=== PATIENT | female | born 1940 | race Two or more races ===

== ENCOUNTER 2020-02-24 13:23 | Inpatient (IN) | payer MEDICARE, SELFPAY ==
[2020-02-24 13:41] VITALS: BP 148/68; BP 149/58; PULSE 96; PULSE 98; RESP 24; TEMP 37.2; O2SAT 87; O2SAT 91; BMI 20.7
--- NOTE | 2020-02-24 13:41 | ECG_ITS ---
Test Reason : DYSPNEA Blood Pressure : / mmHG Vent. Rate : 093 BPM Atrial Rate : 093 BPM P-R Int : 124 ms QRS Dur : 082 ms QT Int : 346 ms P-R-T Axes : 036 017 045 degrees QTc Int : 430 ms Normal sinus rhythm Normal ECG No previous ECGs available Referred By: Stephenie Amato Electronically Signed By:Keaton Senior
--- NOTE | 2020-02-24 13:43 | ED_ITS ---
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 The patient tells me that her is currently COVID positive and admitted at [facility]. Yesterday she started to have malaise, fevers, chills. Today 1 episode of vomiting and 1 episode of diarrhea. Today also has shortness of breath and cough. Shortness of breath on exertion. She has no chest pain, leg swelling or pain. Blood sugars today running high. Per patient they are always elevated MD elicited complaint: shortness of breath and cough Onset (ago): day(s) Timing: intermittent Severity: mild Exacerbating factors: exertion, movement and coughing Relieving factors: oxygen and rest Associated symptoms: cough and nausea/vomiting Treatment prior to arrival: oxygen Related Data Allergies Allergy/AdvReac Type Severity Reaction Status Date / Time No Known Allergies Allergy Verified 02/24/20 13:41 [No Known Allergies*] Review of Systems Review of Systems: Yes all other systems are reviewed and are negative Constitutional: Constitutional: Reports no additional constitutional complaints, Denies body ache(s), Denies chills, Denies fever(s), Denies heada octavio(s), Reports malaise and Denies weakness Eyes: Eyes: Reports no additional eye complaints and Denies change in vision ENT: Reports system reviewed and no additional complaints, except as docume nted, Denies dizziness, Denies headache(s), Denies nasal congestion, Denies nasal discharge and Denies neck pain Cardiovascular: Cardiovascular: Reports no additional cardiovascular complaints, Denies chest pain, Denies leg edema and Reports dyspnea Respiratory: Respiratory: Reports no additional respiratory complaints, Reports cough and Reports dyspnea Gastrointestinal: Gastrointestinal: Reports no additional gastrointestinal complaints, Denies abdominal pain, Reports diarrhea, Reports nausea and Reports vomiting Genitourinary: Genitourinary: Reports no additional female genitourinary complaints and Denies urinary incontinence Musculoskeletal: Musculoskeletal: Reports no additional musculoskeletal complaints, Denies back pain, Denies arthralgias, Denies joint swelling, Denies neck pain, Denies numbness and Denies tingling Integumentary/Breasts: Skin/Breast: Reports system reviewed and no additional complaints, except as docu and Denies rash Neurologic: Reports system reviewed and no additional complaints, except as documented, Denies Abnormal speech present, Denies dizziness, Denies headache(s), Denies numbness, Denies tingling and Denies weakness PMFSH Past Medical History Attestation statement: The following information was validated with the patient. Source: old records reviewed and nursing notes reviewed Medical History (Updated 02/24/20 @ 16:36 by Stephenie Amato NP) Diabetes mellitus High cholesterol Hypertension Social History Social History Alcohol intake: never Smoking Status: Never smoker Use of substances other than those prescribed or required for medical reasons: No Advance Directives: No Advance Directives Information Provided: No Physical Exam Vital Signs: Vital Signs: Last Vital Signs Temp 99.5 F 02/24/20 15:57 Pulse 93 02/24/20 15:57 Resp 18 02/24/20 15:57 BP 142/66 H 02/24/20 15:57 Pulse Ox 97 02/24/20 15:57 Body Mass Index 20.7 Const: General: cooperative, healthy appearing, comfortable and no acute distress Orientation/consciousness: patient oriented x3 Limitations: no limitations HENMT: Head: Yes normal to inspection Ears: hearing grossly normal bilaterally General nose exam: Normal external nose present Face and sinus: Yes normal facial exam Mouth: Normal oral and palatal mucosa present Throat: Yes posterior oropharynx normal Eyes: General: appearance normal, both eyes and all related structures Pupils: Equal, round and reactive pupils present Neck: Neck: Yes normal visual inspection Chest: Chest palpation & inspection: normal inspection of the chest Resp: Other: Initial breath sounds. Mild tachypnea noted with speaking. Cardio: Rate: regular rate Rhythm: regular rhythm Peripheral pulses: Peripheral pulses 2+ throughout GI: Inspection: Yes normal to inspection Palpation (GI): Soft to palpation and nontender Auscultation: normal bowel sounds Back/Spine/Pelvis: Thoracic/Lumbar Spine: thoracic and lumbar spine normal to inspection Skin: General skin exam: no rashes or lesions noted Neuro: General: patient oriented x3, no focal motor deficits and normal sensation to monofilament Cranial nerves: Yes Equal, round and reactive pupils present Cognition (Neuro): normal cognition Speech: No Abnormal speech present Gait exam (Neuro): Normal gait present Motor exam (neuro): 5/5 motor strength present throughout Extrem: General: Yes normal to inspection, Yes no pedal edema and Yes no calf tenderness Course Course Course Narrative: 79-year-old female here with nausea vomiting, diarrhea, tactile temps, body aches, chills, shortness of breath, cough times 48 hours. Has been is COVID positive and currently admitted to this hospital. On arrival the patient has some mild tachypnea with respiratory rate 24 26 and is hypoxic 87% on room air. Will need labs including blood cultures and lactic acid, chest x-ray, EKG, COVID test. Will need admission 1430-CXR concerning for pneumonitis, At this time infection is suspected, antibiotics ordered. 1700-labs are pending. Sign out to [facility] pending labs and admission. MDM - SOB/Dyspnea Medical Records Attestation: I reviewed the patient's medical records. Lab Data Attestation: I reviewed the patient's lab results. Result diagrams: 02/24/20 14:06 02/24/20 16:30 Labs: Lab Results 02/24/20 02/24/20 02/24/20 Range/Units 13:58 14:06 14:06 WBC 11.1 H (4.8-10.8) X10*3/uL RBC 4.01 L (4.20-5.50) X10*6/uL Hgb 11.2 L (12.0-16.0) g/dl Hct 34.0 L (37-47) % MCV 84.8 (80-98) fL MCH 27.9 (27.0-33.0) pg MCHC 32.9 (31.0-35.0) g/dl RDW 12.3 (11.0-16.0) % Plt Count 368 (160-400) X10*3/uL MPV 10.0 (9.4-12.3) fL Immature Gran % (Auto) 0.5 H (0.0-0.4) % Neut % (Auto) 82.0 H (45-73) % Lymph % (Auto) 9.9 L (20-40) % [place] % (Auto) 7.1 (2-11) % Eos % (Auto) 0.1 (0-4) % Baso % (Auto) 0.4 (0-2) % Lymph # (Auto) 1.1 L (1.2-4.9) X10*3/uL [place] # (Auto) 0.8 (0.1-1.2) X10*3/uL Eos # (Auto) 0.0 (0.0-0.4) X10*3/uL Baso # (Auto) 0.0 (0.0-0.2) X10*3/uL Abs Immat Gran (auto) 0.06 H (0.00-0.03) X10*3/uL Absolute Neuts (auto) 9.1 H (2.0-8.3) X10*3/uL Absolute Nucleated RBC 0.000 (0.0-0.012) X10*3/uL Nucleated RBC % (auto) 0.0 (0.0-0.2) /100WBC PT 14.7 H (10.8-13.0) SEC INR 1.2 H (0.9-1.1) Sodium Potassium Chloride Carbon Dioxide Anion Gap BUN Creatinine Estim Creat Clear Calc Estimated GFR Random Glucose Lactic Acid (0.5-2.0) mmol/L Calcium Magnesium Ferritin Total Bilirubin Direct Bilirubin AST ALT Alkaline Phosphatase Lactate Dehydrogenase Troponin I High Sens (<3.5-17.0) ng/L C-Reactive Protein B-Natriuretic Peptide (<100) pg/mL Total Protein Albumin Procalcitonin COVID-19 ([facility]) Positive A (Negative) COVID-19 Clin Com See Note 02/24/20 02/24/20 02/24/20 Range/Units 14:06 14:06 14:06 WBC (4.8-10.8) X10*3/uL RBC (4.20-5.50) X10*6/uL Hgb (12.0-16.0) g/dl Hct (37-47) % MCV (80-98) fL MCH (27.0-33.0) pg MCHC (31.0-35.0) g/dl RDW (11.0-16.0) % Plt Count (160-400) X10*3/uL MPV (9.4-12.3) fL Immature Gran % (Auto) (0.0-0.4) % Neut % (Auto) (45-73) % Lymph % (Auto) (20-40) % [place] % (Auto) (2-11) % Eos % (Auto) (0-4) % Baso % (Auto) (0-2) % Lymph # (Auto) (1.2-4.9) X10*3/uL [place] # (Auto) (0.1-1.2) X10*3/uL Eos # (Auto) (0.0-0.4) X10*3/uL Baso # (Auto) (0.0-0.2) X10*3/uL Abs Immat Gran (auto) (0.00-0.03) X10*3/uL Absolute Neuts (auto) (2.0-8.3) X10*3/uL Absolute Nucleated RBC (0.0-0.012) X10*3/uL Nucleated RBC % (auto) (0.0-0.2) /100WBC PT (10.8-13.0) SEC INR (0.9-1.1) Sodium Cancelled Potassium Cancelled Chloride Cancelled Carbon Dioxide Cancelled Anion Gap Cancelled BUN Cancelled Creatinine Cancelled Estim Creat Clear Calc Cancelled Estimated GFR Cancelled Random Glucose Cancelled Lactic Acid 1.6 (0.5-2.0) mmol/L Calcium Cancelled Magnesium Cancelled Ferritin Cancelled Total Bilirubin Cancelled Direct Bilirubin Cancelled AST Cancelled ALT Cancelled Alkaline Phosphatase Cancelled Lactate Dehydrogenase Cancelled Troponin I High Sens 9.6 (<3.5-17.0) ng/L C-Reactive Protein Cancelled B-Natriuretic Peptide 49 (<100) pg/mL Total Protein Cancelled Albumin Cancelled Procalcitonin COVID-19 ([facility]) (Negative) COVID-19 Clin Com 02/24/20 02/24/20 Range/Units 14:06 16:30 WBC (4.8-10.8) X10*3/uL RBC (4.20-5.50) X10*6/uL Hgb (12.0-16.0) g/dl Hct (37-47) % MCV (80-98) fL MCH (27.0-33.0) pg MCHC (31.0-35.0) g/dl RDW (11.0-16.0) % Plt Count (160-400) X10*3/uL MPV (9.4-12.3) fL Immature Gran % (Auto) (0.0-0.4) % Neut % (Auto) (45-73) % Lymph % (Auto) (20-40) % [place] % (Auto) (2-11) % Eos % (Auto) (0-4) % Baso % (Auto) (0-2) % Lymph # (Auto) (1.2-4.9) X10*3/uL [place] # (Auto) (0.1-1.2) X10*3/uL Eos # (Auto) (0.0-0.4) X10*3/uL Baso # (Auto) (0.0-0.2) X10*3/uL Abs Immat Gran (auto) (0.00-0.03) X10*3/uL Absolute Neuts (auto) (2.0-8.3) X10*3/uL Absolute Nucleated RBC (0.0-0.012) X10*3/uL Nucleated RBC % (auto) (0.0-0.2) /100WBC PT (10.8-13.0) SEC INR (0.9-1.1) Sodium Potassium Chloride Carbon Dioxide Anion Gap BUN Creatinine Estim Creat Clear Calc Estimated GFR Random Glucose Lactic Acid (0.5-2.0) mmol/L Calcium Magnesium Ferritin Cancelled Total Bilirubin Direct Bilirubin AST ALT Alkaline Phosphatase Lactate Dehydrogenase Troponin I High Sens (<3.5-17.0) ng/L C-Reactive Protein B-Natriuretic Peptide (<100) pg/mL Total Protein Albumin Procalcitonin Cancelled COVID-19 ([facility]) (Negative) COVID-19 Clin Com Imaging Data Chest x-ray: Attestation: I personally reviewed and interpreted this imaging study as follows: Radiologist's impression: EXAMINATION: XR CHEST CLINICAL INFORMATION: SOB. COMPARISON: Chest 10/03/2018 TECHNIQUE: Frontal view of the chest was obtained. FINDINGS: The lungs are well-expanded with increased interstitial markings both lungs without consolidation or pleural effusion. The heart size and pulmonary vascularity is normal. There is moderate spondylosis dorsal spine. No lytic process. XR/XR chest 1V IMPRESSION: Bilateral increase interstitial markings suggestive of interstitial pneumonitis. No consolidation seen. ECG Data Attestation: I personally reviewed and interpreted this ECG as follows: ECG interpretation date: 02/24/20 ECG interpretation time: 15:37 Interpretation: Normal sinus rhythm, normal WI, normal QRS, normal QT Discharge Plan Discharge Clinical Impression: COVID-19, Hypoxia Pneumonia Qualifiers: Pneumonia type: due to unspecified organism Laterality: bilateral Patient Disposition: Admitted As Inpatient
[2020-02-24 14:07] VITALS: BP 147/66; PULSE 96; RESP 28; O2SAT 97
[2020-02-24 14:20] LABS: Basophils Percent Auto 0.4 % (0-2); Eosinophils Percent Auto 0.1 % (0-4); Hemoglobin 11.2 g/dl (12.0-16.0); Imm Gran Abs Auto 0.06 X10*3/uL (0.00-0.03); Imm Gran Pct Auto 0.5 % (0.0-0.4); Lymphocytes Absolute Auto 1.1 X10*3/uL (1.2-4.9); Lymphocytes Percent Auto 9.9 % (20-40); MANUAL DIFF FLAG NO; Mean Corpuscular HGB Conc 32.9 g/dl (31.0-35.0); Mean Corpuscular Hemoglobin 27.9 pg (27.0-33.0); Mean Corpuscular Volume 84.8 fL (80-98); Monocytes Absolute Auto 0.8 X10*3/uL (0.1-1.2); Monocytes Percent Auto 7.1 % (2-11); Neutrophils Absolute Auto 9.1 X10*3/uL (2.0-8.3); Platelet Count 368 X10*3/uL (160-400); Red Blood Count 4.01 X10*6/uL (4.20-5.50); Red Cell Distribution Width 12.3 % (11.0-16.0); White Blood Count 11.1 X10*3/uL (4.8-10.8)
[2020-02-24 14:28] LABS: INTERNATIONAL NORM RATIO 1.2 (0.9-1.1); Prothrombin Time 14.7 SEC (10.8-13.0)
[2020-02-24 14:46] LABS: Lactic Acid 1.6 mmol/L (0.5-2.0)
[2020-02-24 14:55] LABS: B Type Natriuretic Peptide 49 pg/mL (<100); Troponin-I High Sensitivity 9.6 ng/L (<3.5-17.0)
[2020-02-24 15:57] VITALS: BP 142/66; PULSE 93; RESP 18; TEMP 37.5; O2SAT 97
[2020-02-24] MEDS: dexAMETHasone sod phosphate 4 MG/ML VIAL 6 MG IVPUSH (16:00)
[2020-02-24] MEDS: cefTRIAXone sodium 1 GM in 0.9 % Sodium Chloride 50 ML IV (16:00)
[2020-02-24 16:10] LABS: COVID-19 Test Positive (Negative)
[2020-02-24] MEDS: Azithromycin 500 MG in 0.9 % Sodium Chloride 250 ML 125 MG IV (16:42)
[2020-02-24 17:07] LABS: Alanine Aminotransferase 37 U/L (0-31); Albumin Level 3.5 g/dL (3.5-5.0); Alkaline Phosphatase 177 U/L (39-117); Anion Gap 15 (12-20); Aspartate Amino Transferase 46 U/L (5-31); Bilirubin Direct 0.4 mg/dL (0.0-0.5); Bilirubin Total 0.5 mg/dL (0.0-1.0); Blood Urea Nitrogen 22 mg/dL (9-16); Calcium 8.7 mg/dL (8.4-10.2); Carbon Dioxide 30 mmol/L (22-29); Chloride 92 mmol/L (96-108); Creatinine Clr Calc Pharmacy 33.7; Estimated Glomerular Filt Rate 42; Glucose Random 315 mg/dL (60-115); Lactate Dehydrogenase 259 U/L (122-220); Potassium 4.4 mmol/l (3.3-5.1); Sodium 133 mmol/L (135-145); Total Protein 7.4 g/dL (6.5-8.0)
[2020-02-24 17:12] VITALS: BP 131/61; PULSE 88; RESP 28; TEMP 37.2; O2SAT 92
[2020-02-24 17:23] LABS: Procalcitonin 0.43 ng/mL
[2020-02-24 17:24] LABS: D Dimer 688 NG/ML
[2020-02-24 17:25] LABS: Ferritin 380 ng/mL (10-250)
--- NOTE | 2020-02-24 18:57 | CT_ITS ---
EXAMINATION: CT ANGIOGRAM OF THE CHEST WITH AND WITHOUT CONTRAST (CT PULMONARY ANGIOGRAM FOR PE) CLINICAL INFORMATION: Reason for Exam covid+, hypoxia, PE? COMPARISON: Chest x-ray 02/24/2020 TECHNIQUE: Prior to contrast administration, noncontrast localization images were obtained. Subsequently, multidetector volumetric imaging was performed from the thoracic inlet to below the diaphragms following the administration of 80 mL Omnipaque 350 intravenous contrast. No contrast reaction reported Sagittal, coronal, and MIP oblique sagittal reformatted images were obtained on the CT workstation, uploaded to PACS, and reviewed. This CT examination was performed using dose optimization techniques as appropriate, variously including the following: *Automated exposure control *Adjustment of mA and/or kV according to patient size (this includes techniques or standardized protocols for targeted exams where dose is matched to indication/reason for exam; i.e. extremities or head) *Use of iterative reconstruction technique Total exam dose-length product 203 mGy-cm FINDINGS: QUALITY OF STUDY/CONTRAST BOLUS: Satisfactory. PULMONARY ARTERIES: No central or segmental pulmonary emboli. THORACIC AORTA: No aneurysm or dissection. LUNG: Extensive multifocal areas of nodular consolidation and groundglass opacity with interlobular septal thickening are seen within the lungs bilaterally, greatest posteriorly and in the lower lobes, consistent with multifocal infection. PLEURA: No pleural effusion or pneumothorax. MEDIASTINUM: There is a borderline enlarged right hilar lymph node. Prominent subcarinal lymph node. Normal heart size. No pericardial effusion. No evidence of septal bowing or right heart strain. CHEST WALL/AXILLA: No axillary or internal mammary lymphadenopathy. OSSEOUS STRUCTURES: No acute or suspicious osseous abnormality. UPPER ABDOMEN: There is slight reflux of contrast into the inferior vena cava but not into the hepatic veins. Status post cholecystectomy. No adrenal mass. CT/CT angio chest PE protocol IMPRESSION: No pulmonary embolus seen. There is slight reflux of contrast into the inferior vena cava which may reflect elevated right heart pressures. Extensive multifocal areas of nodular consolidation and groundglass opacity with interlobular septal thickening are seen within the lungs bilaterally, greatest posteriorly and in the lower lobes, consistent with multifocal infection. The appearance is consistent with COVID pneumonitis. VTE: negative
[2020-02-24] MEDS: iohexoL 350 MG/ML 100 ML INFUS..BTL 65 ML IV (20:27)
[2020-02-24 21:13] VITALS: BP 120/60; PULSE 79; RESP 15; TEMP 36.6; O2SAT 96
--- NOTE | 2020-02-24 21:13 | PC.NURSE ---
unlabored at rest. nsr on monitor. awaiting admission. states she hasn't taken any meds in 2 days d/t illness.
--- NOTE | 2020-02-24 21:35 | P.HPHOSP_ITS ---
History of Present Illness Date of Service: 02/24/20 Chief Complaint: SOB, weakness This is a 79-year-old female with past medical history of diabetes, hypertension, hyperlipidemia who presents to the hospital with complaints of 2 days of shortness of breath, cough, fatigue, low appetite. Patient reports that she has had very low oral intake for the past 3 days. Her is currently in the hospital with COVID-19 pneumonia. Patient reports nausea, low-grade fever, chills, started having diarrhea about a day ago. On arrival to the ED patient was found to be 86% on room air. She is currently on 2 L of oxygen satting 96%. On arrival were significant for temperature of 98.9?, pulse rate of 98, respira tory rate of 24, blood pressure 149/58, satting 86% on room air Labs are significant for WBC count 11.1, hemoglobin of 11.2, hematocrit 34, PT of 14.7, INR of 1.2, sodium of 135, BUN of 22, creatinine of 1.25, AST of 46, ALT of 37, alk-phos of 177, LDH of 259, CRP of 36, COVID-[address] angio gram negative for PE, with extensive multifocal areas of nodular consolidation and ground-glass opacity with interlobular septal thickening consistent with COVID-19 pneumonitis Past medical history: Diabetes, hypertension, hyperlipidemia Past surgical history: Cholecystectomy Family history: Significant for cancer, asthma Social history: Comes from home, lives with her and son, denies tobacco alcohol or illicit drugs Review of Systems Review of Systems: Yes all other systems are reviewed and are negative Constitutional: Constitutional: Denies headache(s) and Denies weakness ENT: Denies dizziness and Denies headache(s) Musculoskeletal: Musculoskeletal: Denies numbness and Denies tingling Neurologic: Reports system reviewed and no additional complaints, except as documented, Denies Abnormal speech present, Denies dizziness, Denies headache(s), Denies numbness, Denies tingling and Denies weakness [facility] Medical History Diabetes mellitus High cholesterol Hypertension Social History Alcohol intake: never Smoking Status: Never smoker Use of substances other than those prescribed or required for medical reasons: No Advance Directives: No Advance Directives Information Provided: No Meds Allergies Allergy/AdvReac Type Severity Reaction Status Date / Time No Known Allergies Allergy Verified 02/24/20 13:41 [No Known Allergies*] Home Medications Medication Instructions Recorded Confirmed Type amlodipine 1 tab PO DAILY 02/24/20 02/24/20 History aspirin 1 tab PO DAILY 02/24/20 02/24/20 History atorvastatin 1 tab PO DAILY 02/24/20 02/24/20 History hydrochlorothiazide 1 tab PO DAILY 02/24/20 02/24/20 History irbesartan 1 tab PO DAILY 02/24/20 02/24/20 History metformin 1 tab PO BID 02/24/20 02/24/20 History Physical Exam Vital Signs and Narrative: Vital Signs: Last Vital Signs Temp 97.8 F 02/24/20 21:13 Pulse 79 02/24/20 21:13 Resp 15 02/24/20 21:13 BP 120/60 02/24/20 21:13 Pulse Ox 96 02/24/20 21:13 Body Mass Index 20.7 Const: General: cooperative, no acute distress, awake, ill appearing and tired appearing Orientation/consciousness: patient oriented x3 Eyes: General: appearance normal, both eyes and all related structures Resp: Effort & Inspection: able to speak in complete sentences Cardio: Rate: regular rate Rhythm: regular rhythm GI: Palpation (GI): Soft to palpation Auscultation: normal bowel sounds Skin: General skin exam: no rashes or lesions noted Neuro: General: patient oriented x3 Cognition (Neuro): normal cognition Speech: No Abnormal speech present Extrem: General: Yes normal to inspection and Yes no pedal edema Results Labs CBC and Chem 7: 02/24/20 14:06 02/24/20 16:30 Labs: Laboratory Results - last 24 hr 02/24/20 02/24/20 02/24/20 13:58 14:06 14:06 MCV 84.8 MCH 27.9 MCHC 32.9 RDW 12.3 Plt Count 368 MPV 10.0 Immature Gran % (Auto) 0.5 H Neut % (Auto) 82.0 H Lymph % (Auto) 9.9 L [place] % (Auto) 7.1 Eos % (Auto) 0.1 Baso % (Auto) 0.4 Lymph # (Auto) 1.1 L [place] # (Auto) 0.8 Eos # (Auto) 0.0 Baso # (Auto) 0.0 Abs Immat Gran (auto) 0.06 H Absolute Neuts (auto) 9.1 H Absolute Nucleated RBC 0.000 Nucleated RBC % (auto) 0.0 PT 14.7 H INR 1.2 H D-Dimer 688 Anion Gap Estim Creat Clear Calc Estimated GFR Random Glucose Lactic Acid Calcium Magnesium Ferritin Total Bilirubin Direct Bilirubin AST ALT Alkaline Phosphatase Lactate Dehydrogenase Troponin I High Sens C-Reactive Protein B-Natriuretic Peptide Total Protein Albumin Procalcitonin COVID-19 ([facility]) Positive A COVID-19 Clin Com See Note 02/24/20 02/24/20 02/24/20 14:06 14:06 14:06 MCV MCH MCHC RDW Plt Count MPV Immature Gran % (Auto) Neut % (Auto) Lymph % (Auto) [place] % (Auto) Eos % (Auto) Baso % (Auto) Lymph # (Auto) [place] # (Auto) Eos # (Auto) Baso # (Auto) Abs Immat Gran (auto) Absolute Neuts (auto) Absolute Nucleated RBC Nucleated RBC % (auto) PT INR D-Dimer Anion Gap Cancelled Estim Creat Clear Calc Cancelled Estimated GFR Cancelled Random Glucose Cancelled Lactic Acid 1.6 Calcium Cancelled Magnesium Cancelled Ferritin Cancelled Total Bilirubin Cancelled Direct Bilirubin Cancelled AST Cancelled ALT Cancelled Alkaline Phosphatase Cancelled Lactate Dehydrogenase Cancelled Troponin I High Sens 9.6 C-Reactive Protein Cancelled B-Natriuretic Peptide 49 Total Protein Cancelled Albumin Cancelled Procalcitonin COVID-19 ([facility]) COVID-Backyard 02/24/20 02/24/20 02/24/20 14:06 16:30 16:30 MCV MCH MCHC RDW Plt Count MPV Immature Gran % (Auto) Neut % (Auto) Lymph % (Auto) [place] % (Auto) Eos % (Auto) Baso % (Auto) Lymph # (Auto) [place] # (Auto) Eos # (Auto) Baso # (Auto) Abs Immat Gran (auto) Absolute Neuts (auto) Absolute Nucleated RBC Nucleated RBC % (auto) PT INR D-Dimer Anion Gap 15 Estim Creat Clear Calc 33.7 Estimated GFR 42 Random Glucose 315 H Lactic Acid Calcium 8.7 Magnesium Ferritin 380 H Cancelled Total Bilirubin 0.5 Direct Bilirubin 0.4 AST 46 H ALT 37 H Alkaline Phosphatase 177 H Lactate Dehydrogenase 259 H Troponin I High Sens C-Reactive Protein 36.80 H B-Natriuretic Peptide Total Protein 7.4 Albumin 3.5 Procalcitonin Cancelled COVID-19 ([facility]) COVID-19 Clin Com 02/24/20 16:30 MCV MCH MCHC RDW Plt Count MPV Immature Gran % (Auto) Neut % (Auto) Lymph % (Auto) [place] % (Auto) Eos % (Auto) Baso % (Auto) Lymph # (Auto) [place] # (Auto) Eos # (Auto) Baso # (Auto) Abs Immat Gran (auto) Absolute Neuts (auto) Absolute Nucleated RBC Nucleated RBC % (auto) PT INR D-Dimer Anion Gap Estim Creat Clear Calc Estimated GFR Random Glucose Lactic Acid Calcium Magnesium Ferritin Total Bilirubin Direct Bilirubin AST ALT Alkaline Phosphatase Lactate Dehydrogenase Troponin I High Sens C-Reactive Protein B-Natriuretic Peptide Total Protein Albumin Procalcitonin 0.43 COVID-19 ([facility]) COVID-19 Clin Com Imaging Radiologist's Impressions: Impressions Chest X-Ray 02/24/20 13:41 IMPRESSION: Bilateral increase interstitial markings suggestive of interstitial pneumonitis. No consolidation seen. Chest CTA 02/24/20 18:57 IMPRESSION: No pulmonary embolus seen. There is slight reflux of contrast into the inferior vena cava which may reflect elevated right heart pressures. Extensive multifocal areas of nodular consolidation and groundglass opacity with interlobular septal thickening are seen within the lungs bilaterally, greatest posteriorly and in the lower lobes, consistent with multifocal infection. The appearance is consistent with COVID pneumonitis. VTE: negative Assessment and Plan (1) Pneumonia due to COVID-19 virus: Status: Acute (2) Acute respiratory failure with hypoxia: Status: Acute (3) Transaminitis: Status: Acute 79-year-old female presents to the hospital with complaints of fatigue as well as shortness of breath found to have COVID-19 pneumonia. # acute hypoxic respiratory failure - secondary to COVID-19 pneumonia versus PE unlikely versus bacterial pneumonia - afebrile, has leukocytosis, CT imaging negative for PE but positive for multifocal pneumonia suggestive of COVID-19, COVID-19 PCR positive - hypoxic in the mid 80s on arrival Plan: - will start her on Decadron 6 mg daily - oxygen supplement as required - monitor respiratory status - follow cultures, Legionella and strep antigens # COVID-19 pneumonia - CT angiogram suggestive of multifocal infiltrates suggestive of COVID-19 Plan: - Decadron daily - oxygen as required - will monitor respiratory status # transaminitis - most likely secondary to COVID-19 - follow LFTs # diabetes - low-dose sliding scale insulin - diabetic diet # hypertension - continue amlodipine DVT prophylaxis: Lovenox
[2020-02-24] MEDS: 0.9 % Sodium Chloride Flush 3 ML SYRINGE IVFLUSH (23:23)
[2020-02-24] MEDS: Enoxaparin Sodium 40 MG/0.4 ML SYRINGE SUBCUT (23:23)
[2020-02-24 23:32] VITALS: BP 106/58; PULSE 74; RESP 22; O2SAT 98
[2020-02-25 03:50] VITALS: BP 117/54; PULSE 90; RESP 16; O2SAT 94
[2020-02-25 05:19] LABS: Basophils Percent Auto 0.2 % (0-2); Hematocrit 36.5 % (37-47); Hemoglobin 11.6 g/dl (12.0-16.0); Imm Gran Abs Auto 0.07 X10*3/uL (0.00-0.03); Imm Gran Pct Auto 0.9 % (0.0-0.4); Lymphocytes Absolute Auto 0.7 X10*3/uL (1.2-4.9); Lymphocytes Percent Auto 8.6 % (20-40); MANUAL DIFF FLAG SCAN; Mean Corpuscular HGB Conc 31.8 g/dl (31.0-35.0); Mean Corpuscular Hemoglobin 27.5 pg (27.0-33.0); Mean Corpuscular Volume 86.5 fL (80-98); Mean Platelet Volume 9.2 fL (9.4-12.3); Monocytes Absolute Auto 0.2 X10*3/uL (0.1-1.2); Monocytes Percent Auto 1.9 % (2-11); Neutrophils Absolute Auto 7.1 X10*3/uL (2.0-8.3); Neutrophils Percent Auto 88.4 % (45-73); Platelet Count 408 X10*3/uL (160-400); Red Blood Count 4.22 X10*6/uL (4.20-5.50); Red Cell Distribution Width 12.3 % (11.0-16.0); SCAN SMEAR FLAG 1; White Blood Count 8.1 X10*3/uL (4.8-10.8)
[2020-02-25 05:26] LABS: SLIDE REVIEW VERIFIED
[2020-02-25 05:47] LABS: Anion Gap 25 (12-20); Blood Urea Nitrogen 35 mg/dL (9-16); Calcium 8.7 mg/dL (8.4-10.2); Carbon Dioxide 20 mmol/L (22-29); Chloride 94 mmol/L (96-108); Creatinine Clr Calc Pharmacy 29.4; Estimated Glomerular Filt Rate 36; Glucose Random 440 mg/dL (60-115); Potassium 4.8 mmol/l (3.3-5.1); Sodium 134 mmol/L (135-145)
[2020-02-25] MEDS: Insulin Lispro 100 UNIT/ML 3 ML VIAL SUBCUT ×6 (06:00→22:03)
[2020-02-25] MEDS: Insulin Lispro 100 UNIT/ML 3 ML VIAL 10 UNIT SUBCUT ×3 (06:16→17:34)
[2020-02-25 09:19] LABS: Glucose, Whole Blood 325 mg/dL (60-115)
[2020-02-25] MEDS: 0.9 % Sodium Chloride Flush 3 ML SYRINGE IVFLUSH ×2 (09:48→17:34)
[2020-02-25] MEDS: dexAMETHasone sod phosphate 4 MG/ML VIAL 6 MG IVPUSH (09:48)
--- NOTE | 2020-02-25 10:22 | PC.NURSE ---
seen by hospitalist this morning, waiting on bed assignment pt amb oob to [facility] with no assist, sats have been 92% or greater on 3 l fio2
--- NOTE | 2020-02-25 11:10 | P.PNIM_ITS ---
Subjective Subjective Date of Service: 02/25/20 Interval History: improved Cardiovascular Cardiovascular: Reports no additional cardiovascular complaints Gastrointestinal Gastrointestinal: Reports no additional gastrointestinal complaints Physical Exam Vital Signs: Vital Signs: Last Vital Signs Temp 97.8 F 02/24/20 21:13 Pulse 90 02/25/20 03:50 Resp 16 02/25/20 03:50 BP 117/54 L 02/25/20 03:50 Pulse Ox 94 02/25/20 03:50 Body Mass Index 20.7 General: AO X 3, no acute distress Resp: CTA bilateral CVS: S1,S2,RRR GI: soft, non tender, non distended Neuro: motor grossly intact Psych: appropriate affect Objective Data Current Medications Generic Name Dose Route Start Last Admin Trade Name Freq PRN Reason Stop Dose Admin Acetaminophen 650 mg 02/24/20 22:33 Acetaminophen 325 Mg Tablet PO Q6H PRN Pain, Mild (Pain Scale 1-3) Dexamethasone Sodium Phosphate 6 mg 02/25/20 09:00 02/25/20 09:48 Dexamethasone Sod Phosphate 4 Mg/Ml Vial IVPUSH 6 mg DAILY [facility] Administration Docusate Sodium 100 mg 02/24/20 22:33 Docusate Sodium 100 Mg Capsule PO DAILY PRN Constipation Enoxaparin Sodium 40 mg 02/24/20 22:33 02/24/20 23:23 Enoxaparin Sodium 40 Mg/0.4 Ml Syringe SUBCUT 40 mg Q24H [facility] Administration Insulin Glargine 20 unit 02/25/20 11:10 Insulin Glargine,Hum.Rec.Anlog 100 Unit/Ml 10 Ml Vial SUBCUT DAILY [facility] Insulin Human Lispro 0 unit 02/25/20 07:30 02/25/20 06:00 Insulin Lispro 100 Unit/Ml 3 Ml Vial SUBCUT 10 unit QIDACHS [facility] Administration Protocol Ondansetron HCl 4 mg 02/24/20 22:33 Ondansetron Hcl 4 Mg/2 Ml Vial IVPUSH Q8H PRN Nausea and Vomiting Sodium Chloride 3 ml 02/25/20 00:00 02/25/20 09:48 0.9 % Sodium Chloride Flush 3 Ml Syringe IVFLUSH 3 ml QSHIFT [facility] Administration Labs CBC & Chem 7: 02/25/20 05:14 02/25/20 05:14 Microbiology Microbiology Results: Microbiology 02/24/20 16:30 Blood - Venous Blood Culture - Preliminary Assessment and Plan (1) Pneumonia due to COVID-19 virus: Status: Acute (2) Acute respiratory failure with hypoxia: Status: Acute (3) Transaminitis: Status: Acute Assessment and Plan: 79-year-old female presented to the hospital with complaints of fatigue as well as shortness of breath found to have COVID-19 pneumonia. acute hypoxic respiratory failure Due to cover pneumonia Continue Decadron day 2 Wean O2 as tolerated Diabetes with hyperglycemia Add long-acting insulin Continue sliding scale Hypertension Amlodipine
[2020-02-25 12:00] VITALS: BP 134/58; RESP 84; TEMP 36.8; O2SAT 98
[2020-02-25 12:11] LABS: Glucose, Whole Blood 427 mg/dL (60-115)
[2020-02-25] MEDS: Insulin Glargine,Hum.rec.anlog 100 UNIT/ML 10 ML VIAL 20 UNIT SUBCUT (14:30)
[2020-02-25 17:09] VITALS: BP 103/45; PULSE 95; RESP 16; O2SAT 96
[2020-02-25 17:24] LABS: Glucose, Whole Blood 551 mg/dL (60-115)
--- NOTE | 2020-02-25 17:39 | PC.NURSE ---
Pt's blood sugar elevated beyond 400 ac for lunch and dinner. Dr De La Torre notified, and orders provided. See MAR.
--- NOTE | 2020-02-25 19:54 | PC.NURSE ---
plan to begin on insulin drip after reassessment at 2020
[2020-02-25 20:11] LABS: Anion Gap 24 (12-20); Blood Urea Nitrogen 63 mg/dL (9-16); Calcium 9.4 mg/dL (8.4-10.2); Carbon Dioxide 25 mmol/L (22-29); Chloride 90 mmol/L (96-108); Creatinine Clr Calc Pharmacy 18.9; Estimated Glomerular Filt Rate 21; Glucose Random 499 mg/dL (60-115); Potassium 4.8 mmol/l (3.3-5.1); Sodium 134 mmol/L (135-145)
--- NOTE | 2020-02-25 20:34 | PC.NURSE ---
awaiting pediatric radiologist to begin insulin drip and place 2nd line.
--- NOTE | 2020-02-25 21:02 | PC.NURSE ---
BGL 368. hospitalist aware. plan at this time is to give 20 units insulin then recheck q hr for further needs. hold insulin drip at thsi time.
--- NOTE | 2020-02-25 21:57 | PC.NURSE ---
bgl 293- per hospitalist plan at this time. is to do q 2hr bgl checks and keep same scale.
[2020-02-25 22:00] VITALS: BP 122/54; PULSE 100; RESP 18
[2020-02-25] MEDS: Enoxaparin Sodium 40 MG/0.4 ML SYRINGE SUBCUT (22:04)
--- NOTE | 2020-02-25 22:52 | PC.NURSE ---
bgl 178. hold insulin dose per hospitalist.
--- NOTE | 2020-02-25 23:41 | PC.NURSE ---
Per hospitalist, patient to be switched to QIDAC for insulin mangment.
[2020-02-26] MEDS: 0.9 % Sodium Chloride Flush 3 ML SYRINGE IVFLUSH ×3 (00:36→17:55)
[2020-02-26 00:46] LABS: Glucose, Whole Blood 542 mg/dL (60-115)
[2020-02-26 00:47] LABS: Glucose, Whole Blood 293 mg/dL (60-115)
[2020-02-26 00:47] LABS: Glucose, Whole Blood 386 mg/dL (60-115)
[2020-02-26 00:47] LABS: Glucose, Whole Blood 178 mg/dL (60-115)
[2020-02-26 00:47] LABS: Glucose, Whole Blood 479 mg/dL (60-115)
[2020-02-26 06:00] VITALS: BP 133/63; PULSE 74; RESP 18
[2020-02-26 06:27] LABS: Basophils Percent Auto 0.2 % (0-2); Hematocrit 35.4 % (37-47); Hemoglobin 11.8 g/dl (12.0-16.0); Imm Gran Abs Auto 0.25 X10*3/uL (0.00-0.03); Lymphocytes Absolute Auto 1.2 X10*3/uL (1.2-4.9); Lymphocytes Percent Auto 4.8 % (20-40); MANUAL DIFF FLAG SCAN; Mean Corpuscular HGB Conc 33.3 g/dl (31.0-35.0); Mean Corpuscular Hemoglobin 27.9 pg (27.0-33.0); Mean Corpuscular Volume 83.7 fL (80-98); Mean Platelet Volume 9.4 fL (9.4-12.3); Monocytes Absolute Auto 1.2 X10*3/uL (0.1-1.2); Neutrophils Absolute Auto 22.1 X10*3/uL (2.0-8.3); Platelet Count 550 X10*3/uL (160-400); Red Blood Count 4.23 X10*6/uL (4.20-5.50); Red Cell Distribution Width 12.2 % (11.0-16.0); SCAN SMEAR FLAG 1; White Blood Count 24.8 X10*3/uL (4.8-10.8)
[2020-02-26 07:36] LABS: Anion Gap 21 (12-20); Blood Urea Nitrogen 73 mg/dL (9-16); Calcium 9.8 mg/dL (8.4-10.2); Carbon Dioxide 26 mmol/L (22-29); Chloride 93 mmol/L (96-108); Estimated Glomerular Filt Rate 27; Glucose Fasting 163 mg/dL (60-99); Potassium 5.1 mmol/l (3.3-5.1); Sodium 135 mmol/L (135-145)
[2020-02-26 07:57] VITALS: BP 125/81; PULSE 88; RESP 12; O2SAT 96
[2020-02-26 08:35] LABS: Glucose, Whole Blood 303 mg/dL (60-115)
[2020-02-26 09:12] LABS: SLIDE REVIEW VERIFIED
[2020-02-26] MEDS: Insulin Lispro 100 UNIT/ML 3 ML VIAL SUBCUT ×4 (09:17→22:12)
[2020-02-26] MEDS: Insulin Glargine,Hum.rec.anlog 100 UNIT/ML 10 ML VIAL 20 UNIT SUBCUT (09:19)
[2020-02-26] MEDS: dexAMETHasone sod phosphate 4 MG/ML VIAL 6 MG IVPUSH (09:19)
--- NOTE | 2020-02-26 09:22 | PC.NURSE ---
sr on monitor, poc 302, nad
[2020-02-26 12:58] LABS: Glucose, Whole Blood 302 mg/dL (60-115)
[2020-02-26 15:44] LABS: Glucose, Whole Blood 400 mg/dL (60-115)
[2020-02-26 16:07] VITALS: BP 147/74; PULSE 95; RESP 16; TEMP 36.6; O2SAT 97
--- NOTE | 2020-02-26 16:13 | P.PNIM_ITS ---
Subjective Subjective Date of Service: 02/26/20 Interval History: the patient was seen and evaluated this morning Laying in bed, feels comfortable, in mild respiratory distress Denies any fever, chills or shortness of breath No reported other overnight events. Systemic review: No fever, chills with generalized weakness No chest pain, palpitation Reported shortness of breath and coughing No abdominal pain, nausea or vomiting No urinary symptoms No any rash or wounds Physical Exam Vital Signs: Vital Signs: Last Vital Signs Temp 98.2 F 02/25/20 12:00 Pulse 88 02/26/20 07:57 Resp 12 02/26/20 07:57 BP 125/81 02/26/20 07:57 Pulse Ox 96 02/26/20 07:57 Body Mass Index 20.7 Constitutional : Alert, in mild specially distress Neck : Normal inspection, Supple Cardiovascular : RRR, S1 S2, no lower extremity edema Respiratory : Decreased bilateral air entry, basal fine crackles, wheezes or rhonchi Gastrointestinal: soft, lax, Normal bowel sounds, Non tender Skin : Warm/Dry, No rash Neurological : Alert & oriented x3, No focal deficit Objective Data Current Medications Generic Name Dose Route Start Last Admin Trade Name Freq PRN Reason Stop Dose Admin Acetaminophen 650 mg 02/24/20 22:33 Acetaminophen 325 Mg Tablet PO Q6H PRN Pain, Mild (Pain Scale 1-3) Amlodipine Besylate 10 mg 02/26/20 16:12 Amlodipine Besylate 10 Mg Tablet PO DAILY [facility] Protocol Aspirin 81 mg 02/26/20 16:12 Aspirin Enteric Coated 81 Mg Tablet.Dr PO DAILY [facility] Atorvastatin Calcium 20 mg 02/26/20 16:12 Atorvastatin Calcium 20 Mg Tablet PO DAILY [facility] Dexamethasone Sodium Phosphate 6 mg 02/25/20 09:00 02/26/20 09:19 Dexamethasone Sod Phosphate 4 Mg/Ml Vial IVPUSH 6 mg DAILY [facility] Administration Docusate Sodium 100 mg 02/24/20 22:33 Docusate Sodium 100 Mg Capsule PO DAILY PRN Constipation Enoxaparin Sodium 40 mg 02/24/20 22:33 02/25/20 22:04 Enoxaparin Sodium 40 Mg/0.4 Ml Syringe SUBCUT 40 mg Q24H [facility] Administration Hydrochlorothiazide 25 mg 02/26/20 16:12 Hydrochlorothiazide 25 Mg Tablet PO DAILY [facility] Protocol Lactated Ringer's 1,000 mls @ 80 mls/hr 02/26/20 16:12 Lr IVCONT .[id number] [facility] Insulin Glargine 24 unit 02/27/20 09:00 Insulin Glargine,Hum.Rec.Anlog 100 Unit/Ml 10 Ml Vial SUBCUT DAILY [facility] Insulin Human Lispro 0 unit 02/26/20 07:30 02/26/20 09:17 Insulin Lispro 100 Unit/Ml 3 Ml Vial SUBCUT 10 unit QIDACHS [facility] Administration Protocol Insulin Human Lispro 5 unit 02/26/20 16:11 Insulin Lispro 100 Unit/Ml 3 Ml Vial SUBCUT 02/26/20 16:12 ONCE ONE Non-Formulary Medication 1 tab 02/26/20 16:12 Irbesartan PO DAILY [facility] Ondansetron HCl 4 mg 02/24/20 22:33 Ondansetron Hcl 4 Mg/2 Ml Vial IVPUSH Q8H PRN Nausea and Vomiting Sodium Chloride 3 ml 02/25/20 00:00 02/26/20 09:20 0.9 % Sodium Chloride Flush 3 Ml Syringe IVFLUSH 3 ml QSHIFT [facility] Administration Labs CBC & Chem 7: 02/26/20 06:11 02/26/20 06:11 Microbiology Microbiology Results: Microbiology 02/24/20 16:30 Blood - Venous Blood Culture - Preliminary No growth after 24 hours. 02/24/20 14:06 Blood - Venous Blood Culture - Preliminary No growth after 24 hours. Assessment and Plan (1) Pneumonia due to COVID-19 virus: Status: Acute (2) Acute respiratory failure with hypoxia: Status: Acute (3) Transaminitis: Status: Acute Assessment and Plan: 79-year-old female presented to the hospital with complaints of fatigue as well as shortness of breath found to have COVID-19 pneumonia. acute hypoxic respiratory failure Due to cover pneumonia Continue Decadron day 3 Wean O2 as tolerated Acute kidney injury BUN increasing maybe secondary to steroid usage as well Creatinine improving slowly continue to monitor Avoid nephrotoxic medications valsartan and thiazide Diabetes with hyperglycemia Increase Lantus to 24 units a day, consider cutting down the blood sugar improves Continue sliding scale Hypertension Amlodipine DVT PPX Dexamethasone
[2020-02-26 18:25] VITALS: BP 142/73; PULSE 94
[2020-02-26] MEDS: amLODIPine Besylate 10 MG TABLET PO (18:25)
[2020-02-26] MEDS: Aspirin Enteric Coated 81 MG TABLET.DR PO (18:27)
[2020-02-26] MEDS: hydroCHLOROthiazide 25 MG TABLET PO (18:28)
[2020-02-26] MEDS: Lactated Ringers 1,000 ML 80 ML IVCONT (18:28)
[2020-02-26] MEDS: Atorvastatin Calcium 20 MG TABLET PO (18:28)
[2020-02-26 19:25] LABS: Glucose, Whole Blood 433 mg/dL (60-115)
[2020-02-26 20:00] VITALS: BP 147/75; PULSE 89; RESP 25; TEMP 35.8; O2SAT 96
[2020-02-26 21:02] LABS: Glucose, Whole Blood 368 mg/dL (60-115)
[2020-02-26] MEDS: Enoxaparin Sodium 40 MG/0.4 ML SYRINGE SUBCUT (22:11)
[2020-02-26 22:17] LABS: Glucose, Whole Blood 280 mg/dL (60-115)
[2020-02-27] VITALS (10 sets, daily range): BP systolic 104–155; BP diastolic 52–74; PULSE 65–98; RESP 16–23; TEMP 36–37.2; O2SAT 91–97
[2020-02-27] MEDS: 0.9 % Sodium Chloride Flush 3 ML SYRINGE IVFLUSH ×3 (00:47→20:52)
[2020-02-27] MEDS: Lactated Ringers 1,000 ML 80 ML IVCONT (05:00)
[2020-02-27 07:33] LABS: Alanine Aminotransferase 34 U/L (0-31); Albumin Level 2.9 g/dL (3.5-5.0); Alkaline Phosphatase 160 U/L (39-117); Aspartate Amino Transferase 44 U/L (5-31); Bilirubin Direct < 0.2 mg/dL (0.0-0.5); Bilirubin Total 0.2 mg/dL (0.0-1.0); Total Protein 6.9 g/dL (6.5-8.0)
[2020-02-27 07:33] LABS: Glucose, Whole Blood 136 mg/dL (60-115)
[2020-02-27] MEDS: Insulin Glargine,Hum.rec.anlog 100 UNIT/ML 10 ML VIAL 24 UNIT SUBCUT (07:56)
[2020-02-27] MEDS: dexAMETHasone sod phosphate 4 MG/ML VIAL 6 MG IVPUSH (07:57)
[2020-02-27] MEDS: Atorvastatin Calcium 20 MG TABLET PO (08:02)
[2020-02-27] MEDS: Aspirin Enteric Coated 81 MG TABLET.DR PO (08:02)
[2020-02-27] MEDS: amLODIPine Besylate 10 MG TABLET PO (08:03)
[2020-02-27] MEDS: hydroCHLOROthiazide 25 MG TABLET PO (08:03)
[2020-02-27] MEDS: Valsartan 160 MG TABLET PO (08:04)
[2020-02-27 08:46] LABS: Hemoglobin 11.9 g/dl (12.0-16.0); Mean Corpuscular HGB Conc 33.1 g/dl (31.0-35.0); Mean Corpuscular Hemoglobin 27.5 pg (27.0-33.0); Mean Corpuscular Volume 83.3 fL (80-98); Mean Platelet Volume 8.9 fL (9.4-12.3); Platelet Count 593 X10*3/uL (160-400); Red Blood Count 4.32 X10*6/uL (4.20-5.50); Red Cell Distribution Width 12.6 % (11.0-16.0); White Blood Count 17.7 X10*3/uL (4.8-10.8)
[2020-02-27 09:14] LABS: Blood Urea Nitrogen 70 mg/dL (9-16); Calcium 10.1 mg/dL (8.4-10.2); Creatinine Clr Calc Pharmacy 27.5; Estimated Glomerular Filt Rate 33; Glucose Random 164 mg/dL (60-115)
[2020-02-27 09:29] LABS: Anion Gap 18 (12-20); Carbon Dioxide 30 mmol/L (22-29); Chloride 96 mmol/L (96-108); Sodium 138 mmol/L (135-145)
--- NOTE | 2020-02-27 09:43 | MHC.CM.PN ---
pt lives c her and son in their home. pt reports being independent in her care. at this time she reports her is also hospitalizied c covid 19. pt son will be able to help her should she have any needs. this will include a ride home at dc. pt denies the need for vna at this time. dc plan is to return home c her son s any svcs. cm to cont. to follow.
[2020-02-27] MEDS: Insulin Lispro 100 UNIT/ML 3 ML VIAL SUBCUT ×3 (11:27→21:41)
[2020-02-27] MEDS: Sodium Polystyrene Sulfon/Sorb 15 GM/60 ML ORAL.SUSP 30 GM PO (11:27)
[2020-02-27 11:39] LABS: Glucose, Whole Blood 386 mg/dL (60-115)
[2020-02-27 11:39] LABS: Glucose, Whole Blood 393 mg/dL (60-115)
--- NOTE | 2020-02-27 13:02 | P.PNIM_ITS ---
Subjective Subjective Date of Service: 02/27/20 Interval History: the patient was seen and evaluated this morning Laying in bed, feels comfortable, in mild respiratory distress Denies any fever, chills or shortness of breath No reported other overnight events. Systemic review: No fever, chills with generalized weakness No chest pain, palpitation Reported shortness of breath and coughing No abdominal pain, nausea or vomiting No urinary symptoms No any rash or wounds Physical Exam Vital Signs: Vital Signs: Last Vital Signs Temp 97.3 F 02/27/20 12:00 Pulse 94 02/27/20 12:00 Resp 19 02/27/20 12:00 BP 128/60 02/27/20 12:00 Pulse Ox 91 L 02/27/20 12:00 Body Mass Index 20.7 Constitutional : Alert, oriented, not in distress Neck : Normal inspection, Supple Cardiovascular : RRR, S1 S2, no lower extremity edema Respiratory : Moving chest wall bilaterally, on nasal cannula, not in respiratory distress Gastrointestinal: soft, lax, Normal bowel sounds, Non tender Skin : Warm/Dry, No rash Neurological : Alert & oriented x3, No focal deficit Objective Data Current Medications Generic Name Dose Route Start Last Admin Trade Name Freq PRN Reason Stop Dose Admin Acetaminophen 650 mg 02/24/20 22:33 Acetaminophen 325 Mg Tablet PO Q6H PRN Pain, Mild (Pain Scale 1-3) Amlodipine Besylate 10 mg 02/26/20 16:12 02/27/20 08:03 Amlodipine Besylate 10 Mg Tablet PO 10 mg DAILY [facility] Administration Protocol Aspirin 81 mg 02/26/20 16:12 02/27/20 08:02 Aspirin Enteric Coated 81 Mg Tablet. PO 81 mg DAILY [facility] Administration Atorvastatin Calcium 20 mg 02/26/20 16:12 02/27/20 08:02 Atorvastatin Calcium 20 Mg Tablet PO 20 mg DAILY [facility] Administration Dexamethasone Sodium Phosphate 6 mg 02/25/20 09:00 02/27/20 07:57 Dexamethasone Sod Phosphate 4 Mg/Ml Vial IVPUSH 6 mg DAILY [facility] Administration Docusate Sodium 100 mg 02/24/20 22:33 Docusate Sodium 100 Mg Capsule PO DAILY PRN Constipation Enoxaparin Sodium 40 mg 02/24/20 22:33 02/26/20 22:11 Enoxaparin Sodium 40 Mg/0.4 Ml Syringe SUBCUT 40 mg Q24H [facility] Administration Hydrochlorothiazide 25 mg 02/26/20 16:12 02/27/20 08:03 Hydrochlorothiazide 25 Mg Tablet PO 25 mg DAILY [facility] Administration Protocol Lactated Ringer's 1,000 mls @ 80 mls/hr 02/26/20 16:12 02/27/20 05:00 Lr IVCONT 80 mls/hr .[id number] [facility] Administration Insulin Glargine 24 unit 02/27/20 09:00 02/27/20 07:56 Insulin Glargine,Hum.Rec.Anlog 100 Unit/Ml 10 Ml Vial SUBCUT 24 unit DAILY [facility] Administration Insulin Human Lispro 0 unit 02/26/20 07:30 02/27/20 11:27 Insulin Lispro 100 Unit/Ml 3 Ml Vial SUBCUT 10 unit QIDACHS [facility] Administration Protocol Ondansetron HCl 4 mg 02/24/20 22:33 Ondansetron Hcl 4 Mg/2 Ml Vial IVPUSH Q8H PRN Nausea and Vomiting Sodium Chloride 3 ml 02/25/20 00:00 02/27/20 08:04 0.9 % Sodium Chloride Flush 3 Ml Syringe IVFLUSH 3 ml QSHIFT [facility] Administration Valsartan 160 mg 02/26/20 16:15 02/27/20 08:04 Valsartan 160 Mg Tablet PO 160 mg DAILY [facility] Administration Labs CBC & Chem 7: 02/27/20 08:34 02/27/20 08:34 Microbiology Microbiology Results: Microbiology 02/24/20 16:30 Blood - Venous Blood Culture - Preliminary No growth after 48 hours. 02/24/20 14:06 Blood - Venous Blood Culture - Preliminary No growth after 48 hours. Assessment and Plan (1) Pneumonia due to COVID-19 virus: Status: Acute (2) Acute respiratory failure with hypoxia: Status: Acute (3) Transaminitis: Status: Acute Assessment and Plan: 79-year-old female presented to the hospital with complaints of fatigue as well as shortness of breath found to have COVID-19 pneumonia. acute hypoxic respiratory failure Due to cover pneumonia Continue Decadron day 4 Wean O2 as tolerated Acute kidney injury BUN increasing maybe secondary to steroid usage as well Creatinine improving to 1.5 today continue to monitor Avoid nephrotoxic medications valsartan and thiazide Hyperkalemia Potassium of 6 Likely secondary to [place] I To give Kayexalate and repeat BMP Diabetes with hyperglycemia Increase Lantus to 24 units a day, consider cutting down the blood sugar improves Continue sliding scale Hypertension Amlodipine DVT PPX Dexamethasone
[2020-02-27 15:01] LABS: Potassium 4.9 mmol/l (3.3-5.1)
[2020-02-27 16:35] LABS: Glucose, Whole Blood 382 mg/dL (60-115)
[2020-02-27] MEDS: 0.9 % Sodium Chloride 1,000 ML 75 ML IVCONT (17:31)
[2020-02-27] MEDS: Enoxaparin Sodium 40 MG/0.4 ML SYRINGE SUBCUT (20:51)
[2020-02-27 21:04] LABS: Glucose, Whole Blood 308 mg/dL (60-115)
[2020-02-28 04:00] VITALS: BP 144/67; PULSE 77; RESP 20; TEMP 36.4; O2SAT 95
[2020-02-28] MEDS: 0.9 % Sodium Chloride 1,000 ML 75 ML IVCONT ×2 (05:39→19:17)
[2020-02-28 07:40] LABS: Glucose, Whole Blood 103 mg/dL (60-115)
[2020-02-28 07:53] VITALS: PULSE 68; RESP 16; TEMP 36.4; O2SAT 100
[2020-02-28] MEDS: Insulin Glargine,Hum.rec.anlog 100 UNIT/ML 10 ML VIAL 24 UNIT SUBCUT (08:58)
[2020-02-28] MEDS: dexAMETHasone sod phosphate 4 MG/ML VIAL 6 MG IVPUSH (08:58)
[2020-02-28] MEDS: Aspirin Enteric Coated 81 MG TABLET.DR PO (08:59)
[2020-02-28] MEDS: 0.9 % Sodium Chloride Flush 3 ML SYRINGE IVFLUSH ×2 (08:59→17:35)
[2020-02-28] MEDS: amLODIPine Besylate 10 MG TABLET PO (08:59)
[2020-02-28] MEDS: Atorvastatin Calcium 20 MG TABLET PO (08:59)
[2020-02-28 11:21] LABS: Glucose, Whole Blood 226 mg/dL (60-115)
[2020-02-28 11:31] VITALS: BP 122/55; PULSE 83; RESP 18; TEMP 36.1; O2SAT 92
--- NOTE | 2020-02-28 12:10 | P.PNIM_ITS ---
Subjective Subjective Date of Service: 02/28/20 Interval History: the patient was seen and evaluated this morning Laying in bed, feels comfortable, in mild respiratory distress No reported fever, chills or shortness of breath No reported other overnight events. Systemic review: No fever, chills with generalized weakness No chest pain, palpitation Reported shortness of breath and coughing No abdominal pain, nausea or vomiting No urinary symptoms No any rash or wounds Physical Exam Vital Signs: Vital Signs: Last Vital Signs Temp 96.9 F 02/28/20 11:31 Pulse 83 02/28/20 11:31 Resp 18 02/28/20 11:31 BP 122/55 L 02/28/20 11:31 Pulse Ox 92 02/28/20 11:31 Body Mass Index 20.7 Constitutional : Alert, oriented, not in distress Neck : Normal inspection, Supple Cardiovascular : RRR, S1 S2, no lower extremity edema Respiratory : Moving chest wall bilaterally, on nasal cannula, not in respiratory distress Gastrointestinal: soft, lax, Normal bowel sounds, Non tender Skin : Warm/Dry, No rash Neurological : Alert & oriented x3, No focal deficit Objective Data Current Medications Generic Name Dose Route Start Last Admin Trade Name Freq PRN Reason Stop Dose Admin Acetaminophen 650 mg 02/24/20 22:33 Acetaminophen 325 Mg Tablet PO Q6H PRN Pain, Mild (Pain Scale 1-3) Amlodipine Besylate 10 mg 02/26/20 16:12 02/28/20 08:59 Amlodipine Besylate 10 Mg Tablet PO 10 mg DAILY [facility] Administration Protocol Aspirin 81 mg 02/26/20 16:12 02/28/20 08:59 Aspirin Enteric Coated 81 Mg Tablet. PO 81 mg DAILY [facility] Administration Atorvastatin Calcium 20 mg 02/26/20 16:12 02/28/20 08:59 Atorvastatin Calcium 20 Mg Tablet PO 20 mg DAILY [facility] Administration Dexamethasone Sodium Phosphate 6 mg 02/25/20 09:00 02/28/20 08:58 Dexamethasone Sod Phosphate 4 Mg/Ml Vial IVPUSH 6 mg DAILY [facility] Administration Docusate Sodium 100 mg 02/24/20 22:33 Docusate Sodium 100 Mg Capsule PO DAILY PRN Constipation Enoxaparin Sodium 40 mg 02/24/20 22:33 02/27/20 20:51 Enoxaparin Sodium 40 Mg/0.4 Ml Syringe SUBCUT 40 mg Q24H [facility] Administration Hydrochlorothiazide 25 mg 02/26/20 16:12 02/27/20 08:03 Hydrochlorothiazide 25 Mg Tablet PO 25 mg DAILY [facility] Administration Protocol Sodium Chloride 1,000 mls @ 75 mls/hr 02/27/20 17:15 02/28/20 05:39 Ns IVCONT 75 mls/hr .[id number] [facility] Administration Insulin Glargine 24 unit 02/27/20 09:00 02/28/20 08:58 Insulin Glargine,Hum.Rec.Anlog 100 Unit/Ml 10 Ml Vial SUBCUT 24 unit DAILY [facility] Administration Insulin Human Lispro 0 unit 02/26/20 07:30 02/28/20 08:59 Insulin Lispro 100 Unit/Ml 3 Ml Vial SUBCUT Not Given QIDACHS [facility] Protocol Ondansetron HCl 4 mg 02/24/20 22:33 Ondansetron Hcl 4 Mg/2 Ml Vial IVPUSH Q8H PRN Nausea and Vomiting Sodium Chloride 3 ml 02/25/20 00:00 02/28/20 08:59 0.9 % Sodium Chloride Flush 3 Ml Syringe IVFLUSH 3 ml QSHIFT [facility] Administration Labs CBC & Chem 7: 02/27/20 08:34 02/27/20 14:19 Microbiology Microbiology Results: Microbiology 02/24/20 16:30 Blood - Venous Blood Culture - Preliminary No growth after 48 hours. 02/24/20 14:06 Blood - Venous Blood Culture - Preliminary No growth after 48 hours. Assessment and Plan (1) Pneumonia due to COVID-19 virus: Status: Acute (2) Acute respiratory failure with hypoxia: Status: Acute (3) Transaminitis: Status: Acute Assessment and Plan: 79-year-old female presented to the hospital with complaints of fatigue as well as shortness of breath found to have COVID-19 pneumonia. acute hypoxic respiratory failure Due to cover pneumonia Continue Decadron day 5 Wean O2 as tolerated Acute kidney injury BUN increasing maybe secondary to steroid usage as well Creatinine improving to 1.5 continue to monitor Avoid nephrotoxic medications valsartan and thiazide Hyperkalemia Potassium of 4.9 Likely secondary to [place] I To give Kayexalate and repeat BMP Diabetes with hyperglycemia Better controlled today Increase Lantus to 24 units a day, consider cutting down when the blood sugar improves Continue sliding scale Hypertension Amlodipine DVT PPX Lovenox
[2020-02-28] MEDS: Insulin Lispro 100 UNIT/ML 3 ML VIAL SUBCUT ×4 (13:23→21:02)
[2020-02-28 15:13] VITALS: BP 106/50; PULSE 77; RESP 18; TEMP 36.6; O2SAT 94
[2020-02-28 16:21] LABS: Glucose, Whole Blood 223 mg/dL (60-115)
[2020-02-28 19:18] VITALS: BP 112/48; PULSE 78; RESP 21; TEMP 36.6; O2SAT 96
[2020-02-28 20:14] LABS: Glucose, Whole Blood 390 mg/dL (60-115)
[2020-02-28] MEDS: Enoxaparin Sodium 40 MG/0.4 ML SYRINGE SUBCUT (21:41)
[2020-02-28 23:12] VITALS: BP 114/58; PULSE 73; RESP 17; TEMP 36.6; O2SAT 96
[2020-02-29] VITALS (7 sets, daily range): BP systolic 113–132; BP diastolic 43–68; PULSE 72–88; RESP 14–20; TEMP 36.2–36.7; O2SAT 93–98
[2020-02-29] MEDS: 0.9 % Sodium Chloride Flush 3 ML SYRINGE IVFLUSH (00:02)
[2020-02-29 07:15] LABS: Hematocrit 34.7 % (37-47); Hemoglobin 11.3 g/dl (12.0-16.0); Mean Corpuscular HGB Conc 32.6 g/dl (31.0-35.0); Mean Corpuscular Hemoglobin 27.8 pg (27.0-33.0); Mean Corpuscular Volume 85.5 fL (80-98); Mean Platelet Volume 8.9 fL (9.4-12.3); Platelet Count 540 X10*3/uL (160-400); Red Blood Count 4.06 X10*6/uL (4.20-5.50); Red Cell Distribution Width 12.6 % (11.0-16.0); White Blood Count 13.6 X10*3/uL (4.8-10.8)
[2020-02-29 07:29] LABS: Glucose, Whole Blood 71 mg/dL (60-115)
[2020-02-29 07:56] LABS: Anion Gap 12 (12-20); Blood Urea Nitrogen 53 mg/dL (9-16); Carbon Dioxide 31 mmol/L (22-29); Chloride 104 mmol/L (96-108); Creatinine Clr Calc Pharmacy 39.3; Estimated Glomerular Filt Rate 50; Glucose Random 69 mg/dL (60-115); Potassium 3.8 mmol/l (3.3-5.1); Sodium 143 mmol/L (135-145)
[2020-02-29 08:02] LABS: Calcium 8.5 mg/dL (8.4-10.2)
[2020-02-29] MEDS: Atorvastatin Calcium 20 MG TABLET PO (09:00)
[2020-02-29] MEDS: Aspirin Enteric Coated 81 MG TABLET.DR PO (09:00)
[2020-02-29] MEDS: amLODIPine Besylate 10 MG TABLET PO (09:00)
[2020-02-29 10:43] LABS: Glucose, Whole Blood 229 mg/dL (60-115)
[2020-02-29] MEDS: dexAMETHasone sod phosphate 4 MG/ML VIAL 6 MG IVPUSH (10:46)
[2020-02-29] MEDS: Insulin Glargine,Hum.rec.anlog 100 UNIT/ML 10 ML VIAL 24 UNIT SUBCUT (10:47)
[2020-02-29] MEDS: 0.9 % Sodium Chloride 1,000 ML 75 ML IVCONT (10:47)
--- NOTE | 2020-02-29 12:42 | MHC.CM.PN ---
Pt remains in the [facility] unit with COVID: Improving: goals of continued care are to wean off of O2 prior to d/c to home. Pt is now at 3 liters. D/C plan remains for pt to return to home - services are not anticipated but can be added if MD feels pt requires skilled home care
[2020-02-29] MEDS: Insulin Lispro 100 UNIT/ML 3 ML VIAL SUBCUT ×3 (13:13→20:32)
--- NOTE | 2020-02-29 14:39 | P.PNIM_ITS ---
Subjective Subjective Date of Service: 02/29/20 Interval History: the patient was seen and evaluated this morning Laying in bed, feels comfortable, in mild respiratory distress No reported fever, chills or shortness of breath No reported other overnight events. Systemic review: No fever, chills with generalized weakness No chest pain, palpitation Reported shortness of breath and coughing No abdominal pain, nausea or vomiting No urinary symptoms No any rash or wounds Physical Exam Vital Signs: Vital Signs: Last Vital Signs Temp 97.7 F 02/29/20 11:43 Pulse 80 02/29/20 11:43 Resp 14 02/29/20 11:43 BP 129/61 02/29/20 11:43 Pulse Ox 97 02/29/20 11:43 Body Mass Index 20.7 Constitutional : Alert, oriented, not in distress Neck : Normal inspection, Supple Cardiovascular : RRR, S1 S2, no lower extremity edema Respiratory : Chest wall moved bilaterally, not in respiratory distress Gastrointestinal: soft, lax, Normal bowel sounds, Non tender Skin : Warm/Dry, No rash Neurological : Alert & oriented x3, No focal deficit Objective Data Current Medications Generic Name Dose Route Start Last Admin Trade Name Freq PRN Reason Stop Dose Admin Acetaminophen 650 mg 02/24/20 22:33 Acetaminophen 325 Mg Tablet PO Q6H PRN Pain, Mild (Pain Scale 1-3) Amlodipine Besylate 10 mg 02/26/20 16:12 02/29/20 09:00 Amlodipine Besylate 10 Mg Tablet PO 10 mg DAILY [facility] Administration Protocol Aspirin 81 mg 02/26/20 16:12 02/29/20 09:00 Aspirin Enteric Coated 81 Mg Tablet.Dr PO 81 mg DAILY [facility] Administration Atorvastatin Calcium 20 mg 02/26/20 16:12 02/29/20 09:00 Atorvastatin Calcium 20 Mg Tablet PO 20 mg DAILY [facility] Administration Dexamethasone Sodium Phosphate 6 mg 02/25/20 09:00 02/29/20 10:46 Dexamethasone Sod Phosphate 4 Mg/Ml Vial IVPUSH 6 mg DAILY [facility] Administration Docusate Sodium 100 mg 02/24/20 22:33 Docusate Sodium 100 Mg Capsule PO DAILY PRN Constipation Enoxaparin Sodium 40 mg 02/24/20 22:33 02/28/20 21:41 Enoxaparin Sodium 40 Mg/0.4 Ml Syringe SUBCUT 40 mg Q24H [facility] Administration Hydrochlorothiazide 25 mg 02/26/20 16:12 02/27/20 08:03 Hydrochlorothiazide 25 Mg Tablet PO 25 mg DAILY [facility] Administration Protocol Sodium Chloride 1,000 mls @ 75 mls/hr 02/27/20 17:15 02/29/20 10:47 Ns IVCONT 75 mls/hr .[id number] [facility] Administration Insulin Glargine 24 unit 02/27/20 09:00 02/29/20 10:47 Insulin Glargine,Hum.Rec.Anlog 100 Unit/Ml 10 Ml Vial SUBCUT 24 unit DAILY [facility] Administration Insulin Human Lispro 0 unit 02/26/20 07:30 02/29/20 13:13 Insulin Lispro 100 Unit/Ml 3 Ml Vial SUBCUT 6 unit QIDACHS [facility] Administration Protocol Ondansetron HCl 4 mg 02/24/20 22:33 Ondansetron Hcl 4 Mg/2 Ml Vial IVPUSH Q8H PRN Nausea and Vomiting Sodium Chloride 3 ml 02/25/20 00:00 02/29/20 07:25 0.9 % Sodium Chloride Flush 3 Ml Syringe IVFLUSH Not Given QSHIFT [facility] Labs CBC & Chem 7: 02/29/20 06:43 02/29/20 06:43 Microbiology Microbiology Results: Microbiology 02/24/20 16:30 Blood - Venous Blood Culture - Preliminary No growth after 48 hours. 02/24/20 14:06 Blood - Venous Blood Culture - Preliminary No growth after 48 hours. Assessment and Plan (1) Pneumonia due to COVID-19 virus: Status: Acute (2) Acute respiratory failure with hypoxia: Status: Acute (3) Transaminitis: Status: Acute Assessment and Plan: 79-year-old female presented to the hospital with complaints of fatigue as well as shortness of breath found to have COVID-19 pneumonia. acute hypoxic respiratory failure Due to covid 19 pneumonia Continue Decadron day 6 Wean O2 as tolerated Acute kidney injury BUN improved Creatinine improving to 1.07 continue to monitor Avoid nephrotoxic medications valsartan and thiazide Hyperkalemia Potassium of 4.9 Likely secondary to [place] I To give Kayexalate and repeat BMP Diabetes with hyperglycemia Better controlled today Lantus to 24 units a day, consider cutting down when the blood sugar improves Continue sliding scale Hypertension Amlodipine DVT PPX Lovenox
[2020-02-29 16:45] LABS: Glucose, Whole Blood 380 mg/dL (60-115)
[2020-02-29 20:22] LABS: Glucose, Whole Blood 399 mg/dL (60-115)
[2020-02-29] MEDS: Enoxaparin Sodium 40 MG/0.4 ML SYRINGE SUBCUT (20:31)
[2020-03-01] VITALS (8 sets, daily range): BP systolic 127–147; BP diastolic 49–79; PULSE 77–85; RESP 12–21; TEMP 36.3–37.1; O2SAT 92–99
[2020-03-01] MEDS: 0.9 % Sodium Chloride Flush 3 ML SYRINGE IVFLUSH ×4 (00:01→20:23)
[2020-03-01 07:42] LABS: Glucose, Whole Blood 100 mg/dL (60-115)
[2020-03-01] MEDS: Atorvastatin Calcium 20 MG TABLET PO (08:38)
[2020-03-01] MEDS: dexAMETHasone sod phosphate 4 MG/ML VIAL 6 MG IVPUSH (08:38)
[2020-03-01] MEDS: Aspirin Enteric Coated 81 MG TABLET.DR PO (08:38)
[2020-03-01] MEDS: amLODIPine Besylate 10 MG TABLET PO (08:38)
[2020-03-01] MEDS: Insulin Glargine,Hum.rec.anlog 100 UNIT/ML 10 ML VIAL 25 UNIT SUBCUT (08:38)
[2020-03-01] MEDS: ALPRAZolam 0.25 MG TABLET 0.125 MG PO (10:39)
[2020-03-01 11:48] LABS: Glucose, Whole Blood 259 mg/dL (60-115)
[2020-03-01] MEDS: Insulin Lispro 100 UNIT/ML 3 ML VIAL SUBCUT ×3 (12:04→20:22)
--- NOTE | 2020-03-01 12:16 | P.PNIM_ITS ---
Subjective Subjective Date of Service: 03/01/20 Interval History: The patient was seen and evaluated this morning Laying in bed, feels comfortable, not in distress No reported fever, chills or shortness of breath No reported other overnight events. Systemic review: No fever, chills with generalized weakness No chest pain, palpitation Improved shortness of breath and coughing No abdominal pain, nausea or vomiting No urinary symptoms No any rash or wounds Physical Exam Vital Signs: Vital Signs: Last Vital Signs Temp 97.7 F 03/01/20 11:49 Pulse 85 03/01/20 11:49 Resp 16 03/01/20 11:49 BP 132/49 L 03/01/20 11:49 Pulse Ox 92 03/01/20 11:49 Body Mass Index 20.7 Constitutional : Alert, oriented, not in distress Neck : Normal inspection, Supple Cardiovascular : RRR, S1 S2, no lower extremity edema Respiratory : Chest wall movement bilaterally, not in respiratory distress Gastrointestinal: soft, lax, Normal bowel sounds, Non tender Skin : Warm/Dry, No rash Neurological : Alert & oriented x3, No focal deficit Objective Data Current Medications Generic Name Dose Route Start Last Admin Trade Name Freq PRN Reason Stop Dose Admin Acetaminophen 650 mg 02/24/20 22:33 Acetaminophen 325 Mg Tablet PO Q6H PRN Pain, Mild (Pain Scale 1-3) Amlodipine Besylate 10 mg 02/26/20 16:12 03/01/20 08:38 Amlodipine Besylate 10 Mg Tablet PO 10 mg DAILY EMELINA Administration Protocol Aspirin 81 mg 02/26/20 16:12 03/01/20 08:38 Aspirin Enteric Coated 81 Mg Tablet.Dr PO 81 mg DAILY EMELINA Administration Atorvastatin Calcium 20 mg 02/26/20 16:12 03/01/20 08:38 Atorvastatin Calcium 20 Mg Tablet PO 20 mg DAILY EMELINA Administration Dexamethasone Sodium Phosphate 6 mg 02/25/20 09:00 03/01/20 08:38 Dexamethasone Sod Phosphate 4 Mg/Ml Vial IVPUSH 6 mg DAILY EMELINA Administration Docusate Sodium 100 mg 02/24/20 22:33 Docusate Sodium 100 Mg Capsule PO DAILY PRN Constipation Enoxaparin Sodium 40 mg 02/24/20 22:33 02/29/20 20:31 Enoxaparin Sodium 40 Mg/0.4 Ml Syringe SUBCUT 40 mg Q24H EMELINA Administration Hydrochlorothiazide 25 mg 02/26/20 16:12 02/27/20 08:03 Hydrochlorothiazide 25 Mg Tablet PO 25 mg DAILY [facility] Administration Protocol Insulin Glargine 25 unit 03/01/20 09:00 03/01/20 08:38 Insulin Glargine,Hum.Rec.Anlog 100 Unit/Ml 10 Ml Vial SUBCUT 25 unit DAILY EMELINA Administration Insulin Human Lispro 0 unit 02/26/20 07:30 03/01/20 12:04 Insulin Lispro 100 Unit/Ml 3 Ml Vial SUBCUT 4 unit QIDACHS [facility] Administration Protocol Ondansetron HCl 4 mg 02/24/20 22:33 Ondansetron Hcl 4 Mg/2 Ml Vial IVPUSH Q8H PRN Nausea and Vomiting Sodium Chloride 3 ml 02/25/20 00:00 03/01/20 08:39 0.9 % Sodium Chloride Flush 3 Ml Syringe IVFLUSH 3 ml QSHIFT [facility] Administration Labs CBC & Chem 7: 02/29/20 06:43 02/29/20 06:43 Microbiology Microbiology Results: Microbiology 02/24/20 16:30 Blood - Venous Blood Culture - Final No growth after 5 days. 02/24/20 14:06 Blood - Venous Blood Culture - Final No growth after 5 days. Assessment and Plan (1) Pneumonia due to COVID-19 virus: Status: Acute (2) Acute respiratory failure with hypoxia: Status: Acute (3) Transaminitis: Status: Acute Assessment and Plan: 79-year-old female presented to the hospital with complaints of fatigue as well as shortness of breath found to have COVID-19 pneumonia. acute hypoxic respiratory failure Due to covid 19 pneumonia Continue Decadron day 7 Wean O2 as tolerated Plan to discharge home to finish Decadron orally hopefully tomorrow Acute kidney injury BUN improved Creatinine improving to 1.07 continue to monitor Avoid nephrotoxic medications valsartan and thiazide Hyperkalemia Resolved Potassium of 3.8 Likely secondary to [place] I Diabetes with hyperglycemia Better controlled today Lantus to 24 units a day, consider cutting down when the blood sugar improves Continue sliding scale Hypertension Amlodipine DVT PPX Lovenox
[2020-03-01 16:14] LABS: Glucose, Whole Blood 329 mg/dL (60-115)
[2020-03-01 20:12] LABS: Glucose, Whole Blood 391 mg/dL (60-115)
[2020-03-01] MEDS: Enoxaparin Sodium 40 MG/0.4 ML SYRINGE SUBCUT (20:22)
[2020-03-02] VITALS (7 sets, daily range): BP systolic 119–136; BP diastolic 56–67; PULSE 70–84; RESP 14–18; TEMP 36.2–36.9; O2SAT 93–98
[2020-03-02 06:38] LABS: Strep Pneumo Ag urine Not Detected (Not Detected)
[2020-03-02 07:35] LABS: Anion Gap 9 (12-20); Blood Urea Nitrogen 34 mg/dL (9-16); Calcium 8.5 mg/dL (8.4-10.2); Carbon Dioxide 34 mmol/L (22-29); Chloride 103 mmol/L (96-108); Creatinine Clr Calc Pharmacy 48.9; Estimated Glomerular Filt Rate > 60; Glucose Random 84 mg/dL (60-115); Sodium 142 mmol/L (135-145)
[2020-03-02] MEDS: 0.9 % Sodium Chloride Flush 3 ML SYRINGE IVFLUSH ×3 (07:44→19:36)
[2020-03-02 08:45] LABS: Glucose, Whole Blood 63 mg/dL (60-115)
[2020-03-02] MEDS: amLODIPine Besylate 10 MG TABLET PO (09:50)
[2020-03-02] MEDS: Atorvastatin Calcium 20 MG TABLET PO (09:50)
[2020-03-02] MEDS: dexAMETHasone sod phosphate 4 MG/ML VIAL 6 MG IVPUSH (10:55)
[2020-03-02 11:18] LABS: Legionella Ag Urine Not Detected (Not Detected)
[2020-03-02 11:27] LABS: Glucose, Whole Blood 246 mg/dL (60-115)
[2020-03-02] MEDS: Insulin Glargine,Hum.rec.anlog 100 UNIT/ML 10 ML VIAL 30 UNIT SUBCUT (11:27)
[2020-03-02] MEDS: Insulin Lispro 100 UNIT/ML 3 ML VIAL SUBCUT ×3 (11:27→19:33)
--- NOTE | 2020-03-02 11:46 | PC.NURSE ---
pt has crackles in bilateral lung bases, left worse than right. Access Coordinator to bedside for incentive spirometer teaching. Initially pt had difficulty with return demonstration, after several episodes of reinforcement pt using device as directed. She states it makes her feel better. Will continue to monitor progress with device
--- NOTE | 2020-03-02 13:56 | P.PNIM_ITS ---
Subjective Subjective Date of Service: 03/02/20 Interval History: The patient was seen and evaluated this morning Laying in bed, feels comfortable, not in distress No reported fever, chills or shortness of breath No reported other overnight events. Systemic review: No fever, chills with generalized weakness No chest pain, palpitation Improved shortness of breath and coughing No abdominal pain, nausea or vomiting No urinary symptoms No any rash or wounds Physical Exam Vital Signs: Vital Signs: Last Vital Signs Temp 97.9 F 03/02/20 11:59 Pulse 76 03/02/20 11:59 Resp 18 03/02/20 08:00 BP 132/65 03/02/20 11:59 Pulse Ox 97 03/02/20 11:59 Body Mass Index 20.7 Constitutional : Alert, oriented, not in distress Neck : Normal inspection, Supple Cardiovascular : RRR, S1 S2, no lower extremity edema Respiratory : Chest wall moving bilaterally, not in distress, the new Gastrointestinal: soft, lax, Normal bowel sounds, Non tender Skin : Warm/Dry, No rash Neurological : Alert & oriented x3, No focal deficit Objective Data Current Medications Generic Name Dose Route Start Last Admin Trade Name Freq PRN Reason Stop Dose Admin Acetaminophen 650 mg 02/24/20 22:33 Acetaminophen 325 Mg Tablet PO Q6H PRN Pain, Mild (Pain Scale 1-3) Amlodipine Besylate 10 mg 02/26/20 16:12 03/02/20 09:50 Amlodipine Besylate 10 Mg Tablet PO 10 mg DAILY EMELINA Administration Protocol Aspirin 81 mg 02/26/20 16:12 03/02/20 09:50 Aspirin Enteric Coated 81 Mg Tablet.Dr PO Not Given DAILY EMELINA Atorvastatin Calcium 20 mg 02/26/20 16:12 03/02/20 09:50 Atorvastatin Calcium 20 Mg Tablet PO 20 mg DAILY EMELINA Administration Dexamethasone Sodium Phosphate 6 mg 02/25/20 09:00 03/02/20 10:55 Dexamethasone Sod Phosphate 4 Mg/Ml Vial IVPUSH 6 mg DAILY EMELINA Administration Docusate Sodium 100 mg 02/24/20 22:33 Docusate Sodium 100 Mg Capsule PO DAILY PRN Constipation Enoxaparin Sodium 40 mg 02/24/20 22:33 03/01/20 20:22 Enoxaparin Sodium 40 Mg/0.4 Ml Syringe SUBCUT 40 mg Q24H EMELINA Administration Hydrochlorothiazide 25 mg 02/26/20 16:12 02/27/20 08:03 Hydrochlorothiazide 25 Mg Tablet PO 25 mg DAILY [facility] Administration Protocol Insulin Glargine 30 unit 03/02/20 09:00 03/02/20 11:27 Insulin Glargine,Hum.Rec.Anlog 100 Unit/Ml 10 Ml Vial SUBCUT 30 unit DAILY EMELINA Administration Insulin Human Lispro 0 unit 02/26/20 07:30 03/02/20 11:27 Insulin Lispro 100 Unit/Ml 3 Ml Vial SUBCUT 4 unit QIDACHS [facility] Administration Protocol Ondansetron HCl 4 mg 02/24/20 22:33 Ondansetron Hcl 4 Mg/2 Ml Vial IVPUSH Q8H PRN Nausea and Vomiting Sodium Chloride 3 ml 02/25/20 00:00 03/02/20 07:44 0.9 % Sodium Chloride Flush 3 Ml Syringe IVFLUSH 3 ml QSHIFT [facility] Administration Labs CBC & Chem 7: 02/29/20 06:43 03/02/20 06:44 Microbiology Microbiology Results: Microbiology 02/24/20 16:30 Blood - Venous Blood Culture - Final No growth after 5 days. 02/24/20 14:06 Blood - Venous Blood Culture - Final No growth after 5 days. Assessment and Plan (1) Pneumonia due to COVID-19 virus: Status: Acute (2) Acute respiratory failure with hypoxia: Status: Acute (3) Transaminitis: Status: Acute Assessment and Plan: 79-year-old female presented to the hospital with complaints of fatigue as well as shortness of breath found to have COVID-19 pneumonia. acute hypoxic respiratory failure Due to covid 19 pneumonia Continue Decadron day 8 Wean O2 as tolerated Plan to discharge home to finish Decadron orally hopefully tomorrow Acute kidney injury BUN improved Creatinine improving to 1.07 continue to monitor Avoid nephrotoxic medications valsartan and thiazide Hyperkalemia Resolved Potassium of 3.8 Likely secondary to [place] I Diabetes with hyperglycemia Better controlled today Lantus increased by overnight physicians to 30 units units a day, consider cutting down when the blood sugar improves Continue sliding scale Hypertension Amlodipine DVT PPX Lovenox
[2020-03-02 15:54] LABS: Glucose, Whole Blood 310 mg/dL (60-115)
[2020-03-02 19:33] LABS: Glucose, Whole Blood 368 mg/dL (60-115)
[2020-03-02] MEDS: Enoxaparin Sodium 40 MG/0.4 ML SYRINGE SUBCUT (19:33)
[2020-03-03] VITALS (8 sets, daily range): BP systolic 111–129; BP diastolic 57–68; PULSE 72–107; RESP 17–24; TEMP 36–36.8; O2SAT 87–98
[2020-03-03 06:43] LABS: Mean Corpuscular HGB Conc 32.4 g/dl (31.0-35.0); Mean Corpuscular Hemoglobin 27.4 pg (27.0-33.0); Mean Corpuscular Volume 84.8 fL (80-98); Platelet Count 509 X10*3/uL (160-400); Red Blood Count 4.01 X10*6/uL (4.20-5.50); Red Cell Distribution Width 12.6 % (11.0-16.0); White Blood Count 11.8 X10*3/uL (4.8-10.8)
[2020-03-03 07:26] LABS: Anion Gap 9 (12-20); Blood Urea Nitrogen 32 mg/dL (9-16); Calcium 8.6 mg/dL (8.4-10.2); Carbon Dioxide 32 mmol/L (22-29); Chloride 103 mmol/L (96-108); Creatinine Clr Calc Pharmacy 51.3; Estimated Glomerular Filt Rate > 60; Glucose Random 90 mg/dL (60-115); Potassium 4.4 mmol/l (3.3-5.1); Sodium 140 mmol/L (135-145)
[2020-03-03 07:38] LABS: Glucose, Whole Blood 79 mg/dL (60-115)
[2020-03-03] MEDS: 0.9 % Sodium Chloride Flush 3 ML SYRINGE IVFLUSH ×3 (08:36→20:09)
[2020-03-03] MEDS: amLODIPine Besylate 10 MG TABLET PO (08:36)
[2020-03-03] MEDS: Atorvastatin Calcium 20 MG TABLET PO (08:36)
[2020-03-03] MEDS: Aspirin Enteric Coated 81 MG TABLET.DR PO (08:36)
[2020-03-03] MEDS: Insulin Glargine,Hum.rec.anlog 100 UNIT/ML 10 ML VIAL 30 UNIT SUBCUT (08:37)
[2020-03-03] MEDS: dexAMETHasone sod phosphate 4 MG/ML VIAL 6 MG IVPUSH (08:37)
--- NOTE | 2020-03-03 08:40 | MHC.CM.PN ---
at this time dc plans are the same, for patient to return home no svcs. cm to cont. to follow.
--- NOTE | 2020-03-03 09:48 | PC.NURSE ---
Patient with oxygen stats of 86-87% on room air and placed on 1L nasal cannula. Patient resting at 93% on 1L nasal cannula. Dr. Claudio at bedside and aware. 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 No further concerns at this time.
--- NOTE | 2020-03-03 10:58 | HO.PM.IMPN ---
Subjective Subjective Date of Service: 03/03/20 Interval History: The patient was seen and evaluated this morning Laying in bed, feels comfortable, not in distress Desaturated to mid 80s on room her urge this morning, back on 2 L of oxygen No reported fever, chills or shortness of breath No reported other overnight events. Systemic review: No fever, chills with generalized weakness No chest pain, palpitation Improved shortness of breath and coughing No abdominal pain, nausea or vomiting No urinary symptoms No any rash or wounds Physical Exam Vital Signs: Vital Signs: Last Vital Signs Temp 97.4 F 03/03/20 07:45 Pulse 78 03/03/20 08:36 Resp 18 03/03/20 07:45 BP 127/58 L 03/03/20 08:36 Pulse Ox 93 03/03/20 08:36 Body Mass Index 20.7 Constitutional : Alert, oriented, not in distress Neck : Normal inspection, Supple Cardiovascular : RRR, S1 S2, no lower extremity edema Respiratory : Chest wall moving bilaterally, not in distress, on 2 L of oxygen Gastrointestinal: soft, lax, Normal bowel sounds, Non tender Skin : Warm/Dry, No rash Neurological : Alert & oriented x3, No focal deficit Objective Data Current Medications Generic Name Dose Route Start Last Admin Trade Name Freq PRN Reason Stop Dose Admin Acetaminophen 650 mg 02/24/20 22:33 Acetaminophen 325 Mg Tablet PO Q6H PRN Pain, Mild (Pain Scale 1-3) Amlodipine Besylate 10 mg 02/26/20 16:12 03/03/20 08:36 Amlodipine Besylate 10 Mg Tablet PO 10 mg DAILY EMELINA Administration Protocol Aspirin 81 mg 02/26/20 16:12 03/03/20 08:36 Aspirin Enteric Coated 81 Mg Tablet. PO 81 mg DAILY EMELINA Administration Atorvastatin Calcium 20 mg 02/26/20 16:12 03/03/20 08:36 Atorvastatin Calcium 20 Mg Tablet PO 20 mg DAILY EMELINA Administration Dexamethasone Sodium Phosphate 6 mg 02/25/20 09:00 03/03/20 08:37 Dexamethasone Sod Phosphate 4 Mg/Ml Vial IVPUSH 6 mg DAILY EMELINA Administration Docusate Sodium 100 mg 02/24/20 22:33 Docusate Sodium 100 Mg Capsule PO DAILY PRN Constipation Enoxaparin Sodium 40 mg 02/24/20 22:33 03/02/20 19:33 Enoxaparin Sodium 40 Mg/0.4 Ml Syringe SUBCUT 40 mg Q24H EMELINA Administration Hydrochlorothiazide 25 mg 02/26/20 16:12 02/27/20 08:03 Hydrochlorothiazide 25 Mg Tablet PO 25 mg DAILY [facility] Administration Protocol Insulin Glargine 30 unit 03/02/20 09:00 03/03/20 08:37 Insulin Glargine,Hum.Rec.Anlog 100 Unit/Ml 10 Ml Vial SUBCUT 30 unit DAILY EMELINA Administration Insulin Human Lispro 0 unit 02/26/20 07:30 03/03/20 07:45 Insulin Lispro 100 Unit/Ml 3 Ml Vial SUBCUT Not Given QIDACHS [facility] Protocol Ondansetron HCl 4 mg 02/24/20 22:33 Ondansetron Hcl 4 Mg/2 Ml Vial IVPUSH Q8H PRN Nausea and Vomiting Sodium Chloride 3 ml 02/25/20 00:00 03/03/20 08:36 0.9 % Sodium Chloride Flush 3 Ml Syringe IVFLUSH 3 ml QSHIFT [facility] Administration Labs CBC & Chem 7: 03/03/20 06:29 03/03/20 06:29 Microbiology Microbiology Results: Microbiology 02/24/20 16:30 Blood - Venous Blood Culture - Final No growth after 5 days. 02/24/20 14:06 Blood - Venous Blood Culture - Final No growth after 5 days. Assessment and Plan (1) Pneumonia due to COVID-19 virus: Status: Acute (2) Acute respiratory failure with hypoxia: Status: Acute (3) Transaminitis: Status: Acute Assessment and Plan: 79-year-old female presented to the hospital with complaints of fatigue as well as shortness of breath found to have COVID-19 pneumonia. acute hypoxic respiratory failure Due to covid 19 pneumonia On 2 L of oxygen today Continue Decadron day 9 Wean O2 as tolerated Plan to discharge home to finish Decadron orally hopefully tomorrow Acute kidney injury BUN improved Creatinine improving to 1.07 continue to monitor Wrist start valsartan and thiazide Hyperkalemia Resolved Potassium of 3.8 Likely secondary to [place] I Diabetes with hyperglycemia Better controlled today Lantus increased by overnight physicians to 30 units units a day, consider cutting down when the blood sugar improves Continue sliding scale Hypertension Amlodipine DVT PPX Lovenox
[2020-03-03 11:24] LABS: Glucose, Whole Blood 227 mg/dL (60-115)
[2020-03-03] MEDS: Insulin Lispro 100 UNIT/ML 3 ML VIAL SUBCUT ×2 (11:44→16:33)
--- NOTE | 2020-03-03 13:39 | PM.DS ---
DS: Providers Provider Date of Service: 03/03/20 Date of admission: 02/24/20 21:08 Primary care physician: Anastacio Burks MD DS: Diagnosis Discharge Diagnosis (1) Pneumonia due to COVID-19 virus: Status: Acute (2) Acute respiratory failure with hypoxia: Status: Acute (3) Transaminitis: Status: Acute (4) CRISTI (acute kidney injury): Status: Acute DS: Medications Discharge Medications Home Medications: Home Medications Medication Instructions Recorded Confirmed amlodipine 1 tab PO DAILY 02/24/20 02/24/20 aspirin 1 tab PO DAILY 02/24/20 02/24/20 atorvastatin 1 tab PO DAILY 02/24/20 02/24/20 hydrochlorothiazide 1 tab PO DAILY 02/24/20 02/24/20 irbesartan 1 tab PO DAILY 02/24/20 02/24/20 metformin 1 tab PO BID 02/24/20 02/24/20 DS: Summary Hospital Course Hospital Course: Admission note HPI This is a 79-year-old female with past medical history of diabetes, hypertension, hyperlipidemia who presents to the hospital with complaints of 2 days of shortness of breath, cough, fatigue, low appetite. Patient reports that she has had very low oral intake for the past 3 days. Her is currently in the hospital with COVID-19 pneumonia. Patient reports nausea, low-grade fever, chills, started having diarrhea about a day ago. On arrival to the ED patient was found to be 86% on room air. She is currently on 2 L of oxygen satting 96%. On arrival were significant for temperature of 98.9?, pulse rate of 98, respiratory rate of 24, blood pressure 149/58, satting 86% on room air Labs are significant for WBC count 11.1, hemoglobin of 11.2, hematocrit 34, PT of 14.7, INR of 1.2, sodium of 135, BUN of 22, creatinine of 1.25, AST of 46, ALT of 37, alk-phos of 177, LDH of 259, CRP of 36, COVID-[address] angiogram negative for PE, with extensive multifocal areas of nodular consolidation and ground-glass opacity with interlobular septal thickening consistent with COVID-19 pneumonitis Hospital course The patient was admitted to the hospital for treatment of acute hypoxic respiratory failure with oxygen saturation of 86% on room air secondary to COVID-19 infection. The patient was also noted to have acute kidney injury with creatinine of 2.2 from baseline of 0.8 and mild transaminitis. The patient was treated with oxygen supplement, IV steroids and was not a candidate for remdesivir given her Cristi I. She mainly required oxygen supplement by nasal cannula requiring non-rebreather for 1 day before weaning her down. She still requiring 2 L of oxygen and her sats dropped to 80s on room air. Plan to discharge to DCU today until she is ready to go back home. Time Spent with Patient Time attestation: Total time spent providing and/or coordinating discharge services: Discharge coordination time: Greater than 30 minutes Physical Exam Vital Signs: Vital Signs: Last Vital Signs Temp 97.4 F 03/03/20 07:45 Pulse 78 03/03/20 08:36 Resp 18 03/03/20 07:45 BP 127/58 L 03/03/20 08:36 Pulse Ox 93 03/03/20 08:36 Body Mass Index 20.7 Constitutional : Alert, oriented, not in distress Neck : Normal inspection, Supple Cardiovascular : RRR, S1 S2, no lower extremity edema Respiratory : Good bilateral air entry, no crackles, wheezes or rhonchi Gastrointestinal: soft, lax, Normal bowel sounds, Non tender Skin : Warm/Dry, No rash Neurological : Alert & oriented x3, No focal deficit DS: Data Data Completed and Pending Labs on day of discharge: Laboratory Tests 02/24/20 02/24/20 02/24/20 13:56 13:58 14:06 WBC 11.1 H RBC 4.01 L Hgb 11.2 L Hct 34.0 L MCV 84.8 MCH 27.9 MCHC 32.9 RDW 12.3 Plt Count 368 MPV 10.0 Immature Gran % (Auto) 0.5 H Neut % (Auto) 82.0 H Lymph % (Auto) 9.9 L [place] % (Auto) 7.1 Eos % (Auto) 0.1 Baso % (Auto) 0.4 Lymph # (Auto) 1.1 L [place] # (Auto) 0.8 Eos # (Auto) 0.0 Baso # (Auto) 0.0 Abs Immat Gran (auto) 0.06 H Absolute Neuts (auto) 9.1 H Absolute Nucleated RBC 0.000 Nucleated RBC % (auto) 0.0 Smear Tech's Comments PT INR D-Dimer Sodium Potassium Chloride Carbon Dioxide Anion Gap BUN Creatinine Estim Creat Clear Calc Estimated GFR POC Glucose 303 H Random Glucose Fasting Glucose Lactic Acid Calcium Magnesium Ferritin Total Bilirubin Direct Bilirubin AST ALT Alkaline Phosphatase Lactate Dehydrogenase Troponin I High Sens C-Reactive Protein B-Natriuretic Peptide Total Protein Albumin Procalcitonin COVID-19 ([facility]) Positive A COVID-19 Clin Com See Note Ur L.pneumophila Ag Ur Strep pneumoniae Ag 02/24/20 02/24/20 02/24/20 14:06 14:06 14:06 WBC RBC Hgb Hct MCV MCH MCHC RDW Plt Count MPV Immature Gran % (Auto) Neut % (Auto) Lymph % (Auto) [place] % (Auto) Eos % (Auto) Baso % (Auto) Lymph # (Auto) [place] # (Auto) Eos # (Auto) Baso # (Auto) Abs Immat Gran (auto) Absolute Neuts (auto) Absolute Nucleated RBC Nucleated RBC % (auto) Smear Tech's Comments PT 14.7 H INR 1.2 H D-Dimer 688 Sodium Cancelled Potassium Cancelled Chloride Cancelled Carbon Dioxide Cancelled Anion Gap Cancelled BUN Cancelled Creatinine Cancelled Estim Creat Clear Calc Cancelled Estimated GFR Cancelled POC Glucose Random Glucose Cancelled Fasting Glucose Lactic Acid 1.6 Calcium Cancelled Magnesium Cancelled Ferritin Cancelled Total Bilirubin Cancelled Direct Bilirubin Cancelled AST Cancelled ALT Cancelled Alkaline Phosphatase Cancelled Lactate Dehydrogenase Cancelled Troponin I High Sens C-Reactive Protein Cancelled B-Natriuretic Peptide Total Protein Cancelled Albumin Cancelled Procalcitonin COVID-19 ([facility]) COVID-19 Clin Com Ur L.pneumophila Ag Ur Strep pneumoniae Ag 02/24/20 02/24/20 02/24/20 14:06 14:06 16:30 WBC RBC Hgb Hct MCV MCH MCHC RDW Plt Count MPV Immature Gran % (Auto) Neut % (Auto) Lymph % (Auto) [place] % (Auto) Eos % (Auto) Baso % (Auto) Lymph # (Auto) [place] # (Auto) Eos # (Auto) Baso # (Auto) Abs Immat Gran (auto) Absolute Neuts (auto) Absolute Nucleated RBC Nucleated RBC % (auto) Smear Tech's Comments PT INR D-Dimer Sodium 133 L Potassium 4.4 Chloride 92 L Carbon Dioxide 30 H Anion Gap 15 BUN 22 H Creatinine 1.25 Estim Creat Clear Calc 33.7 Estimated GFR 42 POC Glucose Random Glucose 315 H Fasting Glucose Lactic Acid Calcium 8.7 Magnesium Ferritin 380 H Total Bilirubin 0.5 Direct Bilirubin 0.4 AST 46 H ALT 37 H Alkaline Phosphatase 177 H Lactate Dehydrogenase 259 H Troponin I High Sens 9.6 C-Reactive Protein 36.80 H B-Natriuretic Peptide 49 Total Protein 7.4 Albumin 3.5 Procalcitonin Cancelled COVID-19 ([facility]) COVID-19 Clin Com Ur L.pneumophila Ag Ur Strep pneumoniae Ag 02/24/20 02/24/20 02/25/20 16:30 16:30 05:14 WBC 8.1 RBC 4.22 Hgb 11.6 L Hct 36.5 L MCV 86.5 MCH 27.5 MCHC 31.8 RDW 12.3 Plt Count 408 H MPV 9.2 L Immature Gran % (Auto) 0.9 H Neut % (Auto) 88.4 H Lymph % (Auto) 8.6 L [place] % (Auto) 1.9 L Eos % (Auto) 0.0 Baso % (Auto) 0.2 Lymph # (Auto) 0.7 L [place] # (Auto) 0.2 Eos # (Auto) 0.0 Baso # (Auto) 0.0 Abs Immat Gran (auto) 0.07 H Absolute Neuts (auto) 7.1 Absolute Nucleated RBC 0.000 Nucleated RBC % (auto) 0.0 Smear Tech's Comments VERIFIED PT INR D-Dimer Sodium Potassium Chloride Carbon Dioxide Anion Gap BUN Creatinine Estim Creat Clear Calc Estimated GFR POC Glucose Random Glucose Fasting Glucose Lactic Acid Calcium Magnesium Ferritin Cancelled Total Bilirubin Direct Bilirubin AST ALT Alkaline Phosphatase Lactate Dehydrogenase Troponin I High Sens C-Reactive Protein B-Natriuretic Peptide Total Protein Albumin Procalcitonin 0.43 COVID-19 ([facility]) COVID-19 Clin Com Ur L.pneumophila Ag Ur Strep pneumoniae Ag 02/25/20 02/25/20 02/25/20 05:14 09:11 12:05 WBC RBC Hgb Hct MCV MCH MCHC RDW Plt Count MPV Immature Gran % (Auto) Neut % (Auto) Lymph % (Auto) [place] % (Auto) Eos % (Auto) Baso % (Auto) Lymph # (Auto) [place] # (Auto) Eos # (Auto) Baso # (Auto) Abs Immat Gran (auto) Absolute Neuts (auto) Absolute Nucleated RBC Nucleated RBC % (auto) Smear Tech's Comments PT INR D-Dimer Sodium 134 L Potassium 4.8 Chloride 94 L Carbon Dioxide 20 L Anion Gap 25 H BUN 35 H D Creatinine 1.43 H Estim Creat Clear Calc 29.4 Estimated GFR 36 POC Glucose 325 H 427 H* Random Glucose 440 H* Fasting Glucose Lactic Acid Calcium 8.7 Magnesium Ferritin Total Bilirubin Direct Bilirubin AST ALT Alkaline Phosphatase Lactate Dehydrogenase Troponin I High Sens C-Reactive Protein B-Natriuretic Peptide Total Protein Albumin Procalcitonin COVID-19 ([facility]) COVID-19 Clin Com Ur L.pneumophila Ag Ur Strep pneumoniae Ag 02/25/20 02/25/20 02/25/20 17:13 18:41 19:23 WBC RBC Hgb Hct MCV MCH MCHC RDW Plt Count MPV Immature Gran % (Auto) Neut % (Auto) Lymph % (Auto) [place] % (Auto) Eos % (Auto) Baso % (Auto) Lymph # (Auto) [place] # (Auto) Eos # (Auto) Baso # (Auto) Abs Immat Gran (auto) Absolute Neuts (auto) Absolute Nucleated RBC Nucleated RBC % (auto) Smear Tech's Comments PT INR D-Dimer Sodium Potassium Chloride Carbon Dioxide Anion Gap BUN Creatinine Estim Creat Clear Calc Estimated GFR POC Glucose 551 H* 542 H* 479 H* Random Glucose Fasting Glucose Lactic Acid Calcium Magnesium Ferritin Total Bilirubin Direct Bilirubin AST ALT Alkaline Phosphatase Lactate Dehydrogenase Troponin I High Sens C-Reactive Protein B-Natriuretic Peptide Total Protein Albumin Procalcitonin COVID-19 ([facility]) COVID-19 Clin Com Ur L.pneumophila Ag Ur Strep pneumoniae Ag 02/25/20 02/25/20 02/25/20 19:30 20:48 21:55 WBC RBC Hgb Hct MCV MCH MCHC RDW Plt Count MPV Immature Gran % (Auto) Neut % (Auto) Lymph % (Auto) [place] % (Auto) Eos % (Auto) Baso % (Auto) Lymph # (Auto) [place] # (Auto) Eos # (Auto) Baso # (Auto) Abs Immat Gran (auto) Absolute Neuts (auto) Absolute Nucleated RBC Nucleated RBC % (auto) Smear Tech's Comments PT INR D-Dimer Sodium 134 L Potassium 4.8 Chloride 90 L Carbon Dioxide 25 Anion Gap 24 H BUN 63 H D Creatinine 2.23 H Estim Creat Clear Calc 18.9 Estimated GFR 21 POC Glucose 386 H* 293 H Random Glucose 499 H* Fasting Glucose Lactic Acid Calcium 9.4 D Magnesium Ferritin Total Bilirubin Direct Bilirubin AST ALT Alkaline Phosphatase Lactate Dehydrogenase Troponin I High Sens C-Reactive Protein B-Natriuretic Peptide Total Protein Albumin Procalcitonin COVID-19 ([facility]) COVID-19 Clin Com Ur L.pneumophila Ag Ur Strep pneumoniae Ag 02/25/20 02/26/20 02/26/20 22:50 06:11 06:11 WBC 24.8 H RBC 4.23 Hgb 11.8 L Hct 35.4 L MCV 83.7 MCH 27.9 MCHC 33.3 RDW 12.2 Plt Count 550 H D MPV 9.4 Immature Gran % (Auto) 1.0 H Neut % (Auto) 89.0 H Lymph % (Auto) 4.8 L [place] % (Auto) 5.0 Eos % (Auto) 0.0 Baso % (Auto) 0.2 Lymph # (Auto) 1.2 [place] # (Auto) 1.2 Eos # (Auto) 0.0 Baso # (Auto) 0.0 Abs Immat Gran (auto) 0.25 H Absolute Neuts (auto) 22.1 H Absolute Nucleated RBC 0.000 Nucleated RBC % (auto) 0.0 Smear Tech's Comments VERIFIED PT INR D-Dimer Sodium 135 Potassium 5.1 Chloride 93 L Carbon Dioxide 26 Anion Gap 21 H BUN 73 H Creatinine 1.83 H Estim Creat Clear Calc 23.0 Estimated GFR 27 POC Glucose 178 H Random Glucose Fasting Glucose 163 H Lactic Acid Calcium 9.8 Magnesium Ferritin Total Bilirubin Direct Bilirubin AST ALT Alkaline Phosphatase Lactate Dehydrogenase Troponin I High Sens C-Reactive Protein B-Natriuretic Peptide Total Protein Albumin Procalcitonin COVID-19 ([facility]) COVID-19 Clin Com Ur L.pneumophila Ag Ur Strep pneumoniae Ag 02/26/20 02/26/20 02/26/20 09:01 15:33 17:42 WBC RBC Hgb Hct MCV MCH MCHC RDW Plt Count MPV Immature Gran % (Auto) Neut % (Auto) Lymph % (Auto) [place] % (Auto) Eos % (Auto) Baso % (Auto) Lymph # (Auto) [place] # (Auto) Eos # (Auto) Baso # (Auto) Abs Immat Gran (auto) Absolute Neuts (auto) Absolute Nucleated RBC Nucleated RBC % (auto) Smear Tech's Comments PT INR D-Dimer Sodium Potassium Chloride Carbon Dioxide Anion Gap BUN Creatinine Estim Creat Clear Calc Estimated GFR POC Glucose 302 H 400 H* 433 H* Random Glucose Fasting Glucose Lactic Acid Calcium Magnesium Ferritin Total Bilirubin Direct Bilirubin AST ALT Alkaline Phosphatase Lactate Dehydrogenase Troponin I High Sens C-Reactive Protein B-Natriuretic Peptide Total Protein Albumin Procalcitonin COVID-19 ([facility]) COVID-19 Clin Com Ur L.pneumophila Ag Ur Strep pneumoniae Ag 02/26/20 02/26/20 02/27/20 20:32 22:01 06:18 WBC RBC Hgb Hct MCV MCH MCHC RDW Plt Count MPV Immature Gran % (Auto) Neut % (Auto) Lymph % (Auto) [place] % (Auto) Eos % (Auto) Baso % (Auto) Lymph # (Auto) [place] # (Auto) Eos # (Auto) Baso # (Auto) Abs Immat Gran (auto) Absolute Neuts (auto) Absolute Nucleated RBC Nucleated RBC % (auto) Smear Tech's Comments PT INR D-Dimer Sodium Potassium Chloride Carbon Dioxide Anion Gap BUN Creatinine Estim Creat Clear Calc Estimated GFR POC Glucose 368 H* 280 H Random Glucose Fasting Glucose Lactic Acid Calcium Magnesium Ferritin Total Bilirubin 0.2 Direct Bilirubin < 0.2 AST 44 H ALT 34 H Alkaline Phosphatase 160 H Lactate Dehydrogenase Troponin I High Sens C-Reactive Protein B-Natriuretic Peptide Total Protein 6.9 Albumin 2.9 L Procalcitonin COVID-19 ([facility]) COVID-19 Clin Com Ur L.pneumophila Ag Ur Strep pneumoniae Ag 02/27/20 02/27/20 02/27/20 07:18 08:34 08:34 WBC 17.7 H RBC 4.32 Hgb 11.9 L Hct 36.0 L MCV 83.3 MCH 27.5 MCHC 33.1 RDW 12.6 Plt Count 593 H MPV 8.9 L Immature Gran % (Auto) Neut % (Auto) Lymph % (Auto) [place] % (Auto) Eos % (Auto) Baso % (Auto) Lymph # (Auto) [place] # (Auto) Eos # (Auto) Baso # (Auto) Abs Immat Gran (auto) Absolute Neuts (auto) Absolute Nucleated RBC 0.000 Nucleated RBC % (auto) 0.0 Smear Tech's Comments PT INR D-Dimer Sodium 138 Potassium 6.0 H* Chloride 96 Carbon Dioxide 30 H Anion Gap 18 BUN 70 H Creatinine 1.53 H Estim Creat Clear Calc 27.5 Estimated GFR 33 POC Glucose 136 H Random Glucose 164 H D Fasting Glucose Lactic Acid Calcium 10.1 Magnesium Ferritin Total Bilirubin Direct Bilirubin AST ALT Alkaline Phosphatase Lactate Dehydrogenase Troponin I High Sens C-Reactive Protein B-Natriuretic Peptide Total Protein Albumin Procalcitonin COVID-19 ([facility]) COVID-19 Clin Com Ur L.pneumophila Ag Ur Strep pneumoniae Ag 02/27/20 02/27/20 02/27/20 11:13 11:17 14:19 WBC RBC Hgb Hct MCV MCH MCHC RDW Plt Count MPV Immature Gran % (Auto) Neut % (Auto) Lymph % (Auto) [place] % (Auto) Eos % (Auto) Baso % (Auto) Lymph # (Auto) [place] # (Auto) Eos # (Auto) Baso # (Auto) Abs Immat Gran (auto) Absolute Neuts (auto) Absolute Nucleated RBC Nucleated RBC % (auto) Smear Tech's Comments PT INR D-Dimer Sodium Potassium 4.9 Chloride Carbon Dioxide Anion Gap BUN Creatinine Estim Creat Clear Calc Estimated GFR POC Glucose 393 H* 386 H* Random Glucose Fasting Glucose Lactic Acid Calcium Magnesium Ferritin Total Bilirubin Direct Bilirubin AST ALT Alkaline Phosphatase Lactate Dehydrogenase Troponin I High Sens C-Reactive Protein B-Natriuretic Peptide Total Protein Albumin Procalcitonin COVID-19 ([facility]) COVID-19 Clin Com Ur L.pneumophila Ag Ur Strep pneumoniae Ag 02/27/20 02/27/20 02/28/20 16:31 21:01 07:22 WBC RBC Hgb Hct MCV MCH MCHC RDW Plt Count MPV Immature Gran % (Auto) Neut % (Auto) Lymph % (Auto) [place] % (Auto) Eos % (Auto) Baso % (Auto) Lymph # (Auto) [place] # (Auto) Eos # (Auto) Baso # (Auto) Abs Immat Gran (auto) Absolute Neuts (auto) Absolute Nucleated RBC Nucleated RBC % (auto) Smear Tech's Comments PT INR D-Dimer Sodium Potassium Chloride Carbon Dioxide Anion Gap BUN Creatinine Estim Creat Clear Calc Estimated GFR POC Glucose 382 H* 308 H 103 Random Glucose Fasting Glucose Lactic Acid Calcium Magnesium Ferritin Total Bilirubin Direct Bilirubin AST ALT Alkaline Phosphatase Lactate Dehydrogenase Troponin I High Sens C-Reactive Protein B-Natriuretic Peptide Total Protein Albumin Procalcitonin COVID-19 ([facility]) COVID-19 Clin Com Ur L.pneumophila Ag Ur Strep pneumoniae Ag 02/28/20 02/28/20 02/28/20 11:15 16:17 17:51 WBC RBC Hgb Hct MCV MCH MCHC RDW Plt Count MPV Immature Gran % (Auto) Neut % (Auto) Lymph % (Auto) [place] % (Auto) Eos % (Auto) Baso % (Auto) Lymph # (Auto) [place] # (Auto) Eos # (Auto) Baso # (Auto) Abs Immat Gran (auto) Absolute Neuts (auto) Absolute Nucleated RBC Nucleated RBC % (auto) Smear Tech's Comments PT INR D-Dimer Sodium Potassium Chloride Carbon Dioxide Anion Gap BUN Creatinine Estim Creat Clear Calc Estimated GFR POC Glucose 226 H 223 H Random Glucose Fasting Glucose Lactic Acid Calcium Magnesium Ferritin Total Bilirubin Direct Bilirubin AST ALT Alkaline Phosphatase Lactate Dehydrogenase Troponin I High Sens C-Reactive Protein B-Natriuretic Peptide Total Protein Albumin Procalcitonin COVID-19 ([facility]) COVID-19 Clin Com Ur L.pneumophila Ag Not Detected Ur Strep pneumoniae Ag Not Detected 02/28/20 02/29/20 02/29/20 20:10 06:43 06:43 WBC 13.6 H RBC 4.06 L Hgb 11.3 L Hct 34.7 L MCV 85.5 MCH 27.8 MCHC 32.6 RDW 12.6 Plt Count 540 H MPV 8.9 L Immature Gran % (Auto) Neut % (Auto) Lymph % (Auto) [place] % (Auto) Eos % (Auto) Baso % (Auto) Lymph # (Auto) [place] # (Auto) Eos # (Auto) Baso # (Auto) Abs Immat Gran (auto) Absolute Neuts (auto) Absolute Nucleated RBC 0.000 Nucleated RBC % (auto) 0.0 Smear Tech's Comments PT INR D-Dimer Sodium 143 Potassium 3.8 D Chloride 104 Carbon Dioxide 31 H Anion Gap 12 BUN 53 H Creatinine 1.07 Estim Creat Clear Calc 39.3 Estimated GFR 50 POC Glucose 390 H* Random Glucose 69 D Fasting Glucose Lactic Acid Calcium 8.5 D Magnesium Ferritin Total Bilirubin Direct Bilirubin AST ALT Alkaline Phosphatase Lactate Dehydrogenase Troponin I High Sens C-Reactive Protein B-Natriuretic Peptide Total Protein Albumin Procalcitonin COVID-19 ([facility]) COVID-19 Clin Com Ur L.pneumophila Ag Ur Strep pneumoniae Ag 02/29/20 02/29/20 02/29/20 07:15 10:40 16:39 WBC RBC Hgb Hct MCV MCH MCHC RDW Plt Count MPV Immature Gran % (Auto) Neut % (Auto) Lymph % (Auto) [place] % (Auto) Eos % (Auto) Baso % (Auto) Lymph # (Auto) [place] # (Auto) Eos # (Auto) Baso # (Auto) Abs Immat Gran (auto) Absolute Neuts (auto) Absolute Nucleated RBC Nucleated RBC % (auto) Smear Tech's Comments PT INR D-Dimer Sodium Potassium Chloride Carbon Dioxide Anion Gap BUN Creatinine Estim Creat Clear Calc Estimated GFR POC Glucose 71 229 H 380 H* Random Glucose Fasting Glucose Lactic Acid Calcium Magnesium Ferritin Total Bilirubin Direct Bilirubin AST ALT Alkaline Phosphatase Lactate Dehydrogenase Troponin I High Sens C-Reactive Protein B-Natriuretic Peptide Total Protein Albumin Procalcitonin COVID-19 ([facility]) COVID-19 Clin Com Ur L.pneumophila Ag Ur Strep pneumoniae Ag 02/29/20 03/01/20 03/01/20 20:10 07:37 11:42 WBC RBC Hgb Hct MCV MCH MCHC RDW Plt Count MPV Immature Gran % (Auto) Neut % (Auto) Lymph % (Auto) [place] % (Auto) Eos % (Auto) Baso % (Auto) Lymph # (Auto) [place] # (Auto) Eos # (Auto) Baso # (Auto) Abs Immat Gran (auto) Absolute Neuts (auto) Absolute Nucleated RBC Nucleated RBC % (auto) Smear Tech's Comments PT INR D-Dimer Sodium Potassium Chloride Carbon Dioxide Anion Gap BUN Creatinine Estim Creat Clear Calc Estimated GFR POC Glucose 399 H* 100 259 H Random Glucose Fasting Glucose Lactic Acid Calcium Magnesium Ferritin Total Bilirubin Direct Bilirubin AST ALT Alkaline Phosphatase Lactate Dehydrogenase Troponin I High Sens C-Reactive Protein B-Natriuretic Peptide Total Protein Albumin Procalcitonin COVID-19 ([facility]) COVID-19 Clin Com Ur L.pneumophila Ag Ur Strep pneumoniae Ag 03/01/20 03/01/20 03/02/20 16:03 19:47 06:44 WBC RBC Hgb Hct MCV MCH MCHC RDW Plt Count MPV Immature Gran % (Auto) Neut % (Auto) Lymph % (Auto) [place] % (Auto) Eos % (Auto) Baso % (Auto) Lymph # (Auto) [place] # (Auto) Eos # (Auto) Baso # (Auto) Abs Immat Gran (auto) Absolute Neuts (auto) Absolute Nucleated RBC Nucleated RBC % (auto) Smear Tech's Comments PT INR D-Dimer Sodium 142 Potassium 4.0 Chloride 103 Carbon Dioxide 34 H Anion Gap 9 L BUN 34 H Creatinine 0.86 Estim Creat Clear Calc 48.9 Estimated GFR > 60 POC Glucose 329 H 391 H* Random Glucose 84 Fasting Glucose Lactic Acid Calcium 8.5 Magnesium Ferritin Total Bilirubin Direct Bilirubin AST ALT Alkaline Phosphatase Lactate Dehydrogenase Troponin I High Sens C-Reactive Protein B-Natriuretic Peptide Total Protein Albumin Procalcitonin COVID-19 ([facility]) COVID-19 Clin Com Ur L.pneumophila Ag Ur Strep pneumoniae Ag 03/02/20 03/02/20 03/02/20 08:13 11:21 15:18 WBC RBC Hgb Hct MCV MCH MCHC RDW Plt Count MPV Immature Gran % (Auto) Neut % (Auto) Lymph % (Auto) [place] % (Auto) Eos % (Auto) Baso % (Auto) Lymph # (Auto) [place] # (Auto) Eos # (Auto) Baso # (Auto) Abs Immat Gran (auto) Absolute Neuts (auto) Absolute Nucleated RBC Nucleated RBC % (auto) Smear Tech's Comments PT INR D-Dimer Sodium Potassium Chloride Carbon Dioxide Anion Gap BUN Creatinine Estim Creat Clear Calc Estimated GFR POC Glucose 63 246 H 310 H Random Glucose Fasting Glucose Lactic Acid Calcium Magnesium Ferritin Total Bilirubin Direct Bilirubin AST ALT Alkaline Phosphatase Lactate Dehydrogenase Troponin I High Sens C-Reactive Protein B-Natriuretic Peptide Total Protein Albumin Procalcitonin COVID-19 ([facility]) COVID-19 Clin Com Ur L.pneumophila Ag Ur Strep pneumoniae Ag 03/02/20 03/03/20 03/03/20 19:11 06:29 06:29 WBC 11.8 H RBC 4.01 L Hgb 11.0 L Hct 34.0 L MCV 84.8 MCH 27.4 MCHC 32.4 RDW 12.6 Plt Count 509 H MPV 9.0 L Immature Gran % (Auto) Neut % (Auto) Lymph % (Auto) [place] % (Auto) Eos % (Auto) Baso % (Auto) Lymph # (Auto) [place] # (Auto) Eos # (Auto) Baso # (Auto) Abs Immat Gran (auto) Absolute Neuts (auto) Absolute Nucleated RBC 0.000 Nucleated RBC % (auto) 0.0 Smear Tech's Comments PT INR D-Dimer Sodium 140 Potassium 4.4 Chloride 103 Carbon Dioxide 32 H Anion Gap 9 L BUN 32 H Creatinine 0.82 Estim Creat Clear Calc 51.3 Estimated GFR > 60 POC Glucose 368 H* Random Glucose 90 Fasting Glucose Lactic Acid Calcium 8.6 Magnesium Ferritin Total Bilirubin Direct Bilirubin AST ALT Alkaline Phosphatase Lactate Dehydrogenase Troponin I High Sens C-Reactive Protein B-Natriuretic Peptide Total Protein Albumin Procalcitonin COVID-19 ([facility]) COVID-19 Clin Com Ur L.pneumophila Ag Ur Strep pneumoniae Ag 03/03/20 03/03/20 07:23 11:20 WBC RBC Hgb Hct MCV MCH MCHC RDW Plt Count MPV Immature Gran % (Auto) Neut % (Auto) Lymph % (Auto) [place] % (Auto) Eos % (Auto) Baso % (Auto) Lymph # (Auto) [place] # (Auto) Eos # (Auto) Baso # (Auto) Abs Immat Gran (auto) Absolute Neuts (auto) Absolute Nucleated RBC Nucleated RBC % (auto) Smear Tech's Comments PT INR D-Dimer Sodium Potassium Chloride Carbon Dioxide Anion Gap BUN Creatinine Estim Creat Clear Calc Estimated GFR POC Glucose 79 227 H Random Glucose Fasting Glucose Lactic Acid Calcium Magnesium Ferritin Total Bilirubin Direct Bilirubin AST ALT Alkaline Phosphatase Lactate Dehydrogenase Troponin I High Sens C-Reactive Protein B-Natriuretic Peptide Total Protein Albumin Procalcitonin COVID-19 ([facility]) COVID-19 Clin Com Ur L.pneumophila Ag Ur Strep pneumoniae Ag Discharge Plan Discharge Patient Disposition: Xfer [facility] Hospital Referrals: Name,MD Anastacio [Primary Care Provider] - Discharge Medications: Continued metformin 500 mg tablet 1 tab PO BID RF: 0 atorvastatin 20 mg tablet 1 tab PO DAILY RF: 0 aspirin 81 mg tablet,delayed release (DR/EC) 1 tab PO DAILY RF: 0 amlodipine 10 mg tablet 1 tab PO DAILY RF: 0 hydrochlorothiazide 25 mg tablet 1 tab PO DAILY RF: 0 irbesartan 300 mg tablet 1 tab PO DAILY RF: 0 Discharge Orders: Discharge Order (Routine); Ordered 03/03/20 Ordered By: Bravo Claudio Diet: advance to usual diet Activity on Discharge: As tolerated Visit Report Forms: Patient Portal Discharge page Care Plan Goals: REad below Health Concerns: Read below Plan of Treatment: You were admitted to the hospital for treatment of COVID-19 infection. You were treated with steroids, oxygen with good response over the course of hospital stay. Your oxygen requirement remains at 2 L at this point was planned to discharge you to DC you to continue her your treatment and tele can go back home
[2020-03-03 15:34] LABS: Glucose, Whole Blood 390 mg/dL (60-115)
--- NOTE | 2020-03-03 17:06 | PC.NURSE ---
Patient to be transferred to [facility]. This RN went over discharge paperwork with spanish interpreter/translator and patient states, If I am going to be transferred to another hospital then I am going home . Nursing Popcorn Vendor Nir and Dr. Claudio made aware. Patient to remain at [facility] and will continue to educate with incentive spirometry. No further concerns at this time.
[2020-03-03 19:40] LABS: Glucose, Whole Blood 461 mg/dL (60-115)
[2020-03-03] MEDS: Insulin Lispro 100 UNIT/ML 3 ML VIAL 12 UNIT SUBCUT (20:06)
[2020-03-03] MEDS: Enoxaparin Sodium 40 MG/0.4 ML SYRINGE SUBCUT (20:07)
[2020-03-04] VITALS (9 sets, daily range): BP systolic 111–143; BP diastolic 51–70; PULSE 69–90; RESP 15–20; TEMP 36.2–36.8; O2SAT 87–99
[2020-03-04 08:25] LABS: Glucose, Whole Blood 100 mg/dL (60-115)
--- NOTE | 2020-03-04 10:20 | MHC.CM.PN ---
Pt may require home O2 - eval is scheduled for today. MD will arrange O2 with respiratory if required. Referral made to [facility] per pt/family request should pt require home O2. Pt will need BLS transportation if she needs home O2.
--- NOTE | 2020-03-04 10:42 | MHC.CM.PN ---
Addendum entered by Irene Batista 03/04/20 11:58: Due to the holiday, [facility] auth and PCP verification could not be obtained by [facility]. Updated MD who will plan for a d/c on 03/05 when services can be safely and appropriately arranged. Call placed to Bradford update him on change of plans: he will text his mother to prepare her for a d/c on 03/05. Original Note: Per discussion with MD at rounds today: pt will need home O2 - respiratory to arrange - referral to [facility] for skilled RN needs: call placed to [facility] to obtain auth for home services - d/t holiday, a message was left indicating the urgent need for home [facility] services. Call placed to son Bradford with whom pt resides, updated him on the d/c plan including the need for BLS transport d/t O2 monitoring. Updated IMM Will await home O2 set up and confirmation of [facility] services. Will arrange BLS transport when pt is medically ready for d/c
[2020-03-04] MEDS: amLODIPine Besylate 10 MG TABLET PO (11:07)
[2020-03-04] MEDS: Aspirin Enteric Coated 81 MG TABLET.DR PO (11:07)
[2020-03-04] MEDS: Atorvastatin Calcium 20 MG TABLET PO (11:07)
[2020-03-04] MEDS: Insulin Glargine,Hum.rec.anlog 100 UNIT/ML 10 ML VIAL 30 UNIT SUBCUT (11:07)
[2020-03-04] MEDS: 0.9 % Sodium Chloride Flush 3 ML SYRINGE IVFLUSH ×3 (11:08→20:50)
[2020-03-04] MEDS: dexAMETHasone sod phosphate 4 MG/ML VIAL 6 MG IVPUSH (11:08)
--- NOTE | 2020-03-04 11:58 | P.PNIM_ITS ---
Subjective Subjective Date of Service: 03/04/20 Interval History: The patient was seen and evaluated this morning Laying in bed, feels comfortable, not in distress Desaturated to high 80s on room air this morning, back on 2 L of oxygen No reported fever, chills or shortness of breath No reported other overnight events. Systemic review: No fever, chills with generalized weakness No chest pain, palpitation Improved shortness of breath and coughing No abdominal pain, nausea or vomiting No urinary symptoms No any rash or wounds Physical Exam Vital Signs: Vital Signs: Last Vital Signs Temp 98.0 F 03/04/20 11:49 Pulse 76 03/04/20 11:49 Resp 18 03/04/20 11:49 BP 138/60 03/04/20 11:49 Pulse Ox 97 03/04/20 11:49 Body Mass Index 20.7 Const: Other: Constitutional : Alert, oriented, not in distress Neck : Normal inspection, Supple Cardiovascular : RRR, S1 S2, no lower extremity edema Respiratory : Chest wall moving bilaterally, not in distress, on 2 L of oxygen Gastrointestinal: soft, lax, Normal bowel sounds, Non tender Skin : Warm/Dry, No rash Neurological : Alert & oriented x3, No focal deficit Objective Data Current Medications Generic Name Dose Route Start Last Admin Trade Name Freq PRN Reason Stop Dose Admin Acetaminophen 650 mg 02/24/20 22:33 Acetaminophen 325 Mg Tablet PO Q6H PRN Pain, Mild (Pain Scale 1-3) Amlodipine Besylate 10 mg 02/26/20 16:12 03/04/20 11:07 Amlodipine Besylate 10 Mg Tablet PO 10 mg DAILY EMELINA Administration Protocol Aspirin 81 mg 02/26/20 16:12 03/04/20 11:07 Aspirin Enteric Coated 81 Mg Tablet. PO 81 mg DAILY EMELINA Administration Atorvastatin Calcium 20 mg 02/26/20 16:12 03/04/20 11:07 Atorvastatin Calcium 20 Mg Tablet PO 20 mg DAILY EMELINA Administration Dexamethasone Sodium Phosphate 6 mg 02/25/20 09:00 03/04/20 11:08 Dexamethasone Sod Phosphate 4 Mg/Ml Vial IVPUSH 6 mg DAILY EMELINA Administration Docusate Sodium 100 mg 02/24/20 22:33 Docusate Sodium 100 Mg Capsule PO DAILY PRN Constipation Enoxaparin Sodium 40 mg 02/24/20 22:33 03/03/20 20:07 Enoxaparin Sodium 40 Mg/0.4 Ml Syringe SUBCUT 40 mg Q24H EMELINA Administration Hydrochlorothiazide 25 mg 02/26/20 16:12 02/27/20 08:03 Hydrochlorothiazide 25 Mg Tablet PO 25 mg DAILY EMELINA Administration Protocol Insulin Glargine 30 unit 03/02/20 09:00 03/04/20 11:07 Insulin Glargine,Hum.Rec.Anlog 100 Unit/Ml 10 Ml Vial SUBCUT 30 unit DAILY EMELINA Administration Insulin Human Lispro 0 unit 02/26/20 07:30 03/04/20 08:41 Insulin Lispro 100 Unit/Ml 3 Ml Vial SUBCUT Not Given QIDACHS [facility] Protocol Ondansetron HCl 4 mg 02/24/20 22:33 Ondansetron Hcl 4 Mg/2 Ml Vial IVPUSH Q8H PRN Nausea and Vomiting Sodium Chloride 3 ml 02/25/20 00:00 03/04/20 11:08 0.9 % Sodium Chloride Flush 3 Ml Syringe IVFLUSH 3 ml QSHIFT [facility] Administration Labs CBC & Chem 7: 03/03/20 06:29 03/03/20 06:29 Microbiology Microbiology Results: Microbiology 02/24/20 16:30 Blood - Venous Blood Culture - Final No growth after 5 days. 02/24/20 14:06 Blood - Venous Blood Culture - Final No growth after 5 days. Assessment and Plan (1) Pneumonia due to COVID-19 virus: Status: Acute (2) Acute respiratory failure with hypoxia: Status: Acute (3) Transaminitis: Status: Acute (4) [place] (acute kidney injury): Status: Acute Assessment and Plan: 79-year-old female presented to the hospital with complaints of fatigue as well as shortness of breath found to have COVID-19 pneumonia. acute hypoxic respiratory failure Due to covid 19 pneumonia On 2 L of oxygen today Continue Decadron day 10 Wean O2 as tolerated Plan to discharge home to finish Decadron orally hopefully tomorrow Acute kidney injury BUN improved Creatinine improving to 1.07 continue to monitor Wrist start valsartan and thiazide Hyperkalemia Resolved Potassium of 3.8 Likely secondary to [place] I Diabetes with hyperglycemia Better controlled today Decrease Lantus from 30 to 15 as Dexamethasone treatment finished (not on Lantus at home) Continue sliding scale Hypertension Amlodipine DVT PPX Lovenox
[2020-03-04 12:07] LABS: Glucose, Whole Blood 212 mg/dL (60-115)
[2020-03-04] MEDS: Insulin Lispro 100 UNIT/ML 3 ML VIAL SUBCUT ×3 (13:25→20:46)
[2020-03-04 16:44] LABS: Glucose, Whole Blood 307 mg/dL (60-115)
[2020-03-04 20:22] LABS: Glucose, Whole Blood 329 mg/dL (60-115)
[2020-03-04] MEDS: Enoxaparin Sodium 40 MG/0.4 ML SYRINGE SUBCUT (20:48)
[2020-03-05] VITALS (7 sets, daily range): BP systolic 121–142; BP diastolic 54–69; PULSE 68–96; RESP 15–21; TEMP 36.1–36.5; O2SAT 89–97
[2020-03-05 07:34] LABS: Glucose, Whole Blood 129 mg/dL (60-115)
[2020-03-05] MEDS: amLODIPine Besylate 10 MG TABLET PO (08:10)
[2020-03-05] MEDS: Insulin Glargine,Hum.rec.anlog 100 UNIT/ML 10 ML VIAL 15 UNIT SUBCUT (08:11)
[2020-03-05] MEDS: Atorvastatin Calcium 20 MG TABLET PO (08:12)
[2020-03-05] MEDS: Aspirin Enteric Coated 81 MG TABLET.DR PO (08:12)
[2020-03-05] MEDS: 0.9 % Sodium Chloride Flush 3 ML SYRINGE IVFLUSH (08:13)
[2020-03-05 11:15] LABS: Glucose, Whole Blood 336 mg/dL (60-115)
--- NOTE | 2020-03-05 11:45 | PM.DS ---
DS: Providers Provider Date of Service: 03/05/20 Date of admission: 02/24/20 21:08 Primary care physician: Anastacio Burks MD DS: Diagnosis Discharge Diagnosis (1) Pneumonia due to COVID-19 virus: Status: Acute (2) Acute respiratory failure with hypoxia: Status: Acute (3) Transaminitis: Status: Acute (4) CRISTI (acute kidney injury): Status: Acute DS: Medications Discharge Medications Home Medications: Home Medications Medication Instructions Recorded Confirmed amlodipine 1 tab PO DAILY 02/24/20 02/24/20 aspirin 1 tab PO DAILY 02/24/20 02/24/20 atorvastatin 1 tab PO DAILY 02/24/20 02/24/20 hydrochlorothiazide 1 tab PO DAILY 02/24/20 02/24/20 irbesartan 1 tab PO DAILY 02/24/20 02/24/20 metformin 1 tab PO BID 02/24/20 02/24/20 DS: Summary Hospital Course Hospital Course: Admission note HPI This is a 79-year-old female with past medical history of diabetes, hypertension, hyperlipidemia who presents to the hospital with complaints of 2 days of shortness of breath, cough, fatigue, low appetite. Patient reports that she has had very low oral intake for the past 3 days. Her is currently in the hospital with COVID-19 pneumonia. Patient reports nausea, low-grade fever, chills, started having diarrhea about a day ago. On arrival to the ED patient was found to be 86% on room air. She is currently on 2 L of oxygen satting 96%. On arrival were significant for temperature of 98.9?, pulse rate of 98, respiratory rate of 24, blood pressure 149/58, satting 86% on room air Labs are significant for WBC count 11.1, hemoglobin of 11.2, hematocrit 34, PT of 14.7, INR of 1.2, sodium of 135, BUN of 22, creatinine of 1.25, AST of 46, ALT of 37, alk-phos of 177, LDH of 259, CRP of 36, COVID-[address] angiogram negative for PE, with extensive multifocal areas of nodular consolidation and ground-glass opacity with interlobular septal thickening consistent with COVID-19 pneumonitis Hospital course The patient was admitted to the hospital for treatment of acute hypoxic respiratory failure with oxygen saturation of 86% on room air secondary to COVID-19 infection. The patient was also noted to have acute kidney injury with creatinine of 2.2 from baseline of 0.8 and mild transaminitis. The patient was treated with oxygen supplement, IV steroids and was not a candidate for remdesivir given her Cristi I. She mainly required oxygen supplement by nasal cannula requiring non-rebreather for 1 day before weaning her down. She still requiring 1 L of oxygen due to drop in sats in mid 80s Patient is being discharged home with VNA services and 1 L of oxygen to be used with and without activity. Time Spent with Patient Time attestation: Total time spent providing and/or coordinating discharge services: Discharge coordination time: Greater than 30 minutes Physical Exam Vital Signs: Vital Signs: Last Vital Signs Temp 97.7 F 03/05/20 11:06 Pulse 77 03/05/20 11:06 Resp 18 03/05/20 11:06 BP 121/54 L 03/05/20 11:06 Pulse Ox 97 03/05/20 11:06 Body Mass Index 20.7 Constitutional : Alert, oriented, not in distress Neck : Normal inspection, Supple Cardiovascular : RRR, S1 S2, Respiratory : Clear to auscultation, no respiratory distress Gastrointestinal: soft, Normal bowel sounds, Non tender Skin : Warm/Dry, No rash Extremities no edema Neurological : Alert & oriented x3, No focal deficit DS: Data Data Completed and Pending Labs on day of discharge: Laboratory Tests 02/24/20 02/24/20 02/24/20 13:56 13:58 14:06 WBC 11.1 H RBC 4.01 L Hgb 11.2 L Hct 34.0 L MCV 84.8 MCH 27.9 MCHC 32.9 RDW 12.3 Plt Count 368 MPV 10.0 Immature Gran % (Auto) 0.5 H Neut % (Auto) 82.0 H Lymph % (Auto) 9.9 L [place] % (Auto) 7.1 Eos % (Auto) 0.1 Baso % (Auto) 0.4 Lymph # (Auto) 1.1 L [place] # (Auto) 0.8 Eos # (Auto) 0.0 Baso # (Auto) 0.0 Abs Immat Gran (auto) 0.06 H Absolute Neuts (auto) 9.1 H Absolute Nucleated RBC 0.000 Nucleated RBC % (auto) 0.0 Smear Tech's Comments PT INR D-Dimer Sodium Potassium Chloride Carbon Dioxide Anion Gap BUN Creatinine Estim Creat Clear Calc Estimated GFR POC Glucose 303 H Random Glucose Fasting Glucose Lactic Acid Calcium Magnesium Ferritin Total Bilirubin Direct Bilirubin AST ALT Alkaline Phosphatase Lactate Dehydrogenase Troponin I High Sens C-Reactive Protein B-Natriuretic Peptide Total Protein Albumin Procalcitonin COVID-19 ([facility]) Positive A COVID-19 Clin Com See Note Ur L.pneumophila Ag Ur Strep pneumoniae Ag 02/24/20 02/24/20 02/24/20 14:06 14:06 14:06 WBC RBC Hgb Hct MCV MCH MCHC RDW Plt Count MPV Immature Gran % (Auto) Neut % (Auto) Lymph % (Auto) [place] % (Auto) Eos % (Auto) Baso % (Auto) Lymph # (Auto) [place] # (Auto) Eos # (Auto) Baso # (Auto) Abs Immat Gran (auto) Absolute Neuts (auto) Absolute Nucleated RBC Nucleated RBC % (auto) Smear Tech's Comments PT 14.7 H INR 1.2 H D-Dimer 688 Sodium Cancelled Potassium Cancelled Chloride Cancelled Carbon Dioxide Cancelled Anion Gap Cancelled BUN Cancelled Creatinine Cancelled Estim Creat Clear Calc Cancelled Estimated GFR Cancelled POC Glucose Random Glucose Cancelled Fasting Glucose Lactic Acid 1.6 Calcium Cancelled Magnesium Cancelled Ferritin Cancelled Total Bilirubin Cancelled Direct Bilirubin Cancelled AST Cancelled ALT Cancelled Alkaline Phosphatase Cancelled Lactate Dehydrogenase Cancelled Troponin I High Sens C-Reactive Protein Cancelled B-Natriuretic Peptide Total Protein Cancelled Albumin Cancelled Procalcitonin COVID-19 ([facility]) COVID-19 Clin Com Ur L.pneumophila Ag Ur Strep pneumoniae Ag 02/24/20 02/24/20 02/24/20 14:06 14:06 16:30 WBC RBC Hgb Hct MCV MCH MCHC RDW Plt Count MPV Immature Gran % (Auto) Neut % (Auto) Lymph % (Auto) [place] % (Auto) Eos % (Auto) Baso % (Auto) Lymph # (Auto) [place] # (Auto) Eos # (Auto) Baso # (Auto) Abs Immat Gran (auto) Absolute Neuts (auto) Absolute Nucleated RBC Nucleated RBC % (auto) Smear Tech's Comments PT INR D-Dimer Sodium 133 L Potassium 4.4 Chloride 92 L Carbon Dioxide 30 H Anion Gap 15 BUN 22 H Creatinine 1.25 Estim Creat Clear Calc 33.7 Estimated GFR 42 POC Glucose Random Glucose 315 H Fasting Glucose Lactic Acid Calcium 8.7 Magnesium Ferritin 380 H Total Bilirubin 0.5 Direct Bilirubin 0.4 AST 46 H ALT 37 H Alkaline Phosphatase 177 H Lactate Dehydrogenase 259 H Troponin I High Sens 9.6 C-Reactive Protein 36.80 H B-Natriuretic Peptide 49 Total Protein 7.4 Albumin 3.5 Procalcitonin Cancelled COVID-19 ([facility]) COVID-19 Clin Com Ur L.pneumophila Ag Ur Strep pneumoniae Ag 02/24/20 02/24/20 02/25/20 16:30 16:30 05:14 WBC 8.1 RBC 4.22 Hgb 11.6 L Hct 36.5 L MCV 86.5 MCH 27.5 MCHC 31.8 RDW 12.3 Plt Count 408 H MPV 9.2 L Immature Gran % (Auto) 0.9 H Neut % (Auto) 88.4 H Lymph % (Auto) 8.6 L [place] % (Auto) 1.9 L Eos % (Auto) 0.0 Baso % (Auto) 0.2 Lymph # (Auto) 0.7 L [place] # (Auto) 0.2 Eos # (Auto) 0.0 Baso # (Auto) 0.0 Abs Immat Gran (auto) 0.07 H Absolute Neuts (auto) 7.1 Absolute Nucleated RBC 0.000 Nucleated RBC % (auto) 0.0 Smear Tech's Comments VERIFIED PT INR D-Dimer Sodium Potassium Chloride Carbon Dioxide Anion Gap BUN Creatinine Estim Creat Clear Calc Estimated GFR POC Glucose Random Glucose Fasting Glucose Lactic Acid Calcium Magnesium Ferritin Cancelled Total Bilirubin Direct Bilirubin AST ALT Alkaline Phosphatase Lactate Dehydrogenase Troponin I High Sens C-Reactive Protein B-Natriuretic Peptide Total Protein Albumin Procalcitonin 0.43 COVID-19 ([facility]) COVID-19 Clin Com Ur L.pneumophila Ag Ur Strep pneumoniae Ag 02/25/20 02/25/20 02/25/20 05:14 09:11 12:05 WBC RBC Hgb Hct MCV MCH MCHC RDW Plt Count MPV Immature Gran % (Auto) Neut % (Auto) Lymph % (Auto) [place] % (Auto) Eos % (Auto) Baso % (Auto) Lymph # (Auto) [place] # (Auto) Eos # (Auto) Baso # (Auto) Abs Immat Gran (auto) Absolute Neuts (auto) Absolute Nucleated RBC Nucleated RBC % (auto) Smear Tech's Comments PT INR D-Dimer Sodium 134 L Potassium 4.8 Chloride 94 L Carbon Dioxide 20 L Anion Gap 25 H BUN 35 H D Creatinine 1.43 H Estim Creat Clear Calc 29.4 Estimated GFR 36 POC Glucose 325 H 427 H* Random Glucose 440 H* Fasting Glucose Lactic Acid Calcium 8.7 Magnesium Ferritin Total Bilirubin Direct Bilirubin AST ALT Alkaline Phosphatase Lactate Dehydrogenase Troponin I High Sens C-Reactive Protein B-Natriuretic Peptide Total Protein Albumin Procalcitonin COVID-19 ([facility]) COVID-19 Clin Com Ur L.pneumophila Ag Ur Strep pneumoniae Ag 02/25/20 02/25/20 02/25/20 17:13 18:41 19:23 WBC RBC Hgb Hct MCV MCH MCHC RDW Plt Count MPV Immature Gran % (Auto) Neut % (Auto) Lymph % (Auto) [place] % (Auto) Eos % (Auto) Baso % (Auto) Lymph # (Auto) [place] # (Auto) Eos # (Auto) Baso # (Auto) Abs Immat Gran (auto) Absolute Neuts (auto) Absolute Nucleated RBC Nucleated RBC % (auto) Smear Tech's Comments PT INR D-Dimer Sodium Potassium Chloride Carbon Dioxide Anion Gap BUN Creatinine Estim Creat Clear Calc Estimated GFR POC Glucose 551 H* 542 H* 479 H* Random Glucose Fasting Glucose Lactic Acid Calcium Magnesium Ferritin Total Bilirubin Direct Bilirubin AST ALT Alkaline Phosphatase Lactate Dehydrogenase Troponin I High Sens C-Reactive Protein B-Natriuretic Peptide Total Protein Albumin Procalcitonin COVID-19 ([facility]) COVID-19 Clin Com Ur L.pneumophila Ag Ur Strep pneumoniae Ag 02/25/20 02/25/20 02/25/20 19:30 20:48 21:55 WBC RBC Hgb Hct MCV MCH MCHC RDW Plt Count MPV Immature Gran % (Auto) Neut % (Auto) Lymph % (Auto) [place] % (Auto) Eos % (Auto) Baso % (Auto) Lymph # (Auto) [place] # (Auto) Eos # (Auto) Baso # (Auto) Abs Immat Gran (auto) Absolute Neuts (auto) Absolute Nucleated RBC Nucleated RBC % (auto) Smear Tech's Comments PT INR D-Dimer Sodium 134 L Potassium 4.8 Chloride 90 L Carbon Dioxide 25 Anion Gap 24 H BUN 63 H D Creatinine 2.23 H Estim Creat Clear Calc 18.9 Estimated GFR 21 POC Glucose 386 H* 293 H Random Glucose 499 H* Fasting Glucose Lactic Acid Calcium 9.4 D Magnesium Ferritin Total Bilirubin Direct Bilirubin AST ALT Alkaline Phosphatase Lactate Dehydrogenase Troponin I High Sens C-Reactive Protein B-Natriuretic Peptide Total Protein Albumin Procalcitonin COVID-19 ([facility]) COVID-19 Clin Com Ur L.pneumophila Ag Ur Strep pneumoniae Ag 02/25/20 02/26/20 02/26/20 22:50 06:11 06:11 WBC 24.8 H RBC 4.23 Hgb 11.8 L Hct 35.4 L MCV 83.7 MCH 27.9 MCHC 33.3 RDW 12.2 Plt Count 550 H D MPV 9.4 Immature Gran % (Auto) 1.0 H Neut % (Auto) 89.0 H Lymph % (Auto) 4.8 L [place] % (Auto) 5.0 Eos % (Auto) 0.0 Baso % (Auto) 0.2 Lymph # (Auto) 1.2 [place] # (Auto) 1.2 Eos # (Auto) 0.0 Baso # (Auto) 0.0 Abs Immat Gran (auto) 0.25 H Absolute Neuts (auto) 22.1 H Absolute Nucleated RBC 0.000 Nucleated RBC % (auto) 0.0 Smear Tech's Comments VERIFIED PT INR D-Dimer Sodium 135 Potassium 5.1 Chloride 93 L Carbon Dioxide 26 Anion Gap 21 H BUN 73 H Creatinine 1.83 H Estim Creat Clear Calc 23.0 Estimated GFR 27 POC Glucose 178 H Random Glucose Fasting Glucose 163 H Lactic Acid Calcium 9.8 Magnesium Ferritin Total Bilirubin Direct Bilirubin AST ALT Alkaline Phosphatase Lactate Dehydrogenase Troponin I High Sens C-Reactive Protein B-Natriuretic Peptide Total Protein Albumin Procalcitonin COVID-19 ([facility]) COVID-19 Clin Com Ur L.pneumophila Ag Ur Strep pneumoniae Ag 02/26/20 02/26/20 02/26/20 09:01 15:33 17:42 WBC RBC Hgb Hct MCV MCH MCHC RDW Plt Count MPV Immature Gran % (Auto) Neut % (Auto) Lymph % (Auto) [place] % (Auto) Eos % (Auto) Baso % (Auto) Lymph # (Auto) [place] # (Auto) Eos # (Auto) Baso # (Auto) Abs Immat Gran (auto) Absolute Neuts (auto) Absolute Nucleated RBC Nucleated RBC % (auto) Smear Tech's Comments PT INR D-Dimer Sodium Potassium Chloride Carbon Dioxide Anion Gap BUN Creatinine Estim Creat Clear Calc Estimated GFR POC Glucose 302 H 400 H* 433 H* Random Glucose Fasting Glucose Lactic Acid Calcium Magnesium Ferritin Total Bilirubin Direct Bilirubin AST ALT Alkaline Phosphatase Lactate Dehydrogenase Troponin I High Sens C-Reactive Protein B-Natriuretic Peptide Total Protein Albumin Procalcitonin COVID-19 ([facility]) COVID-19 Clin Com Ur L.pneumophila Ag Ur Strep pneumoniae Ag 02/26/20 02/26/20 02/27/20 20:32 22:01 06:18 WBC RBC Hgb Hct MCV MCH MCHC RDW Plt Count MPV Immature Gran % (Auto) Neut % (Auto) Lymph % (Auto) [place] % (Auto) Eos % (Auto) Baso % (Auto) Lymph # (Auto) [place] # (Auto) Eos # (Auto) Baso # (Auto) Abs Immat Gran (auto) Absolute Neuts (auto) Absolute Nucleated RBC Nucleated RBC % (auto) Smear Tech's Comments PT INR D-Dimer Sodium Potassium Chloride Carbon Dioxide Anion Gap BUN Creatinine Estim Creat Clear Calc Estimated GFR POC Glucose 368 H* 280 H Random Glucose Fasting Glucose Lactic Acid Calcium Magnesium Ferritin Total Bilirubin 0.2 Direct Bilirubin < 0.2 AST 44 H ALT 34 H Alkaline Phosphatase 160 H Lactate Dehydrogenase Troponin I High Sens C-Reactive Protein B-Natriuretic Peptide Total Protein 6.9 Albumin 2.9 L Procalcitonin COVID-19 ([facility]) COVID-19 Clin Com Ur L.pneumophila Ag Ur Strep pneumoniae Ag 02/27/20 02/27/20 02/27/20 07:18 08:34 08:34 WBC 17.7 H RBC 4.32 Hgb 11.9 L Hct 36.0 L MCV 83.3 MCH 27.5 MCHC 33.1 RDW 12.6 Plt Count 593 H MPV 8.9 L Immature Gran % (Auto) Neut % (Auto) Lymph % (Auto) [place] % (Auto) Eos % (Auto) Baso % (Auto) Lymph # (Auto) [place] # (Auto) Eos # (Auto) Baso # (Auto) Abs Immat Gran (auto) Absolute Neuts (auto) Absolute Nucleated RBC 0.000 Nucleated RBC % (auto) 0.0 Smear Tech's Comments PT INR D-Dimer Sodium 138 Potassium 6.0 H* Chloride 96 Carbon Dioxide 30 H Anion Gap 18 BUN 70 H Creatinine 1.53 H Estim Creat Clear Calc 27.5 Estimated GFR 33 POC Glucose 136 H Random Glucose 164 H D Fasting Glucose Lactic Acid Calcium 10.1 Magnesium Ferritin Total Bilirubin Direct Bilirubin AST ALT Alkaline Phosphatase Lactate Dehydrogenase Troponin I High Sens C-Reactive Protein B-Natriuretic Peptide Total Protein Albumin Procalcitonin COVID-19 ([facility]) COVID-19 Clin Com Ur L.pneumophila Ag Ur Strep pneumoniae Ag 02/27/20 02/27/20 02/27/20 11:13 11:17 14:19 WBC RBC Hgb Hct MCV MCH MCHC RDW Plt Count MPV Immature Gran % (Auto) Neut % (Auto) Lymph % (Auto) [place] % (Auto) Eos % (Auto) Baso % (Auto) Lymph # (Auto) [place] # (Auto) Eos # (Auto) Baso # (Auto) Abs Immat Gran (auto) Absolute Neuts (auto) Absolute Nucleated RBC Nucleated RBC % (auto) Smear Tech's Comments PT INR D-Dimer Sodium Potassium 4.9 Chloride Carbon Dioxide Anion Gap BUN Creatinine Estim Creat Clear Calc Estimated GFR POC Glucose 393 H* 386 H* Random Glucose Fasting Glucose Lactic Acid Calcium Magnesium Ferritin Total Bilirubin Direct Bilirubin AST ALT Alkaline Phosphatase Lactate Dehydrogenase Troponin I High Sens C-Reactive Protein B-Natriuretic Peptide Total Protein Albumin Procalcitonin COVID-19 ([facility]) COVID-19 Clin Com Ur L.pneumophila Ag Ur Strep pneumoniae Ag 02/27/20 02/27/20 02/28/20 16:31 21:01 07:22 WBC RBC Hgb Hct MCV MCH MCHC RDW Plt Count MPV Immature Gran % (Auto) Neut % (Auto) Lymph % (Auto) [place] % (Auto) Eos % (Auto) Baso % (Auto) Lymph # (Auto) [place] # (Auto) Eos # (Auto) Baso # (Auto) Abs Immat Gran (auto) Absolute Neuts (auto) Absolute Nucleated RBC Nucleated RBC % (auto) Smear Tech's Comments PT INR D-Dimer Sodium Potassium Chloride Carbon Dioxide Anion Gap BUN Creatinine Estim Creat Clear Calc Estimated GFR POC Glucose 382 H* 308 H 103 Random Glucose Fasting Glucose Lactic Acid Calcium Magnesium Ferritin Total Bilirubin Direct Bilirubin AST ALT Alkaline Phosphatase Lactate Dehydrogenase Troponin I High Sens C-Reactive Protein B-Natriuretic Peptide Total Protein Albumin Procalcitonin COVID-19 ([facility]) COVID-19 Clin Com Ur L.pneumophila Ag Ur Strep pneumoniae Ag 02/28/20 02/28/20 02/28/20 11:15 16:17 17:51 WBC RBC Hgb Hct MCV MCH MCHC RDW Plt Count MPV Immature Gran % (Auto) Neut % (Auto) Lymph % (Auto) [place] % (Auto) Eos % (Auto) Baso % (Auto) Lymph # (Auto) [place] # (Auto) Eos # (Auto) Baso # (Auto) Abs Immat Gran (auto) Absolute Neuts (auto) Absolute Nucleated RBC Nucleated RBC % (auto) Smear Tech's Comments PT INR D-Dimer Sodium Potassium Chloride Carbon Dioxide Anion Gap BUN Creatinine Estim Creat Clear Calc Estimated GFR POC Glucose 226 H 223 H Random Glucose Fasting Glucose Lactic Acid Calcium Magnesium Ferritin Total Bilirubin Direct Bilirubin AST ALT Alkaline Phosphatase Lactate Dehydrogenase Troponin I High Sens C-Reactive Protein B-Natriuretic Peptide Total Protein Albumin Procalcitonin COVID-19 ([facility]) COVID-19 Clin Com Ur L.pneumophila Ag Not Detected Ur Strep pneumoniae Ag Not Detected 02/28/20 02/29/20 02/29/20 20:10 06:43 06:43 WBC 13.6 H RBC 4.06 L Hgb 11.3 L Hct 34.7 L MCV 85.5 MCH 27.8 MCHC 32.6 RDW 12.6 Plt Count 540 H MPV 8.9 L Immature Gran % (Auto) Neut % (Auto) Lymph % (Auto) [place] % (Auto) Eos % (Auto) Baso % (Auto) Lymph # (Auto) [place] # (Auto) Eos # (Auto) Baso # (Auto) Abs Immat Gran (auto) Absolute Neuts (auto) Absolute Nucleated RBC 0.000 Nucleated RBC % (auto) 0.0 Smear Tech's Comments PT INR D-Dimer Sodium 143 Potassium 3.8 D Chloride 104 Carbon Dioxide 31 H Anion Gap 12 BUN 53 H Creatinine 1.07 Estim Creat Clear Calc 39.3 Estimated GFR 50 POC Glucose 390 H* Random Glucose 69 D Fasting Glucose Lactic Acid Calcium 8.5 D Magnesium Ferritin Total Bilirubin Direct Bilirubin AST ALT Alkaline Phosphatase Lactate Dehydrogenase Troponin I High Sens C-Reactive Protein B-Natriuretic Peptide Total Protein Albumin Procalcitonin COVID-19 ([facility]) COVID-19 Clin Com Ur L.pneumophila Ag Ur Strep pneumoniae Ag 01/02/29/20 02/29/20 07:15 10:40 16:39 WBC RBC Hgb Hct MCV MCH MCHC RDW Plt Count MPV Immature Gran % (Auto) Neut % (Auto) Lymph % (Auto) [place] % (Auto) Eos % (Auto) Baso % (Auto) Lymph # (Auto) [place] # (Auto) Eos # (Auto) Baso # (Auto) Abs Immat Gran (auto) Absolute Neuts (auto) Absolute Nucleated RBC Nucleated RBC % (auto) Smear Tech's Comments PT INR D-Dimer Sodium Potassium Chloride Carbon Dioxide Anion Gap BUN Creatinine Estim Creat Clear Calc Estimated GFR POC Glucose 71 229 H 380 H* Random Glucose Fasting Glucose Lactic Acid Calcium Magnesium Ferritin Total Bilirubin Direct Bilirubin AST ALT Alkaline Phosphatase Lactate Dehydrogenase Troponin I High Sens C-Reactive Protein B-Natriuretic Peptide Total Protein Albumin Procalcitonin COVID-19 ([facility]) COVID-19 Clin Com Ur L.pneumophila Ag Ur Strep pneumoniae Ag 02/29/20 03/01/20 03/01/20 20:10 07:37 11:42 WBC RBC Hgb Hct MCV MCH MCHC RDW Plt Count MPV Immature Gran % (Auto) Neut % (Auto) Lymph % (Auto) [place] % (Auto) Eos % (Auto) Baso % (Auto) Lymph # (Auto) [place] # (Auto) Eos # (Auto) Baso # (Auto) Abs Immat Gran (auto) Absolute Neuts (auto) Absolute Nucleated RBC Nucleated RBC % (auto) Smear Tech's Comments PT INR D-Dimer Sodium Potassium Chloride Carbon Dioxide Anion Gap BUN Creatinine Estim Creat Clear Calc Estimated GFR POC Glucose 399 H* 100 259 H Random Glucose Fasting Glucose Lactic Acid Calcium Magnesium Ferritin Total Bilirubin Direct Bilirubin AST ALT Alkaline Phosphatase Lactate Dehydrogenase Troponin I High Sens C-Reactive Protein B-Natriuretic Peptide Total Protein Albumin Procalcitonin COVID-19 ([facility]) COVID-19 Clin Com Ur L.pneumophila Ag Ur Strep pneumoniae Ag 03/01/20 03/01/20 03/02/20 16:03 19:47 06:44 WBC RBC Hgb Hct MCV MCH MCHC RDW Plt Count MPV Immature Gran % (Auto) Neut % (Auto) Lymph % (Auto) [place] % (Auto) Eos % (Auto) Baso % (Auto) Lymph # (Auto) [place] # (Auto) Eos # (Auto) Baso # (Auto) Abs Immat Gran (auto) Absolute Neuts (auto) Absolute Nucleated RBC Nucleated RBC % (auto) Smear Tech's Comments PT INR D-Dimer Sodium 142 Potassium 4.0 Chloride 103 Carbon Dioxide 34 H Anion Gap 9 L BUN 34 H Creatinine 0.86 Estim Creat Clear Calc 48.9 Estimated GFR > 60 POC Glucose 329 H 391 H* Random Glucose 84 Fasting Glucose Lactic Acid Calcium 8.5 Magnesium Ferritin Total Bilirubin Direct Bilirubin AST ALT Alkaline Phosphatase Lactate Dehydrogenase Troponin I High Sens C-Reactive Protein B-Natriuretic Peptide Total Protein Albumin Procalcitonin COVID-19 ([facility]) COVID-19 Clin Com Ur L.pneumophila Ag Ur Strep pneumoniae Ag 03/02/20 03/02/20 03/02/20 08:13 11:21 15:18 WBC RBC Hgb Hct MCV MCH MCHC RDW Plt Count MPV Immature Gran % (Auto) Neut % (Auto) Lymph % (Auto) [place] % (Auto) Eos % (Auto) Baso % (Auto) Lymph # (Auto) [place] # (Auto) Eos # (Auto) Baso # (Auto) Abs Immat Gran (auto) Absolute Neuts (auto) Absolute Nucleated RBC Nucleated RBC % (auto) Smear Tech's Comments PT INR D-Dimer Sodium Potassium Chloride Carbon Dioxide Anion Gap BUN Creatinine Estim Creat Clear Calc Estimated GFR POC Glucose 63 246 H 310 H Random Glucose Fasting Glucose Lactic Acid Calcium Magnesium Ferritin Total Bilirubin Direct Bilirubin AST ALT Alkaline Phosphatase Lactate Dehydrogenase Troponin I High Sens C-Reactive Protein B-Natriuretic Peptide Total Protein Albumin Procalcitonin COVID-19 ([facility]) COVID-19 Clin Com Ur L.pneumophila Ag Ur Strep pneumoniae Ag 03/02/20 03/03/20 03/03/20 19:11 06:29 06:29 WBC 11.8 H RBC 4.01 L Hgb 11.0 L Hct 34.0 L MCV 84.8 MCH 27.4 MCHC 32.4 RDW 12.6 Plt Count 509 H MPV 9.0 L Immature Gran % (Auto) Neut % (Auto) Lymph % (Auto) [place] % (Auto) Eos % (Auto) Baso % (Auto) Lymph # (Auto) [place] # (Auto) Eos # (Auto) Baso # (Auto) Abs Immat Gran (auto) Absolute Neuts (auto) Absolute Nucleated RBC 0.000 Nucleated RBC % (auto) 0.0 Smear Tech's Comments PT INR D-Dimer Sodium 140 Potassium 4.4 Chloride 103 Carbon Dioxide 32 H Anion Gap 9 L BUN 32 H Creatinine 0.82 Estim Creat Clear Calc 51.3 Estimated GFR > 60 POC Glucose 368 H* Random Glucose 90 Fasting Glucose Lactic Acid Calcium 8.6 Magnesium Ferritin Total Bilirubin Direct Bilirubin AST ALT Alkaline Phosphatase Lactate Dehydrogenase Troponin I High Sens C-Reactive Protein B-Natriuretic Peptide Total Protein Albumin Procalcitonin COVID-19 ([facility]) COVID-19 Clin Com Ur L.pneumophila Ag Ur Strep pneumoniae Ag 03/03/20 03/03/20 03/03/20 07:23 11:20 15:10 WBC RBC Hgb Hct MCV MCH MCHC RDW Plt Count MPV Immature Gran % (Auto) Neut % (Auto) Lymph % (Auto) [place] % (Auto) Eos % (Auto) Baso % (Auto) Lymph # (Auto) [place] # (Auto) Eos # (Auto) Baso # (Auto) Abs Immat Gran (auto) Absolute Neuts (auto) Absolute Nucleated RBC Nucleated RBC % (auto) Smear Tech's Comments PT INR D-Dimer Sodium Potassium Chloride Carbon Dioxide Anion Gap BUN Creatinine Estim Creat Clear Calc Estimated GFR POC Glucose 79 227 H 390 H* Random Glucose Fasting Glucose Lactic Acid Calcium Magnesium Ferritin Total Bilirubin Direct Bilirubin AST ALT Alkaline Phosphatase Lactate Dehydrogenase Troponin I High Sens C-Reactive Protein B-Natriuretic Peptide Total Protein Albumin Procalcitonin COVID-19 ([facility]) COVID-19 Clin Com Ur L.pneumophila Ag Ur Strep pneumoniae Ag 03/03/20 03/04/20 03/04/20 19:23 08:18 11:48 WBC RBC Hgb Hct MCV MCH MCHC RDW Plt Count MPV Immature Gran % (Auto) Neut % (Auto) Lymph % (Auto) [place] % (Auto) Eos % (Auto) Baso % (Auto) Lymph # (Auto) [place] # (Auto) Eos # (Auto) Baso # (Auto) Abs Immat Gran (auto) Absolute Neuts (auto) Absolute Nucleated RBC Nucleated RBC % (auto) Smear Tech's Comments PT INR D-Dimer Sodium Potassium Chloride Carbon Dioxide Anion Gap BUN Creatinine Estim Creat Clear Calc Estimated GFR POC Glucose 461 H* 100 212 H Random Glucose Fasting Glucose Lactic Acid Calcium Magnesium Ferritin Total Bilirubin Direct Bilirubin AST ALT Alkaline Phosphatase Lactate Dehydrogenase Troponin I High Sens C-Reactive Protein B-Natriuretic Peptide Total Protein Albumin Procalcitonin COVID-19 ([facility]) COVID-19 Clin Com Ur L.pneumophila Ag Ur Strep pneumoniae Ag 03/04/20 03/04/20 03/05/20 16:38 20:19 07:30 WBC RBC Hgb Hct MCV MCH MCHC RDW Plt Count MPV Immature Gran % (Auto) Neut % (Auto) Lymph % (Auto) [place] % (Auto) Eos % (Auto) Baso % (Auto) Lymph # (Auto) [place] # (Auto) Eos # (Auto) Baso # (Auto) Abs Immat Gran (auto) Absolute Neuts (auto) Absolute Nucleated RBC Nucleated RBC % (auto) Smear Tech's Comments PT INR D-Dimer Sodium Potassium Chloride Carbon Dioxide Anion Gap BUN Creatinine Estim Creat Clear Calc Estimated GFR POC Glucose 307 H 329 H 129 H Random Glucose Fasting Glucose Lactic Acid Calcium Magnesium Ferritin Total Bilirubin Direct Bilirubin AST ALT Alkaline Phosphatase Lactate Dehydrogenase Troponin I High Sens C-Reactive Protein B-Natriuretic Peptide Total Protein Albumin Procalcitonin COVID-19 ([facility]) COVID-19 Clin Com Ur L.pneumophila Ag Ur Strep pneumoniae Ag 03/05/20 11:05 WBC RBC Hgb Hct MCV MCH MCHC RDW Plt Count MPV Immature Gran % (Auto) Neut % (Auto) Lymph % (Auto) [place] % (Auto) Eos % (Auto) Baso % (Auto) Lymph # (Auto) [place] # (Auto) Eos # (Auto) Baso # (Auto) Abs Immat Gran (auto) Absolute Neuts (auto) Absolute Nucleated RBC Nucleated RBC % (auto) Smear Tech's Comments PT INR D-Dimer Sodium Potassium Chloride Carbon Dioxide Anion Gap BUN Creatinine Estim Creat Clear Calc Estimated GFR POC Glucose 336 H Random Glucose Fasting Glucose Lactic Acid Calcium Magnesium Ferritin Total Bilirubin Direct Bilirubin AST ALT Alkaline Phosphatase Lactate Dehydrogenase Troponin I High Sens C-Reactive Protein B-Natriuretic Peptide Total Protein Albumin Procalcitonin COVID-19 ([facility]) COVID-19 Clin Com Ur L.pneumophila Ag Ur Strep pneumoniae Ag Discharge Plan Discharge Patient Disposition: Xfer Acute Care Hospital Referrals: Name,MD Anastacio [Primary Care Provider] - Discharge Medications: Continued metformin 500 mg tablet 1 tab PO BID RF: 0 atorvastatin 20 mg tablet 1 tab PO DAILY RF: 0 aspirin 81 mg tablet,delayed release (DR/EC) 1 tab PO DAILY RF: 0 amlodipine 10 mg tablet 1 tab PO DAILY RF: 0 hydrochlorothiazide 25 mg tablet 1 tab PO DAILY RF: 0 irbesartan 300 mg tablet 1 tab PO DAILY RF: 0 Discharge Orders: Discharge Order (Routine); Ordered 03/03/20 Ordered By: Bravo Claudio Diet: advance to usual diet Activity on Discharge: As tolerated Visit Report Forms: Patient Portal Discharge page Care Plan Goals: REad below Health Concerns: Read below Plan of Treatment: You were admitted to the hospital for treatment of COVID-19 infection. You were treated with steroids, oxygen with good response over the course of hospital stay. Your oxygen requirement remains at 2 L at this point was planned to discharge you to DC you to continue her your treatment and tele can go back home
--- NOTE | 2020-03-05 11:50 | W.MHC.F2F ---
Service Date Service Date: 03/05/20 Encounter Date of encounter: 03/05/20 Reasons for Services Reason for residential: CV/CP assess and/or care Homebound: Leaving the home is medically contraindicated at this time without the asist of a device and/or another person due th the listed conditions above and below. Reason homebound: shortness of breath with minimal effort and weakness related to hospital stay Homebound supporting statement: Patient being discharged on home oxygen due to shortness of breath and hypoxia with activity Certification: Based on the above findings, I certify that this patient is confined to the home and needs intermittent residential care, physical therapy and/or speech therapy, or continues to need occupational therapy. The patient is under my care, and I have initiated the establishment of the plan of care. The patient will be followed by a physician who will periodically review the plan of care.
[2020-03-05] MEDS: Insulin Lispro 100 UNIT/ML 3 ML VIAL SUBCUT (12:00)
--- NOTE | 2020-03-05 12:21 | MHC.CM.PN ---
Addendum entered by Irene Batista 03/05/20 12:39: Received callback from Bradford - he is aware of pt's d/c plan: is waiting for pt's return today at 2:30 and [employer] concentrator delivery. Bradford understands he will receive a call from [facility] tomorrow for start of RN visits. Original Note: [facility]. Verbal auth for [facility] given by Pratibha at [facility] - O2 home services confirmed with Jv from respiratory: pt will d/c with a portable tank and [facility] will deliver an O2 concentrator to pt's address. [facility] to start services on 03/06. Pt will transport to home via [facility] - attempted to contact pt's son/CORRECTION OFFICER Bradford: No answer and no ability to leave a message. Will attempt another call Updated RN, pt and MD on d/c plan
== END 2020-03-05 15:39 | disposition short-term general hospital (02) | DRG 177 ==
LOC: HO.ED 16:36 → HO.EDOVER 02-26 19:33 → HO.ISO 02-26 19:33
PROVIDERS: Internal Medicine; Nurse Practitioner Family; Student in an Organized Health Care Education/Training Program; Admitting Provider Internal Medicine; Emergency Provider Internal Medicine; PCP Internal Medicine Geriatric Medicine; Visit Provider Hospitalist
DX: U07.1 COVID-19 (principal); J12.82 Pneumonia due to coronavirus disease 2019; J96.01 Acute respiratory failure with hypoxia; I10 Essential (primary) hypertension; E87.5 Hyperkalemia; E11.65 Type 2 diabetes mellitus with hyperglycemia; R74.01 Elevation of levels of liver transaminase levels; Z79.82 Long term (current) use of aspirin; Z79.84 Long term (current) use of oral hypoglycemic drugs; Z79.899 Other long term (current) drug therapy
CPT/HCPCS: 36415; 71045; 71275; 80048; 80076; 82728; 82947; 83605; 83615; 83880; 84132; 84145; 84484; 85025; 85027; 85379; 85610; 86140; 87040; 87449; 87635; 87899; 93005; 99285; J0456; J0696; J1100; J1650; Q9967

== ENCOUNTER 2020-04-22 07:26 | Outpatient (REF) | payer MEDICARE, SELFPAY ==
--- NOTE | ~2020-04-22 | XR_ITS ---
EXAMINATION: XR SHOULDER, RIGHT CLINICAL INFORMATION: Pain in the right shoulder COMPARISON: None TECHNIQUE: Four views of the right shoulder. FINDINGS: No fracture or dislocation. The glenohumeral joint is well aligned. The joint space is maintained. Mild hypertrophic degenerative changes of the acromioclavicular joint. Small calcifications are seen in the soft tissues adjacent to the humeral greater tuberosity. The visualized ribs are intact. The visualized lungs are clear. XR/XR shoulder RT min 2V IMPRESSION: Mild degenerative changes of the acromioclavicular joint. There may be mild calcific tendinosis of the rotator cuff.
== END 2020-04-22 07:27 | disposition home or self-care (01) ==
LOC: HO.XRAY 07:26
PROVIDERS: PCP Internal Medicine Geriatric Medicine; Visit Provider Internal Medicine Geriatric Medicine
DX: M25.511 Pain in right shoulder (principal)
CPT/HCPCS: 73030

== ENCOUNTER 2020-04-23 08:39 | Outpatient (REF) | payer MEDICARE, SELFPAY ==
--- NOTE | ~2020-04-23 | MM_ITS ---
EXAMINATION: MM SCREENING DIGITAL BREAST TOMOSYNTHESIS, BILATERAL CLINICAL INFORMATION: Screening. Asymptomatic. The lifetime risk of breast cancer based on the Tyrer-Cuzick Model is 3.8%. COMPARISON: Mammography: February 16, 2019 and studies dating back to January 03, 2018 TECHNIQUE: Digital breast tomosynthesis is performed in both the craniocaudal and mediolateral oblique views along with computer-aided detection (CAD). Synthesized 2D images are generated from the tomosynthesis. FINDINGS: There are scattered areas of fibroglandular density (ACR BI-RADS breast composition Category b). There are no significant masses, abnormal calcifications, or other abnormalities. MM/MM tomosynthesis screening BI IMPRESSION: There are no significant changes from prior study. ASSESSMENT: BI-RADS 1: Negative RECOMMENDATION: Routine annual mammography screening. This patient's information was entered into a reminder system with a target due date for their next mammogram.
== END 2020-04-23 08:40 | disposition home or self-care (01) ==
LOC: HO.MAMMO 08:39
PROVIDERS: Absent Provider Registered Nurse Community Health; Visit Provider Internal Medicine Geriatric Medicine
DX: Z12.31 Encounter for screening mammogram for malignant neoplasm of breast (principal)
CPT/HCPCS: 77063; 77067

== ENCOUNTER 2021-04-25 08:08 | Outpatient (REF) | payer MEDICARE, SELFPAY ==
--- NOTE | ~2021-04-25 | MM_ITS ---
EXAMINATION: MM SCREENING DIGITAL BREAST TOMOSYNTHESIS, BILATERAL CLINICAL INFORMATION: Screening. Asymptomatic. 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 No atypia or carcinoma). The lifetime risk of breast cancer based on the Tyrer-Cuzick Model is 2%. COMPARISON: Mammography: 04/23/2020, 02/16/2019, 08/11/2018, 01/27/2018, 01/12/2018, 01/03/2018 TECHNIQUE: Digital breast tomosynthesis is performed in both the craniocaudal and mediolateral oblique views along with computer-aided detection (CAD). Synthesized 2D images are generated from the tomosynthesis. FINDINGS: There are scattered areas of fibroglandular density (ACR BI-RADS breast composition Category b). There are no significant masses, abnormal calcifications, or other abnormalities. Parenchymal pattern is similar to prior studies. There is biopsy clip marker posterior 7:00 left breast with some residual stable calcifications. Other ductal secretory and vascular and round calcifications in each breast are again seen. There are no significant changes. MM/MM tomosynthesis screening BI IMPRESSION: No mammographic evidence of malignancy. ASSESSMENT: BI-RADS 2: Benign RECOMMENDATION: Routine annual mammography screening. This patient's information was entered into a reminder system with a target due date for their next mammogram.
== END 2021-04-25 08:09 | disposition home or self-care (01) ==
LOC: HO.MAMMO 08:08
PROVIDERS: Visit Provider Internal Medicine Geriatric Medicine
DX: Z12.31 Encounter for screening mammogram for malignant neoplasm of breast (principal)
CPT/HCPCS: 77063; 77067

== ENCOUNTER 2022-05-01 09:12 | Outpatient (REF) | payer MEDICARE, SELFPAY ==
--- NOTE | ~2022-05-01 | MM_ITS ---
EXAMINATION: MM SCREENING DIGITAL BREAST TOMOSYNTHESIS, BILATERAL CLINICAL INFORMATION: Screening. Asymptomatic. The lifetime risk of breast cancer based on the Tyrer-Cuzick Model is 4%. COMPARISON: Multiple prior exams, most recent 04/25/2021. TECHNIQUE: Digital breast tomosynthesis is performed in both the craniocaudal and mediolateral oblique views along with computer-aided detection (CAD). Synthesized 2D images are generated from the tomosynthesis. FINDINGS: There are scattered areas of fibroglandular density (ACR BI-RADS breast composition Category b). There are no significant masses, abnormal calcifications, or other abnormalities. No architectural abnormality or developing density or significant change from prior studies. Again, there is a biopsy clip marker posterior central medial left breast. There are scattered bilateral vascular and round and ductal secretory calcifications. The axilla and skin contours are unremarkable. MM/MM tomosynthesis screening BI IMPRESSION: No mammographic evidence of malignancy. ASSESSMENT: BI-RADS 2: Benign RECOMMENDATION: Routine annual mammography screening. This patient's information was entered into a reminder system with a target due date for their next mammogram.
== END 2022-05-01 09:13 | disposition home or self-care (01) ==
LOC: HO.MAMMO 09:12
PROVIDERS: Visit Provider Internal Medicine Geriatric Medicine
DX: Z12.31 Encounter for screening mammogram for malignant neoplasm of breast (principal)
CPT/HCPCS: 77063; 77067

== ENCOUNTER 2022-12-02 11:48 | Outpatient (REF) | payer MEDICARE, MEDICAID, SELFPAY ==
--- NOTE | ~2022-12-02 | XR_ITS ---
EXAMINATION: XR CHEST CLINICAL INFORMATION: Stage III kidney disease. Dyspnea on exertion COMPARISON: 02/24/2020 TECHNIQUE: 2 views of the chest were obtained. FINDINGS: Heart and mediastinum within normal limits. Aortic calcifications. Hyperinflated lungs. Likely chronic mild peripheral increased reticular markings. No vascular congestion, consolidations or effusions. Mild degenerative changes. Cholecystectomy clips. XR/XR chest 2V IMPRESSION: No acute cardiopulmonary disease.
== END 2022-12-02 11:49 | disposition home or self-care (01) ==
LOC: HO.HHCX 11:48
PROVIDERS: Visit Provider Internal Medicine Geriatric Medicine
DX: R06.09 Other forms of dyspnea (principal); N18.30 Chronic kidney disease, stage 3 unspecified
CPT/HCPCS: 71046

== ENCOUNTER 2022-12-02 12:01 | Outpatient (REF) | payer MEDICARE, MEDICAID, SELFPAY ==
[2022-12-02 13:37] LABS: MANUAL DIFF FLAG NO
[2022-12-02 13:56] LABS: Basophils Percent Auto 0.4 % (0-2); Eosinophils Absolute Auto 0.1 X10*3/uL (0.0-0.4); Eosinophils Percent Auto 1.2 % (0-4); Hemoglobin 12.5 g/dl (12.0-16.0); Imm Gran Abs Auto 0.05 X10*3/uL (0.00-0.03); Imm Gran Pct Auto 0.5 % (0.0-0.4); Lymphocytes Absolute Auto 2.5 X10*3/uL (1.2-4.9); Lymphocytes Percent Auto 24.9 % (20-40); Mean Corpuscular HGB Conc 32.1 g/dl (31.0-35.0); Mean Corpuscular Hemoglobin 28.5 pg (27.0-33.0); Mean Corpuscular Volume 88.8 fL (80.0-98.0); Mean Platelet Volume 10.4 fL (9.4-12.3); Monocytes Absolute Auto 0.7 X10*3/uL (0.1-1.2); Monocytes Percent Auto 6.5 % (2-11); Neutrophils Absolute Auto 6.7 x10*3/uL (2.0-8.3); Neutrophils Percent Auto 66.5 % (45-73); Platelet Count 288 X10*3/uL (160-400); Red Blood Count 4.39 X10*6/uL (4.20-5.50); Red Cell Distribution Width 13.6 % (11.0-16.0)
[2022-12-02 15:05] LABS: Anion Gap 19 (12-20); Blood Urea Nitrogen 20 mg/dL (9-16); Calcium 11.1 mg/dL (8.4-10.2); Carbon Dioxide 27 mmol/L (22-29); Chloride 99 mmol/L (96-108); Estimated Glomerular Filt Rate 43; Glucose Random 186 mg/dL (60-115); Potassium 4.9 mmol/L (3.3-5.1); Sodium 140 mmol/L (135-145)
== END 2022-12-02 12:02 | disposition home or self-care (01) ==
LOC: HO.HHCL 12:01
PROVIDERS: Visit Provider Internal Medicine Geriatric Medicine
DX: R06.09 Other forms of dyspnea (principal)
CPT/HCPCS: 36415; 80048; 85025

== ENCOUNTER 2023-03-13 07:07 | Outpatient (REF) | payer OTHER, SELFPAY ==
[2023-03-13 10:16] LABS: Parathyroid Hormone Intact 61.3 pg/mL (8.7-77.1)
[2023-03-13 10:28] LABS: Anion Gap 16 (12-20); Blood Urea Nitrogen 19 mg/dL (9-16); Calcium 10.4 mg/dL (8.4-10.2); Carbon Dioxide 25 mmol/L (22-29); Chloride 103 mmol/L (96-108); Estimated Glomerular Filt Rate 59; Glucose Random 88 mg/dL (60-115); Potassium 5.1 mmol/L (3.3-5.1); Sodium 139 mmol/L (135-145)
[2023-03-13 10:45] LABS: Vitamin D 25-OH Total 12.8 ng/mL (>30)
== END 2023-03-13 07:08 | disposition home or self-care (01) ==
LOC: HO.LAB 07:07
PROVIDERS: PCP Internal Medicine Geriatric Medicine; Visit Provider Internal Medicine Geriatric Medicine
DX: I12.9 Hypertensive chronic kidney disease with stage 1 through stage 4 chronic kidney disease, or unspecified chronic kidney disease (principal); E11.22 Type 2 diabetes mellitus with diabetic chronic kidney disease; N18.30 Chronic kidney disease, stage 3 unspecified; E83.52 Hypercalcemia
CPT/HCPCS: 36415; 80048; 82306; 83970; 84100

== ENCOUNTER → 2023-05-12 10:25 | Outpatient (REF) | payer OTHER, SELFPAY ==
--- NOTE | 2023-05-12 10:29 | CA_ITS ---
Transthoracic Echocardiogram Patient (Last, First, Middle): Sadaf Downing, Gender: Female Date of : 1940 Age: 82 Procedure Date: 05/12/2023 Procedure Type: Transthoracic Echocardiogram Location: OP Height: 134.62 cm Weight: 54.43 kg BSA: 1.37 m2 Heart Rate: 80 bpm BP: 136 / 64 mmHg Hamper Maker Machine: EDIE Referring MD: Anastacio Burks MD Supervisor Shuttle Preparation: Roland Keita MD Symptoms: SMITH HEART MURMUR R06.09 R01.1 Study Quality: Technically Difficult/narrow ribs ECG Rhythm: Sinus Conclusions: - 1. Hyperdynamic LV ejection fraction of greater than 70% with mild LVH with impaired relaxation filling pattern with increased gradient across the LVOT suggestive of mild obstructive physiology without dynamic component 2. Calcified aortic and mitral valve changes with mild mitral stenosis 3. Upper limits of normal RV systolic pressure 4. No gross pericardial effusion Findings Left Ventricle Normal left ventricular cavity size. There is mildly increased left ventricular wall thickness. The left ventricular systolic function is hyperdynamic. The visually estimated ejection fraction is >70%. Spectral Doppler is indicative of an impaired relaxation filling pattern. Mildly increased gradient across the LVOT suggestive of mild obstructive physiology without any clear dynamic component Right Ventricle Normal right ventricular cavity size and systolic function. Atria The left atrium is likely dilated. Interatrial shunt cannot be excluded. The right atrium is normal in size. Aortic Valve There is mild calcification of the aortic valve. There is no aortic valve stenosis. There is no aortic valve regurgitation. Mitral Valve There is moderate anterior and posterior mitral leaflet thickening. There is moderate mitral annular calcification. There is no mitral valve regurgitation. There is mild mitral valve stenosis. Pulmonic Valve The pulmonic valve was not well visualized. Tricuspid Valve Likely normal tricuspid valve structure and function. There is mild tricuspid valve regurgitation. The right ventricular systolic pressure is normal. Normal right atrial pressure. Great Vessels The pulmonary artery was not well visualized. There is no dilatation of the ascending aorta measuring 3.20 cm. Venous The inferior vena cava is normal in size and collapses greater than 50% with inspiration. Pericardium/Pleural There is no evidence of pericardial effusion. Measurements 2D Linear Measurements IVSd: 1.29 0.6-0.9/0.6-1.0 cm LVIDd: 2.35 3.9-5.3/4.2-5.9 cm LVIDd Index: 1.72 2.4-3.2/2.2-3.1 cm/m2 LVIDs: 1.55 2.0-3.6 cm LVPWd: 1.21 0.7-1.1 cm LA Diam: 3.20 2.7-3.8/3.0-4.0 cm LAIDs Index: 2.34 1.5-2.3 cm/m2 LV Mass: 105.15 67-162/88-224 g LV Mass Index: 76.75 43-95/49-115 g/m2 LVOT Diam: 1.90 3.0+(-)1.3 cm 2D Systolic Function EF 4C: 73.60 >55% EF 2C: 63.70 >55% EF BiP: 71.20 >55% Mitral Valve MV VTI: 0.43 MV Pk Thuan: 1.83 MV Mn Thuan: 1.14 MV Pk Grad: 13.00 MV Mn Grad: 6.00 MV Pk E: 1.21 MV PK A: 1.79 MV Decel Time: 345.00 E/A: 0.70 E'Lateral: 5.11 E'Medial: 4.79 E/E' Med: 25.30 E/E' Lat: 23.70 PHT: 101.00 MVA PHT: 2.18 MVA Continuity: 1.93 Decel Pepin: 3.51 Aortic Valve AoV Pk Thuan: 1.49 AoV Pk Grad: 9.00 ETHAN: 2.69 LVOT LVOT Pk Thuan: 1.37 LVOT Mn Thuan: 0.95 LVOT VTI: 0.29 LVOT Pk Grad: 8.00 LVOT Mn Grad: 4.00 LVOT Diam: 1.90 LVOT Area: 2.84 Diastolic Function MV Pk E: 1.21 MV Pk A: 1.79 E/A: 0.70 E'Medial: 4.79 E/E' Med: 25.30 E' Laterial: 5.11 E/E' Lat: 23.70 Right Ventricle TAPSE (mm): 18.40 TVS' Thuan: 15.40 Tricuspid Valve TR Pk Thuan: 2.85 TR Pk Grad: 32.00 RA Press: 3.00 RVSP: 35.00 Great Vessels Aorta Sinus of Valsalva: 2.70 2.0-3.5 cm Ao Asc: 3.20 2.1-3.4 cm Pulmonary Valve PV Pk Thuan: 0.94 Peak PV Grad: 4.00 Updated in Other Vendor System with Status of Final Roland Keita MD electronically signed on 05/12/2023 2:44:51 PM with status of Final
== END ==
LOC: HO.CARD 10:25
PROVIDERS: PCP Internal Medicine Geriatric Medicine; Visit Provider Internal Medicine Geriatric Medicine
DX: R01.1 Cardiac murmur, unspecified (principal); R06.09 Other forms of dyspnea
CPT/HCPCS: 93306

== ENCOUNTER → 2023-05-12 10:29 | Outpatient (BNV) | payer OTHER, SELFPAY | PROVIDERS: PCP Internal Medicine Geriatric Medicine; Visit Provider Internal Medicine Cardiovascular Disease | DX: I34.2 Nonrheumatic mitral (valve) stenosis (principal); I34.81 Nonrheumatic mitral (valve) annulus calcification; I35.8 Other nonrheumatic aortic valve disorders | CPT/HCPCS: 93306 ==

== ENCOUNTER 2023-05-15 09:52 | Outpatient (REF) | payer OTHER, SELFPAY ==
--- NOTE | ~2023-05-15 | MM_ITS ---
EXAMINATION: MM SCREENING DIGITAL BREAST TOMOSYNTHESIS, BILATERAL CLINICAL INFORMATION: Screening. Asymptomatic. COMPARISON: Mammography: This study is compared with prior exams dating back to 2019. TECHNIQUE: Digital breast tomosynthesis is performed in both the craniocaudal and mediolateral oblique views along with computer-aided detection (CAD). Synthesized 2D images are generated from the tomosynthesis. FINDINGS: There are scattered areas of fibroglandular density (ACR BI-RADS breast composition Category b). There are no significant masses, abnormal calcifications, or other abnormalities. There are bilateral, benign, unchanged calcifications in each breast. There is a tissue marker present in the left breast from prior benign percutaneous biopsy. MM/MM tomosynthesis screening BI IMPRESSION: No mammographic evidence of malignancy. ASSESSMENT: BI-RADS BI-RADS 2 - Benign Findings RECOMMENDATION: Routine annual mammography screening. 1 year F/U This examination should not preclude the clinical evaluation of a suspicious palpable abnormality. This patient's information was entered into a reminder system with a target due date for their next mammogram.
== END 2023-05-15 09:53 | disposition home or self-care (01) ==
LOC: HO.MAMMO 09:52
PROVIDERS: PCP Internal Medicine Geriatric Medicine; Visit Provider Internal Medicine Geriatric Medicine
DX: Z12.31 Encounter for screening mammogram for malignant neoplasm of breast (principal)
CPT/HCPCS: 77063; 77067

== ENCOUNTER → 2023-05-15 10:45 | Outpatient (BNV) | payer OTHER, SELFPAY | PROVIDERS: PCP Internal Medicine Geriatric Medicine; Visit Provider Radiology Diagnostic Radiology | DX: Z12.31 Encounter for screening mammogram for malignant neoplasm of breast (principal) | CPT/HCPCS: 77063; 77067 ==

== ENCOUNTER 2023-06-03 09:32 | Outpatient (REF) | payer OTHER, SELFPAY ==
--- NOTE | ~2023-06-03 | MM_ITS ---
EXAMINATION: BONE DENSITOMETRY CLINICAL INDICATION: Postmenopausal state. Encounter for screening for osteoporosis. COMPARISON: This is the patient's baseline examination. TECHNIQUE: Using a [employer] DXA System (software version: 13.1) manufactured by [employer], dual-energy x-ray absorptiometry was performed of the lumbar spine and left hip. The images are of good technical quality. Summary results are attached. FINDINGS: AP SPINE L1-L4: BMD 1.067 g/cm2, Z-score 1.4, T-score -0.9, normal. LEFT FEMUR, NECK: BMD 0.719 g/cm2, Z-score 0.2, T-score -2.3, osteopenia. LEFT FEMUR, TOTAL: BMD 0.720 g/cm2, Z-score 0.1, T-score -2.3, osteopenia. IDENTIFIED RISK FACTORS: Secondary osteoporosis (early menopause). HISTORY OF FRACTURE: None listed. MEDICATIONS: Calcium supplement and/or multivitamin. Vitamin D. MM/XR DEXA axial skeleton IMPRESSION: 1. DIAGNOSIS: Osteopenia based on the lowest T-score value of -2.3 in the femoral neck and total femur applying World Health Organization criteria. 2. 10-YEAR FRACTURE RISK PREDICTION, FRAX: Major osteoporotic fracture (clinical spine, forearm, hip or shoulder) 8.9%. Hip fracture 3.1%. 3. Treatment Recommendations: NOF guidelines recommend consideration for treatment in postmenopausal women and men age 50 and older presenting with the following: -A hip or vertebral (clinical or morphometric) fracture. -T-score less than or equal to -2.5 at the femoral neck or spine after appropriate evaluation to exclude secondary causes. -Low bone mass at the hip or spine and a 10-year fracture probability by FRAX of greater than or equal to 3% for hip fracture or greater than or equal to 20% for major osteoporotic fracture based on the [place] adapted WHO algorithm. 4. Other Recommendations: All treatment decisions require clinical judgment and consideration of individual patient factors, including patient preferences, comorbidities, previous drug use, risk factors not captured in the FRAX model (e.g. frailty, falls, vitamin D deficiency, increased bone turnover, interval significant decline in bone density) and possible under or overestimation of fracture risk by FRAX. Additional medical evaluation for secondary cause of low bone mineral density may be appropriate. FUTURE SCAN RECOMMENDATION: People with diagnosed cases of osteoporosis or at high risk for fracture should have regular bone mineral density tests. For patients eligible for Medicare, routine testing is allowed once every 2 years. The testing frequency can be increased to one year for patients who have rapidly progressing disease, those who are receiving or discontinuing medical therapy to restore bone mass, or have additional risk factors.
== END 2023-06-03 09:33 | disposition home or self-care (01) ==
LOC: HO.MAMMO 09:32
PROVIDERS: Visit Provider Internal Medicine Geriatric Medicine
DX: Z13.820 Encounter for screening for osteoporosis (principal); Z78.0 Asymptomatic menopausal state
CPT/HCPCS: 77080

== ENCOUNTER 2023-08-03 08:04 | Outpatient (REF) | payer OTHER, SELFPAY ==
[2023-08-03 12:35] LABS: Alanine Aminotransferase 25 U/L (0-31); Albumin Level 4.2 g/dL (3.5-5.0); Alkaline Phosphatase 74 U/L (39-117); Anion Gap 12 (12-20); Aspartate Amino Transferase 30 U/L (5-31); Bilirubin Total 0.5 mg/dL (0.0-1.0); Blood Urea Nitrogen 28 mg/dL (9-16); Calcium 10.6 mg/dL (8.4-10.2); Carbon Dioxide 25 mmol/L (22-29); Chloride 110 mmol/L (96-108); Estimated Glomerular Filt Rate 50; Glucose Random 126 mg/dL (60-115); Potassium 4.9 mmol/L (3.3-5.1); Sodium 142 mmol/L (135-145)
[2023-08-03 12:39] LABS: Parathyroid Hormone Intact 40.6 pg/mL (8.7-77.1)
[2023-08-03 12:40] LABS: Vitamin D 25-OH Total 22.8 ng/mL (>30)
[2023-08-03 12:47] LABS: Vitamin B12 507 pg/mL (200-900)
== END 2023-08-03 08:05 | disposition home or self-care (01) ==
LOC: HO.HHCL 08:04
PROVIDERS: Visit Provider Internal Medicine Geriatric Medicine
DX: N95.1 Menopausal and female climacteric states (principal); Z13.820 Encounter for screening for osteoporosis; E83.52 Hypercalcemia; E11.8 Type 2 diabetes mellitus with unspecified complications; E11.21 Type 2 diabetes mellitus with diabetic nephropathy
CPT/HCPCS: 36415; 80053; 82306; 82607; 83970

== ENCOUNTER 2024-01-10 12:58 | Emergency (ER) | payer OTHER, SELFPAY ==
--- NOTE | 2024-01-10 | ECG_ITS ---
Test Reason : CHEST PAIN Blood Pressure : / mmHG Vent. Rate : 089 BPM Atrial Rate : 089 BPM P-R Int : 142 ms QRS Dur : 076 ms QT Int : 372 ms P-R-T Axes : 053 027 077 degrees QTc Int : 452 ms Artifact in tracing Normal sinus rhythm Probably normal EKG When compared with ECG of 24-FEB-2020 15:37, No significant change was found Referred By: Linh Jorgensen Electronically Signed By:ERWIN BANGURA
--- NOTE | ~2024-01-10 | XR_ITS ---
EXAMINATION: XR CHEST CLINICAL INFORMATION: chest pain COMPARISON: X-ray 12/03/2022 TECHNIQUE: 2 frontal and lateral views FINDINGS: Cardiac and mediastinal silhouette is within normal limits. Aortic arch calcification. Overlying EKG leads. Lungs are symmetrically expanded. No evidence of focal consolidation or effusion. No pulmonary edema. No pneumothorax is seen. Multilevel degeneration in the thoracic spine. Cholecystectomy clips. XR/XR chest 2V IMPRESSION: No evidence of acute cardiopulmonary process. Electronically signed by: Gaurav Greene MD 01/10/2024 06:23 PM CASSIUS BURNETTE
[2024-01-10 13:10] VITALS: BP 159/66; PULSE 91; RESP 18; TEMP 36.5; O2SAT 100; BMI 18.3
--- NOTE | 2024-01-10 13:10 | ED_ITS ---
HPI - General Adult General Chief complaint: Chest Pain Stated complaint: Chest Pain Time Seen by Provider: 01/10/24 16:02 History of Present Illness ED Provider: Bradley HPI narrative: 83-year-old female with past medical history of diabetes, hypertension, hyperlipidemia presenting for chest discomfort. Patient states that she has been experiencing proximally 2 days of sensation of fatigue in her chest and intermittent chest pain with exertion. She also endorses mild shortness of breath. Patient denies fevers, chills, cough, recent travel, leg swelling, nausea, vomiting, abdominal pain. Patient states that she has not had similar symptoms in the past Related Data Home Medications ?Medication ?Instructions ?Recorded ?Confirmed amlodipine 10 mg tablet 1 tab PO DAILY 02/24/20 02/24/20 aspirin 81 mg tablet,delayed 1 tab PO DAILY 02/24/20 02/24/20 release atorvastatin 20 mg tablet 1 tab PO DAILY 02/24/20 02/24/20 hydrochlorothiazide 25 mg tablet 1 tab PO DAILY 02/24/20 02/24/20 irbesartan 300 mg tablet 1 tab PO DAILY 02/24/20 02/24/20 metformin 500 mg tablet 1 tab PO BID 02/24/20 02/24/20 Allergies Allergy/AdvReac Type Severity Reaction Status Date / Time No Known Allergies Allergy Verified 01/10/24 13:10 [No Known Allergies*] Review of Systems 2 Review of Systems: patient endorses chest discomfort and shortness of breath Yes all other systems are reviewed and are negative [facility] Past Medical History Attestation statement: The following information was validated with the patient. [facility] Narrative: CRISTI Source: old records reviewed Medical History High cholesterol Hypertension Diabetes mellitus Social History Social History Alcohol intake: never Smoked in Last 30 Days: No Use of substances other than those prescribed or required for medical reasons: No Advance Directives: No Advance Directives Information Provided: Yes Do you have a plan to hurt others: No Plan service: No Current occupational status: retired Physical Exam ED Vital Signs: Vital Signs - 24 hr 01/10/24 13:10 01/10/24 14:16 01/10/24 16:04 Temperature 97.7 F 97.9 F 97.7 F Pulse Rate 91 84 84 Respiratory Rate 18 16 16 Blood Pressure 159/66 H 151/75 H 141/66 H Pulse Oximetry 100 100 98 Oxygen Delivery Method Room Air Room Air Room Air 01/10/24 19:08 01/10/24 20:34 01/10/24 20:59 Temperature 97.8 F 98.3 F 98.3 F Pulse Rate 80 78 78 Respiratory Rate 16 146 H 16 Blood Pressure 148/73 H 140/65 H 142/66 H Pulse Oximetry 99 98 98 Oxygen Delivery Method Room Air Room Air Room Air BMI result Body Mass Index 18.3 well-appearing female in no acute distress. Lungs clear to auscultation bilaterally. Normal S1-S2 regular rate rhythm. Diffuse anterior chest wall tenderness to palpation. Abdomen is soft nontender nondistended. Course Course Course Narrative: RME performed by Linh Jorgensen PA-C. Patient is an 83 year old assigned female at presenting to the emergency department with chest pain. Detailed physical exam and review of systems are deferred to the regional maintenance manager. EKG, labs, imaging, and swabs ordered. Patient placed back in the waiting room pending room availability and results. Medications Administered Discontinued Medications Generic Name Dose Route Start Last Admin Trade Name Freq PRN Reason Stop Dose Admin Acetaminophen 975 mg 01/10/24 18:40 01/10/24 18:43 Acetaminophen 325 Mg Tablet PO 01/10/24 18:41 975 mg ONCE ONE Administration Medical Decision Making Medical Decision Making [facility] Narrative: 83-year-old female presenting for chest pain shortness of breath. I am concerned for the following; costochondritis /chest wall pain, viral URI, CHF - lower suspicion for ACS/angina, PE given reassuring physical exam and HPI however I will obtain appropriate labwork - Lab work notable for no white count, stable H&H, electrolytes within normal limits, mild bump in creatinine, negative troponin x3, normal BNP - I reviewed the patient's chest x-ray and do not appreciate large consolidation and the Radiology impression is negative for acute findings - patient's bedside echo is positive for trace pericardial effusion without any evidence of tamponade, good ejection fraction and small IVC with minimal respiratory variation - Tylenol was ordered and on reassessment patient reports improvement in symptoms. Patient was 99% on an ambulatory sat and not endorse any chest pain - I considered admission however at this time I am not concerned for life- threatening cardiopulmonary etiology. I instructed the patient follow up with her PCP and gave her strict return precautions. Lab Data 01/10/24 13:29 01/10/24 13:29 Labs: Lab Results 01/10/24 01/10/24 01/10/24 Range/Units 13: 16:24 18:54 WBC 6.8 (4.8-10.8) X10*3/uL RBC 4.27 (4.20-5.50) X10*6/uL Hgb 12.3 (12.0-16.0) g/dl Hct 38.1 (37.0-47.0) % MCV 89.2 (80.0-98.0) fL MCH 28.8 (27.0-33.0) pg MCHC 32.3 (31.0-35.0) g/dl RDW 13.8 (11.0-16.0) % Plt Count 266 (160-400) X10*3/uL MPV 9.4 (9.4-12.3) fL Immature Gran % (Auto) 0.3 (0.0-0.4) % Neut % (Auto) 56.0 (45-73) % Lymph % (Auto) 36.4 (20-40) % [place] % (Auto) 6.3 (2-11) % Eos % (Auto) 0.6 (0-4) % Baso % (Auto) 0.4 (0-2) % Lymph # (Auto) 2.5 (1.2-4.9) X10*3/uL [place] # (Auto) 0.4 (0.1-1.2) X10*3/uL Eos # (Auto) 0.0 (0.0-0.4) X10*3/uL Baso # (Auto) 0.0 (0.0-0.2) X10*3/uL Abs Immat Gran (auto) 0.02 (0.00-0.03) X10*3/uL Absolute Neuts (auto) 3.8 (2.0-8.3) x10*3/uL Absolute Nucleated RBC 0.000 (0.0-0.012) X10*3/uL Nucleated RBC % (auto) 0.0 (0.0-0.2) /100WBC Sodium 136 (135-145) mmol/L Potassium 4.7 (3.3-5.1) mmol/L Chloride 104 (96-108) mmol/L Carbon Dioxide 22 (22-29) mmol/L Anion Gap 15 (12-20) BUN 33 H (9-16) mg/dL Creatinine 1.23 (0.5-1.4) mg/dL Estim Creat Clear Calc 28.2 Estimated GFR 42 Random Glucose 190 H (60-115) mg/dL Calcium 10.9 H (8.4-10.2) mg/dL Magnesium 1.6 (1.6-2.6) mg/dL Total Bilirubin 0.4 (0.0-1.0) mg/dL AST 29 (5-31) U/L ALT 20 (0-31) U/L Alkaline Phosphatase 83 (39-117) U/L Troponin I High Sens 5.9 7.9 (<3.5-17.0) ng/L B-Natriuretic Peptide 37 (<100) pg/mL Total Protein 8.0 (6.5-8.0) g/dL Albumin 4.3 (3.5-5.0) g/dL Influenza Type A (PCR) NEGATIVE (Negative) Influenza Type B (PCR) NEGATIVE (Negative) RSV RNA Qual (PCR) NEGATIVE (Negative) SARS-CoV-2 RNA (RT-PCR) NEGATIVE (Negative) 01/10/24 Range/Units 19:31 WBC (4.8-10.8) X10*3/uL RBC (4.20-5.50) X10*6/uL Hgb (12.0-16.0) g/dl Hct (37.0-47.0) % MCV (80.0-98.0) fL MCH (27.0-33.0) pg MCHC (31.0-35.0) g/dl RDW (11.0-16.0) % Plt Count (160-400) X10*3/uL MPV (9.4-12.3) fL Immature Gran % (Auto) (0.0-0.4) % Neut % (Auto) (45-73) % Lymph % (Auto) (20-40) % [place] % (Auto) (2-11) % Eos % (Auto) (0-4) % Baso % (Auto) (0-2) % Lymph # (Auto) (1.2-4.9) X10*3/uL [place] # (Auto) (0.1-1.2) X10*3/uL Eos # (Auto) (0.0-0.4) X10*3/uL Baso # (Auto) (0.0-0.2) X10*3/uL Abs Immat Gran (auto) (0.00-0.03) X10*3/uL Absolute Neuts (auto) (2.0-8.3) x10*3/uL Absolute Nucleated RBC (0.0-0.012) X10*3/uL Nucleated RBC % (auto) (0.0-0.2) /100WBC Sodium (135-145) mmol/L Potassium (3.3-5.1) mmol/L Chloride (96-108) mmol/L Carbon Dioxide (22-29) mmol/L Anion Gap (12-20) BUN (9-16) mg/dL Creatinine (0.5-1.4) mg/dL Estim Creat Clear Calc Estimated GFR Random Glucose (60-115) mg/dL Calcium (8.4-10.2) mg/dL Magnesium (1.6-2.6) mg/dL Total Bilirubin (0.0-1.0) mg/dL AST (5-31) U/L ALT (0-31) U/L Alkaline Phosphatase (39-117) U/L Troponin I High Sens 7.6 (<3.5-17.0) ng/L B-Natriuretic Peptide (<100) pg/mL Total Protein (6.5-8.0) g/dL Albumin (3.5-5.0) g/dL Influenza Type A (PCR) (Negative) Influenza Type B (PCR) (Negative) RSV RNA Qual (PCR) (Negative) SARS-CoV-2 RNA (RT-PCR) (Negative) Discharge Plan Discharge Clinical Impression: Chest wall pain, Mild shortness of breath Patient Disposition: Home, Self-Care Additional Instructions: Please followup with your PCP in the next 24-48 hours If you develop any new or worsening symptoms please return to the emergency department Prescriptions: No Action metformin 500 mg tablet 1 tab PO BID atorvastatin 20 mg tablet 1 tab PO DAILY aspirin 81 mg tablet,delayed release (DR/EC) 1 tab PO DAILY amlodipine 10 mg tablet 1 tab PO DAILY hydrochlorothiazide 25 mg tablet 1 tab PO DAILY irbesartan 300 mg tablet 1 tab PO DAILY Interventions: ED Discharge Assessment Last Done: 01/10/24 20:59 Discharge Date/Time: 01/10/24 20:59 Print Language: Japanese
[2024-01-10 13:36] LABS: MANUAL DIFF FLAG NO
[2024-01-10 13:41] LABS: Basophils Percent Auto 0.4 % (0-2); Eosinophils Percent Auto 0.6 % (0-4); Hematocrit 38.1 % (37.0-47.0); Hemoglobin 12.3 g/dl (12.0-16.0); Imm Gran Abs Auto 0.02 X10*3/uL (0.00-0.03); Imm Gran Pct Auto 0.3 % (0.0-0.4); Lymphocytes Absolute Auto 2.5 X10*3/uL (1.2-4.9); Lymphocytes Percent Auto 36.4 % (20-40); Mean Corpuscular HGB Conc 32.3 g/dl (31.0-35.0); Mean Corpuscular Hemoglobin 28.8 pg (27.0-33.0); Mean Corpuscular Volume 89.2 fL (80.0-98.0); Mean Platelet Volume 9.4 fL (9.4-12.3); Monocytes Absolute Auto 0.4 X10*3/uL (0.1-1.2); Monocytes Percent Auto 6.3 % (2-11); Neutrophils Absolute Auto 3.8 x10*3/uL (2.0-8.3); Platelet Count 266 X10*3/uL (160-400); Red Blood Count 4.27 X10*6/uL (4.20-5.50); Red Cell Distribution Width 13.8 % (11.0-16.0); White Blood Count 6.8 X10*3/uL (4.8-10.8)
[2024-01-10 13:56] LABS: Alanine Aminotransferase 20 U/L (0-31); Albumin Level 4.3 g/dL (3.5-5.0); Alkaline Phosphatase 83 U/L (39-117); Anion Gap 15 (12-20); Aspartate Amino Transferase 29 U/L (5-31); Bilirubin Total 0.4 mg/dL (0.0-1.0); Blood Urea Nitrogen 33 mg/dL (9-16); Calcium 10.9 mg/dL (8.4-10.2); Carbon Dioxide 22 mmol/L (22-29); Chloride 104 mmol/L (96-108); Creatinine Clr Calc Pharmacy 28.2; Estimated Glomerular Filt Rate 42; Glucose Random 190 mg/dL (60-115); Magnesium 1.6 mg/dL (1.6-2.6); Potassium 4.7 mmol/L (3.3-5.1); Sodium 136 mmol/L (135-145)
[2024-01-10 14:04] LABS: Troponin-I High Sensitivity 5.9 ng/L (<3.5-17.0)
[2024-01-10 14:16] VITALS: BP 151/75; PULSE 84; RESP 16; TEMP 36.6; O2SAT 100
[2024-01-10 14:20] LABS: Influenza A PCR NEGATIVE (Negative); Influenza B PCR NEGATIVE (Negative); Resp Syncy Virus RNA Qual PCR NEGATIVE (Negative); SARS COV2 PCR INHOUSE NEGATIVE (Negative)
--- NOTE | 2024-01-10 16:03 | ECG_ITS ---
Test Reason : repeat Blood Pressure : / mmHG Vent. Rate : 084 BPM Atrial Rate : 084 BPM P-R Int : 154 ms QRS Dur : 070 ms QT Int : 378 ms P-R-T Axes : 050 019 053 degrees QTc Int : 446 ms Normal sinus rhythm Septal infarct (cited on or before 10-JAN-2024) Abnormal ECG When compared with ECG of 10-JAN-2024 13:37, Questionable change in initial forces of Septal leads Referred By: Be Huerta Electronically Signed By:ERWIN BANGURA
[2024-01-10 16:04] VITALS: BP 141/66; PULSE 84; RESP 16; TEMP 36.5; O2SAT 98
[2024-01-10 17:23] LABS: Troponin-I High Sensitivity 7.9 ng/L (<3.5-17.0)
[2024-01-10] MEDS: Acetaminophen 325 MG TABLET 975 MG PO (18:43)
[2024-01-10 19:08] VITALS: BP 148/73; PULSE 80; RESP 16; TEMP 36.6; O2SAT 99
[2024-01-10 19:17] LABS: B Type Natriuretic Peptide 37 pg/mL (<100)
[2024-01-10 19:55] LABS: Troponin-I High Sensitivity 7.6 ng/L (<3.5-17.0)
[2024-01-10 20:34] VITALS: BP 140/65; PULSE 78; RESP 146; TEMP 36.8; O2SAT 98
[2024-01-10 20:59] VITALS: BP 142/66; PULSE 78; RESP 16; TEMP 36.8; O2SAT 98
== END 2024-01-10 20:59 | disposition home or self-care (01) ==
PROVIDERS: Physician Assistant Medical; Emergency Provider Student in an Organized Health Care Education/Training Program; PCP Internal Medicine Geriatric Medicine
DX: R07.9 Chest pain, unspecified (principal); R06.02 Shortness of breath; I10 Essential (primary) hypertension; E78.5 Hyperlipidemia, unspecified; E11.9 Type 2 diabetes mellitus without complications; R53.83 Other fatigue; Z79.899 Other long term (current) drug therapy; Z03.818 Encounter for observation for suspected exposure to other biological agents ruled out
CPT/HCPCS: 0241U; 36415; 71046; 80053; 83735; 83880; 84484; 85025; 93005; 99283; 99285

== ENCOUNTER → 2024-01-10 13:37 | Outpatient (BNV) | payer OTHER, SELFPAY | PROVIDERS: Emergency Provider Student in an Organized Health Care Education/Training Program; PCP Internal Medicine Geriatric Medicine; Visit Provider Internal Medicine | DX: R94.31 Abnormal electrocardiogram [ECG] [EKG] (principal); R07.9 Chest pain, unspecified | CPT/HCPCS: 93010 ==

== ENCOUNTER 2024-05-20 09:48 | Outpatient (REF) | payer OTHER, SELFPAY ==
--- OUTSIDE RECORDS SUMMARY | 2024-05-20 09:50 | XMS_ITS | Encounter Summary ---
Author Organization [facility], Address [address] [address] Phone Care Team Providers Care Saddle And Side Wire Stitcher Name Role Phone Name, Anastacio DEMPSEY Primary Care Provider [phone] Encounter Details Date Type Department Care Team (Late st Contact Info) Description 02/04/2023 Documentation Only [facility] [address] [place] [address] Name, MD Anastacio [address] [place], [place] [phone] Social History Tobacco Use Types Packs/Day Years Used Date Smoking Tobacco: Never Assessed Comments Unknown Sex and Gender Information Value Date Recorded Sex Assigned at Not on file Legal Sex Female 12:09 PM EST Gender Identity Not on file Sexual Orientation Not on file documented as of this encounter Plan of Treatment Upcoming Encounters Date Type Department Care Team (Late st Contact Info) Description 06/08/2024 11:00 AM EDT Office Visit [facility] [address] [address] Graeme Foote MD [address] [place] [address] [place] [phone] documented as of this encounter Visit Diagnoses Not on filedocumented in this encounter Care Teams Saddle And Side Wire Stitcher Relationship Specialty Start Date End Date Name, MD Anastacio [address] [place], [place] [phone] PCP - General Internal Medicine 02/04/23 documented as of this encounter
--- OUTSIDE RECORDS SUMMARY | 2024-05-20 09:50 | XMS_ITS | Encounter Summary ---
Author Organization [employer] Address [address] [place] [address] Care Team Providers Care Sterilization Specialist Name Role Phone Name, Anastacio DEMPSEY Primary Care Provider [phone] Jolly Mccabe PharmD Unavailable [phone] Reason for Visit * Reason Comments Med Refill Encounter Details Date Type Department Care Team ([facility] st Contact Info) Description 10/01/2023 Refill [facility] [address] [place], [place] [phone] Jolly Mccabe, PharmD [address] [place] [address] Type 2 diabetes mellitus with hyperglycemia, with long-term current use of insulin ([facility]) Social History Tobacco Use Types Packs/Day Years Used Date Smoking Tobacco: Never Smokeless Tobacco: Never Alcohol Use Standard Drinks/Week Comments Never 0 (1 standard drink = 0.6 oz pur e alcohol) Depression Answer Date Recorded Patient Health Questionnaire-9 Score 7 09/01/2023 Patient Health Questionnaire-9 Score 7 09/01/2023 Last PHQ-9: Questionnaire Data Not on file 0 09/01/2023 Housing Stability Answer Date Recorded What is your housing situation today? I have anjelica henao 09/01/[address] you li ve. Do you have problems with any of the following? None of the above 09/01/2023 Food Insecurity Answer Date Recorded Within the past 12 months, y ou worried that your food would run out before you got money to buy more: Never True 09/01/2023 Within the past 12 months,th e food you bought just didn't last and you didn't have enough money to get more: Never True Transportation Answer Date Recorded In the past 12 months, has l ack of transportation kept you from medical appts, meetings, work or from getting things needed for daily living? No 09/01/2023 Utilities Answer Date Recorded In the past 12 months, has t he electric, gas, oil or water company threatened to shut off services in your home? No 09/01/2023 Depression Answer Date Recorded Patient Health Questionnaire-2 Score 2 09/01/2023 Comments Unknown Sex and Gender Information Value Date Recorded Sex Assigned at Female 12/15/2021 10:32 AM EDT Legal Sex Female 10:32 AM EDT Gender Identity Female 12/15/2021 10:32 AM EDT Sexual Orientation Straight 12/15/2021 10 :32 AM EDT documented as of this encounter Plan of Treatment Upcoming Encounters Date Type Department Care Team (Late st Contact Info) Description 05/29/2024 10:30 AM EDT Medication Management [facility] [address] [place] [phone] Jolly Mccabe PharmD [address] [place] [phone] 08/09/2024 10:30 AM EDT Office Visit [facility] [address] [place] [phone] Name, MD Anastacio [address] [place] [phone] documented as of this encounter Goals Goal Patient Goal Type Associated Problems Recent Progress Patient-Stated? Author Hemoglobin A1c < 8 Result Component 9.4( 11:16 AM EST) No Jolly Mccabe PharmD Record your blood sugar as directed Result Component Worsening( 10:01 AM EST) No Jolly Mccabe PharmD Note: Use CGM, ensuring sensor is scanned at least once every 8 hours to capture 24H data. Check BG manually, as directed. documented as of this encounter Visit Diagnoses Diagnosis Type 2 diabetes mellitus with hyperglycemia, with long-term current use of insulin ([facility]) documented in this encounter Additional Health Concerns Assessment Noted Time PHQ-9 Depression Total Score: 7 09/01/19 24 9:20 AM EDT documented as of this encounter Care Teams Sterilization Specialist Relationship Specialty Start Date End Date Name, MD Anastacio [address] [place] [address] PCP - General Family Medicine 12/21/16 Jolly Mccabe, Jacquie [address] [place] [address] Pharmacist Internal Medicine 07/02/22 documented as of this encounter
--- OUTSIDE RECORDS SUMMARY | 2024-05-20 09:50 | XMS_ITS | Encounter Summary ---
Author Organization [employer] [facility] Address [address] [place] [address] Care Team Providers Care Reporting Developer Name Role Phone Name, Anastacio DEMPSEY Primary Care Provider [phone] Jolly Mccabe PharmD Unavailable Encounter Details Date Type Department Care Team (Late st Contact Info) Description 02/26/[address] [facility] [address] [place] [phone] Sujatha Nunez LPN Social History Tobacco Use Types Packs/Day Years [...] Description 05/29/2024 10:30 AM EDT Medication Management [facility] [address] [place] [phone] Jolly Mccabe, PharmD [address] [place] [address] 08/09/2024 10:30 AM EDT Office Visit [facility] [address] [place] [phone] Anastacio Burks MD [address] [place] [phone] documented as of this encounter Visit Diagnoses Not on filedocumented in this encounter Care Teams Reporting Developer Relationship Specialty Start Date End Date Name, MD Anastacio [address] [place] [address] PCP - General Family Medicine 12/21/16 Jolly Mccabe PharmD [address] [place] [address] Pharmacist Internal Medicine 07/02/22 documented as of this encounter
--- OUTSIDE RECORDS SUMMARY | 2024-05-20 09:51 | XMS_ITS | Clinical Summary ---
Author Organization [employer] Address [address] [facility] 7[address] [place] [address] Care Team Providers Care Spinning Operator Name Role Phone Name, Anastacio DEMPSEY Primary Care Provider [phone] Jolly Mccabe PharmD Unavailable [phone] Allergies No known active allergies Medications glucagon (Baqsimi Two Pack) 3 MG/DOSE nasal powderIndication s:Type 2 diabetes mellitus with hyperglycemia, with long-term current use of insulin (CMS/[facility]) Administer 3 mg via one device in one nostril PRN hypoBG with loss of consciousness. If no response after 15 mins an additional dose may be administered via other device in opposite nostril. 1 each 1 023 Active atorvastatin (Lipitor) 20 MG tabletIndication s:Type 2 diabetes mellitus with hyperglycemia, with long-term current use of insulin (CMS/HCC) Take 1 tablet (20 mg) by mouth Once per day. 90 tablet 3 024 Active glucose blood (FreeStyle Precision Bret Test) test strip Use to test blood sugar up to 3 times daily, as directed 100 each 024 Active Jardiance 25 MGIndications:Ty pe 2 diabetes mellitus with unspecified complications (CMS/HCC) TAKE 1 TABLET BY MOUTH EVERY MORNING 30 tablet 5 024 Active Alcohol Swabs (Alcohol Prep) 70 % padsIndications: Type 2 diabetes mellitus with hyperglycemia (CMS/HCC) USE THREE TIMES DAILY DIRECTED 100 each 11 024 Active Cholecalciferol (Vitamin D3) 50 MCG (2000 UT) chewable tablet Chew 1 tablet with breakfast. 024 Active Continuous Glucose Privacy Specialist (FreeStyle Camila 3 Bally) deviceIndication s:Type 2 diabetes mellitus with hyperglycemia, with long-term current use of insulin (CMS/HCC) 1 each 3 times daily. Use daily as directed for CGM 1 each 025 Active Continuous Glucose Sensor (FreeStyle Camila 3 Plus Sensor) miscIndications: Type 2 diabetes mellitus with hyperglycemia, with long-term current use of insulin (CMS/HCC) 1 each Once per day. Apply 1 sensor every 15 days as directed for CGM 2 each 025 Active Lancets (OneTouch Delica Plus [id number]) miscIndications: Type 2 diabetes mellitus with hyperglycemia, with long-term current use of insulin (CMS/HCC) USE TO TEST BLOOD SUGAR UP TO THREE TIMES DAILY 100 each 025 Active Blood Pressure kit Use as directed to check home BP daily. 1 kit 025 Active insulin aspart (NovoLOG FLEXPEN) 100 UNIT/ML penIndications:T ype 2 diabetes mellitus with hyperglycemia, with long-term current use of insulin ([facility]) Inject 10 units subQ once daily with lunch 15 mL 2 025 Active insulin glargine (Lantus SoloStar) 100 UNIT/ML penIndications:T ype 2 diabetes mellitus with hyperglycemia, with long-term current use of insulin ([facility]) Inject 20 units subQ once daily at bedtime. Increase as directed to 26 units daily. 15 mL 2 025 Active aspirin (Aspirin Low Dose) 81 MG EC tabletIndication s:Type 2 diabetes mellitus with hyperglycemia, with long-term current use of insulin ([facility]) Take 1 tablet (81 mg) by mouth in the morning. 90 tablet 3 025 Active metFORMIN (Glucophage) 500 MG tabletIndication s:Type 2 diabetes mellitus with unspecified complications (CMS/HCC) TAKE 1 TABLET BY MOUTH TWICE DAILY IN THE MORNING AND IN THE EVENING WITH FOOD 180 tablet 1 025 Active irbesartan (Avapro) 300 MG tabletIndication s:Type 2 diabetes mellitus with hyperglycemia (CMS/HCC) Take 1 tablet (300 mg) by mouth in the morning. 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 04/16/2023 Vitreomacular traction syndrome, left 11/05/2022 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 11/05/2022 CKD (chronic kidney disease) stage 3, GFR 30-59 ml/min 06/08/2022 History of severe acute resp iratory syndrome coronavirus 2 (SARS-CoV-2) disease 01/08/2021 Pain in joint of right shoulder 04/25/2020 Blind right eye 01/18/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 01/18/2017 Vitamin D deficiency 01/18/2017 Benign essential hypertension 12/18/2016 Hyperglycemia due to type 2 diabetes mellitus Encounters Date Type Department Care Team Description 04/27/2024 Telephone [facility] [address] [place] [address] WorrellTiffanie pan [place] june recalls 04/27/2024 Telephone [facility] [address] [place] [address] NameAnastacio MD Durable Medical Equipment 04/21/2024 Refill [facility] [address] [place], [place] [phone] NameAnastacio MD Hypertension, unspecified type 04/14/2024 Travel 03/31/2024 10:30 AM EST Office Visit [facility] [address] [place], [place] [phone] Ric, Jackelyn, OD 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 (CMS/HCC) (Primary Dx); Vitreomacular adhesion of left eye; 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; Pseudophakia, left eye; Presbyopia 03/31/2024 Travel 03/22/2024 10:45 AM EST Office Visit [facility] [address] [place] [address] Anastacio Burks MD Type 2 diabetes mellitus with hyperglycemia, with long-term current use of insulin ([facility]) (Primary Dx); Excessive body weight loss; Chest pain, unspecified type 03/09/2024 Refill [facility] [address] [place] [address] Jolly Mccabe, PharmD 02/29/2024 Telephone [facility] [address] [place] [address] Anastacio Burks MD Durable Medical Equipment 02/25/2024 Telephone [facility] [address] [place] [address] Tiffanie Worrell [place] DME_ wipes,gloves,underpads pull on 02/24/2024 Telephone [facility] [address] [place] [address] Jolly Mccabe, PharmD Prior Authorization (Camila 3 reader & 3+ sensors) 02/21/2024 Refill [facility] [address] [place], [place] [phone] Anastacio Burks MD Type 2 diabetes mellitus with hyperglycemia ([facility]) from Last 3 Months Immunizations Name Administration Dates Next Due Hep B, adult 01/14/2023,08/13/2022,07/16/2022 Influenza High-dose Quadriva lent Preservative Free 12/02/2022 Influenza, High Dose Seasona l, Preservative Free 12/09/2023,12/14/2018,11/26/2017 Moderna Covid-19 Vaccine 6+ Bivalent 07/16/2022 Pfizer Covid-19 Vaccine 12+ 12/09/2023, Pneumococcal Conjugate PCV 13 01/18/2017 Pneumococcal Conjugate PCV 20 02/24/2024 Pneumococcal Polysaccharide PPSV23 12/14/2018 RSV Bivalent 01/06/2023 TD (adult), 2 Lf tetanus tox oid, preservative free, adsorbed 01/18/2017 Zoster, Recombinant 10/05/2022,07/02/2022 Social History Tobacco Use Types Packs/Day Years Used Date Smoking Tobacco: Never Smokeless Tobacco: Never Tobacco Cessation:Counseling Given: Not Answered Alcohol Use Standard Drinks/Week Comments Never 0 [...] Recorded Patient Health Questionnaire-2 Score 2 09/01/2023 Internet Access Answer Date Recorded Internet Access Q1 No 10/15/2023 Internet Access Q2 I do not want or need it 09/17 Comments Unknown Sex and Gender Information Value Date Recorded Sex Assigned at Female 12/15/2021 10:32 AM EDT Legal Sex Female 10:32 AM EDT Gender Identity Female 12/15/2021 10:32 AM EDT Sexual Orientation Straight 12/15/2021 10 :32 AM EDT Last Filed Vital Signs Vital Sign Reading Time Taken Comments Blood Pressure 122/58 04/14/2024 10:57 AM EST Pulse 85 03/22/2024 10:44 AM EST Temperature 36.6 ??C (97.8 ??F) 03/22/2024 10:[address] Respiratory Rate 20 03/22/2024 10:44 AM EST Oxygen Saturation 99% 03/22/2024 10:44 AM EST Inhaled Oxygen Concentration - - Weight 49.1 kg (108 lb 3.2 oz) 03/22/2024 10:44 AM EST Height 165.1 cm (5' 5 ) 03/22/2024 10:44 AM EST Body Mass Index 18.01 03/22/2024 10:44 AM EST Plan of Treatment Upcoming Encounters Date Type Department Care Team (Late st Contact Info) Description 05/29/2024 10:30 AM EDT Medication Management [facility] [address] [place] [address] Jolly Mccabe, PharmD [address] [place] [address] 08/09/2024 10:30 AM EDT Office Visit [facility] [address] [place] [address] [phone] Name, MD Anastacio [address] [place] [address] [phone] Health Maintenance Due Date Last Done Comments DTaP/Tdap/Td Vaccines (1 - Tdap) 01/19/2017 01/18/2017 Lipid Panel 06/12/2023 06/11/2022, 04/22/2020 Diabetes: Foot Exam 12/03/2023 12/02/2022, 12/02/2022, 12/02/2022, Additional history exists Diabetes: Hemoglobin A1C 05/24/2024 025, 12/09/2023, 10/15/2023, Additional history exists Alcohol/Substance Use Screening 08/31/2024 09/01/2023 Depression Screening 08/31/2024 09/01/2023, 09/01/19 24 SDOH Screening 08/31/2024 09/01/2023 Eye Exam 03/31/2025 03/31/2024, 03/18, 03/31/2024, Additional history exists Tobacco Screening 04/18/2025 04/18/2024 Zoster Vaccines Completed 10/05/2022, 07/02/2022 RSV Patients and Patients Aged 60 years or older Completed 01/06/2023 Hepatitis B Vaccines Completed 01/14/2023, 08/13/2022, 07/16/2022 COVID-19 Vaccine Completed 12/09/2023, , 07/16/2022, Additional history exists Influenza Vaccine Completed 12/09/2023, , 12/14/2018, Additional history exists Pneumococcal Vaccine: 50+ Years Completed 02/24/2024, 12/14/2018, 01/18/2017 HIB Vaccines Aged Out No longer eligi ble based on patient's age to complete this topic HPV Vaccines Aged Out No longer eligi ble based on patient's age to complete this topic Hepatitis A Vaccines Aged Out No long er eligible based on patient's age to complete this topic IPV Vaccines Aged Out No longer eligi ble based on patient's age to complete this topic Meningococcal Vaccine Aged Out No radu anabella eligible based on patient's age to complete this topic RSV under 20 months Aged Out No longe r eligible based on patient's age to complete this topic Rotavirus Vaccines Aged Out No longer eligible based on patient's age to complete this topic Goals Goal Patient Goal Type Associated Problems Recent Progress Patient-Stated? Author Hemoglobin A1c < 8 Result Component 9.4( 11:16 AM EST) No Jolly Mccabe, Jacquie Record your blood sugar as directed Result Component Worsening( 10:01 AM EST) No Jolly Mccabe, Jacquie Note: Use CGM, ensuring sensor is scanned at least once every 8 hours to capture 24H data. Check BG manually, as directed. Procedures Procedure Name Priority Date/Time Associated Diagnosis Comments OCT, RETINA - OS - LEFT EYE Routine 03/31/2024 10:30 AM EST Vitreomacular adhesion of left eye ECG 12-LEAD Routine 03/22/2024 12:34 PM EST Chest pain, unspecified type POCT GLUCOSE Routine 03/22/2024 10:45 AM EST Type 2 diabetes mellitus with hyperglycemia, with long-term current use of insulin ([facility]) POCT GLYCATED HEMOGLOBIN, TOTAL Routine 02/24/2024 11:16 AM EST Type 2 diabetes mellitus with hyperglycemia, with long-term current use of insulin ([facility]) LIPID PANEL, STANDARD Routine 06/11/2022 8:12 AM EDT Type 2 diabetes mellitus with hyperglycemia, with long-term current use of insulin ([facility]) Microalbuminuric diabetic nephropathy ([facility]) On statin therapy from Last 3 Months or Most Recently Relevant to Health Maintenance Results * ECG 12 lead (03/22/2024 12:34 PM EST) Narrative Name, MD Anastacio - 03/22/2024 12:34 PM EST NSR, HR of 81, No ST segment or depression, no significant change from previous EKG done 01/08 at [facility] (? Septal infarct) Her bedside ECHO during the ER visit showed NLVSF ECHO from 05/08 showed EF of 70%, mild LVH, impaired relaxation us Anastacio Burks MD ECG ORDERABLES Final Result * POCT Glucose (03/22/2024 10:45 AM EST) Glucose Blood, POC 191 60 - 200 mg/dL QC Media Lot # [id number] Lot# Expiration Date Blood Capillary blood specimen / Unknown 03/22/2024 10:45 AM EST Result Brett Burks MD POINT OF CARE TEST ENTER/EDIT OR DERABLES Final Result * (ABNORMAL) POCT HGB A1C (02/24/2024 11:16 AM EST) Pathologist [facility] Hemoglobin A1C 9.4(A) 4.0 - 6.0 % QC Media Lot # [id number] Blood 02/24/2024 11:1 6 AM EST Result Brett Burks MD POINT OF CARE TEST ENTER/EDIT OR DERABLES Final Result * Lipid Panel, Standard (06/11/2022 8:12 AM EDT) Cholesterol, Total 117 <200 mg/dL [facility] HDL Cholesterol 73 > OR = 50 mg/dL [facility] Triglycerides 43 <150 mg/dL [facility] LDL Cholesterol 32 mg/dL (calc) [facility] Comment: Reference range: <100 Desirable range <100 mg/dL for primary prevention; ?? <70 mg/dL for patients with CHD or diabetic patients with > or = 2 CHD risk factors. LDL-C is now calculated using the José Miguel calculation, which is a validated novel method providing better accuracy than the Friedewald equation in the estimation of LDL-C. Ghassan SS et al. ROYCE. 2013;310(19): 8443-8995 (http://education.Core Stix/faq/NSX277) Chol/HDLC Ratio 1.6 <5.0 (calc) [facility] Non-HDL Cholesterol 44 <130 mg/dL (calc) [facility] Comment: For patients with diabetes plus 1 major ASCVD risk factor, treating to a non-HDL-C goal of <100 mg/dL (LDL-C of <70 mg/dL) is considered a therapeutic option. Blood Venous blood specimen / Unknown 06/11/2022 8:12 AM EDT 06/11/2022 8:13 AM EDT Narrative [facility] - 06/11/2022 8:31 PM EDT FASTING:YES FASTING: YES us Anastacio Name LAB BLOOD ORDERABLES Final Resul t [facility] [address], [place] [address] [facility] [address] [place] [address] from Last 3 Months or Most Recently Relevant to Health Maintenance Insurance [facility] ST[facility] Care Teams Spinning Operator Relationship Specialty Start Date End Date Name, MD Anastacio [address] [place] [address] PCP - General Family Medicine 12/21/16 Jolly Mccabe PharmD [address] [place] [address] Pharmacist Internal Medicine 07/02/22
--- OUTSIDE RECORDS SUMMARY | 2024-05-20 09:51 | XMS_ITS | Encounter Summary ---
Author Organization [employer] Address [address] [facility] 7t [place] [address] Care Team Providers Care Glue Bone Crusher Name Role Phone Name, Anastacio DEMPSEY Primary Care Provider [phone] Jolly Mccabe PharmD Unavailable [phone] Encounter Details Date Type Department Care Team (Late st Contact Info) Description 03/09/2022 Orders Only [facility] [address] [place] [address] Nerissa Valdes LPN Social History Tobacco Use Types Packs/Day [...] Description 05/29/2024 10:30 AM EDT Medication Management [facility] [address] [place] [phone] Jolly Mccabe, PharmD [address] [place] [address] 08/09/2024 10:30 AM EDT Office Visit [facility] [address] [place] [phone] Name, MD Anastacio [address] [place] [address] documented as of this encounter Visit Diagnoses Not on filedocumented in this encounter Care Teams Glue Bone Crusher Relationship Specialty Start Date End Date Name, MD Anastacio [address] [place] [address] PCP - General Family Medicine 12/21/16 Jolly Mccabe, LucíaD [address] [place] [address] Pharmacist Internal Medicine 07/02/22 documented as of this encounter
--- OUTSIDE RECORDS SUMMARY | 2024-05-20 09:51 | XMS_ITS | Clinical Summary ---
Author Organization [facility], Address [address] [place] [address] [place] [address] Phone Care Team Providers Care Sales Agent Business Services Name Role Phone Name, Anastacio DEMPSEY Primary Care Provider [phone] Allergies No known active allergies Medications metFORMIN (GLUCOPHAGE) 500 MG tablet TAKE 1 TABLET BY MOUTH TWICE DAILY IN THE MORNING AND IN THE EVENING WITH MEALS 3 Active OneTouch Delica Lancets 33G misc USE TO TEST BLOOD SUGAR UP TO THREE TIMES DAILY 3 Active irbesartan (AVAPRO) 300 MG tablet Take 1 tablet by mouth 1 (one) time each day Active insulin glargine (Lantus SoloStar) 100 UNIT/ML injection INJECT 15 UNITS SUBCUTANEOUSLY EVERY DAY 3 Active hydroCHLOROthi azide 25 MG tablet Take 1 tablet by mouth 1 (one) time each day Active Empagliflozin 25 MG tablet Take 25 mg by mouth in the morning. 3 Active cholecalcifero l (VITAMIN D-3 SUPER STRENGTH) 50 MCG (1999 UT) tablet Take 1 tablet by mouth 1 (one) time each day 4 Active atorvastatin (LIPITOR) 20 MG tablet Take 1 tablet by mouth 1 (one) time each day Active aspirin (ST MÓNICA) 81 MG EC tablet Take 1 tablet by mouth 1 (one) time each day Active amLODIPine (NORVASC) 2.5 MG tablet Take 1 tablet by mouth 1 (one) time each day 4 Active Alcohol Swabs (SM Alcohol Prep) 70 % pads USE DIRECTED THREE TIMES DAILY 3 Active Mounjaro 5 MG/0.5ML solution auto-injector Inject 5 mg under the skin 01/09/202 5 Active Active Problems Problem Noted Date Diagnosed Date Stage 3a chronic kidney disease 10/26/2023 Mild nonproliferative retino roshan of left eye due to diabetes mellitus type 2 11/05/2022 Vitreomacular traction syndrome 11/05/2022 History of SARS-CoV-2 01/08/2021 Microalbuminuric diabetic nephropathy 01/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 [address] Graeme Foote MD Stage 3a chronic kidney disease (HCC) (Primary Dx) from Last 3 Months Immunizations Name Administration Dates Next Due Hepatitis B 01/14/2023,08/13/2022,07/16/2022 Influenza Split High Dose Pr eservative Free IM 12/14/2018,11/26/2017 Pneumococcal Conjugate 13-Valent 01/18/2017 Pneumococcal Polysaccharide 12/14/2018 Shingrix 10/05/2022,07/02/2022 Td 01/18/2017 Social History Tobacco Use Types Packs/Day Years Used Date Smoking Tobacco: Unknown Tobacco Cessation:Counseling Given: Not Answered Comments Unknown Sex and Gender Information Value Date Recorded Sex Assigned at Not on file Legal Sex Female 12:09 PM EST Gender Identity Not on file Sexual Orientation Not on file Plan of Treatment Upcoming Encounters Date Type Department Care Team (Late st Contact Info) Description 06/08/2024 11:00 AM EDT Office Visit [facility], [address] [facility] [place] [address] Graeme Foote MD [address] [facility] [place] [phone] Health Maintenance Due Date Last Done Comments Diabetes: Ophthalmology Exam 02/23/2023 Diabetes: Pedal Pulse Checked 02/23/2023 Diabetes: Sensory Foot Exam 02/23/2023 Diabetes: Visual Foot Exam 02/23/2023 Diabetes: Hemoglobin A1C 05/24/2024 025, 12/09/2023, 10/15/2023, Additional history exists Hepatitis B Vaccine Aged Out 01/14/2023, 08/13/2022, 07/16/2022 No longer eligible based on patient's age to complete this topic Influenza Vaccine Completed 12/09/2023, , 11/26/2017 Pneumococcal Vaccine: 65+ Years Completed 02/24/2024, 12/14/2018, 01/18/2017 Insurance [facility] [employer] DUAL SNP ([id number]) [place] [id number] Care Teams Sales Agent Business Services Relationship Specialty Start Date End Date Name, MD Anastacio [address] [place] [address] [phone] PCP - General Internal Medicine 02/04/23
--- OUTSIDE RECORDS SUMMARY | 2024-05-20 09:51 | XMS_ITS | Encounter Summary ---
Author Organization [employer] Address [address] [facility] [address] [place] [address] Care Team Providers Care Drier Operator Head Name Role Phone Name, Anastacio DEMPSEY Primary Care Provider [phone] Jolly Mccabe PharmD Unavailable [phone] Encounter Details Date Type Department Care Team (Late st Contact Info) Description 03/11/2023 Abstract [facility] [address] [place], [place] [phone] Name, MD Anastacio [address] [place] [address] Social History Tobacco Use Types Packs/Day Years Used Date Smoking Tobacco: Never Smokeless Tobacco: Never Alcohol Use Standard Drinks/Week Comments Never 0 (1 standard drink = 0.6 oz pur e alcohol) Depression Answer Date Recorded Patient Health Questionnaire-9 Score 5 06/08/2022 Housing Stability Answer Date Recorded What is your housing situation today? I have anjelicaolivia henao 12/02/[address] you li ve. Do you have problems with any of the following? None of the above 12/02/2022 Food Insecurity Answer Date Recorded Within the past 12 months, y ou worried that your food would run out before you got money to buy more: Never True 12/02/2022 Within the past 12 months,th e food you bought just didn't last and you didn't have enough money to get more: Never True Transportation Answer Date Recorded In the past 12 months, has l ack of transportation kept you from medical appts, meetings, work or from getting things needed for daily living? No 12/02/2022 Utilities Answer Date Recorded In the past 12 months, has t he electric, gas, oil or water [employer] threatened to shut off services in your home? No 12/02/2022 Depression Answer Date Recorded Patient Health Questionnaire-2 Score 2 06/08/2022 Comments Unknown Sex and Gender Information Value [...] Description 05/29/2024 10:30 AM EDT Medication Management [address] [address] Jolly Mccabe PharmD [address] [place] [phone] 08/09/2024 10:30 AM EDT Office Visit [facility] [address] [place] [phone] NameAnastacio MD [address] [place] [phone] documented as of this encounter Goals Goal [...] Diagnoses Not on filedocumented in this encounter Additional Health Concerns Assessment Noted Time PHQ-9 Depression Total Score: 5 06/09/19 23 2:06 PM EDT documented as of this encounter Care Teams Drier Operator Head Relationship Specialty Start Date End Date Anastacio Burks MD [address] [place] [address] [phone] PCP - General Family Medicine 12/21/16 Jolly Mccabe, PharmD [address] [place] [phone] Pharmacist Internal Medicine 07/02/22 documented as of this encounter
--- OUTSIDE RECORDS SUMMARY | 2024-05-20 09:51 | XMS_ITS | Encounter Summary ---
Author Organization [employer] Address [address] [place] [address] Care Team Providers Care Avp Name Role Phone Name, Anastacio DEMPSEY Primary Care Provider [phone] Jolly Mccabe PharmD Unavailable [phone] Reason for Visit * Reason Comments Med Refill Encounter Details Date Type Department Care Team ([facility] st Contact Info) Description 03/26/2023 Refill [facility] [address] [place], [place] [phone] Addie Olguin MD [address] [place] [address] Hypertension, unspecified type Social History Tobacco Use Types Packs/Day Years Used Date Smoking Tobacco: Never Smokeless Tobacco: Never Alcohol Use Standard Drinks/Week Comments Never 0 (1 standard drink = 0.6 oz pur e alcohol) Depression Answer Date Recorded Patient Health Questionnaire-9 Score 5 06/08/2022 Housing Stability Answer Date Recorded What is your housing situation today? I have anjelica henao 12/02/[address] you [...] Description 05/29/2024 10:30 AM EDT Medication Management [facility] [address] [place] [address] Jolly Mccabe PharmD [address] [place] [address] 08/09/2024 10:30 AM EDT Office Visit [facility] [address] [place] [phone] Name, MD Anastacio [address] [place] [address] documented as of this encounter Goals Goal Patient Goal Type Associated Problems Recent Progress Patient-Stated? Author Hemoglobin A1c < 8 Result Component 9.4( 11:16 AM EST) No Jolly Mccabe PharmD Record your blood sugar as directed Result Component Worsening( 10:01 AM EST) No Jolly Mccabe PharmMario Note: Use CGM, ensuring sensor is scanned at least once every 8 hours to capture 24H data. Check BG manually, as directed. documented as of this encounter Visit Diagnoses Diagnosis Hypertension, unspecified type documented in this encounter Additional Health Concerns Assessment Noted Time PHQ-9 Depression Total Score: 5 06/09/19 23 2:06 PM EDT documented as of this encounter Care Teams Avp Relationship Specialty Start Date End Date Name, MD Anastacio [address] [place] [address] PCP - General Family Medicine 12/21/16 Jolly Mccabe, Jacquie [address] [place] [address] Pharmacist Internal Medicine 07/02/22 documented as of this encounter
--- OUTSIDE RECORDS SUMMARY | 2024-05-20 09:51 | XMS_ITS | Data Portability ---
Author Organization [employer] Address [address] [place] [phone] Care Team Providers Care Tool Setter Name Role Phone [facility] Primary Care Provider [facility] Referring Provider Assessment No assessment recorded. Plan of Treatment Reminders Order Date Submit Date Provider Last Modified By Organization Details Last Modified Time Details Appointments None record ed. Lab None record ed. Referral None record ed. Procedures None record ed. Surgeries None record ed. Imaging None record ed. Medication Orders None record ed. Patient TargetsNo targets recorded. Patient InstructionsNo instructions recorded. Reason for Referral None Reported. Medical Equipment None Reported. Medications Name Sig Start Date Stop Date Status Note LastModified by Organization Details LastModified Time metformin 500 mg tablet TAKE 1 TABLET BY MOUTH TWICE DAILY IN THE MORNING AND IN THE EVENING WITH MEALS active Not Available Not Available N ot Available atorvastatin 20 mg tablet TAKE 1 TABLET BY MOUTH EVERY DAY active Not Available Not Available No t Available amlodipine 2.5 mg tablet TAKE 1 TABLET BY MOUTH EVERY DAY active Not Available Not Available No t Available aspirin 81 mg tablet,delay ed release TAKE 1 TABLET BY MOUTH ONCE DAILY active Not Available Not Available No t Available amlodipine 10 mg tablet TAKE 1 TABLET BY MOUTH EVERY DAY active Not Available Not Available No t Available hydrochlorot hiazide 25 mg tablet TAKE 1 TABLET BY MOUTH EVERY DAY active Not Available Not Available No t Available irbesartan 300 mg tablet TAKE 1 TABLET BY MOUTH ONCE DAILY active Not Available Not Available No t Available Alcohol Prep Pads USE DIRECTED THREE TIMES DAILY active Not Available Not Available No t Available BD Ultra-Fine Short Pen Needle 31 gauge x 5/16 USE FOUR TIMES DAILY active Not Available Not Available Not Available Lantus Solostar U-100 Insulin 100 unit/mL (3 mL) subcutaneous pen INJECT 15 UNITS SUBCUTANEOU SLY EVERY DAY active Not Available Not Available No t Available cholecalcife rol (vitamin D3) 50 mcg (2,000 unit) tablet TAKE 1 TABLET BY MOUTH EVERY DAY active Not Available Not Available No t Available Trulicity 3 mg/0.5 mL subcutaneous pen injector INJECT ONE PEN (= 3 MG) SUBCUTANEOU SLY ONCE A WEEK DIRECTED active Not Available Not Available No t Available Vitals Date Recorded Body weight Heart rate Body temperature Oxygen saturation Oxygen saturation in Arterial blood by Pulse oximetry Respiratory rate Body height Systolic blood pressure Diastolic blood pressure Provider Name and Address Organization Details Last Updated DateTime 2 08075.2 08 g 75 /min 98 [degF] 100 % 100 % 18 /min 165.1 cm 154 mm[Hg] 83 mm[Hg] Not Available [facility] - production 2 14:04:10 Social History None recorded. Functional Status None recorded. Mental Status None recorded. Family History Nothing Reported. Medical History No medical history recorded. Gynecological HistoryNo gynecological history recorded. Obstetrics History GPAL:G 0 P 0 0 0 0 Past Encounters Encounter ID Performer Location Encounter Start Date Encounter Closed Date Diagnosis/Indication Diagnosis SNOMED-CT Code Diagnosis ICD10 Code Diagnosis Note [id number] Shae Bhandari MD Main - [facility] [address] [place] [phone] 12/01/2021 14:04:00 12/02/2021 13:13:45 Hyperglycemia 05443846 R73.9 80 year old female with DM and HTN, being evaluated for morning headaches, confusion, general malaise for about the last week. Patient lives with caregivers who assist with her medication s, and she has been compliant with these. Per data gathered by rocket assembly operator, patient feeling well at time of visit with normal vital signs, and CMP notable for hyperglyce reese (glucose of >400), Hemoglobin 10.9, and urinalysis positive for ketones. Patient without polydipsia or polyuria/d ysuria. Mild n/v the last few days, but eating and drinking normally. Review of symptoms otherwise normal. Patient has not been seen by PCP in some time. Clinical picture largely undifferen tiated, but concerning for possible hyperglyce sophia hyperosmol ar state given intermitte nt confusion, +/- occult infectious process. Given patient appears stable during today's visit will recommend increasing lantus from 15 to 20 units nightly until PCP follow up. Malaise and fatigue [phone] R53.81 Health Concerns Section Related Observation LastModified by Organization Detai ls LastModified Time None Recorded Concern Status LastModified by Organization Details LastModified Time None Recorded Advance Directives Directive None Recorded Payers Encounter Date Sequence Insurance Name Policy Number Policy Mcgovern Covered Member ID Mcgovern Member ID Guarantor Name 12/01/2021 1 [facility] - DOS PRIOR TO 2022 - DUAL ELIGIBLE (MEDICARE REPLACEMENT/ADV ANTAGE - HMO) Sadaf Galvan Harpreet [id number] Sadafnicole Finleymaddie Mullins Notes Date Note Type Note Provider Name and Address Organization Details Recorded Time 12/01/2021 text/html HPI: Call returned, spoke with patient son Bradford (HIPPA consent in chart). reports that for the past 1 week patient reporting headache in the morning , confusion and dizziness. Per son not currently having these sx. Per pt FBS this morning was 250mg/dL. BP was normal. Pt has already taken all meds this morning. No urinary sx, odor. Is having Abdominal discomfort. No vomiting or diarrhea. No fever, cough, congestion or other illness sx. Reviewed with son disposition agrees to [facility] referral as unable to come into office for assessment. .................. .................. .................. .................. .................. .................. .................. ............... Fishing Vessel Captain Note: Sent to a call for a pt complaining of headache, confusion, dizziness, and abd pain. SC8 arrives on scene, pt is alert and oriented. Airway is patent. Pt's family/boston cutter states pt has had increasing confusion(describe d as forgetfulness) and elevated BG over the past 2 weeks. Pt complains of headache, dizziness, mild sob, and increased blurry vision x 1wk; nausea/vomiting, and abd pain x 2 days. Pt denies increased thirst, cp, dysuria, increased urination, fever, or loc. Pt has been able to eat and drink normally. 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 Pt takes Trulicity once weekly, Metformin, and Lantus 15u at night. Pt's BG was 400 this morning. Urine sample obtained. Urine dip: (+)ketones, (+)glucose; (sitting) BP:154/83, P:75, RR:18, SpO2:100% RA, T:98.0, B; (standing) BP:145/79, P:81; Lung sounds: clear bilaterally; Abdomen: soft, non-tender, no distention; Skin: pink, warm, dry; [facility] [place] and POC H&H. Blood draw performed. CMP results uploaded to [employer]. Hgb:10.5, Hct: no results; [facility] [place] [place] pt/family to schedule appt with pt's PCP ladarius, and increase Lantus to 20 units daily until pt is evaluated by PCP. Red flags discussed. Pt/family have no further questions. .................. .................. .................. .................. .................. .................. .................. ............... Disposition: Fulfilled Shae Bhandari MD [address] [facility],[address], [place], [address], Handle - [employer] 12/01/2021 14:15:42 OBGyn Episode No OBEpisode recorded.
--- OUTSIDE RECORDS SUMMARY | 2024-05-20 09:51 | XMS_ITS | Encounter Summary ---
Author Organization [employer] Address [address] [facility] [address] [place] [address] Care Team Providers Care Promotion Officer Name Role Phone Name, Anastacio DEMPSEY Primary Care Provider [phone] Jolly Mccabe PharmD Unavailable [phone] Encounter Details Date Type Department Care Team (Late st Contact Info) Description 04/22/2022 Orders Only [facility] [address] [place] [address] Nerissa Valdes LPN Social History Tobacco Use [...] Description 05/29/2024 10:30 AM EDT Medication Management [facility] [address] [place] [phone] Jolly Mccabe, PharmD [address] [place] [address] 08/09/2024 10:30 AM EDT Office Visit [facility] [address] [place] [address] Anastacio Burks MD [address] [place] [address] documented as of this encounter Procedures Procedure Name Priority Date/Time Associated Diagnosis Comments BI MAMMOGRAM SCREENING TOMOSYNTHESIS BILATERAL Routine 05/01/2022 9:35 AM EDT documented in this encounter Results * BI Mammogram Screening Tomosynthesis Bilateral (05/01/2022 9:35 AM EDT) Anatomical Region Laterality Modality Breast Bilateral Mammography 05/01/2022 9:35 AM EDT Narrative 05/04/2022 8:43 AM EDT ? [facility] [place] ? [address] ?[place] [address] ? Mammography Report ? Signed ? Patient: Sadaf Downing ?MR#: [id number] ?? [id number] ? : 1940 ?Acct:[id number] ? Age/Sex: 81 / F ?ADM Date: 05/01/22 ? Loc: HO.MAMMO ? Attending Dr: Anastacio Name MD ? Ordering Physician: Name,Anastacio MD ?Results: 2Benign Fi ?? ndings ? Date of Service: 05/01/22 ?Follow Up: 1 Year From Orig ?? inal Mammogram ? Procedure(s): MM tomosynthesis screening BI ?? Accession Number(s): [id number] ? cc: Name,Anastacio DEMPSEY ? EXAMINATION: ?? MM SCREENING DIGITAL BREAST TOMOSYNTHESIS, BILATERAL ? CLINICAL INFORMATION: ? Screening. Asymptomatic. ? The lifetime risk of breast cancer based on the Tyrer-Cuzick Model is ?? 4%. ? COMPARISON: ?? Multiple prior exams, most recent 04/25/2021. ? TECHNIQUE: ?? Digital breast tomosynthesis is performed in both the craniocaudal and ?? mediolateral oblique views along with computer-aided detection (CAD). ?? Synthesized 2D images are generated from the tomosynthesis. ? FINDINGS: ?? There are scattered areas of fibroglandular density (ACR BI-RADS breast ?? composition Category b). ? There are no significant masses, abnormal calcifications, or other ?? abnormalities. ??No architectural abnormality or developing density or ?? significant change from prior studies. Again, there is a biopsy clip ?? marker posterior central medial left breast. There are scattered ?? bilateral vascular and round and ductal secretory calcifications. The ?? axilla and skin contours are unremarkable. ? MM/MM tomosynthesis screening BI ?? IMPRESSION: ?? No mammographic evidence of malignancy. ? ASSESSMENT: ? BI-RADS 2: Benign ? RECOMMENDATION: ?? Routine annual mammography screening. ? This patient's information was entered into a reminder system with a ?? target due date for their next mammogram. ? Dictated By: ?Danilo Jamison MD ? Signed By: ?<Electronically signed by Danilo Jamison MD in OV> ?05/04/22 0840 ? DD/ 0935 ? TD/TT: ? As400 Administrator: DAVIES ? Procedure Note Luis, Taye - 05/04/2022 [facility] [address] [place] [address] [place] [address] Mammography Report Signed Patient: Sadaf Downing#: [id number] : 1940cct:[id number] Age/Sex: 81 / FADM Date: 05/01/22 Loc: [facility] Attending Dr: Anastacio Burks MD Ordering Physician: Anastacio Burksesults: 2Benign Fi ndings Date of Service: 05/01/22Follow Up: 1 Year From Orig inal Mammogram Procedure(s): MM tomosynthesis screening BI Accession Number(s): [id number] cc: NameAnastacio MD EXAMINATION: MM SCREENING DIGITAL BREAST TOMOSYNTHESIS, BILATERAL CLINICAL INFORMATION: Screening. Asymptomatic. The lifetime risk of breast cancer based on the Tyrer-Cuzick Model is 4%. COMPARISON: Multiple prior exams, most recent 04/25/2021. TECHNIQUE: Digital breast tomosynthesis is performed in both the craniocaudal and mediolateral oblique views along with computer-aided detection (CAD). Synthesized 2D images are generated from the tomosynthesis. FINDINGS: There are scattered areas of fibroglandular density (ACR BI-RADS breast composition Category b). There are no significant masses, abnormal calcifications, or other abnormalities. No architectural abnormality or developing density or significant change from prior studies. Again, there is a biopsy clip marker posterior central medial left breast. There are scattered bilateral vascular and round and ductal secretory calcifications. The axilla and skin contours are unremarkable. MM/MM tomosynthesis screening BI IMPRESSION: No mammographic evidence of malignancy. ASSESSMENT: BI-RADS 2: Benign RECOMMENDATION: Routine annual mammography screening. This patient's information was entered into a reminder system with a target due date for their next mammogram. Dictated By: Danilo Jamison MD Signed By: <Electronically signed by Danilo Jamison MD in OV> 05/04/22 0840 DD/ 0935 TD/TT: As400 Administrator: DAVIES [facility] External Provider IMG BI PROCEDURES Final Result documented in this encounter Visit Diagnoses Not on filedocumented in this encounter Care Teams Promotion Officer Relationship Specialty Start Date End Date Name, MD Anastacio [address] [place] [address] PCP - General Family Medicine 12/21/16 Jolly Mccabe PharmD [address] [place] [address] Pharmacist Internal Medicine 07/02/22 documented as of this encounter
--- OUTSIDE RECORDS SUMMARY | 2024-05-20 09:51 | XMS_ITS | Encounter Summary ---
Author Organization [employer] Address [address] [place] [address] Care Team Providers Care Park Police Name Role Phone Name, Anastacio DEMPSEY Primary Care Provider [phone] Jolly Mccabe PharmD Unavailable [phone] Reason for Visit * Reason Comments Med Refill Encounter Details Date Type Department Care Team ([facility] st Contact Info) Description 09/01/2023 Refill [facility] [address] [place], [place] [phone] Name, MD Anastacio [address] [place] [address] Social History Tobacco Use Types Packs/Day Years [...] Description 05/29/2024 10:30 AM EDT Medication Management [address] [address] Jolly Mccabe PharmD [address] [place] [address] 08/09/2024 10:30 AM EDT Office Visit [address] [address] Name, MD Aanstacio [address] [place] [phone] documented as of this encounter Goals Goal [...] documented as of this encounter Care Teams Park Police Relationship Specialty Start Date End Date NameAnastacio MD [address] [place] [address] PCP - General Family Medicine 12/21/16 Jolly Mccabe PharmD [address] [place] [address] Pharmacist Internal Medicine 07/02/22 documented as of this encounter
== END 2024-05-20 09:49 | disposition home or self-care (01) ==
LOC: HO.MAMMO 09:48
PROVIDERS: PCP Internal Medicine Geriatric Medicine; Visit Provider Internal Medicine Geriatric Medicine
DX: Z12.31 Encounter for screening mammogram for malignant neoplasm of breast (principal)
CPT/HCPCS: 77063; 77067

== ENCOUNTER → 2024-05-20 10:30 | Outpatient (BNV) | payer OTHER, SELFPAY | PROVIDERS: PCP Internal Medicine Geriatric Medicine; Visit Provider Internal Medicine | DX: Z12.31 Encounter for screening mammogram for malignant neoplasm of breast (principal) | CPT/HCPCS: 77063; 77067 ==

== ENCOUNTER 2024-06-07 06:53 | Outpatient (REF) | payer OTHER, SELFPAY ==
[2024-06-07 07:55] LABS: Parathyroid Hormone Intact 73.8 pg/mL (8.7-77.1)
[2024-06-07 07:58] LABS: Alanine Aminotransferase 55 U/L (0-31); Albumin Level 3.9 g/dL (3.5-5.0); Alkaline Phosphatase 216 U/L (39-117); Anion Gap 12 (12-20); Aspartate Amino Transferase 49 U/L (5-31); Bilirubin Total 0.3 mg/dL (0.0-1.0); Blood Urea Nitrogen 37 mg/dL (9-16); Calcium 9.7 mg/dL (8.4-10.2); Carbon Dioxide 28 mmol/L (22-29); Chloride 104 mmol/L (96-108); Cholesterol 149 mg/dL (<200); Estimated Glomerular Filt Rate 47; Glucose Random 107 mg/dL (60-115); HDL Cholesterol 89 mg/dL (>40); LDL Cholesterol Calculated 50 mg/dL (<100); Potassium 4.1 mmol/L (3.3-5.1); Sodium 140 mmol/L (135-145); Triglycerides 54 mg/dL (<150)
[2024-06-07 08:15] LABS: Vitamin D 25-OH Total 38.1 ng/mL (>30)
== END 2024-06-07 06:54 | disposition home or self-care (01) ==
LOC: HO.LAB 06:53
PROVIDERS: PCP Internal Medicine Geriatric Medicine; Visit Provider Internal Medicine Geriatric Medicine
DX: E11.65 Type 2 diabetes mellitus with hyperglycemia (principal); E11.21 Type 2 diabetes mellitus with diabetic nephropathy; I10 Essential (primary) hypertension; E83.52 Hypercalcemia; Z79.4 Long term (current) use of insulin; Z79.899 Other long term (current) drug therapy
CPT/HCPCS: 36415; 80053; 80061; 82306; 83970

== ENCOUNTER 2024-06-09 06:00 | Outpatient (REF) | payer OTHER, SELFPAY ==
[2024-06-09 10:49] LABS: Microalbum/Creatinine Ratio Ur 322.7 ug/mg cr (<30)
--- OUTSIDE RECORDS SUMMARY | 2024-06-10 13:58 | XMS_ITS | Encounter Summary ---
Author Organization [facility], Address [address] [facility] [address] [place] [address] Phone Care Team Providers Care Survey Questionnaire Designer Name Role Phone Name, Anastacio DEMPSEY Primary Care Provider [phone] Encounter Details Date Type Department Care Team (Late st Contact Info) Description 02/04/2023 Documentation Only [facility], [address] [place] [address] Name, MD Anastacio [address] [place] [address] Social History Tobacco Use Types Packs/Day Years Used Date Smoking Tobacco: Never Assessed Comments Unknown Sex and Gender Information Value Date Recorded Sex Assigned at Not on file Legal Sex Female 12:09 PM EST Gender Identity Not on file Sexual Orientation Not on file documented as of this encounter Plan of Treatment Not on file documented as of this encounter Visit Diagnoses Not on filedocumented in this encounter Care Teams Survey Questionnaire Designer Relationship Specialty Start Date End Date Name, MD Anastacio [address] [place], [place] [phone] PCP - General Internal Medicine 02/04/23 documented as of this encounter
--- OUTSIDE RECORDS SUMMARY | 2024-06-10 13:58 | XMS_ITS | Encounter Summary ---
Author Organization [employer] Address [address] [place] [address] Care Team Providers Care Press Smith Helper Name Role Phone Name, Anastacio DEMPSEY Primary Care Provider [phone] Jolly Mccabe PharmD Unavailable [phone] Reason for Visit * Reason Comments Med Refill Encounter Details Date Type Department Care Team ([facility] st Contact Info) Description 10/01/2023 Refill [facility] [address] [place], [place] [phone] Jolly Mccabe, PharmD [address] [place] [address] Type 2 diabetes mellitus with hyperglycemia, with long-term current use of insulin ([facility]) Social History Tobacco Use [...] Care Team (Late st Contact Info) Description 06/15/2024 10:30 AM EDT Medication Management [facility] [address] [place] [address] Jolly Mccabe PharmD [address] [place] [address] 08/09/2024 10:30 AM EDT Office Visit [facility] [address] [place] [address] Name, MD Anastacio [address] [place] [address] documented as of this encounter Goals Goal Patient Goal Type Associated Problems Recent Progress Patient-Stated? Author Hemoglobin A1c < 8 Result Component 10.1(05/30/19 10:54 AM EDT) No Jolly Mccabe PharmD Record your blood sugar as directed Result Component Worsening( 10:01 AM EST) No Jolly Mccabe PharmD Note: Use CGM, ensuring sensor is scanned at least once every 8 hours to capture 24H data. Check BG manually, as directed. documented as of this encounter Visit Diagnoses Diagnosis Type 2 diabetes mellitus with hyperglycemia, with long-term current use of insulin ([facility]) documented in this encounter Additional Health Concerns Assessment Noted Time PHQ-9 Depression Total Score: 7 07/17/20 24 9:20 AM EDT documented as of this encounter Care Teams Press Smith Helper Relationship Specialty Start Date End Date Name, MD Anastacio [address] [place] [address] PCP - General Family Medicine 12/21/16 Jolly Mccabe PharmD [address] [place] [address] Pharmacist Internal Medicine 07/02/22 documented as of this encounter
--- OUTSIDE RECORDS SUMMARY | 2024-06-10 13:59 | XMS_ITS | Encounter Summary ---
Author Organization [employer] Address [address] [place] [address] Care Team Providers Care Onion Topper Name Role Phone Name, Anastacio DEMPSEY Primary Care Provider [phone] Jolly Mccabe PharmD Unavailable [phone] Encounter Details Date Type Department Care Team (Late st Contact Info) Description 06/07/2024 Orders Only [facility] [address] [place], [place] [phone] Name, MD Anastacio [address] [place] [address] Social History Tobacco Use Types Packs/Day Years [...] Description 06/15/2024 10:30 AM EDT Medication Management [facility] [address] [place] [phone] Jolly Mccabe PharmD [address] [place] [phone] 08/09/2024 10:30 AM EDT Office Visit [facility] [address] [place] [phone] Name, MD Anastacio [address] [place] [phone] documented as of this encounter Goals Goal [...] as directed. documented as of this encounter Procedures Procedure Name Priority Date/Time Associated Diagnosis Comments LIPID PANEL, STANDARD Routine 06/07/2024 7:03 AM EDT COMPREHENSIVE METABOLIC PANEL Routine 06/07/2024 7:03 AM EDT CANCELLED CHEMISTRY Routine 06/07/2024 1 2:00 AM EDT documented in this encounter Results * Lipid Panel, Standard (06/07/2024 7:03 AM EDT) Triglycerides 54 <150 mg/dL [facility] Comment:Desirable Triglyceri de: less than 150 mg/dLBorderline High Triglyceride 150-199 mg/dLHigh Triglyceride: 200-499 mg/dLVery High Triglyceride: greater than or equal to 5OO mg/dL Cholesterol 149 <200 mg/dL [facility] Comment:Desirable Cholestero l: less than 200 mg/dLBorderline High Cholesterol: 200-239 mg/dLHigh Cholesterol: greater than 239 mg/dL LDL Cholesterol Calculated 50 <100 mg/dL [facility] Comment:Desirable LDL: less than 100 mg/dLNear Optimal/Above Optimal LDL: 110- 129 mg/dLBorderline High LDL: 130-159 mg/dLHigh LDL: 160-189 mg/dLVery High LDL: greater than or equal to 190 mg/dL HDL Cholesterol 89 >40 mg/dL [facility] Comment:Desirable HDL: great er than 40 mg/dL Note: This HDL assay may give artificially low results in patients with liver disease. 06/07/2024 7:03 AM EDT 06/07/2024 7:03 AM EDT us Anastacio Name MD LAB BLOOD ORDERABLES Final Resul t [facility] [address] [place] [phone] * (ABNORMAL) Comprehensive Metabolic Panel (06/07/2024 7:03 AM EDT) Sodium 140 135 - 145 mmol/L [facility] Potassium 4.1 3.3 - 5.1 mmol/L [facility] Chloride 104 96 - 108 mmol/L [facility] Carbon Dioxide 28 22 - 29 mmol/L [facility] Anion Gap 12 12 - 20 [facility] Urea Nitrogen (BUN) 37(H) 9 - 16 mg/dL [facility] Creatinine, Serum 1.12 0.5 - 1.4 mg/dL [facility] Estimated Glomerular Filt Rate 47 [facility] Comment:Chronic Kidney Disea se: Estimated GFR < 60 mL/min/1.96m6Dhrofb Kidney Disease: Estimated GFR < 15 mL/min/1.73m2 Glucose 107 60 - 115 mg/dL [facility] Calcium 9.7 8.4 - 10.2 mg/dL [facility] Bilirubin, Total 0.3 0.0 - 1.0 mg/dL [facility] Aspartate Amino Transferase 49(H) 5 - 31 U/L [facility] Alanine Aminotransferase 55(H) 0 - 31 U/L [facility] Total Protein 8.0 6.5 - 8.0 g/dL [facility] Albumin Level 3.9 3.5 - 5.0 g/dL [facility] Alkaline Phosphatase 216(H) 39 - 117 U/L [facility] 06/07/2024 7:03 AM EDT 06/07/2024 7:03 AM EDT us Anastacio Burks MD LAB BLOOD ORDERABLES Final Resul t Performing Organization Address [facility] Co de Phone Number [facility] [address] [place] [phone] * Cancelled Chemistry (06/07/2024 12:00 AM EDT) Cancelled Chemistry SEE NOTE [facility] Comment:THE FOLLOWING TESTS WERE CANCELLED: MicroalbuminREASON: No specimen received 06/07/2024 06/07/2024 us Anastacio Burks MD HISTORICAL/NON ORDERABLE LABS Fi nal Result Performing Organization Address [facility] Co de Phone Number [facility] [address] [place] [phone] documented in this encounter Visit Diagnoses Not on filedocumented in this encounter Additional Health Concerns Assessment Noted Time PHQ-9 Depression Total Score: 7 09/01/19 24 9:20 AM EDT documented as of this encounter Care Teams Onion Topper Relationship Specialty Start Date End Date Name, MD Anastacio [address] [place] [phone] PCP - General Family Medicine 12/21/16 Jolly Mccabe PharmD [address] [place] [phone] Pharmacist Internal Medicine 07/02/22 documented as of this encounter
--- OUTSIDE RECORDS SUMMARY | 2024-06-10 13:59 | XMS_ITS | Encounter Summary ---
Author Organization [employer] Address [address] [place] [address] Care Team Providers Care Cover Maker Name Role Phone Name, Anastacio DEMPSEY Primary Care Provider [phone] Jolly Mccabe PharmD Unavailable [phone] Reason for Visit * Reason Comments Med Refill Encounter Details Date Type Department Care Team ([facility] st Contact Info) Description 09/01/2023 Refill [facility] [address] [place], [place] [phone] Name, MD Anastacio [address] [place] [address] Social History Tobacco Use Types Packs/Day Years [...] Description 06/15/2024 10:30 AM EDT Medication Management [address] [phone] Jolly Mccabe PharmD [address] [place] [phone] 08/09/2024 10:30 AM EDT Office Visit [facility] [address] [place] [phone] Name, MD Anastacio [address] [place] [address] [phone] documented as of this encounter Goals Goal [...] documented as of this encounter Care Teams Cover Maker Relationship Specialty Start Date End Date NameAnastacio MD [address] [place], [place] [phone] PCP - General Family Medicine 12/21/16 Jolly Mccabe PharmD [address] [place] [address] Pharmacist Internal Medicine 07/02/22 documented as of this encounter
--- OUTSIDE RECORDS SUMMARY | 2024-06-10 13:59 | XMS_ITS | Encounter Summary ---
Author Organization [employer] Address [address] [place] [address] Care Team Providers Care Assembly Machine Tool Setter Name Role Phone Name, Anastacio DEMPSEY Primary Care Provider [phone] Jolly Mccabe PharmD Unavailable [phone] Reason for Visit * Reason Comments Med Refill Encounter Details Date Type Department Care Team ([facility] st Contact Info) Description 03/26/2023 Refill [facility] [address] [place], [place] [phone] Addie Olguin MD [address] [place] [address] Hypertension, unspecified type Social History Tobacco Use [...] Description 06/15/2024 10:30 AM EDT Medication Management [facility] [address] [place] [phone] Jolly Mccabe PharmD [address] [place] [address] 08/09/2024 10:30 AM EDT Office Visit [facility] [address] [place] [phone] Name, MD Anastacio [address] [place] [address] documented as of this encounter Goals Goal Patient Goal Type Associated Problems Recent Progress Patient-Stated? Author Hemoglobin A1c < 8 Result Component 10.1(05/30/19 25 10:54 AM EDT) No Jolly Mccabe PharmD [...] documented as of this encounter Care Teams Assembly Machine Tool Setter Relationship Specialty Start Date End Date Name, MD Anastacio [address] [place] [phone] PCP - General Family Medicine 12/21/16 Jolly Mccabe, Jacquie [address] [place] [address] [phone] Pharmacist Internal Medicine 07/02/22 documented as of this encounter
--- OUTSIDE RECORDS SUMMARY | 2024-06-10 13:59 | XMS_ITS | Encounter Summary ---
Author Organization [employer] Address [address] [facility] [address] [place] [address] Care Team Providers Care Account Resolution Analyst Name Role Phone Name, Anastacio DEMPSEY Primary Care Provider [phone] Jolly Mccabe PharmD Unavailable [phone] Encounter Details Date Type Department Care Team (Late st Contact Info) Description 03/09/2022 Orders Only [facility] [address] [place] [address] Nerissa Valdes LPN Social History Tobacco Use [...] Description 06/15/2024 10:30 AM EDT Medication Management [facility] [address] [place] [phone] Jolly Mccabe, PharmD [address] [place] [address] 08/09/2024 10:30 AM EDT Office Visit [facility] [address] [place] [phone] Name, MD Anastacio [address] [place] [address] documented as of this encounter Visit Diagnoses Not on filedocumented in this encounter Care Teams Account Resolution Analyst Relationship Specialty Start Date End Date Name, MD Anastacio [address] [place] [address] PCP - General Family Medicine 12/21/16 Jolly Mccabe, LucíaD [address] [place] [address] Pharmacist Internal Medicine 07/02/22 documented as of this encounter
--- OUTSIDE RECORDS SUMMARY | 2024-06-10 13:59 | XMS_ITS | Clinical Summary ---
Author Organization [employer] Address [address] [facility] [address] [place] [address] Care Team Providers Care Welder Metal Fab Name Role Phone Name, Anastacio DEMPSEY Primary Care Provider [phone] Jolly Mccabe PharmD Unavailable [phone] Allergies No known active allergies Medications glucagon (Baqsimi Two Pack) 3 MG/DOSE nasal powderIndications :Type 2 diabetes mellitus with hyperglycemia, with long-term current use of insulin ([facility]) Administer 3 mg via one device in one nostril PRN hypoBG with loss of consciousness. If no response after 15 mins an additional dose may be administered via other device in opposite nostril. 1 each 07/03/19 23 Active atorvastatin (Lipitor) 20 MG tabletIndications :Type 2 diabetes mellitus with hyperglycemia, with long-term current use of insulin (CMS/[facility]) Take 1 tablet (20 mg) by mouth Once per day. 90 tablet 3 07/29/19 24 Active glucose blood (FreeStyle Precision Bret Test) test strip Use to test blood sugar up to 3 times daily, as directed 100 each 07/28/19 24 Active Jardiance 25 MGIndications:Typ e 2 diabetes mellitus with unspecified complications (CMS/HCC) TAKE 1 TABLET BY MOUTH EVERY MORNING 30 tablet 5 12/23/19 24 Active Alcohol Swabs (Alcohol Prep) 70 % padsIndications:T ype 2 diabetes mellitus with hyperglycemia (CMS/HCC) USE THREE TIMES DAILY DIRECTED 100 each 01/04/20 24 Active Cholecalciferol (Vitamin D3) 50 MCG (1999 UT) chewable tablet Chew 1 tablet with breakfast. 02/02/20 24 Active Continuous Glucose Sole Layer (FreeStyle Camila 3 [place]) deviceIndications :Type 2 diabetes mellitus with hyperglycemia, with long-term current use of insulin (CMS/HCC) 1 each 3 times daily. Use daily as directed for CGM 1 each 02/23/19 25 Active Continuous Glucose Sensor (FreeStyle Camila 3 Plus Sensor) miscIndications:T ype 2 diabetes mellitus with hyperglycemia, with long-term current use of insulin (CMS/HCC) 1 each Once per day. Apply 1 sensor every 15 days as directed for CGM 2 each 02/23/19 25 Active Lancets (OneTouch Delica Plus Lacmzt17M) miscIndications:T ype 2 diabetes mellitus with hyperglycemia, with long-term current use of insulin (CMS/HCC) USE TO TEST BLOOD SUGAR UP TO THREE TIMES DAILY 100 each 02/23/19 25 Active Blood Pressure kit Use as directed to check home BP daily. 1 kit 03/09/19 25 Active insulin aspart (NovoLOG FLEXPEN) 100 UNIT/ML penIndications:Ty pe 2 diabetes mellitus with hyperglycemia, with long-term current use of insulin (CMS/HCC) Inject 10 units subQ once daily with lunch 15 mL 2 04/14/19 25 Active insulin glargine (Lantus SoloStar) 100 UNIT/ML penIndications:Ty pe 2 diabetes mellitus with hyperglycemia, with long-term current use of insulin (CMS/HCC) Inject 20 units subQ once daily at bedtime. Increase as directed to 26 units daily. 15 mL 2 04/14/19 25 Active aspirin (Aspirin Low Dose) 81 MG EC tabletIndications :Type 2 diabetes mellitus with hyperglycemia, with long-term current use of insulin (CMS/HCC) Take 1 tablet (81 mg) by mouth in the morning. 90 tablet 3 04/14/19 25 Active metFORMIN (Glucophage) 500 MG tabletIndications :Type 2 diabetes mellitus with unspecified complications (CMS/HCC) TAKE 1 TABLET BY MOUTH TWICE DAILY IN THE MORNING AND IN THE EVENING WITH FOOD 180 tablet 1 04/14/19 25 Active irbesartan (Avapro) 300 MG tabletIndications :Type 2 diabetes mellitus with hyperglycemia (CMS/HCC) Take 1 tablet (300 mg) by mouth in the morning. 90 tablet 1 04/14/19 25 Active insulin pen needle 32G x 4 mm miscIndications:T ype 2 diabetes mellitus with unspecified complications (CMS/HCC) Use to inject insulin twice daily 100 each 3 04/14/19 25 Active amLODIPine (Norvasc) 2.5 MG tabletIndications :Hypertension, unspecified type TAKE 1 TABLET BY MOUTH EVERY MORNING 90 tablet 1 04/22/19 25 Active Active Problems Problem Noted Date Diagnosed [...] Encounters Date Type Department Care Team Description 06/09/2024 Orders Only [facility] MEDICINE [address] [place] [address] NameAnastacio MD 06/07/2024 Orders Only [facility] MEDICINE [address] [place] [address] Anastacio Burks MD 06/02/2024 Telephone [facility] MEDICINE [address] [place] [address] Anastacio Burks MD 05/29/2024 Travel 05/20/2024 Orders Only [facility] MEDICINE [address] [place] [address] Anastacio Bruks MD 04/27/2024 Telephone [facility] MEDICINE [address] [place] [address] Tiffanie Worrell MA may recalls 04/27/2024 Telephone [facility] MEDICINE [address] [place] [address] Anastacio Burks MD Durable Medical Equipment 04/21/2024 Refill [facility] MEDICINE [address] [place] [address] Anastacio Burks MD Hypertension, unspecified type 04/14/2024 Travel 03/31/2024 10:30 AM EST Office Visit [facility] OPTOMETRY [address] [place] [address] Jackelyn Larios, OD 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 (CMS/HCC) (Primary Dx); Vitreomacular adhesion of left eye; 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; Pseudophakia, left eye; Presbyopia 03/31/2024 Travel 03/22/2024 10:45 AM EST Office Visit [facility] MEDICINE [address] [place] [address] Name, MD Anastacio Type 2 diabetes mellitus with hyperglycemia, with long-term current use of insulin (CMS/HCC) (Primary Dx); Excessive body weight loss; Chest pain, unspecified type from Last 3 Months Immunizations Name Administration [...] Sign Reading Time Taken Comments Blood Pressure 136/64 05/29/2024 1:30 PM EDT Pulse 85 03/22/2024 10:44 AM EST Temperature [...] Description 06/15/2024 10:30 AM EDT Medication Management [facility] MEDICINE [address] [place] [address] Jolly Mccabe, PharmD [address] [place] [address] 08/09/2024 10:30 AM EDT Office Visit [facility] MEDICINE [address] [place] [address] Name, MD Anastacio [address] [place] [address] Health Maintenance Due Date Last Done Comments DTaP/Tdap/Td Vaccines (1 - Tdap) 01/19/2017 01/18/2017 Diabetes: Foot Exam 12/03/2023 12/02/2022, 12/02/2022, 12/02/2022, Additional history exists Diabetes: Hemoglobin A1C 08/28/2024 025, 02/24/2024, 12/09/2023, Additional history exists Alcohol/Substance Use Screening 08/31/2024 09/01/2023 Depression Screening 08/31/2024 09/01/2023, 09/01/19 SDOH Screening 08/31/2024 09/01/2023 Eye Exam 03/31/2025 03/31/2024, 03/18, 03/31/2024, Additional history exists Tobacco Screening 04/18/2025 04/18/2024 Lipid Panel 06/07/2025 06/07/2024, 0408/2022, 04/22/2020 Zoster Vaccines Completed 10/05/2022, 07/02/2022 RSV Patients [...] Procedure Name Priority Date/Time Associated Diagnosis Comments ALBUMIN, RANDOM URINE W/CREATININE Routine 06/09/2024 6:00 AM EDT LIPID PANEL, STANDARD Routine 06/07/2024 7:03 AM EDT COMPREHENSIVE METABOLIC PANEL Routine 06/07/2024 7:03 AM EDT VITAMIN D,25-OH,TOTAL,IA Routine 06/07/2024 7:03 AM EDT Type 2 diabetes mellitus with hyperglycemia, with long-term current use of insulin ([facility]) Vitamin D deficiency PTH, INTACT WITHOUT CALCIUM Routine 06/07/2024 7:03 AM EDT Type 2 diabetes mellitus with hyperglycemia, with long-term current use of insulin ([facility]) Vitamin D deficiency CANCELLED CHEMISTRY Routine 06/07/2024 1 2:00 AM EDT POCT GLYCATED HEMOGLOBIN, TOTAL Routine 05/29/2024 10:54 AM EDT Type 2 diabetes mellitus with hyperglycemia, with long-term current use of insulin ([facility]) BI MAMMOGRAM SCREENING TOMOSYNTHESIS BILATERAL Routine 05/20/2024 9:55 AM EDT OCT, RETINA - OS - LEFT EYE Routine 03/31/2024 10:30 AM EST Vitreomacular adhesion of left eye ECG 12-LEAD Routine 03/22/2024 12:34 PM EST Chest pain, unspecified type POCT GLUCOSE Routine 03/22/2024 10:45 AM EST Type 2 diabetes mellitus with hyperglycemia, with long-term current use of insulin ([facility]) from Last 3 Months Results * (ABNORMAL) Albumin, Random Urine W/Creatinine (06/09/2024 6:00 AM EDT) Creatinine, Urine 25.10 mg/dL [facility] Microalbumin Urine 81.0 mg/L H [facility] Microalbum Creatinine Ratio Ur 322.7(H) <30 ug/mg cr [facility] Comment:Albumin/Creatinine R atio Reference Ranges: Normal: < 30 ug/mg creatinine Microalbuminuria: 30 - 300 ug/mg creatinineClinical Albuminuria: > 300 ug/mg creatinine 06/09/2024 6:00 AM EDT 06/09/2024 9:22 AM EDT us Anastacio Name LAB URINE ORDERABLES Final Resul t [facility] [address] [place] [phone] * Vitamin D, 25-Hydroxy, Total, Immunoassay (06/07/2024 7:03 AM EDT) Vitamin D 25-OH Total 38.1 >30 ng/mL [facility] Comment: Health Based Reference Values*< 20 ??ng/mL ??Xvrujmegu05-78 ng/mL ??Insufficient> 30 ??ng/mL ??Sufficient*Alfred MONDRAGON. N Engl J Med. 2007;357:266-280There is no well-established upper level of normal vitamin Dlevels. Some laboratories use 50 ng/mL as an upper limit ofnormal. However, toxicity is patient-dependent and may occurat any level. Careful correlation with the patient'spresentation is necessary and, if there is concern forvitamin D toxicity, treatment should be consideredirrespective of the serum level.Care must be taken in interpreting Vitamin D results fromdifferent laboratories and methodologies. ??Published datademonstrated that results from patients undergoinghemodialysis may show a negative bias when tested withvarious automated 25-OH vitamin D assays when compared toLC- MS/MS.When testing samples from patients whose predominant form ofVitamin D is Vitamin D2, such as patients receiving VitaminD2 supplementation, results that are subtherapeutic shouldbe confirmed with another method such as LC-MS/MS. Blood Venous blood specimen / Unknown 06/07/2024 7:03 AM EDT 06/07/2024 7:03 AM EDT us Anastacio Burks MD LAB BLOOD ORDERABLES Final Resul t Performing Organization Address City/[facility]/ZIP Co de Phone Number [facility] [address] [place] [phone] * PTH, Intact Without Calcium (06/07/2024 7:03 AM EDT) Parathyroid Hormone, Intact 73.8 8.7 - 77.1 pg/mL [facility] Blood Venous blood specimen / Unknown 06/07/2024 7:03 AM EDT 06/07/2024 7:03 AM EDT us Anastacio Burks MD LAB BLOOD ORDERABLES Final Resul t Performing Organization Address City/[facility]/ZIP Co de Phone Number [facility] [address] [place] [phone] * Lipid Panel, Standard (06/07/2024 7:03 AM EDT) Triglycerides 54 <150 mg/dL [facility] Comment:Desirable Triglyceri de: less than 150 mg/dLBorderline High Triglyceride 150-199 mg/dLHigh Triglyceride: 200-499 mg/dLVery High Triglyceride: greater than or equal to 5OO mg/dL Cholesterol 149 <200 mg/dL [facility] Comment:Desirable Cholestero l: less than 200 mg/dLBorderline High Cholesterol: 200-239 mg/dLHigh Cholesterol: greater than 239 mg/dL LDL Cholesterol Calculated 50 <100 mg/dL [facility] Comment:Desirable LDL: less than 100 mg/dLNear Optimal/Above Optimal LDL: 110- 129 mg/dLBorderline High LDL: 130-159 mg/dLHigh LDL: 160-189 mg/dLVery High LDL: greater than or equal to 190 mg/dL HDL Cholesterol 89 >40 mg/dL [facility] Comment:Desirable HDL: great er than 40 mg/dL Note: This HDL assay may give artificially low results in patients with liver disease. 06/07/2024 7:03 AM EDT 06/07/2024 7:03 AM EDT us Anastacio Name MD LAB BLOOD ORDERABLES Final Resul t [facility] [address] [place] [phone] * (ABNORMAL) Comprehensive Metabolic Panel (06/07/2024 7:03 AM EDT) Sodium 140 135 - 145 mmol/L [facility] Potassium 4.1 3.3 - 5.1 mmol/L [facility] Chloride 104 96 - 108 mmol/L [facility] Carbon Dioxide 28 22 - 29 mmol/L [facility] Anion Gap 12 12 - 20 [facility] Urea Nitrogen (BUN) 37(H) 9 - 16 mg/dL [facility] Creatinine, Serum 1.12 0.5 - 1.4 mg/dL [facility] Estimated Glomerular Filt Rate 47 [facility] Comment:Chronic Kidney Disea se: Estimated GFR < 60 mL/min/1.61q3Bndvhp Kidney Disease: Estimated GFR < 15 mL/min/1.73m2 Glucose 107 60 - 115 mg/dL [facility] Calcium 9.7 8.4 - 10.2 mg/dL [facility] Bilirubin, Total 0.3 0.0 - 1.0 mg/dL [facility] Aspartate Amino Transferase 49(H) 5 - 31 U/L [facility] Alanine Aminotransferase 55(H) 0 - 31 U/L [facility] Total Protein 8.0 6.5 - 8.0 g/dL [facility] Albumin Level 3.9 3.5 - 5.0 g/dL [facility] Alkaline Phosphatase 216(H) 39 - 117 U/L [facility] 06/07/2024 7:03 AM EDT 06/07/2024 7:03 AM EDT us Anastacio Burks MD LAB BLOOD ORDERABLES Final Resul t Performing Organization Address [facility] Co de Phone Number [facility] [address] [place] [phone] * Cancelled Chemistry (06/07/2024 12:00 AM EDT) Cancelled Chemistry SEE NOTE [facility] Comment:THE FOLLOWING TESTS WERE CANCELLED: MicroalbuminREASON: No specimen received 06/07/2024 06/07/2024 us Anastacio Burks MD HISTORICAL/NON ORDERABLE LABS Fi nal Result Performing Organization Address [facility] Co de Phone Number [facility] [address] [place] [phone] * (ABNORMAL) POCT HGB A1C (05/29/2024 10:54 AM EDT) Hemoglobin A1C 10.1(A) 4.0 - 6.0 % Blood 05/29/2024 10:5 4 AM EDT us Anastacio Name MD POINT OF CARE TEST ENTER/EDIT OR DERABLES Final Result * BI Mammogram Screening Tomosynthesis Bilateral (05/20/2024 9:55 AM EDT) Anatomical Region Laterality Modality Breast Bilateral Mammography 05/20/2024 9:55 AM EDT Narrative 05/27/2024 7:15 PM EDT ? [facility] ? [address] ?[place] [address] ?[phone] ? Mammography Report ? Signed ? Patient: Sadaf Downing ?MR#: ?? [id number] ? : 1940 ?Acct:[id number] ? Age/Sex: 83 / F ?ADM Date: 05/20/24 ? Loc: HO.MAMMO ? Attending Dr: Anastacio Name MD ? Ordering Physician: Name,Aanstacio DEMPSEY ?Results: 2Benign Fi ?? ndings ? Date of Service: 05/20/ ?Follow Up: 1 Year From Orig ?? inal Mammogram ? Procedure(s): MM tomosynthesis screening BI ?? Accession Number(s): [id number] ? cc: Name,Anastacio DEMPSEY ? EXAMINATION: ?? MM SCREENING DIGITAL BREAST TOMOSYNTHESIS, BILATERAL ? CLINICAL INFORMATION: ? Screening. Asymptomatic. ? COMPARISON: ?? Mammography: Comparison is made with available priors ? TECHNIQUE: ?? Digital breast mammography with tomosynthesis is performed in both the ?? craniocaudal and mediolateral oblique views along with computer-aided ?? detection (CAD). ? FINDINGS: ?? The breasts are heterogeneously dense, which may obscure small masses ?? (ACR BI-RADS breast composition Category c). ?? Left marker clip. ?? There are no significant masses, abnormal calcifications, or other ?? abnormalities. ? MM/MM tomosynthesis screening BI ?? IMPRESSION: ?? No mammographic evidence of malignancy. ? ASSESSMENT: ? BI-RADS BI-RADS 2 - Benign Findings ? RECOMMENDATION: ?? Routine annual mammography screening. ? 1 year F/U ? This examination should not preclude the clinical evaluation of a ?? suspicious palpable abnormality. ? This patient's information was entered into a reminder system with a ?? target due date for their next mammogram. ? Electronically signed by: ??Kacey Craig DO ??05/27/2024 07:12 PM EDT ? Dictated By: ?Kacey Craig DO ? Signed By: ?<Electronically signed by Kacey Craig, DO in OV> ? 05/27/24 1912 ? DD/ 0955 ? TD/TT: 05/20/24 1009 ? Paperhanger Contractor: ? Procedure Note Luis, Image - 05/27/2024 [facility] [address] [place] [address] Mammography Report Signed Patient: Sadaf Downing MMR#: [id number] : 1940cct:[id number] Age/Sex: 83 / FADM Date: 05/20/24 Loc: [facility] Attending Dr: Anastacio Burks MD Ordering Physician: Anastacio Burksults: 2Benign Fi ndings Date of Service: 05/20/24Follow Up: 1 Year From Orig inal Mammogram Procedure(s): MM tomosynthesis screening BI Accession Number(s): [id number] cc: Anastacio Burks MD EXAMINATION: MM SCREENING DIGITAL BREAST TOMOSYNTHESIS, BILATERAL CLINICAL INFORMATION: Screening. Asymptomatic. COMPARISON: Mammography: Comparison is made with available priors TECHNIQUE: Digital breast mammography with tomosynthesis is performed in both the craniocaudal and mediolateral oblique views along with computer-aided detection (CAD). FINDINGS: The breasts are heterogeneously dense, which may obscure small masses (ACR BI-RADS breast composition Category c). Left marker clip. There are no significant masses, abnormal calcifications, or other abnormalities. MM/MM tomosynthesis screening BI IMPRESSION: No mammographic evidence of malignancy. ASSESSMENT: BI-RADS BI-RADS 2 - Benign Findings RECOMMENDATION: Routine annual mammography screening. 1 year F/U This examination should not preclude the clinical evaluation of a suspicious palpable abnormality. This patient's information was entered into a reminder system with a target due date for their next mammogram. Electronically signed by: Kacey Craig DO 05/27/2024 07:12 PM EDT Dictated By: Kacey Craig DO Signed By: <Electronically signed by Kacey Craig DO in OV> 05/27/24 1912 DD/ 0955 TD/TT: 05/20/24 1009 Paperhanger Contractor: Anastacio Burks MD IMG BI PROCEDURES Final Result * ECG 12 lead (03/22/2024 12:34 PM EST) Narrative Name, MD Anastacio - 03/22/2024 12:34 PM EST NSR, HR of 81, No ST segment or depression, no significant change from previous EKG done 01/[address] [facility] ER (? Septal infarct) Her bedside ECHO during the ER visit showed NLVSF ECHO from 05/08 showed EF of 70%, mild LVH, impaired relaxation us Anasatcio Burks MD ECG ORDERABLES Final Result * POCT Glucose (03/22/2024 10:45 AM EST) Glucose Blood, POC 191 60 - 200 mg/dL QC Media Lot # [id number] Lot# Expiration Date Blood Capillary blood specimen / Unknown 03/22/2024 10:45 AM EST Anastacio Burks MD POINT OF CARE TEST ENTER/EDIT OR DERABLES Final Result from Last 3 Months Insurance [facility] STANDARD [employer] (O D-SNP) Care Teams [employer] Relationship Specialty Start Date End Date Name, MD Anastacio [address] [place] [phone] PCP - General Family Medicine 12/21/16 Jolly Mccabe, PharmD [address] [place] [phone] Pharmacist Internal Medicine 07/02/22
--- OUTSIDE RECORDS SUMMARY | 2024-06-10 13:59 | XMS_ITS | Clinical Summary ---
Author Organization [facility], Address [address] [place] [address] [place] [phone] Phone Care Team Providers Care Grocery Worker Name Role Phone Name, Anastacio DEMPSEY Primary Care Provider Allergies No known active allergies Medications metFORMIN [...] Chronic kidney disease stage 3 06/08/2022 10/26/2023 Immunizations Immunization Administration Dates Next Due Hepatitis B 01/14/2023,08/13/2022,07/16/2022 [...] Orientation Not on file Plan of Treatment Health Maintenance Due Date Last Done Comments Diabetes: Ophthalmology Exam 02/23/2023 Diabetes: Pedal Pulse Checked 02/23/2023 Diabetes: Sensory Foot Exam 02/23/2023 Diabetes: Visual Foot Exam 02/23/2023 Diabetes: Hemoglobin A1C 05/24/2024 025, 12/09/2023, 10/15/2023, Additional history exists Hepatitis B Vaccine Aged Out 01/14/2023, 08/13/2022, 07/16/2022 No longer eligible based on patient's age to complete this topic Influenza Vaccine Completed 12/09/2023, , 11/26/2017 Pneumococcal Vaccine: 50+ Years Completed 02/24/2024, 12/14/2018, 01/18/2017 Insurance [facility] One [employer] Dual SNP ([id number]) [place] [id number] Care Teams Grocery Worker Relationship Specialty Start Date End Date Name, MD Anastacio [address] [place], [place] [phone] PCP - General Internal Medicine 02/04/23
--- OUTSIDE RECORDS SUMMARY | 2024-06-10 13:59 | XMS_ITS | Encounter Summary ---
Author Organization [employer] Address [address] [facility] [address] [place] [address] Care Team Providers Care Polysom Tech Name Role Phone Name, Anastacio DEMPSEY Primary Care Provider [phone] Jolly Mccabe PharmD Unavailable [phone] Encounter Details Date Type Department Care Team (Late st Contact Info) Description 04/22/2022 Orders Only [facility] [address] [place] [address] Nerissa Valdes LPN Social History Tobacco Use [...] [facility] MEDICINE [address] [place] [phone] Jolly Mccabe, PharmD [address] [place] [address] 08/09/2024 10:30 AM EDT Office Visit [facility] MEDICINE [address] [place] [phone] Anastacio Burks MD [address] [place] [address] documented as of this encounter Procedures Procedure Name Priority Date/Time Associated Diagnosis Comments BI MAMMOGRAM SCREENING TOMOSYNTHESIS BILATERAL Routine 05/01/2022 9:35 AM EDT documented in this encounter Results * BI Mammogram Screening Tomosynthesis Bilateral (05/01/2022 9:35 AM EDT) Anatomical Region Laterality Modality Breast Bilateral Mammography 05/01/2022 9:35 AM EDT Narrative 05/04/2022 8:43 AM EDT ? [facility] ? [address] ?[place] [address] ? Mammography Report ? Signed ? Patient: Sadaf Downing ?MR#: [id number] ?? [id number] ? : 1940 ?Acct:[id number] ? Age/Sex: 81 / F ?ADM Date: 05/01/22 ? Loc: HO.MAMMO ? Attending Dr: Anastacio Name MD ? Ordering Physician: Name,Anastacio MD ?Results: 2Benign Fi ?? ndings ? Date of Service: 05/01/22 ?Follow Up: 1 Year From Orig ?? inal Mammogram ? Procedure(s): MM tomosynthesis screening BI ?? Accession Number(s): [id number] ? cc: Name,Anastacio DEMPSEY ? EXAMINATION: ?? [...] 0840 ? DD/ 0935 ? TD/TT: ? Fish Filleter: DAVIES ? Procedure Note Luis, Taye - 05/04/2022 [facility] [address] [place] [address] [place] [address] Mammography Report Signed Patient: Sadaf Downing#: [id number] : 1940cct:[id number] Age/Sex: 81 / FADM Date: 05/01/22 Loc: N[facility] Attending Dr: Anastacio Burks MD Ordering Physician: Anastacio Burksesults: 2Benign Fi ndings Date of Service: 05/01/22Follow Up: 1 Year From Orig inal Mammogram Procedure(s): MM tomosynthesis screening BI Accession Number(s): [id number] cc: NameAnastacio MD EXAMINATION: MM SCREENING DIGITAL [...] in OV> 05/04/22 0840 DD/ 0935 TD/TT: Fish Filleter: DAVIES [facility] External Provider IMG BI PROCEDURES Final Result documented in this encounter Visit Diagnoses Not on filedocumented in this encounter Care Teams Polysom Tech Relationship Specialty Start Date End Date Name, MD Anastacio [address] [place] [address] PCP - General Family Medicine 12/21/16 Jolly Mccabe PharmD [address] [place] [address] Pharmacist Internal Medicine 07/02/22 documented as of this encounter
--- OUTSIDE RECORDS SUMMARY | 2024-06-10 13:59 | XMS_ITS | Encounter Summary ---
Author Organization [employer] [facility] Address [address] [facility] 7t [place] [address] Care Team Providers Care Quality Assurance Monitor Final Name Role Phone Name, Anastacio DEMPSEY Primary Care Provider [phone] Jolly Mccabe PharmD Unavailable Encounter Details Date Type Department Care Team (Late st Contact Info) Description 02/26/2022 Orders Only [facility] [address] [place] [phone] Sujatha Nunez LPN Social History Tobacco Use [...] Description 06/15/2024 10:30 AM EDT Medication Management [facility] [address] [place] [address] Jolly Mccabe, PharmD [address] [place] [address] 08/09/2024 10:30 AM EDT Office Visit [facility] [address] [place] [address] Anastacio Burks MD [address] [place] [address] documented as of this encounter Visit Diagnoses Not on filedocumented in this encounter Care Teams Quality Assurance Monitor Final Relationship Specialty Start Date End Date Name, MD Anastacio [address] [place] [address] PCP - General Family Medicine 12/21/16 Jolly Mccabe PharmD [address] [place] [address] Pharmacist Internal Medicine 07/02/22 documented as of this encounter
--- OUTSIDE RECORDS SUMMARY | 2024-06-10 13:59 | XMS_ITS | Encounter Summary ---
Author Organization [employer] Address [address] 7[address] [place] [address] Care Team Providers Care Grinding Operator Name Role Phone Name, Anastacio DEMPSEY Primary Care Provider [phone] Jolly Mccabe PharmD Unavailable [phone] Encounter Details Date Type Department Care Team (Late st Contact Info) Description 03/11/2023 Abstract [facility] [address] [place], [place] [phone] Name, MD Anastacio [address] [place] [address] Social History Tobacco Use Types Packs/Day Years [...] t he electric, gas, oil or water [employer] threatened to shut off services in your [...] Description 06/15/2024 10:30 AM EDT Medication Management [address] [address] Jolly Mccabe PharmD [address] [place] [address] 08/09/2024 10:30 AM EDT Office Visit [facility] [address] [place] [address] NameAnastacio MD [address] [place] [address] documented as of this encounter Goals Goal [...] documented as of this encounter Care Teams Grinding Operator Relationship Specialty Start Date End Date Anastacio Burks MD [address] [place] [address] [phone] PCP - General Family Medicine 12/21/16 Jolly Mccabe, PharmD [address] [place] [address] Pharmacist Internal Medicine 07/02/22 documented as of this encounter
--- OUTSIDE RECORDS SUMMARY | 2024-06-10 13:59 | XMS_ITS | Encounter Summary ---
Author Organization [employer] Address [address] 7[address] [place] [address] Care Team Providers Care Call Center Consultant Name Role Phone Name, Anastacio DEMPSEY Primary Care Provider [phone] Jolly Mccabe PharmD Unavailable [phone] Encounter Details Date Type Department Care Team (Late st Contact Info) Description 06/09/2024 Orders Only [facility] [address] [place], [place] [phone] Name, MD Anastacio [address] [place] [address] Social History Tobacco Use Types Packs/Day Years [...] Description 06/15/2024 10:30 AM EDT Medication Management [facility] [address] [place] [address] Jolly Mccabe PharmD [address] [place] [address] 08/09/2024 10:30 AM EDT Office Visit [facility] [address] [place] [phone] Name, MD Anastacio [address] [place] [address] documented as of this encounter Goals Goal [...] URINE W/CREATININE Routine 06/09/2024 6:00 AM EDT documented in this encounter Results * (ABNORMAL) Albumin, Random Urine W/Creatinine (06/09/2024 6:00 AM EDT) Creatinine, Urine 25.10 mg/dL [facility] Microalbumin Urine 81.0 mg/L H [facility] Microalbum Creatinine Ratio Ur 322.7(H) <30 ug/mg cr [facility] Comment:Albumin/Creatinine R atio Reference Ranges: Normal: < 30 ug/mg creatinine Microalbuminuria: 30 - 300 ug/mg creatinineClinical Albuminuria: > 300 ug/mg creatinine 06/09/2024 6:00 AM EDT 06/09/2024 9:22 AM EDT us Anastacio Burks MD LAB URINE ORDERABLES Final Resul t [facility] [address] [place] [address] [phone] documented in this encounter Visit Diagnoses Not on filedocumented in this encounter Additional Health Concerns Assessment Noted Time PHQ-9 Depression Total Score: 7 09/01/19 24 9:20 AM EDT documented as of this encounter Care Teams Call Center Consultant Relationship Specialty Start Date End Date Name, MD Anastacio [address] [place] [address] PCP - General Family Medicine 12/21/16 Jolly Mccabe PharmD [address] [place] [address] Pharmacist Internal Medicine 07/02/22 documented as of this encounter
--- OUTSIDE RECORDS SUMMARY | 2024-06-10 13:59 | XMS_ITS | Data Portability ---
Author Organization [employer] Address [address] [place] [phone] Care Team Providers Care Auto Service Representative Name Role Phone [facility] Primary Care Provider [phone] [facility] Referring Provider Assessment No assessment [...] Address Organization Details Last Updated DateTime 2 32272.2 08 g 75 /min 98 [degF] 100 [...] 4650 Shae Bhandari MD Main - [facility] [address] [place] [phone] 12/01/2021 14:04:00 12/02/2021 13:13:45 Hyperglycemia 87549584 R73.9 80 year old female with DM and HTN, being evaluated for morning headaches, confusion, general malaise for about the last week. Patient lives with caregivers who assist with her medication s, and she has been compliant with these. Per data gathered by broadcast supervisor, patient feeling well at time of visit [...] until PCP follow up. Malaise and fatigue [phone] R53.81 Health Concerns Section Related Observation LastModified by Organization Detai ls LastModified Time None Recorded Concern Status LastModified by Organization Details LastModified Time None Recorded Advance Directives Directive None Recorded Payers Encounter Date Sequence Insurance Name Policy Number Policy Mcgovern Covered Member ID Mcgovern Member ID Guarantor Name 12/01/2021 1 [facility] - DOS PRIOR TO 2022 - DUAL ELIGIBLE (MEDICARE REPLACEMENT/ADV ANTAGE - HMO) Sadaf Galvan Harpreet [id number] Sadafnicole Finleymaddie Mullins Notes Date Note Type [...] .................. .................. .................. .................. .................. .................. ............... [employer] Note: Sent to a call for a pt complaining of headache, confusion, dizziness, and abd pain. [employer] arrives on scene, pt is alert and oriented. Airway is patent. Pt's family/cistern room operator states pt has had increasing confusion(describe d [...] non-tender, no distention; Skin: pink, warm, dry; [facility] orders POC CMP and POC H&H. Blood draw performed. CMP results uploaded to [employer]. Hgb:10.5, Hct: no results; [facility] advises pt/family to schedule appt with pt's PCP ladarius, and increase Lantus to 20 units daily until pt is evaluated by PCP. Red flags discussed. Pt/family have no further questions. .................. .................. .................. .................. .................. .................. .................. ............... Disposition: Fulfilled Shae Bhandari MD [address] [facility],[address], [place], [phone], [employer] 12/01/2021 14:15:42 OBGyn Episode No OBEpisode recorded.
== END 2024-06-09 06:01 | disposition home or self-care (01) ==
LOC: HO.LNP 06:00
PROVIDERS: Visit Provider Internal Medicine Geriatric Medicine
DX: E11.65 Type 2 diabetes mellitus with hyperglycemia (principal); E11.21 Type 2 diabetes mellitus with diabetic nephropathy; I10 Essential (primary) hypertension; Z79.4 Long term (current) use of insulin
CPT/HCPCS: 82043; 82570

== ENCOUNTER 2024-06-30 11:55 | Outpatient (REF) | payer OTHER, SELFPAY ==
--- OUTSIDE RECORDS SUMMARY | 2024-06-30 11:58 | XMS_ITS | Encounter Summary ---
Author Organization [employer] Address [address] [place] [address] Care Team Providers Care Airport Operations Crew Member Name Role Phone Name, Anastacio DEMPSEY Primary Care Provider [phone] Jolly Mccabe PharmD Unavailable [phone] Encounter Details Date Type Department Care Team (Latest Contact Info) Description 06/30/2024 Travel Social History Tobacco Use Types Packs/Day Years [...] Care Team (Late st Contact Info) Description 07/18/2024 10:30 AM EDT Medication Management [address] [address] Jolly Mccabe PharmD [address] [place] [address] 08/09/2024 10:30 AM EDT Office Visit [facility] [address] [place] [address] NameAnastacio MD [address] [place] [address] documented as of this encounter Goals Goal [...] documented as of this encounter Care Teams Airport Operations Crew Member Relationship Specialty Start Date End Date Anastacio Burks MD [address] [place] [address] [phone] PCP - General Family Medicine 12/21/16 Jolly Mccabe, LucíaD [address] [place] [address] Pharmacist Internal Medicine 07/02/22 documented as of this encounter
--- OUTSIDE RECORDS SUMMARY | 2024-06-30 11:58 | XMS_ITS | Encounter Summary ---
Author Organization [employer] Address [address] [facility] 7t [place] [address] Care Team Providers Care Vacuum Drum Drier Operator Name Role Phone Name, Anastacio DEMPSEY Primary Care Provider [phone] Jolly Mccabe PharmD Unavailable Encounter Details Date Type Department Care Team (Late st Contact Info) Description 04/22/2022 Orders Only [facility] [address] [place] [address] Nerissa Valdes LPN Social History Tobacco Use [...] Description 07/18/2024 10:30 AM EDT Medication Management [facility] [address] [place] [address] Jolly Mccabe, PharmD [address] [place] [address] 08/09/2024 10:30 AM EDT Office Visit [facility] [address] [place] [address] Anastacio Burks MD [address] [place] [address] documented as of this encounter Procedures Procedure Name Priority Date/Time Associated Diagnosis Comments BI MAMMOGRAM SCREENING TOMOSYNTHESIS BILATERAL Routine 05/01/2022 9:35 AM EDT documented in this encounter Results * BI Mammogram Screening Tomosynthesis Bilateral (05/01/2022 9:35 AM EDT) Anatomical Region Laterality Modality Breast Bilateral Mammography 05/01/2022 9:35 AM EDT Narrative 05/04/2022 8:43 AM EDT ? [facility] [place] ? [address] ?[place] [address] ? Mammography Report ? Signed ? Patient: Sadaf Downing ?MR#: [id number] ?? [id number] ? : 1940 ?Acct:[id number] ? Age/Sex: 81 / F ?ADM Date: 05/01/22 ? Loc: HO.MAMMO ? Attending Dr: Anastacio Name MD ? Ordering Physician: Name,Anastacio MD ?Results: 2Benign Fi ?? ndings ? Date of Service: 05/01/22 ?Follow Up: 1 Year From Orig ?? inal Mammogram ? Procedure(s): MM tomosynthesis screening BI ?? Accession Number(s): [id number] ? cc: Name,Anastacio DEMPSEY ? EXAMINATION: ?? [...] 0840 ? DD/ 0935 ? TD/TT: ? Political Consultant: DAVIES ? Procedure Note Luis, Image - 05/04/2022 [facility] [address] [place] [address] [place] [address] Mammography Report Signed Patient: Sadaf Downing#: [id number] : 3Acct:[id number] Age/Sex: 81 / FADM Date: 05/01/22 Loc: HO.IRVINGO Attending Dr: Anastacio Burks MD Ordering Physician: Anastacio Burksesults: 2Benign Fi ndings Date of Service: 05/01/22Follow Up: 1 Year From Orig inal Mammogram Procedure(s): MM tomosynthesis screening BI Accession Number(s): [id number] cc: Name,Anastacio DEMPSEY EXAMINATION: MM SCREENING DIGITAL BREAST TOMOSYNTHESIS, BILATERAL [...] in OV> 05/04/22 0840 DD/ 0935 TD/TT: Political Consultant: DAVIES [facility] External Provider IMG BI PROCEDURES Final Result documented in this encounter Visit Diagnoses Not on filedocumented in this encounter Care Teams Vacuum Drum Drier Operator Relationship Specialty Start Date End Date Name, MD Anastacio [address] [place] [address] PCP - General Family Medicine 12/21/16 Jolly Mccabe PharmD [address] [place] [address] Pharmacist Internal Medicine 07/02/22 documented as of this encounter
--- OUTSIDE RECORDS SUMMARY | 2024-06-30 11:58 | XMS_ITS | Clinical Summary ---
Author Organization [employer] Address [address] [facility] 7t [place] [address] Care Team Providers Care Medical Laboratory Technical Officer Name Role Phone Name, Anastacio DEMPSEY Primary Care Provider [phone] Jolly Mccabe PharmD Unavailable [phone] Allergies No known active allergies Medications glucagon (Baqsimi Two Pack) 3 MG/DOSE nasal powderIndication s:Type 2 diabetes mellitus with hyperglycemia, with long-term current use of insulin (CMS/[facility]) Administer 3 mg via one device [...] daily, as directed 100 each 024 Active Alcohol Swabs (Alcohol Prep) 70 % padsIndications: Type 2 diabetes mellitus with hyperglycemia (CMS/HCC) USE THREE TIMES DAILY DIRECTED 100 each 024 Active Cholecalciferol (Vitamin D3) 50 MCG (1999 [place]) chewable tablet Chew 1 tablet with breakfast. 024 Active Continuous Glucose Tax Manager Public (FreeStyle Camila 3 [place]) deviceIndication s:Type 2 diabetes mellitus with hyperglycemia, with long-term current use of insulin (CMS/HCC) 1 each 3 times daily. Use daily as directed for CGM 1 each 025 Active Continuous Glucose Sensor (FreeStyle Camila 3 Plus Sensor) miscIndications: Type 2 diabetes mellitus with hyperglycemia, with long-term current use of insulin ([facility]) 1 each Once per day. Apply 1 sensor every 15 days as directed for CGM 2 each 025 Active Lancets (OneTouch Delica Plus [id number]) miscIndications: Type 2 diabetes mellitus with hyperglycemia, with long-term current use of insulin ([facility]) USE TO TEST BLOOD SUGAR UP TO THREE TIMES DAILY 100 each 025 Active Blood Pressure kit Use as directed to check home BP daily. 1 kit 025 Active aspirin (Aspirin Low Dose) 81 MG EC tabletIndication s:Type 2 diabetes mellitus with hyperglycemia, with long-term current use of insulin ([facility]) Take 1 tablet (81 mg) by mouth in the morning. 90 tablet 3 025 Active metFORMIN (Glucophage) 500 MG tabletIndication s:Type 2 diabetes mellitus with unspecified complications ([facility]) TAKE 1 TABLET BY MOUTH TWICE DAILY IN THE MORNING AND IN THE EVENING WITH FOOD 180 tablet 1 025 Active irbesartan (Avapro) 300 MG tabletIndication s:Type 2 diabetes mellitus with hyperglycemia ([facility]) Take 1 tablet (300 mg) by mouth in the morning. 90 tablet 1 025 Active amLODIPine (Norvasc) 2.5 MG tabletIndication s:Hypertension, unspecified type TAKE 1 TABLET BY MOUTH EVERY MORNING 90 tablet 1 025 Active insulin degludec (Tresiba FlexTouch) 200 UNIT/ML injectionIndicat ions:Type 2 diabetes mellitus with hyperglycemia, with long-term current use of insulin ([facility]) Inject 20 units subQ once daily as directed 9 mL 5 025 Active insulin pen needle 32G x 4 mm miscIndications: Type 2 diabetes mellitus with unspecified complications ([facility]) Use to inject insulin three times daily 100 each 025 Active insulin aspart (NovoLOG FLEXPEN) 100 UNIT/ML penIndications:T ype 2 diabetes mellitus with hyperglycemia, with long-term current use of insulin ([facility]) Inject 12 units subQ twice daily with lunch & dinner Active Jardiance 25 MGIndications:Ty pe 2 diabetes mellitus with unspecified complications ([facility]) TAKE 1 TABLET BY MOUTH EVERY MORNING 30 tablet 5 025 Active Jardiance 25 MGIndications:Ty pe 2 diabetes mellitus with unspecified complications (CMS/HCC) TAKE 1 TABLET BY MOUTH EVERY MORNING 30 tablet 5 024 2024 Discontinued insulin aspart (NovoLOG FLEXPEN) 100 UNIT/ML penIndications:T ype 2 diabetes mellitus with hyperglycemia, with long-term current use of insulin ([facility]) Inject 10 units subQ once daily with lunch 15 mL 2 025 2024 Discontinued(R eorder (will not trigger notification to Pharmacy)) insulin glargine (Lantus SoloStar) 100 UNIT/ML penIndications:T ype 2 diabetes mellitus with hyperglycemia, with long-term current use of insulin ([facility]) Inject 20 units subQ once daily at bedtime. Increase as directed to 26 units daily. 15 mL 2 025 2024 Discontinued(A lternate therapy) insulin pen needle 32G x 4 mm miscIndications: Type 2 diabetes mellitus with unspecified complications ([facility]) Use to inject insulin twice daily 100 each 3 025 2024 Discontinued(R eorder (will not trigger notification to Pharmacy)) insulin aspart (NovoLOG FLEXPEN) 100 UNIT/ML penIndications:T ype 2 diabetes mellitus with hyperglycemia, with long-term current use of insulin ([facility]) Inject 12 units subQ once daily with lunch & dinner 15 mL 2 025 2024 Discontinued(R eorder (will not trigger notification to Pharmacy)) Active Problems Problem Noted Date Diagnosed Date [...] Encounters Date Type Department Care Team Description 06/30/2024 11:00 AM EDT Office Visit [facility] [address] [place] [address] Other fatigue (Primary Dx); Cough in adult patient 06/30/2024 Travel 06/23/2024 Refill [facility] [address] [place] [address] Jolly Mccabe PharmD Type 2 diabetes mellitus with unspecified complications ([facility]) 06/15/2024 Travel 06/09/2024 Orders Only [facility] [address] [facility] [place] [address] NameAnastacio MD 06/07/2024 Orders Only [facility] [address] [facility] [place] [address] NameAnastacio MD 06/02/2024 Telephone [facility] [address] [facility] [place] [address] NameAnastacio MD 05/29/2024 Travel 05/20/2024 Orders Only [facility] [address] [facility] [place] [address] Anastacio Burks MD 04/27/2024 Telephone [facility] [place] [address] Tiffanie Worrell MA may recalls 04/27/2024 Telephone [facility] [address] [place] [address] NameAnastacio MD Durable Medical Equipment 04/21/2024 Refill [facility] [address] [place] [address] NameAnastacio MD Hypertension, unspecified type 04/14/2024 Travel from Last 3 Months Immunizations Immunization Administration Dates Next Due Hep B, adult [...] Sign Reading Time Taken Comments Blood Pressure 136/68 06/30/2024 11:03 AM EDT Pulse 76 06/30/2024 11:03 AM EDT Temperature 36.7 ??C (98 ??F) 06/30/2024 11:03 AM EDT Respiratory Rate 16 06/30/2024 11:03 AM EDT Oxygen Saturation 98% 06/30/2024 11:03 AM EDT Inhaled Oxygen Concentration - - Weight 49.9 kg (110 lb) 06/30/2024 11:03 AM EDT Height 165.1 cm (5' 5 ) 03/22/2024 10:44 AM EST Body Mass Index 18.3 03/22/2024 10:44 AM EST Plan of Treatment Upcoming Encounters Date Type Department Care Team (Late st Contact Info) Description 07/18/2024 10:30 AM EDT Medication Management [facility] [address] [place] [address] Jolly Mccabe, PharmD [address] [place] [phone] 08/09/2024 10:30 AM EDT Office Visit [facility] [address] [place] [address] Name, MD Anastacio [address] [place] [phone] Health Maintenance Due Date Last Done Comments DTaP/Tdap/Td Vaccines (1 - Tdap) 01/19/2017 01/18/2017 Diabetes: Foot Exam 12/03/2023 12/02/2022, 12/02/2022, 12/02/2022, Additional history exists COVID-19 Vaccine ( season) 2024 12/09/2023, 01/14/2023, 07/16/2022, Additional history exists Diabetes: Hemoglobin A1C 08/28/2024 025, 02/24/2024, 12/09/2023, Additional history exists Alcohol/Substance Use Screening 08/31/2024 09/01/2023 Depression Screening 08/31/2024 09/01/2023, 09/01/19 SDOH Screening 08/31/2024 09/01/2023 Eye Exam 03/31/2025 03/31/2024, 03/18, 03/31/2024, Additional history exists Tobacco Screening 04/18/2025 04/18/2024 Lipid Panel 06/07/2025 06/07/2024, 05/17, 04/22/2020 Zoster Vaccines Completed 10/05/2022, 07/02/2022 RSV Patients and Patients Aged 60 years or older Completed 01/06/2023 Hepatitis B Vaccines Completed 01/14/2023, 08/13/2022, 07/16/2022 Influenza Vaccine Completed 12/09/2023, , 12/14/2018, Additional [...] patient's age to complete this topic Meningococcal B Vaccine Aged Out No l onger eligible based on patient's age to complete [...] Result Component 10.1(05/30/19 10:54 AM EDT) No Estelle, Jolly, PharmD Record your blood sugar as directed Result Component Worsening( 10:01 AM EST) No Jolly Mccabe, Jacquie Note: Use CGM, ensuring sensor is scanned at least once every 8 hours to capture 24H data. Check BG manually, as directed. Procedures Procedure Name Priority Date/Time Associated Diagnosis Comments POCT INFLUENZA B (ID NOW RAPID MOLECULAR) Routine 06/30/2024 11:14 AM EDT Cough in adult patient POCT INFLUENZA A (ID NOW RAPID MOLECULAR) Routine 06/30/2024 11:14 AM EDT Cough in adult patient POCT RAPID COVID ANTIGEN Routine 06/30/2024 11:07 AM EDT Cough in adult patient ALBUMIN, RANDOM URINE W/CREATININE Routine 06/09/2024 6:00 AM EDT LIPID PANEL, STANDARD Routine 06/07/2024 7:03 AM EDT COMPREHENSIVE METABOLIC PANEL Routine 06/07/2024 7:03 AM EDT VITAMIN D,25-OH,TOTAL,IA Routine 06/07/2024 7:03 AM EDT Type 2 diabetes mellitus with hyperglycemia, with long-term current use of insulin ([facility]) Vitamin D deficiency PTH, INTACT WITHOUT CALCIUM Routine 06/07/2024 7:03 AM EDT Type 2 diabetes mellitus with hyperglycemia, with long-term current use of insulin ([facility]) Vitamin D deficiency CANCELLED CHEMISTRY Routine 06/07/2024 1 2:00 AM EDT POCT GLYCATED HEMOGLOBIN, TOTAL Routine 05/29/2024 10:54 AM EDT Type 2 diabetes mellitus with hyperglycemia, with long-term current use of insulin ([facility]) BI MAMMOGRAM SCREENING TOMOSYNTHESIS BILATERAL Routine 05/20/2024 9:55 AM EDT from Last 3 Months Results * Influenza B (ID NOW Rapid Molecular) (06/30/2024 11:14 AM EDT) [facility] Influenza B Negative Negative, Indeterminate [facility] Swab 06/30/2024 11:1 4 AM EDT Leon Augustine MD POINT OF CARE TEST ENTER/EDIT OR DERABLES Final Result Performing Organization Address [facility]/ZIP Co de Phone Number [facility] [address] [place] [phone] * Influenza A (ID NOW Rapid Molecular) (06/30/2024 11:14 AM EDT) [facility] Influenza A Negative Negative, Indeterminate [facility] Swab 06/30/2024 11:1 4 AM EDT Leon Augustine MD POINT OF CARE TEST ENTER/EDIT OR DERABLES Final Result Performing Organization Address City/[facility]/ZIP Co de Phone Number [facility] [address] [place] [phone] * POCT Rapid COVID Ag (06/30/2024 11:07 AM EDT) [facility] Rapid COVID Ag Negative Swab 06/30/2024 11:0 7 AM EDT Leon Augustine MD POINT OF CARE TEST ENTER/EDIT OR DERABLES Final Result * (ABNORMAL) Albumin, Random Urine W/Creatinine (06/09/2024 6:00 AM EDT) [facility] Creatinine, Urine 25.10 mg/dL [facility] Microalbumin Urine 81.0 mg/L [facility] Microalbum Creatinine Ratio Ur 322.7(H) <30 ug/mg cr [facility] Comment:Albumin/Creatinine R atio Reference Ranges: Normal: < 30 ug/mg creatinine Microalbuminuria: 30 - 300 ug/mg creatinineClinical Albuminuria: > 300 ug/mg creatinine 06/09/2024 6:00 AM EDT 06/09/2024 9:22 AM EDT us Anastacio Burks MD LAB URINE ORDERABLES Final Resul t Performing Organization Address City/[facility]/ZIP Co de Phone Number [facility] [address] [place] [phone] * Vitamin D, 25-Hydroxy, Total, Immunoassay (06/07/2024 7:03 AM EDT) Vitamin D 25-OH Total 38.1 >30 ng/mL [facility] Comment: Health Based Reference Values*< 20 ??ng/mL ??Loesmmmml21-59 ng/mL ??Insufficient> 30 ??ng/mL ??Sufficient*Alfred MONDRAGON. N [...] ORDERABLES Final Resul t Performing Organization Address [facility]/ZIP Co de Phone Number [facility] [address] [place] [phone] * PTH, Intact Without Calcium (06/07/2024 7:03 AM EDT) Parathyroid Hormone, Intact 73.8 8.7 - 77.1 pg/mL [facility] Blood Venous blood specimen / Unknown 06/07/2024 7:03 AM EDT 06/07/2024 7:03 AM EDT us Anastacio Burks MD LAB BLOOD ORDERABLES Final Resul t Performing Organization Address City/[facility] Co de Phone Number [facility] [address] [place] [phone] * Lipid Panel, Standard (06/07/2024 7:03 AM EDT) Triglycerides 54 <150 mg/dL [facility] Comment:Desirable Triglyceri de: less than 150 mg/dLBorderline High Triglyceride 150-199 mg/dLHigh Triglyceride: 200-499 mg/dLVery High Triglyceride: greater than or equal to 5OO mg/dL Cholesterol 149 <200 mg/dL [facility] Comment:Desirable Cholestero l: less than 200 mg/dLBorderline High Cholesterol: 200-239 mg/dLHigh Cholesterol: greater than 239 mg/dL LDL Cholesterol Calculated 50 <100 mg/dL [facility] Comment:Desirable LDL: less than 100 mg/dLNear Optimal/Above Optimal LDL: 110- 129 mg/dLBorderline High LDL: 130-159 mg/dLHigh LDL: 160-189 mg/dLVery High LDL: greater than or equal to 190 mg/dL HDL Cholesterol 89 >40 mg/dL [facility] Comment:Desirable HDL: great er than 40 mg/dL Note: This HDL assay may give artificially low results in patients with liver disease. 06/07/2024 7:03 AM EDT 06/07/2024 7:03 AM EDT us Anastacio Burks MD LAB BLOOD ORDERABLES Final Resul t Performing Organization Address City/[facility]/ZIP Co de Phone Number [facility] [address] [place] [phone] * (ABNORMAL) Comprehensive Metabolic Panel (06/07/2024 7:03 AM EDT) [facility] Sodium 140 135 - 145 mmol/L [facility] Potassium 4.1 3.3 - 5.1 mmol/L [facility] Chloride 104 96 - 108 mmol/L [facility] Carbon Dioxide 28 22 - 29 mmol/L [facility] Anion Gap 12 12 - 20 [facility] Urea Nitrogen (BUN) 37(H) 9 - 16 mg/dL [facility] Creatinine, Serum 1.12 0.5 - 1.4 mg/dL [facility] Estimated Glomerular Filt Rate 47 [facility] Comment:Chronic Kidney Disea se: Estimated GFR < 60 mL/min/1.98m5Cdyrza Kidney Disease: Estimated GFR < 15 mL/min/1.73m2 Glucose 107 60 - 115 mg/dL [facility] Calcium 9.7 8.4 - 10.2 mg/dL [facility] Bilirubin, Total 0.3 0.0 - 1.0 mg/dL [facility] Aspartate Amino Transferase 49(H) 5 - 31 U/L [facility] Alanine Aminotransferase 55(H) 0 - 31 U/L [facility] Total Protein 8.0 6.5 - 8.0 g/dL [facility] Albumin Level 3.9 3.5 - 5.0 g/dL [facility] Alkaline Phosphatase 216(H) 39 - 117 U/L [facility] 06/07/2024 7:03 AM EDT 06/07/2024 7:03 AM EDT us Anastacio Burks MD LAB BLOOD ORDERABLES Final Resul t [facility] [address] [place] [phone] * Cancelled Chemistry (06/07/2024 12:00 AM EDT) [facility] Cancelled Chemistry SEE NOTE [facility] Comment:THE FOLLOWING TESTS WERE CANCELLED: MicroalbuminREASON: No specimen received 06/07/2024 06/07/2024 us Anastacio Name HISTORICAL/NON ORDERABLE LABS Fi nal Result [facility] [address] [facility] [place] [address] [phone] * (ABNORMAL) POCT HGB A1C (05/29/2024 10:54 AM EDT) Hemoglobin A1C 10.1(A) 4.0 - 6.0 % Blood 05/29/2024 10:5 4 AM EDT Anastacio Burks MD POINT OF CARE TEST ENTER/EDIT OR DERABLES Final Result * BI Mammogram Screening Tomosynthesis Bilateral (05/20/2024 9:55 AM EDT) Anatomical Region Laterality Modality Breast Bilateral Mammography 05/20/2024 9:55 AM EDT Narrative 05/27/2024 7:15 PM EDT ? [facility] ? [address] ?[place] [address] ?[phone] ? Mammography Report ? Signed ? Patient: Galvan Mullins,Sadaf M ?MR#: ?? [id number] ? : 1940 ?Acct:[id number] ? Age/Sex: 83 / F ?ADM Date: 04/05/25 ? Loc: HO.MAMMO ? Attending Dr: Anastacio Name MD ? Ordering Physician: Name,Anastacio MD ?Results: 2Benign Fi ?? ndings ? Date of Service: 05/20/24 ?Follow Up: 1 Year From Orig ?? inal Mammogram ? Procedure(s): MM tomosynthesis screening BI ?? Accession Number(s): [id number] ? cc: Name,Anastacio DEMPSEY ? EXAMINATION: ?? [...] ??Kacey Craig DO ??05/27/2024 07:12 PM EDT ?? RP ? Dictated By: ?Kacey Craig DO ? Signed By: ?<Electronically signed by Kacey Craig, DO in OV> ? 05/27/241911 ? DD/DT: // 0955 ? TD/TT: // 1009 ? Senior Media Buyer: ? Procedure Note Donotuseinterpreter, Image - 05/27/2024 S[place]i [facility] [address] [place], [place] [address] Mammography Report Signed Patient: Sadaf Downing MMR#: [id number] : 3Acct:[id number] Age/Sex: 83 / FADM Date: 05/20/24 Loc: HO.MAMMO Attending Dr: Anastacio Burks MD Ordering Physician: Anastacio Burks MDResults: 2Benign Fi ndings Date of Service: 05/20/24Follow Up: 1 Year From Orig inal Mammogram Procedure(s): MM tomosynthesis screening BI Accession Number(s): [id number] cc: Anastacio Burks MD EXAMINATION: MM SCREENING [...] by Kacey Craig DO in OV> 05/27/24 191 DD/ 0955 TD/TT: 05/20/24 1009 Senior Media Buyer: Anastacio Burks MD IMG BI PROCEDURES Final Result from Last [address] [place], [place] [id number] [employer] OPTIONS (HMO D-SNP) Care Teams Medical Laboratory Technical Officer Relationship Specialty Start Date End Date Name, MD Anastacio [address] [place] [phone] PCP - General Family Medicine 12/21/16 Jolly Mccabe PharmD [address] [place] [address] Pharmacist Internal Medicine 07/02/22
--- OUTSIDE RECORDS SUMMARY | 2024-06-30 11:58 | XMS_ITS | Encounter Summary ---
Author Organization [facility], Address [address] [facility] [address] [place] [address] Phone Care Team Providers Care Manufacturing Assembler Name Role Phone Name, Anastacio DEMPSEY Primary Care Provider [phone] Encounter Details Date Type Department Care Team (Late st Contact Info) Description 02/04/2023 Documentation Only [facility], [address] [place] [address] Name, MD Anastacio [address] [place] [address] Social History Tobacco Use Types Packs/Day Years [...] on filedocumented in this encounter Care Teams Manufacturing Assembler Relationship Specialty Start Date End Date Name, MD Anastacio [address] [place], [place] [phone] PCP - General Internal Medicine 02/04/23 documented as of this encounter
--- OUTSIDE RECORDS SUMMARY | 2024-06-30 11:58 | XMS_ITS | Encounter Summary ---
Author Organization [employer] Address [address] [facility] 7t [place] [address] Care Team Providers Care Power Shovel Operator Name Role Phone Name, Anastacio DEMPSEY Primary Care Provider [phone] Jolly Mccabe PharmD Unavailable [phone] Encounter Details Date Type Department Care Team (Late st Contact Info) Description 02/26/2022 Orders Only [facility] [address] [place] [phone] Sujatha Nunez LPN Social History Tobacco Use [...] Description 07/18/2024 10:30 AM EDT Medication Management [facility] [address] [place] [phone] Jolly Mccabe, PharmD [address] [place] [phone] 08/09/2024 10:30 AM EDT Office Visit [facility] [address] [place] [phone] Anastacio Burks MD [address] [place] [phone] documented as of this encounter Visit Diagnoses Not on filedocumented in this encounter Care Teams Power Shovel Operator Relationship Specialty Start Date End Date Name, MD Anastacio [address] [place] [address] PCP - General Family Medicine 12/21/16 Jolly Mccabe, Jacquie [address] [place] [address] Pharmacist Internal Medicine 07/02/22 documented as of this encounter
--- OUTSIDE RECORDS SUMMARY | 2024-06-30 11:58 | XMS_ITS | Encounter Summary ---
Author Organization [employer] Address [address] [facility] [address] 7t [place] [address] Care Team Providers Care Occupational Therapist Rehab Manager Name Role Phone Name, Anastacio DEMPSEY Primary Care Provider [phone] Jolly Mccabe PharmD Unavailable [phone] Reason for Visit * Reason Comments Med Refill Encounter Details Date Type Department Care Team ([facility] st Contact Info) Description 09/01/2023 Refill [facility] [address] [place], [place] [phone] Name, MD Anastacio 230 [place] [address] Social History Tobacco Use Types Packs/Day Years [...] AM EDT documented as of this encounter Functional Status * Over the past 2 weeks, how often have you been bothered by any of the following problems? Question Answer Date of Assessment Author Patient Health Questionnaire-2 Score 2 08/15 9:20 AM Rubia Laughlin * If you checked off any problems on this questionnaire so far, Question Answer Date of Assessment Author How difficult have these problems made it for you to do your work, take care of things at home, or get along with other people? Somewhat difficult 09/01/2023 9:20 AM Ana Rosa Laughlin * Over the past 2 weeks, how often have you been bothered by any of the following problems? Question Answer Date of Assessment Author Little interest or pleasure in doing things Several days 09/01/2023 9:20 AM Donna Laughlin Feeling down, depressed, or hopeless Several days 09/01/2023 9:20 AM Ana Rosa Laughlin Trouble falling or staying asleep, or sleeping too much Several days 09/01/2023 9:20 AM Ana Rosa Laughlin Feeling tired or having little energy More than half the days 09/01/2023 9:20 AM Rubia Laughlin Poor appetite or overeating Not at all 09/01/2023 9:20 AM Ana Rosa Laughlin Feeling bad about yourself - or that you are a failure or have let yourself or your family down More than half the days 09/01/2023 9:20 AM Rubia Laughlin Trouble concentrating on things, such as reading the newspaper or watching television Not at all 09/01/2023 9:20 AM EDT Ana Rosa uTbbs Moving or speaking so slowly that other people could have noticed? Or the opposite - being so fidgety or restless that you have been moving around a lot more than usual. Not at all 09/01/2023 9:20 AM EDT Ana Rosa Tubbs Thoughts that you would be better off or hurting yourself in some way Not at all 09/01/2023 9:20 AM EDT Ana Rosa Tubbs Patient Health Questionnaire-9 Score 7 09/01/2023 9:20 AM EDT Rich Tubbs documented as of this encounter Plan of Treatment Upcoming Encounters Date Type Department Care Team (Late st Contact Info) Description 07/18/2024 10:30 AM EDT Medication Management [facility] [address] [place] [address] Jolly Mccabe PharmD [address] [place] [address] 08/09/2024 10:30 AM EDT Office Visit [facility] [address] [place] [address] Name, MD Anastacio [address] [place] [address] documented as of this encounter Goals Goal [...] documented as of this encounter Care Teams Occupational Therapist Rehab Manager Relationship Specialty Start Date End Date Name, MD Anastacio [address] [place] [address] PCP - General Family Medicine 12/21/16 Jolly Mccabe, Jacquie [address] [place] [address] Pharmacist Internal Medicine 07/02/22 documented as of this encounter
--- OUTSIDE RECORDS SUMMARY | 2024-06-30 11:58 | XMS_ITS | Encounter Summary ---
Author Organization [employer] Address 75 [facility] 7t [place] [address] Care Team Providers Care Rn Compliance Name Role Phone Name, Anastacio DEMPSEY Primary Care Provider [phone] Jolly Mccabe PharmD Unavailable Encounter Details Date Type Department Care Team (Late st Contact Info) Description 03/09/[address] [facility] [address] [place] [address] Nerissa Valdes LPN Social History Tobacco Use [...] Description 07/18/2024 10:30 AM EDT Medication Management [facility] [address] [place] [address] Jolly Mccabe, PharmD [address] [place] [address] 08/09/2024 10:30 AM EDT Office Visit [facility] [address] [place] [address] Name, MD Anastacio [address] [place] [address] documented as of this encounter Visit Diagnoses Not on filedocumented in this encounter Care Teams Rn Compliance Relationship Specialty Start Date End Date Name, MD Anastacio [address] [place] [address] PCP - General Family Medicine 12/21/16 Jolly Mccabe, Jacquie [address] [place] [address] Pharmacist Internal Medicine 07/02/22 documented as of this encounter
--- OUTSIDE RECORDS SUMMARY | 2024-06-30 11:58 | XMS_ITS | Encounter Summary ---
Author Organization [employer] Address [address] [facility] [address] 7t [place] [address] Care Team Providers Care Resident Physician In Radiology Name Role Phone Name, Anastacio DEMPSEY Primary Care Provider [phone] Jolly Mccabe PharmD Unavailable [phone] Reason for Visit * Reason Comments Cough Encounter Details Date Type Department Care Team ([facility] st Contact Info) Description 06/30/2024 11:00 AM EDT Office Visit [facility] 230 [place], [place] [phone] Other fatigue (Primary Dx); Cough in adult patient Social History Tobacco Use Types Packs/Day Years [...] AM EDT documented as of this encounter Last Filed Vital Signs Vital Sign Reading Time Taken Comments Blood Pressure 136/68 06/30/2024 11:03 AM EDT Pulse 76 06/30/2024 11:03 AM EDT Temperature 36.7 ??C (98 ??F) 06/30/2024 11:03 AM EDT Respiratory Rate 16 06/30/2024 11:03 AM EDT Oxygen Saturation 98% 06/30/2024 11:03 AM EDT Inhaled Oxygen Concentration - - Weight 49.9 kg (110 lb) 06/30/2024 11:03 AM EDT Height - - Body Mass Index 18.3 03/22/2024 10:44 AM EST documented in this encounter Plan of Treatment Upcoming Encounters Date Type Department Care Team (Late st Contact Info) Description 07/18/2024 10:30 AM EDT Medication Management [facility] [address] [place] [address] Jolly Mccabe, PharmD [address] [place] [address] 08/09/2024 10:30 AM EDT Office Visit [facility] [address] [place] [address] Name, MD Anastacio [address] [place] [address] Scheduled Orders Name Type Priority Associated Diagnoses Orde r Schedule XR Chest 2 Views Imaging Routine Cough in adult patient Expected: 06/30/2024, Expires: 06/30/2025 Vitamin B12/Folate, Serum Panel Lab Routine Other fatigue Expected: 06/30/2024, Expires: 06/30/2025 Comprehensive Metabolic Panel Lab Routine Other fatigue Expected: 06/30/2024 (Approximate), Expires: 06/30/2025 CBC auto differential Lab Routine Other fatigue Expected: 06/30/2024 (Approximate), Expires: 06/30/2025 TSH W/Reflex to FT4 Lab Routine Other fatigue Expected: 06/30/2024 (Approximate), Expires: 06/30/2025 documented as of this encounter Goals Goal [...] 11:07 AM EDT Cough in adult patient documented in this encounter Results * Influenza B (ID NOW Rapid Molecular) (06/30/2024 11:14 AM EDT) Influenza B Negative Negative, Indeterminate [facility] Swab 06/30/2024 11:1 4 AM EDT Leon Augustine MD POINT OF CARE TEST ENTER/EDIT OR DERABLES Final Result [facility] [address] [place] [address] [phone] * Influenza A (ID NOW Rapid Molecular) (06/30/2024 11:14 AM EDT) Influenza A Negative Negative, Indeterminate [facility] Swab 06/30/2024 11:1 4 AM EDT Leon Augustine MD POINT OF CARE TEST ENTER/EDIT OR DERABLES Final Result [facility] [address] [place] [address] [phone] * POCT Rapid COVID Ag (06/30/2024 11:07 AM EDT) [facility] Signature Rapid COVID Ag Negative Swab 06/30/2024 11:0 7 AM EDT Leon Augustine MD POINT OF CARE TEST ENTER/EDIT OR DERABLES Final Result documented in this encounter Visit Diagnoses Diagnosis Other fatigue- Primary Cough in adult patient documented in this encounter Additional Health Concerns Assessment Noted Time PHQ-9 Depression Total Score: 7 09/01/19 24 9:20 AM EDT documented as of this encounter Care Teams Resident Physician In Radiology Relationship Specialty Start Date End Date Name, MD Anastacio [address] [place] [address] PCP - General Family Medicine 12/21/16 Jolly Mccabe PharmD [address] [place] [address] Pharmacist Internal Medicine 07/02/22 documented as of this encounter
--- OUTSIDE RECORDS SUMMARY | 2024-06-30 11:58 | XMS_ITS | Data Portability ---
Author Organization [employer] [place] [place] Address [address] [place] [phone] Care Team Providers Care Medical Physics Researcher Name Role Phone [facility] Primary Care Provider [facility] Referring Provider [phone] Assessment No assessment recorded. Plan of Treatment [...] Address Organization Details Last Updated DateTime 2 09952.2 08 g 75 /min 98 [degF] 100 [...] 4650 Shae Bhandari MD Main - [facility] [address] [place] [phone] 12/01/2021 14:04:00 12/02/2021 13:13:45 Hyperglycemia 17843911 R73.9 80 year old female with DM and HTN, being evaluated for morning headaches, confusion, general malaise for about the last week. Patient lives with caregivers who assist with her medication s, and she has been compliant with these. Per data gathered by overedge sewer, patient feeling well at time of visit [...] until PCP follow up. Malaise and fatigue 1350 [id number] R53.81 Health Concerns Section Related Observation LastModified by Organization Detai ls LastModified Time None Recorded Concern Status LastModified by Organization Details LastModified Time None Recorded Advance Directives Directive None Recorded Payers Insurance Date Sequence Insurance Name Policy Number Policy Mcgovern Covered Member ID Mcgovern Member ID Guarantor Name 05/10/2023 1 [facility] - DOS PRIOR TO 2022 - DUAL ELIGIBLE (MEDICARE REPLACEMENT/ADV ANTAGE - HMO) Sadaf Finleymaddie Mullins [id number] Sadaf Cole Mullins 05/10/2023 1 [facility] - DOS ON OR AFTER 2022 - DUAL ELIGIBLE - INTERMEDIATE OPTIONS AND ONE CARE (MEDICARE REPLACEMENT/ADV ANTAGE - HMO) Sadaf Cole Mullins [id number] Sadaf Cole Mullins Notes Date Note Type Note Provider [...] .................. .................. .................. .................. .................. .................. ............... Photonics Engineer Note: Sent to a call for a pt complaining of headache, confusion, dizziness, and abd pain. SC8 arrives on scene, pt is alert and oriented. Airway is patent. Pt's family/healthcare administrator states pt has had increasing confusion(describe d [...] non-tender, no distention; Skin: pink, warm, dry; [facility] orders POC CMP and POC H&H. Blood draw performed. CMP results uploaded to [employer]. Hgb:10.5, Hct: no results; [facility] advises pt/family to schedule appt with pt's PCP ladarius, and increase Lantus to 20 units daily until pt is evaluated by PCP. Red flags discussed. Pt/family have no further questions. .................. .................. .................. .................. .................. .................. .................. ............... Disposition: Fulfilled Shae Bhandari MD [address] [facility],[address], [place], [address], [facility] - [employer] 12/01/2021 14:15:42 OBGyn Episode No OBEpisode recorded.
--- OUTSIDE RECORDS SUMMARY | 2024-06-30 11:58 | XMS_ITS | Encounter Summary ---
Author Organization [employer] Address [address] 7[address] [place] [address] Care Team Providers Care Plastic Surgery Assistant Name Role Phone Name, Anastacio DEMPSEY Primary Care Provider [phone] Jolly Mccabe PharmD Unavailable [phone] Reason for Visit * Reason Comments Med Refill Encounter Details Date Type Department Care Team ([facility] st Contact Info) Description 06/23/2024 Refill [facility] [address] [place], [place] [phone] PuiaJolly, PharmD [address] [place] [address] Type 2 diabetes mellitus with unspecified complications (CMS/HCC) Social History Tobacco Use Types Packs/Day Years [...] AM EDT documented as of this encounter Miscellaneous Notes * Telephone Encounter - Jolly Mccabe PharmD - 06/26/2024 9:41 AM EDT Last notes & labs reviewed; continue this med documented in this encounter Plan of Treatment Upcoming Encounters Date Type Department Care Team (Late st Contact Info) Description 07/18/2024 10:30 AM EDT Medication Management [facility] [address] [place] [address] Jolly Mccabe PharmD [address] [place] [address] 08/09/2024 10:30 AM EDT Office Visit [facility] [address] [place] [address] [phone] Name, MD Anastacio [address] [place] [address] documented as of this encounter Goals Goal [...] Diagnoses Diagnosis Type 2 diabetes mellitus with unspecified complications (CMS/[facility]) documented in this encounter Additional Health Concerns Assessment Noted Time PHQ-9 Depression Total Score: 7 09/01/19 24 9:20 AM EDT documented as of this encounter Care Teams Plastic Surgery Assistant Relationship Specialty Start Date End Date Name, MD Anastacio [address] [place] [address] PCP - General Family Medicine 12/21/16 Jolly Mccabe PharmD [address] [place] [address] Pharmacist Internal Medicine 07/02/22 documented as of this encounter
--- OUTSIDE RECORDS SUMMARY | 2024-06-30 11:58 | XMS_ITS | Clinical Summary ---
Author Organization [facility], Address [address] [place] [address] [place] [address] Phone Care Team Providers Care Yardage Tufting Machine Operator Name Role Phone Name, Anastacio DEMPSEY Primary Care Provider [phone] Allergies No known active allergies Medications metFORMIN [...] 50+ Years Completed 02/24/2024, 12/14/2018, 01/18/2017 Insurance [facility] One Care Dual SNP ([id number]) [place]ARVIS [id number] Care Teams Yardage Tufting Machine Operator Relationship Specialty Start Date End Date Name, MD Anastacio 230 [place], [place] [phone] PCP - General Internal Medicine 02/04/23
--- OUTSIDE RECORDS SUMMARY | 2024-06-30 11:58 | XMS_ITS | Encounter Summary ---
Author Organization [employer] Address [address] [facility] [address]t [place] [address] Care Team Providers Care Semiconductor Engineer Name Role Phone Name, Anastacio DEMPSEY Primary Care Provider [phone] Jolly Mccabe PharmD Unavailable [phone] Reason for Visit * Reason Comments Med Refill Encounter Details Date Type Department Care Team ([facility] st Contact Info) Description 10/01/2023 Refill [facility] [address] [place], [place] [phone] Jolly Mccabe, PharmD [address] [place] [address] Type 2 diabetes mellitus with hyperglycemia, with long-term current use of insulin ([facility]) Social History Tobacco Use Types Packs/Day Years [...] Description 07/18/2024 10:30 AM EDT Medication Management [facility] [address] [place] [address] Jolly Mccabe PharmD [address] [place] [address] 08/09/2024 10:30 AM EDT Office Visit [facility] [address] [place] [address] Name, MD Anastacio [address] [place] [address] documented as of this encounter Goals Goal [...] hyperglycemia, with long-term current use of insulin ([facility]) documented in this encounter Additional Health Concerns Assessment Noted Time PHQ-9 Depression Total Score: 7 09/01/19 24 9:20 AM EDT documented as of this encounter Care Teams Semiconductor Engineer Relationship Specialty Start Date End Date Name, MD Anastacio [address] [place] [address] PCP - General Family Medicine 12/21/16 Jolly Mccabe, Jacquie [address] [place] [address] Pharmacist Internal Medicine 07/02/22 documented as of this encounter
--- OUTSIDE RECORDS SUMMARY | 2024-06-30 11:58 | XMS_ITS | Encounter Summary ---
Author Organization [employer] Address [address] [facility] [address] 7t [place] [address] Care Team Providers Care Research Chief Engineer Name Role Phone Name, Anastacio DEMPSEY Primary Care Provider [phone] Jolly Mccabe PharmD Unavailable [phone] Encounter Details Date Type Department Care Team (Late st Contact Info) Description 03/11/2023 Abstract [facility] [address] [place], [place] [phone] Name, MD Anastacio [address] [place] [address] Social History Tobacco Use Types Packs/Day Years [...] Description 07/18/2024 10:30 AM EDT Medication Management [address] [address] Jolly Mccabe PharmD [address] [place] [address] 08/09/2024 10:30 AM EDT Office Visit [facility] [address] [place] [address] NameAnastacio MD [address] [place] [address] [phone] documented as of this encounter Goals Goal [...] documented as of this encounter Care Teams Research Chief Engineer Relationship Specialty Start Date End Date NameAnastacio MD [address] [place] [address] [phone] PCP - General Family Medicine 12/21/16 Jolly Mccabe, LucíaD [address] [place] [address] Pharmacist Internal Medicine 07/02/22 documented as of this encounter
--- OUTSIDE RECORDS SUMMARY | 2024-06-30 11:58 | XMS_ITS | Encounter Summary ---
Author Organization [employer] Address [address] [facility] [address] [place] [address] Care Team Providers Care Insurance Actuary Name Role Phone Name, Anastacio DEMPSEY Primary Care Provider [phone] Jolly Mccabe PharmD Unavailable [phone] Reason for Visit * Reason Comments Med Refill Encounter Details Date Type Department Care Team ([facility] st Contact Info) Description 03/26/2023 Refill [facility] [address] [place], [place] [phone] Addie Olguin MD [address] [place] [address] Hypertension, unspecified type Social History Tobacco Use [...] Description 07/18/2024 10:30 AM EDT Medication Management [address] [address] Jolly Mccabe PharmD [address] [place] [address] 08/09/2024 10:30 AM EDT Office Visit [facility] [address] [place] [address] Name, MD Anastacio [address] [place] [address] documented as of this encounter Goals Goal [...] documented as of this encounter Care Teams Insurance Actuary Relationship Specialty Start Date End Date Name, MD Anastacio [address] [place] [address] PCP - General Family Medicine 12/21/16 Jolly Mccabe, Jacquie [address] [place] [address] Pharmacist Internal Medicine 07/02/22 documented as of this encounter
[2024-06-30 13:04] LABS: MANUAL DIFF FLAG NO
[2024-06-30 13:17] LABS: Basophils Absolute Auto 0.1 X10*3/uL (0.0-0.2); Basophils Percent Auto 0.9 % (0-2); Eosinophils Absolute Auto 0.4 X10*3/uL (0.0-0.4); Eosinophils Percent Auto 4.5 % (0-4); Hematocrit 34.8 % (37.0-47.0); Hemoglobin 10.8 g/dl (12.0-16.0); Imm Gran Abs Auto 0.02 X10*3/uL (0.00-0.03); Imm Gran Pct Auto 0.3 % (0.0-0.4); Lymphocytes Absolute Auto 2.4 X10*3/uL (1.2-4.9); Lymphocytes Percent Auto 30.2 % (20-40); Mean Corpuscular Hemoglobin 27.5 pg (27.0-33.0); Mean Corpuscular Volume 88.5 fL (80.0-98.0); Mean Platelet Volume 9.8 fL (9.4-12.3); Monocytes Absolute Auto 0.6 X10*3/uL (0.1-1.2); Neutrophils Absolute Auto 4.4 x10*3/uL (2.0-8.3); Neutrophils Percent Auto 56.1 % (45-73); Platelet Count 316 X10*3/uL (160-400); Red Blood Count 3.93 X10*6/uL (4.20-5.50); Red Cell Distribution Width 13.3 % (11.0-16.0); White Blood Count 7.8 X10*3/uL (4.8-10.8)
[2024-06-30 13:52] LABS: Alanine Aminotransferase 91 U/L (0-31); Albumin Level 3.7 g/dL (3.5-5.0); Alkaline Phosphatase 322 U/L (39-117); Anion Gap 13 (12-20); Aspartate Amino Transferase 68 U/L (5-31); Bilirubin Total 0.3 mg/dL (0.0-1.0); Blood Urea Nitrogen 34 mg/dL (9-16); Carbon Dioxide 28 mmol/L (22-29); Chloride 103 mmol/L (96-108); Estimated Glomerular Filt Rate 50; Glucose Random 175 mg/dL (60-115); Potassium 4.5 mmol/L (3.3-5.1); Sodium 139 mmol/L (135-145); Total Protein 7.6 g/dL (6.5-8.0)
[2024-06-30 14:11] LABS: Vitamin B12 1409 pg/mL (200-900)
[2024-06-30 14:15] LABS: TSH reflex Free T4 2.13 uIU/mL (0.32-4.0)
== END 2024-06-30 11:56 | disposition home or self-care (01) ==
LOC: HO.HHCL 11:55
PROVIDERS: Visit Provider Family Medicine
DX: Z13.89 Encounter for screening for other disorder (principal)
CPT/HCPCS: 36415; 80053; 82607; 82746; 84443; 85025

== ENCOUNTER 2024-06-30 12:34 | Outpatient (REF) | payer OTHER, SELFPAY ==
--- NOTE | ~2024-06-30 | XR_ITS ---
EXAMINATION: XR CHEST CLINICAL INFORMATION: 1 WK DURATION OF COUGH COMPARISON: 01/10/2024. TECHNIQUE: 2 views of the chest were obtained. FINDINGS: The cardiac, hilar, and mediastinal contours are normal. Lungs are diffusely hyperaerated with subtle subpleural interstitial changes, similar to the prior exam. Lungs otherwise clear. There is no pneumothorax or pleural effusion. There is no focal osseous or soft tissue abnormality. Cholecystectomy clips noted. XR/XR chest 2V IMPRESSION: 1. Stable subpleural interstitial changes bilateral lungs with hyperaeration. No active superimposed disease. No change from 01/10/2024. Electronically signed by: Jhonatan Hammond MD 06/30/2024 02:27 PM EDT
--- OUTSIDE RECORDS SUMMARY | 2024-06-30 12:37 | XMS_ITS | Encounter Summary ---
Author Organization [employer] Address [address] [facility] [address] [place] [address] Care Team Providers Care Power Crane Operator Name Role Phone Name, Anastacio DEMPSEY Primary Care Provider [phone] Jolly Mccabe PharmD Unavailable [phone] Reason for Visit * Reason Comments Med Refill Encounter Details Date Type Department Care Team ([facility] st Contact Info) Description 10/01/2023 Refill [facility] 230 [place], [place] [phone] Jolly Mccabe, PharmD [address] [place] [address] Type 2 diabetes mellitus with hyperglycemia, with long-term current use of insulin ([facility]) Social History Tobacco Use Types Packs/Day Years [...] Description 07/18/2024 10:30 AM EDT Medication Management [facility] [address] [place] [address] Jolly Mccabe PharmD [address] [place] [address] 08/09/2024 10:30 AM EDT Office Visit [facility] [address] [place] [address] Name, MD Anastacio [address] [place] [address] documented as of this encounter Goals Goal [...] hyperglycemia, with long-term current use of insulin ([facility]) documented in this encounter Additional Health Concerns Assessment Noted Time PHQ-9 Depression Total Score: 7 09/01/19 24 9:20 AM EDT documented as of this encounter Care Teams Power Crane Operator Relationship Specialty Start Date End Date Name, MD Anastacio [address] [place] [address] PCP - General Family Medicine 12/21/16 Jolly Mccabe, Jacquie [address] [place] [address] Pharmacist Internal Medicine 07/02/22 documented as of this encounter
--- OUTSIDE RECORDS SUMMARY | 2024-06-30 12:37 | XMS_ITS | Encounter Summary ---
Author Organization [employer] Address [address] [place] [address] Care Team Providers Care Floriculturist Name Role Phone Name, Anastacio DEMPSEY Primary Care Provider [phone] Jolly Mccabe PharmD Unavailable [phone] Reason for Visit * Reason Comments Cough Encounter Details Date Type Department Care Team ([facility] st Contact Info) Description 06/30/2024 11:00 AM EDT Office Visit [facility] [address] [place], [place] [phone] Leon Augustine MD [address] [place] [address] Other fatigue (Primary Dx); Cough in adult [...] 10:44 AM EST documented in this encounter Progress Notes * Leon Aguustine MD - 06/30/2024 11:00 AM EDT Subjective History was provided by the patient. Sadaf Mullins is a 83 y.o. female who presents for evaluation of 1- week duration of cough. Denies congestion, rhinorrhea, or sore throat. Denies F/C/N/V/D. No wheezing. No known history of allergic rhinitis or GERD. No new medications. Not on KAYODE-I. Also reports significant fatigue. Nosyncope or presyncope. Recent Vitamin D was 38.1 (05/2024). Had mildly elevated AST/ALT 49/55 with Alk Phos 216 (06/07/2024). These values were previously normal. Underlying DM with last Hgb A1c 10.1 (05/2024). Objective Vitals: 06/30/24 1103 BP: 136/68 BP Location: Right arm Patient Position: Sitting BP Cuff Size: Adult Pulse: 76 Resp: 16 Temp: 98 ??F (36.7 ??C) TempSrc: Temporal SpO2: 98% Weight: 110 lb (49.9 kg) Physical Exam Vitals reviewed. Constitutional: General: She is not in acute distress. Appearance: Normal appearance. She is normal weight. She is not ill-appearing, toxic-appearing or diaphoretic. HENT: Head: Normocephalic and atraumatic. Right Ear: Tympanic membrane, ear canal and external ear normal. Left Ear: Tympanic membrane, ear canal and external ear normal. Nose: Nose normal. No congestion or rhinorrhea. Mouth/Throat: Mouth: Mucous membranes are dry. Pharynx: Oropharynx is clear. No oropharyngeal exudate or posterior oropharyngeal erythema. Eyes: Extraocular Movements: Extraocular movements intact. Conjunctiva/sclera: Conjunctivae normal. Pupils: Pupils are equal, round, and reactive to light. Cardiovascular: Rate and Rhythm: Normal rate and regular rhythm. Heart sounds: Normal heart sounds. Pulmonary: Effort: Pulmonary effort is normal. No respiratory distress. Breath sounds: Normal breath sounds. No wheezing, rhonchi or rales. Chest: Chest wall: No tenderness. Musculoskeletal: General: Normal range of motion. Cervical back: Normal range of motion and neck supple. Lymphadenopathy: Cervical: No cervical adenopathy. Skin: General: Skin is warm and dry. Neurological: General: No focal deficit present. Mental Status: She is alert and oriented to person, place, and time. Psychiatric: Mood and Affect: Mood normal. Behavior: Behavior normal. Office Visit on 06/30/2024 Component Date Value Ref Range Status Influenza A 06/30/2024 Negative Negative, Indeterminate Final Influenza B 06/30/2024 Negative Negative, Indeterminate Final Rapid COVID Ag 06/30/2024 Negative Final Sadaf was seen today for cough. Diagnoses and all orders for this visit: Other fatigue (Primary) - Vitamin B12/Folate, Serum Panel; Future - Comprehensive Metabolic Panel; Future - CBC auto differential; Future - TSH W/Reflex to FT4; Future Cough in adult patient - Influenza A (ID NOW Rapid Molecular) - Influenza B (ID NOW Rapid Molecular) - POCT Rapid COVID Ag - XR Chest 2 Views; Future Patient presents to [facility] due to 1-week duration of cough and fatigue No other URI symptoms Normal pulmonary exam and not in respiratory distress O2 sat within normal Rapid COVID-19 and Influenza A/B negative today Non-smoker Will check CXR Check Vitamin B12/Folate, CBC, BMP, and TSH Given borderline AST/ALT/Alk Phos, will repeat LFT as well Indications for UC/ER use reviewed Advised to contact the clinic if persistent or worsening symptoms documented in this encounter Plan of Treatment Upcoming Encounters Date Type Department Care Team (Late st Contact Info) Description 07/18/2024 10:30 AM EDT Medication Management [facility] [address] [place] [phone] Jolly Mccabe, PharmD [address] [place] [phone] 08/09/2024 10:30 AM EDT Office Visit [facility] [address] [place] [address] Name, MD Anastacio [address] [place] [phone] Scheduled Orders Name Type Priority Associated Diagnoses [...] Component 10.1(05/30/19 10:54 AM EDT) No Jolly Mccabe, PharmD Record your blood sugar as directed Result Component Worsening( 10:01 AM EST) No Jolly Mccabe, PharmD Note: Use CGM, ensuring sensor is [...] AM EDT) Influenza B Negative Negative, Indeterminate [facility] Swab 06/30/2024 11:1 4 AM EDT us Leon Augustine MD POINT OF CARE TEST ENTER/EDIT OR DERABLES Final Result Performing Organization Address [facility] Co de Phone Number [facility] [address] [place] [phone] * Influenza A (ID NOW Rapid Molecular) (06/30/2024 11:14 AM EDT) Influenza A Negative Negative, Indeterminate [facility] Swab 06/30/2024 11:1 4 AM EDT us Leon Augustine MD POINT OF CARE TEST ENTER/EDIT OR DERABLES Final Result Performing Organization Address [facility] Co de Phone Number [facility] [address] [place] [address] [phone] * POCT Rapid COVID Ag (06/30/2024 11:07 AM EDT) Rapid COVID Ag Negative Swab 06/30/2024 11:0 7 AM EDT Leon Augustine MD POINT OF CARE TEST ENTER/EDIT OR DERABLES Final Result documented in this encounter Visit Diagnoses Diagnosis Other fatigue- Primary Cough in adult patient documented in this encounter Additional Health Concerns Assessment Noted Time PHQ-9 Depression Total Score: 7 09/01/19 24 9:20 AM EDT documented as of this encounter Care Teams Floriculturist Relationship Specialty Start Date End Date Name, MD Anastacio [address] [place] [address] PCP - General Family Medicine 12/21/16 Jolly Mccabe PharmD [address] [place] [address] Pharmacist Internal Medicine 07/02/22 documented as of this encounter
--- OUTSIDE RECORDS SUMMARY | 2024-06-30 12:37 | XMS_ITS | Encounter Summary ---
Author Organization [employer] Address [address] [place] [address] Care Team Providers Care Video Coordinator Name Role Phone Name, Anastacio DEMPSEY Primary Care Provider [phone] Jolly Mccabe PharmD Unavailable [phone] Reason for Visit * Reason Comments Med Refill Encounter Details Date Type Department Care Team ([facility] st Contact Info) Description 03/26/2023 Refill [facility] [address] [place], [place] [phone] Addie Olguin MD [address] [place] [address] Hypertension, unspecified type Social History Tobacco Use [...] Description 07/18/2024 10:30 AM EDT Medication Management [address] [address] Jolly Mccabe PharmD [address] [place] [address] 08/09/2024 10:30 AM EDT Office Visit [facility] [address] [place] [address] Name, MD Anastacio [address] [place] [phone] documented as of this encounter Goals Goal [...] documented as of this encounter Care Teams Video Coordinator Relationship Specialty Start Date End Date Name, MD Anastacio [address] [place] [phone] PCP - General Family Medicine 12/21/16 Jolly Mccabe, Jacquie [address] [place] [address] Pharmacist Internal Medicine 07/02/22 documented as of this encounter
--- OUTSIDE RECORDS SUMMARY | 2024-06-30 12:37 | XMS_ITS | Encounter Summary ---
Author Organization [employer] Address [address] 7t [place] [address] Care Team Providers Care Special Effects Specialist Name Role Phone Name, Anastacio DEMPSEY Primary Care Provider [phone] Jolly Mccabe PharmD Unavailable [phone] Reason for Visit * Reason Comments Med Refill Encounter Details Date Type Department Care Team ([facility] st Contact Info) Description 06/23/2024 Refill [facility] [address] [place], [place] [phone] PuiaJolly, PharmD [address] [place] [address] Type 2 diabetes mellitus with unspecified complications [...] Description 07/18/2024 10:30 AM EDT Medication Management [facility] [address] [place] [address] Jolly Mccabe PharmD [address] [place] [address] 08/09/2024 10:30 AM EDT Office Visit [facility] [address] [place] [address] [phone] Name, MD Anastacio [address] [place] [phone] documented as of this encounter Goals Goal [...] Type 2 diabetes mellitus with unspecified complications (CMS/[facility]) documented in this encounter Additional Health Concerns Assessment Noted Time PHQ-9 Depression Total Score: 7 09/01/19 24 9:20 AM EDT documented as of this encounter Care Teams Special Effects Specialist Relationship Specialty Start Date End Date Name, MD Anastacio [address] [place] [address] PCP - General Family Medicine 12/21/16 Jolly Mccabe PharmD [address] [place] [address] Pharmacist Internal Medicine 07/02/22 documented as of this encounter
--- OUTSIDE RECORDS SUMMARY | 2024-06-30 12:37 | XMS_ITS | Encounter Summary ---
Author Organization [employer] Address [address] [facility] 7t [place] [address] Care Team Providers Care Special Education Professor Name Role Phone Name, Anastacio DEMPSEY Primary Care Provider [phone] Jolly Mccabe PharmD Unavailable Encounter Details Date Type Department Care Team (Late st Contact Info) Description 04/22/2022 Orders Only [facility] [address] [place] [address] Nerissa Valeds LPN Social History Tobacco Use Types Packs/Day [...] Description 07/18/2024 10:30 AM EDT Medication Management [facility] [address] [place] [phone] Jolly Mccabe, PharmD [address] [place] [address] 08/09/2024 10:30 AM EDT Office Visit [facility] [address] [place] [phone] Anastacio Burks MD [address] [place] [address] documented as of this encounter Procedures Procedure Name Priority Date/Time Associated Diagnosis Comments BI MAMMOGRAM SCREENING TOMOSYNTHESIS BILATERAL Routine 05/01/2022 9:35 AM EDT documented in this encounter Results * BI Mammogram Screening Tomosynthesis Bilateral (05/01/2022 9:35 AM EDT) Anatomical Region Laterality Modality Breast Bilateral Mammography 05/01/2022 9:35 AM EDT Narrative 05/04/2022 8:43 AM EDT ? [facility] ? [address] ?[place] [address] ? Mammography Report ? Signed ? Patient: Sadaf Downing ?MR#: [id number] ?? [id number] ? : 1940 ?Acct:[id number] ? Age/Sex: 81 / F ?ADM Date: 05/01/22 ? Loc: HO.MAMMO ? Attending Dr: Anastacio Name MD ? Ordering Physician: Name,Anastacio MD ?Results: 2Benign Fi ?? ndings ? Date of Service: 05/01/22 ?Follow Up: 1 Year From Orig ?? inal Mammogram ? Procedure(s): MM tomosynthesis screening BI ?? Accession Number(s): [id number] ? cc: Name,Anastacio DEMPSEY ? EXAMINATION: ?? [...] 0840 ? DD/ 0935 ? TD/TT: ? Mannequin Molder: DAVIES ? Procedure Note Luis, Image - 05/04/2022 [facility] [address] [place] [address] [place] [address] Mammography Report Signed Patient: Sadaf Downing#: [id number] : 3Acct:[id number] Age/Sex: 81 / FADM Date: 05/01/22 Loc: HO.IRVINGO Attending Dr: Anastacio Burks MD Ordering Physician: Anastacio Burksesults: 2Benign Fi ndings Date of Service: 05/01/22Follow Up: 1 Year From Orig inal Mammogram Procedure(s): MM tomosynthesis screening BI Accession Number(s): [id number] cc: Name,Anastacio DEMPSEY EXAMINATION: MM SCREENING DIGITAL [...] in OV> 05/04/22 0840 DD/ 0935 TD/TT: Mannequin Molder: DAVIES [facility] External Provider IMG BI PROCEDURES Final Result documented in this encounter Visit Diagnoses Not on filedocumented in this encounter Care Teams Special Education Professor Relationship Specialty Start Date End Date Name, MD Anastacio [address] [place] [address] PCP - General Family Medicine 12/21/16 Jolly Mccabe PharmD [address] [place] [address] Pharmacist Internal Medicine 07/02/22 documented as of this encounter
--- OUTSIDE RECORDS SUMMARY | 2024-06-30 12:37 | XMS_ITS | Encounter Summary ---
Author Organization [employer] Address [address] 7t [place] [address] Care Team Providers Care Mileage Clerk Name Role Phone Name, Anastacio DEMPSEY Primary Care Provider [phone] Jolly Mccabe PharmD Unavailable [phone] Encounter Details Date Type Department Care [...] Description 07/18/2024 10:30 AM EDT Medication Management [address] [address] Jolly Mccabe PharmD [address] [place] [address] 08/09/2024 10:30 AM EDT Office Visit [facility] [address] [place] [phone] NameAnastacio MD [address] [place] [address] documented as of this encounter Goals Goal [...] documented as of this encounter Care Teams Mileage Clerk Relationship Specialty Start Date End Date Anastacio Burks MD [address] [place] [address] [phone] PCP - General Family Medicine 12/21/16 Jolly Mccabe, LucíaD [address] [place] [phone] Pharmacist Internal Medicine 07/02/22 documented as of this encounter
--- OUTSIDE RECORDS SUMMARY | 2024-06-30 12:37 | XMS_ITS | Clinical Summary ---
Author Organization [facility], Address [address] [place] [address] [place] [address] Phone Care Team Providers Care Heel Trimmer Name Role Phone Name, Anastacio DEMPSEY Primary Care Provider [phone] Allergies No known active allergies Medications metFORMIN [...] 50+ Years Completed 02/24/2024, 12/14/2018, 01/18/2017 Insurance [facility] [employer] Dual SNP ([id number]) [place] [id number] Care Teams Heel Trimmer Relationship Specialty Start Date End Date Name, MD Anastacio [address] [place], [place] [phone] PCP - General Internal Medicine 02/04/23
--- OUTSIDE RECORDS SUMMARY | 2024-06-30 12:37 | XMS_ITS | Encounter Summary ---
Author Organization [employer] Address [address] [facility] 7t [place] [address] Care Team Providers Care Administrative Technician Name Role Phone Name, Anastacio DEMPSEY Primary Care Provider [phone] Jolly Mccabe PharmD Unavailable Encounter Details Date Type Department Care Team (Late st Contact Info) Description 02/26/2022 Orders Only [facility] [address] [place] [phone] Sujatha Nunez LPN Social History Tobacco Use [...] Description 07/18/2024 10:30 AM EDT Medication Management [facility] [address] [place] [phone] Jolly Mccabe, PharmD [address] [place] [phone] 08/09/2024 10:30 AM EDT Office Visit [facility] [address] [place] [phone] Anastacio Burks MD [address] [place] [address] documented as of this encounter Visit Diagnoses Not on filedocumented in this encounter Care Teams Administrative Technician Relationship Specialty Start Date End Date Name, MD Anastacio [address] [place] [address] PCP - General Family Medicine 12/21/16 Jolly Mccabe, Jacquie [address] [place] [address] Pharmacist Internal Medicine 07/02/22 documented as of this encounter
--- OUTSIDE RECORDS SUMMARY | 2024-06-30 12:37 | XMS_ITS | Encounter Summary ---
Author Organization [employer] Address [address] [facility] [address] [address] [place] [address] Care Team Providers Care Application Developer Manager Name Role Phone Name, Anastacio DEMPSEY Primary Care Provider [phone] Jolly Mccabe PharmD Unavailable [phone] Reason for Visit * Reason Comments Med Refill Encounter Details Date Type Department Care Team ([facility] st Contact Info) Description 09/01/2023 Refill [facility] [address] [place], [place] [phone] Name, MD Anastacio [address] [place] [address] Social History Tobacco Use Types Packs/Day Years [...] 09/01/2023 9:20 AM EDT Ana Rosa Tubbs Moving or speaking so slowly that other [...] Description 07/18/2024 10:30 AM EDT Medication Management [facility] [address] [place] [phone] Jolly Mccabe PharmD [address] [place] [phone] 08/09/2024 10:30 AM EDT Office Visit [facility] [address] [place] [phone] Name, MD Anastacio [address] [place] [address] documented as of this encounter Goals Goal [...] documented as of this encounter Care Teams Application Developer Manager Relationship Specialty Start Date End Date Name, MD Anastacio [address] [place] [phone] PCP - General Family Medicine 12/21/16 Jolly Mccabe, Jacquie [address] [place] [phone] Pharmacist Internal Medicine 07/02/22 documented as of this encounter
--- OUTSIDE RECORDS SUMMARY | 2024-06-30 12:37 | XMS_ITS | Clinical Summary ---
Author Organization [employer] Address [address] [facility] 7[address] [place] [address] Care Team Providers Care Interactive Media Specialist Name Role Phone Name, Anastacio DEMPSEY Primary Care Provider [phone] Jolly Mccabe PharmD Unavailable [phone] Allergies No known active allergies Medications atorvastatin (Lipitor) 20 MG tabletIndication s:Type 2 [...] tablet with breakfast. 024 Active Continuous Glucose Certified Ethical Hacker (FreeStyle Camila 3 [place]) deviceIndication s:Type 2 diabetes mellitus with hyperglycemia, [...] days as directed for CGM 2 each 11 025 Active Lancets (OneTouch Delica Plus [id number]) miscIndications: Type 2 diabetes mellitus with hyperglycemia, with long-term current use of insulin ([facility]) USE TO TEST BLOOD SUGAR UP TO THREE TIMES DAILY 100 each 025 Active Blood Pressure kit Use as directed to check home BP daily. 1 kit 025 Active aspirin (Aspirin Low Dose) 81 MG EC tabletIndication s:Type 2 diabetes mellitus with hyperglycemia, with long-term current use of insulin ([facility]) Take 1 tablet (81 mg) by mouth in the morning. 90 tablet 3 025 Active metFORMIN (Glucophage) 500 MG tabletIndication s:Type 2 diabetes mellitus with unspecified complications ([facility]) TAKE 1 TABLET BY MOUTH TWICE DAILY IN THE MORNING AND IN THE EVENING WITH FOOD 180 tablet 1 025 Active irbesartan (Avapro) 300 MG tabletIndication s:Type 2 diabetes mellitus with hyperglycemia ([facility]) Take 1 tablet (300 mg) by mouth in the morning. 90 tablet 1 025 Active amLODIPine (Norvasc) 2.5 MG tabletIndication s:Hypertension, unspecified type TAKE 1 TABLET BY MOUTH EVERY MORNING 90 tablet 1 025 Active insulin degludec (Tresiba FlexTouch) 200 UNIT/ML injectionIndicat ions:Type 2 diabetes mellitus with hyperglycemia, with long-term current use of insulin ([facility]) Inject 20 units subQ once daily as directed 9 mL 025 Active insulin pen needle 32G x 4 mm miscIndications: Type 2 diabetes mellitus with unspecified complications ([facility]) Use to inject insulin three times daily 100 each 025 Active insulin aspart (NovoLOG FLEXPEN) 100 UNIT/ML penIndications:T ype 2 diabetes mellitus with hyperglycemia, with long-term current use of insulin ([facility]) Inject 12 units subQ twice daily with lunch & dinner 025 Active Jardiance 25 MGIndications:Ty pe 2 diabetes mellitus with unspecified complications ([facility]) TAKE 1 TABLET BY MOUTH EVERY MORNING 30 tablet 5 025 Active glucagon (Baqsimi Two Pack) 3 MG/DOSE nasal powderIndication s:Type 2 diabetes mellitus with hyperglycemia, with long-term current use of insulin ([facility]) Administer 3 mg via one device in one nostril PRN hypoBG with loss of consciousness. If no response after 15 mins an additional dose may be administered via other device in opposite nostril. 1 each 1 025 Active glucagon (Baqsimi Two Pack) 3 MG/DOSE nasal powderIndication s:Type 2 diabetes mellitus with hyperglycemia, with long-term current use of insulin ([facility]) Administer 3 mg via one device in one nostril PRN hypoBG with loss of consciousness. If no response after 15 mins an additional dose may be administered via other device in opposite nostril. 1 each 1 023 2024 Discontinued(R eorder (will not trigger notification to Pharmacy)) Jardiance 25 MGIndications:Ty pe 2 diabetes mellitus with unspecified complications ([facility]) TAKE 1 TABLET BY MOUTH EVERY MORNING 30 tablet 5 024 2024 Discontinued insulin aspart (NovoLOG FLEXPEN) 100 UNIT/ML penIndications:T ype 2 diabetes mellitus with hyperglycemia, with long-term current use of insulin ([facility]) Inject 10 units subQ once daily with lunch 15 mL 2 025 2024 Discontinued(R eorder (will not trigger notification to Pharmacy)) insulin glargine (Lantus SoloStar) 100 UNIT/ML penIndications:T ype 2 diabetes mellitus with hyperglycemia, with long-term current use of insulin ([facility]) Inject 20 units subQ once daily at bedtime. Increase as directed to 26 units daily. 15 mL 2 025 2024 Discontinued(A lternate therapy) insulin pen needle 32G x 4 mm miscIndications: Type 2 diabetes mellitus with unspecified complications ([facility]) Use to inject insulin twice daily 100 each 3 025 2024 Discontinued(R eorder (will not trigger notification to Pharmacy)) insulin aspart (NovoLOG FLEXPEN) 100 UNIT/ML penIndications:T ype 2 diabetes mellitus with hyperglycemia, with long-term current use of insulin ([facility]) Inject 12 units subQ once daily [...] Description 06/30/2024 11:00 AM EDT Office Visit [facility] [address] [place] [address] Leon Augustine MD Other fatigue (Primary Dx); Cough in adult patient 06/30/2024 Travel 06/23/2024 Refill [facility] [address] [place] [address] Jolly Mccabe PharmD Type 2 diabetes mellitus with unspecified complications ([facility]) 06/15/2024 Travel 06/09/2024 Orders Only [facility] [address] [place] [address] NameAnastacio MD 06/07/2024 Orders Only [facility] [address] [place] [address] NameAnastacio MD 06/02/2024 Telephone [facility] [address] [place] [address] NameAnastacio MD 05/29/2024 Travel 05/20/2024 Orders Only [facility] [address] [place] [address] Anastacio Burks MD 04/27/2024 Telephone [facility] [address] [place] [address] Tiffanie Worrell MA may recalls 04/27/2024 Telephone [facility] [address] [place] [address] Name, MD Anastacio Durable Medical Equipment 04/21/2024 Refill [facility] [address] [place] [address] Name, MD Anastacio Hypertension, unspecified type 04/14/2024 Travel from Last [...] housing situation today? I have anjelicaolivia henao 09/01/[address] you [...] Description 07/18/2024 10:30 AM EDT Medication Management [facility] [address] [place] [phone] Jolly Mccabe, PharmD [address] [place] [address] 08/09/2024 10:30 AM EDT Office Visit [facility] [address] [place] [phone] Name, MD Anastacio [address] [place] [phone] Health Maintenance Due Date Last Done Comments [...] 10.1(05/30/19 10:54 AM EDT) No Jolly Mccabe, PharmMario Record your blood sugar as directed Result [...] hyperglycemia, with long-term current use of insulin ([facility]) Vitamin D deficiency PTH, INTACT WITHOUT CALCIUM Routine 06/07/2024 7:03 AM EDT Type 2 diabetes mellitus with hyperglycemia, with long-term current use of insulin ([facility]) Vitamin D deficiency CANCELLED CHEMISTRY Routine 06/07/2024 1 2:00 AM EDT POCT GLYCATED HEMOGLOBIN, TOTAL Routine 05/29/2024 10:54 AM EDT Type 2 diabetes mellitus with hyperglycemia, with long-term current use of insulin ([facility]) BI MAMMOGRAM SCREENING TOMOSYNTHESIS BILATERAL Routine 05/20/2024 9:55 AM EDT from Last 3 Months Results * Influenza B (ID NOW Rapid Molecular) (06/30/2024 11:14 AM EDT) [facility] Influenza B Negative Negative, Indeterminate [facility] Swab 06/30/2024 11:1 4 AM EDT us Leon Augustine MD POINT OF CARE TEST ENTER/EDIT OR DERABLES Final Result Performing Organization Address [facility]/ZIP Co de Phone Number [facility] [address] [place] [phone] * Influenza A (ID NOW Rapid Molecular) (06/30/2024 11:14 AM EDT) [facility] Influenza A Negative Negative, Indeterminate [facility] Swab 06/30/2024 11:1 4 AM EDT us Leon Augustine MD POINT OF CARE TEST ENTER/EDIT OR DERABLES Final Result Performing Organization Address [facility] Co de Phone Number [facility] [address] [place] [phone] * POCT Rapid COVID Ag (06/30/2024 11:07 AM EDT) [facility] Rapid COVID Ag Negative Swab 06/30/2024 11:0 7 AM EDT us Leon Augustine MD POINT OF CARE TEST ENTER/EDIT OR DERABLES Final Result * (ABNORMAL) Albumin, Random Urine W/Creatinine (06/09/2024 6:00 AM EDT) Creatinine, Urine 25.10 mg/dL [facility] Microalbumin Urine 81.0 mg/L H [facility] Microalbum Creatinine Ratio Ur 322.7(H) <30 ug/mg cr [facility] Comment:Albumin/Creatinine R atio Reference Ranges: Normal: < 30 ug/mg creatinine Microalbuminuria: 30 - 300 ug/mg creatinineClinical Albuminuria: > 300 ug/mg creatinine 06/09/2024 6:00 AM EDT 06/09/2024 9:22 AM EDT us Anastacio Burks MD LAB URINE ORDERABLES Final Resul t [facility] [address] [place] [phone] * Vitamin D, 25-Hydroxy, Total, Immunoassay (06/07/2024 7:03 AM EDT) Vitamin D 25-OH Total 38.1 >30 ng/mL [facility] Comment: Health Based Reference Values*< 20 ??ng/mL ??Fnewmbfkw13-34 ng/mL ??Insufficient> 30 ??ng/mL ??Sufficient*Alfred MONDRAGON. N [...] ORDERABLES Final Resul t Performing Organization Address City/[facility]/ZIP Co de Phone Number [facility] [address] [place] [phone] * PTH, Intact Without Calcium (06/07/2024 7:03 AM EDT) Parathyroid Hormone, Intact 73.8 8.7 - 77.1 pg/mL [facility] Blood Venous blood specimen / Unknown 06/07/2024 7:03 AM EDT 06/07/2024 7:03 AM EDT us Anastacio Burks MD LAB BLOOD ORDERABLES Final Resul t Performing Organization Address City/[facility] Co de Phone Number [facility] [address] [place] [phone] * Lipid Panel, Standard (06/07/2024 7:03 AM EDT) Triglycerides 54 <150 mg/dL [facility] Comment:Desirable Triglyceri de: less than 150 mg/dLBorderline High Triglyceride 150-199 mg/dLHigh Triglyceride: 200-499 mg/dLVery High Triglyceride: greater than or equal to 5OO mg/dL Cholesterol 149 <200 mg/dL [facility] Comment:Desirable Cholestero l: less than 200 mg/dLBorderline High Cholesterol: 200-239 mg/dLHigh Cholesterol: greater than 239 mg/dL LDL Cholesterol Calculated 50 <100 mg/dL [facility] Comment:Desirable LDL: less than 100 mg/dLNear Optimal/Above Optimal LDL: 110- 129 mg/dLBorderline High LDL: 130-159 mg/dLHigh LDL: 160-189 mg/dLVery High LDL: greater than or equal to 190 mg/dL HDL Cholesterol 89 >40 mg/dL [facility] Comment:Desirable HDL: great er than 40 mg/dL Note: This HDL assay may give artificially low results in patients with liver disease. 06/07/2024 7:03 AM EDT 06/07/2024 7:03 AM EDT us Anastacio Burks MD LAB BLOOD ORDERABLES Final Resul t [facility] [address] [place] [phone] * (ABNORMAL) Comprehensive Metabolic Panel (06/07/2024 7:03 AM EDT) Sodium 140 135 - 145 mmol/L [facility] Potassium 4.1 3.3 - 5.1 mmol/L [facility] Chloride 104 96 - 108 mmol/L [facility] Carbon Dioxide 28 22 - 29 mmol/L [facility] Anion Gap 12 12 - 20 [facility] Urea Nitrogen (BUN) 37(H) 9 - 16 mg/dL [facility] Creatinine, Serum 1.12 0.5 - 1.4 mg/dL [facility] Estimated Glomerular Filt Rate 47 [facility] Comment:Chronic Kidney Disea se: Estimated GFR < 60 mL/min/1.72y2Llctdh Kidney Disease: Estimated GFR < 15 mL/min/1.73m2 Glucose 107 60 - 115 mg/dL [facility] Calcium 9.7 8.4 - 10.2 mg/dL [facility] Bilirubin, Total 0.3 0.0 - 1.0 mg/dL [facility] Aspartate Amino Transferase 49(H) 5 - 31 U/L [facility] Alanine Aminotransferase 55(H) 0 - 31 U/L [facility] Total Protein 8.0 6.5 - 8.0 g/dL [facility] Albumin Level 3.9 3.5 - 5.0 g/dL [facility] Alkaline Phosphatase 216(H) 39 - 117 U/L [facility] 06/07/2024 7:03 AM EDT 06/07/2024 7:03 AM EDT us Anastacio Burks MD LAB BLOOD ORDERABLES Final Resul t Performing Organization Address [facility] Co de Phone Number [facility] [address] [place] [phone] * Cancelled Chemistry (06/07/2024 12:00 AM EDT) Cancelled Chemistry SEE NOTE [facility] Comment:THE FOLLOWING TESTS WERE CANCELLED: MicroalbuminREASON: No specimen received 06/07/2024 06/07/2024 us Anastacio Burks MD HISTORICAL/NON ORDERABLE LABS Fi nal Result Performing Organization Address [facility] de Phone Number [facility] [address] [place] [phone] * (ABNORMAL) POCT HGB A1C (05/29/2024 10:54 AM EDT) Hemoglobin A1C 10.1(A) 4.0 - 6.0 % Blood 05/29/2024 10:5 4 AM EDT us Anastacio Burks MD POINT OF CARE TEST ENTER/EDIT OR DERABLES Final Result * BI Mammogram Screening Tomosynthesis Bilateral (05/20/2024 9:55 AM EDT) Anatomical Region Laterality Modality Breast Bilateral Mammography 05/20/2024 9:55 AM EDT Narrative 05/27/2024 7:15 PM EDT ? [facility] ? [address] ?[place] [address] ?[phone] ? Mammography Report ? Signed ? Patient: Galvan Mullins,Sadaf M ?MR#: ?? [id number] ? : 1940 ?Acct:[id number] ? Age/Sex: 83 / F ?ADM Date: 04/05/25 ? Loc: HO.MAMMO ? Attending Dr: Anastacio Burks MD ? Ordering Physician: Anastacio Burks MD ?Results: 2Benign Fi ?? ndings ? Date of Service: 05/20/24 ?Follow Up: 1 Year From Orig ?? inal Mammogram ? Procedure(s): MM tomosynthesis screening BI ?? Accession Number(s): [id number] ? cc: Vitaliy,Anastacio DEMPSEY ? EXAMINATION: ?? MM SCREENING DIGITAL [...] Craig, DO in OV> ? 05/27/241911 ? DD/ 0955 ? TD/TT: 05/20/24 1009 ? Wire Worker: ? Procedure Note Donotmadyinterpreter, Image - 05/27/2024 [facility] [address] [place] [address] Mammography Report Signed Patient: Sadaf Downing MMR#: [id number] : 1940cct:[id number] Age/Sex: 83 / FADM Date: 05/20/24 Loc: HO.MAMMO Attending Dr: Anastacio Burks MD Ordering Physician: Anastacio Burks MDResults: 2Benign Fi ndings Date of Service: 05/20/24Follow Up: 1 Year From Orig inal Mammogram Procedure(s): MM tomosynthesis screening BI Accession Number(s): [id number] cc: Anastacio Burks MD EXAMINATION: MM SCREENING [...] Kacey Craig DO 05/27/2024 07:12 PM EDT RP Dictated By: Kacey Craig DO Signed By: <Electronically signed by Kacey Cragi DO in OV> 05/27/241911 DD/ 0955 TD/TT: 05/20/24 1009 Wire Worker: Anastacio Vitaliy DEMPSEY IMG BI PROCEDURES Final Result from Last [address] [place] [place] [address] STANDARD [facility] ASSISTED OPTIONS (HMO D-SNP) Care Teams Interactive Media Specialist Relationship Specialty Start Date End Date Name, MD Anastacio [address] [place] [address] PCP - General Family Medicine 12/21/16 Jolly Mccabe, Jacquie [address] [place] [address] Pharmacist Internal Medicine 07/02/22
--- OUTSIDE RECORDS SUMMARY | 2024-06-30 12:37 | XMS_ITS | Encounter Summary ---
Author Organization [employer] Address [address] [facility] [address] [place] [address] Care Team Providers Care Melter Assistant Name Role Phone Name, Anastacio DEMPSEY Primary Care Provider [phone] Jolly Mccabe PharmD Unavailable Encounter Details Date Type Department Care Team (Late st Contact Info) Description 03/09/[address] [facility] [address] [place] [address] Nerissa Valdes LPN Social History Tobacco Use [...] Medication Management [facility] [address] [place] [phone] Jolly Mccabe, PharmD [address] [place] [address] 08/09/2024 10:30 AM EDT Office Visit [facility] [address] [place] [address] Name, MD Anastacio [address] [place] [address] documented as of this encounter Visit Diagnoses Not on filedocumented in this encounter Care Teams Melter Assistant Relationship Specialty Start Date End Date Name, MD Anastacio [address] [place] [address] PCP - General Family Medicine 12/21/16 Jolly Mccabe, Jacquie [address] [place] [address] Pharmacist Internal Medicine 07/02/22 documented as of this encounter
--- OUTSIDE RECORDS SUMMARY | 2024-06-30 12:37 | XMS_ITS | Encounter Summary ---
Author Organization [facility], Address [facility] [address] [place] [address] Phone Care Team Providers Care Marionette Performer Name Role Phone Name, Anastacio DEMPSEY Primary Care Provider [phone] Encounter Details Date Type Department Care Team (Late st Contact Info) Description 02/04/2023 Documentation Only [facility], [address] [place] [address] Name, MD Anastacio [address] [place] [address] Social History Tobacco Use Types Packs/Day Years [...] on filedocumented in this encounter Care Teams Marionette Performer Relationship Specialty Start Date End Date Name, MD Anastacio [address] [place], [place] [phone] PCP - General Internal Medicine 02/04/23 documented as of this encounter
--- OUTSIDE RECORDS SUMMARY | 2024-06-30 12:37 | XMS_ITS | Encounter Summary ---
Author Organization [employer] Address [address] [place] [address] Care Team Providers Care Digital Media Planner Name Role Phone Name, Anastacio DEMPSEY Primary Care Provider [phone] Jolly Mccabe PharmD Unavailable [phone] Encounter Details Date Type Department Care Team (Late st Contact Info) Description 03/11/2023 Abstract [facility] [address] [place], [place] [phone] Name, MD Anastacio [address] [place] [address] Social History Tobacco Use Types Packs/Day Years [...] Description 07/18/2024 10:30 AM EDT Medication Management [address] [address] Jolly Mccabe PharmD [address] [place] [address] 08/09/2024 10:30 AM EDT Office Visit [facility] [address] [place] [phone] NameAnastacio MD [address] [place] [address] [phone] documented as of this encounter Goals Goal [...] documented as of this encounter Care Teams Digital Media Planner Relationship Specialty Start Date End Date NameAnastacio MD [address] [place] [address] [phone] PCP - General Family Medicine 12/21/16 Jolly Mccabe, LucíaD [address] [place] [phone] Pharmacist Internal Medicine 07/02/22 documented as of this encounter
== END 2024-06-30 12:35 | disposition home or self-care (01) ==
LOC: HO.HHCX 12:34
PROVIDERS: Visit Provider Family Medicine
DX: R05.9 Cough, unspecified (principal)
CPT/HCPCS: 36415; 71046; 80053; 82607; 82746; 84443; 85025

== ENCOUNTER → 2024-06-30 12:35 | Outpatient (BNV) | payer OTHER, SELFPAY | PROVIDERS: Visit Provider Radiology Diagnostic Radiology | DX: R05.9 Cough, unspecified (principal) | CPT/HCPCS: 71046 ==

== ENCOUNTER 2024-07-11 09:33 | Outpatient (AMB) | payer OTHER, SELFPAY ==
[2024-07-11 09:38] VITALS: BP 142/66; PULSE 75; BMI 20.5
--- NOTE | 2024-07-11 09:38 | MHC.OFFVIS ---
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 Intake Note: New patient with ekg c/o chest pain Adult Basic Studies Teacher Required: Yes Adult Basic Studies Teacher Services: Adult Basic Studies Teacher Present Adult Basic Studies Teacher Name: chelsy Clarke Greenhouse Technician: Greenhouse Technician Present Accompanied by: Daughter Allergies No Known Allergies [No Known Allergies*] Allergy (Verified 01/10/24 13:10) Medication List - Last Reconciled 07/11/24 by Erick Lopez MD amlodipine 2.5 mg PO DAILY aspirin 81 mg PO DAILY atorvastatin 20 mg PO DAILY empagliflozin (Jardiance) 25 mg PO DAILY insulin aspart U-100 (Novolog FlexPen U-100 Insulin aspart) 12 units subcut BID insulin degludec (Tresiba FlexTouch U-100 insulin) 20 units subcut BEDTIME irbesartan 300 mg PO DAILY metformin 500 mg PO BID HPI Comments Details: The patient is an 83-year-old female presenting with chest pain. The pain has been present for several months, occurring intermittently, primarily when sitting or laying down, and resolving within minutes. No shortness of breath or specific activity triggers are reported. The patient has diabetes mellitus with poor glycemic control, indicated by blood sugars up to 400 mg/dL, and is on insulin therapy. There is no prior history of cardiovascular events or interventions. She has been living locally for the last 8 years or so. [facility] Medical History High cholesterol Hypertension Diabetes mellitus Family History (Updated 07/11/24 @ 10:06 by Erick Lopez MD) Mother No problems noted. Father No problems noted. Social History Alcohol intake: never service: No Current occupational status: retired Review of Systems Const Denies chills, Denies daytime sleepiness, Denies fatigue, Denies fever(s), Denies frequent falls, Denies poor appetite, Denies snoring, Denies stops breathing during sleep, Denies weakness, Denies weight gain and Denies weight loss Eyes Denies loss of vision ENT Denies dizziness and Denies hearing loss Card Denies chest pain, Denies claudication, Denies leg edema, Denies lightheadedness, Denies palpitations, Denies dyspnea, Denies dyspnea on exertion and Denies orthopnea Resp Denies cough, Denies excessive phlegm production, Denies dyspnea, Denies dyspnea on exertion, Denies snoring and Denies wheezing GI Denies abdominal pain, Denies hematochezia, Denies change in bowel habits, Denies nausea and Denies vomiting Denies urinary frequency and Denies dysuria Musc Denies arthralgias, Denies muscle weakness, Denies numbness and Denies other (frequent falls) Skin/Breast Denies nail changes and Denies rash Neuro Denies Abnormal speech present, Denies dizziness, Denies frequent falls, Denies loss of vision, Denies memory loss, Denies numbness and Denies weakness Psych Denies depression and Denies memory loss Endo Denies fatigue and Denies palpitations Julito/Lymph Reports easy bruising and Reports other (anemia) Aller/Immun Denies wheezing Physical Exam Vital Signs: Last Vital Signs Pulse 75 07/11/24 09:38 BP 142/66 H 07/11/24 09:38 BMI result Body Mass Index 20.5 Const General: comfortable and no acute distress Orientation/consciousness: patient oriented x3 HEENT Other: Unremarkable Head: Yes normal to inspection Neck Neck: Yes normal visual inspection Chest Chest palpation & inspection: normal inspection of the chest Resp Auscultation: clear to auscultation bilaterally Cardio Palpation: normal PMI Heart sounds: S1 normal heart sound present, S2 normal heart sound present, no gallops, no murmurs and no rubs GI Palpation (GI): Soft to palpation Back/Spine/Pelvis Other: unremarkable Skin General skin exam: no rashes or lesions noted Neuro General: patient oriented x3 Speech: No Abnormal speech present Extrem General: Yes normal to inspection Psych Mental Status: mental status grossly normal Office Procedures EKG Details: EKG with underlying sinus rhythm at 75/Min; cannot exclude old septal infarct; [place]. [address]-[id number], Complete Assessment & Plan Assessment & Plan (1) Precordial chest pain: Code(s): R07.2 - Precordial pain Category: Medical (2) Type 2 diabetes mellitus with unspecified complications: Code(s): E11.8 - Type 2 diabetes mellitus with unspecified complications Category: Medical Plan Atypical sounding chest pain but with uncontrolled diabetes history. Hence clearly needs assessment for obstructive CAD. She has got minimal ambulation and hence will not be exercise on the treadmill. Obtain pharmacological stress with Lexiscan. Echocardiogram for any overt findings like cardiomyopathy/wall motion abnormalities. Follow-up after the above. Advised her that if any persistent chest pain, that needs immediate attention and to seek emergency help. Discussion Notes I discussed with the patient the need for a chemical stress test and heart ultrasound to evaluate her cardiac status in light of her ongoing chest pain and uncontrolled diabetes. We talked about potential cardiovascular risks associated with high blood sugar, emphasizing the importance of these diagnostic assessments. I explained the procedure, indicating that the chemical stress test would be used due to her inability to perform physical exercise. We reviewed the importance of coming to the emergency department or calling 911 promptly if she experiences sustained chest pain, as it may be indicative of a possible myocardial infarction. Patient was informed and verbally consented to the use of an ambient scribe for clinic note documentation during this visit. Orders: Orders CA echo transthoracic complete Today I25.10 - Atherosclerotic heart disease of [place] coronary artery without angina pectoris, R07.2 - Precordial pain NM cardiolite stress test Today R07.2 - Precordial pain CA lexiscan stress w leyda Today I20.9 - Angina pectoris, unspecified, R07.2 - Precordial pain Medications: New insulin aspart U-100 (Novolog FlexPen U-100 Insulin aspart) 12 units Lunch and supper 12 units subcut BID insulin degludec (Tresiba FlexTouch U-100 insulin) 20 units subcut BEDTIME Patient Instructions: - Take medication as prescribed and check blood sugar levels regularly. - Monitor for episodes of chest pain. If pain does not go away, call 911 immediately. - Attend scheduled stress test and heart ultrasound appointments. - Follow up with your healthcare provider regularly. - Maintain a diabetes-friendly diet and check your blood sugar levels daily. - If you have trouble breathing or feel very unwell, seek medical help. Coding Level of Care Code New Pt Level 4 (89620) Complex EM visit Add On G2211 Diagnoses Precordial chest pain R07.2 Type 2 diabetes mellitus with unspecified complications E11.8 CPT Codes EKG - CPT: 35000-[id number], Complete ([id number])
--- OUTSIDE RECORDS SUMMARY | 2024-07-11 10:08 | XMS_ITS | Encounter Summary ---
Author Organization [facility], Address [address] [facility] [address] [place] [address] Phone Care Team Providers Care Medical Administrative Assistant Name Role Phone Name, Anastacio DEMPSEY Primary Care Provider [phone] Encounter Details Date Type Department Care Team (Late st Contact Info) Description 02/04/2023 Documentation Only [facility], [address] [place] [address] Name, MD [address] [place] [address] Social History Tobacco Use Types Packs/Day Years [...] on filedocumented in this encounter Care Teams Medical Administrative Assistant Relationship Specialty Start Date End Date Name, MD Anastacio [address] [place], [place] [id number] PCP - General Internal Medicine 02/04/23 documented as of this encounter
== END 2024-07-11 10:11 | disposition home or self-care (01) ==
LOC: HO.HCS 09:34
PROVIDERS: PCP Internal Medicine Geriatric Medicine; Visit Provider Internal Medicine
DX: R07.2 Precordial pain (principal); E11.8 Type 2 diabetes mellitus with unspecified complications
CPT/HCPCS: 93010; 99214; G2211

== ENCOUNTER → 2024-07-11 09:33 | Outpatient (BNVA) | payer OTHER, SELFPAY | PROVIDERS: PCP Internal Medicine Geriatric Medicine; Visit Provider Internal Medicine | DX: I25.119 Atherosclerotic heart disease of native coronary artery with unspecified angina pectoris (principal); R07.2 Precordial pain; E11.8 Type 2 diabetes mellitus with unspecified complications | CPT/HCPCS: 93005; 99212 ==

== ENCOUNTER 2024-08-13 09:23 | Emergency (ER) | payer OTHER, SELFPAY ==
[2024-08-13] VITALS (7 sets, daily range): BP systolic 133–165; BP diastolic 52–80; PULSE 85–88; RESP 18–19; TEMP 36.4–37.1; O2SAT 97–100; BMI 24.6
--- NOTE | ~2024-08-13 | XR_ITS ---
CLINICAL HISTORY: weakness, fall 1 view chest x-ray Comparison: CR/SR - XR CHEST 2V - 06/30/24 12:56 EDT CR/SR - XR CHEST 2V - 01/10/24 16:53 EST Findings: Mild diffuse reticulonodular pulmonary opacity. Heart size is normal. No acute fracture. IMPRESSION: Mild atypical pneumonia. This document has been electronically signed by: Aquilino Martinez MD on 08/13/2024 14:28:21
--- NOTE | ~2024-08-13 | CT_ITS ---
CLINICAL HISTORY: fall, +headstrike CT head without contrast Comparison: None provided Findings: No intra-axial mass, midline shift, hydrocephalus, or acute hemorrhage. 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 Mild cerebral atrophy. Low attenuation in the periventricular white matter consistent with chronic small-vessel ischemic gliosis. There is a right mucous retention cyst. Left maxillary sinus is nearly completely opacified and there is diffuse thickening of the lateral wall of the left maxillary sinus. Bubbly debris is present in the left sphenoid sinus. Mastoid air cells are clear. There has been previous right globe surgery. The right globe is hyperattenuating and there is diffuse calcification in the region of the posterior wall. There is a small left parietal scalp hematoma. No skull fracture. IMPRESSION: 1. No acute intracranial findings. 2. Chronic appearing findings in the right globe with calcification in the region of the retina and diffuse hyperattenuation of the globe. 3. Small left parietal scalp hematoma. 4. Bubbly debris in the left sphenoid sinus suggesting sinusitis. Near complete opacification of the left maxillary sinus with adjacent bony remodeling suggesting chronic sinusitis. This document has been electronically signed by: Maciej Ayoub MD on 08/13/2024 12:24:44
--- NOTE | ~2024-08-13 | XR_ITS ---
CLINICAL HISTORY: fall, pain 2 view left shoulder Comparison: None provided Findings: No fractures or dislocations. Periarticular osteophyte formation at the acromioclavicular and glenohumeral joints, indicating osteoarthritis. No erosions. No radiopaque foreign body. IMPRESSION: 1. No acute findings This document has been electronically signed by: Aquilino Martinez MD on 08/13/2024 14:28:48
--- NOTE | ~2024-08-13 | CT_ITS ---
CLINICAL HISTORY: fall, L neck pain CT cervical spine without contrast Comparison: None provided Findings: Multilevel degenerative change of the cervical spine. There is pannus formation around the tip of the dens. Craniocervical alignment is preserved. No acute fractures or dislocations. No acute findings on limited view of the intracranial contents. No prevertebral soft tissue swelling. No apical pneumothorax. IMPRESSION: No acute findings. This document has been electronically signed by: Maciej Ayoub MD on 08/13/2024 12:33:45
--- NOTE | ~2024-08-13 | CT_ITS ---
CLINICAL HISTORY: DKA, transaminitis, ?pancreatitis CT abdomen and pelvis with contrast Comparison: CT - CT ABDOMEN PELVIS W IV CON - 08/13/24 13:05 EDT Findings: Mild patchy bilateral lower lobe opacity. Small bilateral pleural effusions. Calcification of the coronary vasculature. Gallbladder is surgically absent. Multiple hypodense hepatic masses are present, largest of which is in the lateral segment left hepatic lobe measuring 42 mm. Multiple pancreatic masses are present, largest of which is an exophytic 58 mm diameter mass involving the pancreatic body/neck junction, which indents the distal gastric body. There is no evidence of associated pancreatic ductal dilatation. Solid organs are otherwise within normal limits. No bowel obstruction, pneumoperitoneum, or pneumatosis. Small amount of abdominal ascites is present. Aortocaval adenopathy measuring 13 mm short axis. Left para-aortic adenopathy measuring 9 mm short axis. Moderate pelvic ascites.Appendix is not definitively visualized. No acute fracture. Multilevel disc space narrowing and endplate osteophyte formation, as well as facet hypertrophy. Mild chronic T12 compression fracture. IMPRESSION: 1. Multiple hepatic and pancreatic masses, compatible with metastatic disease. 2. Small amount of ascites. Peritoneal carcinomatosis can not be excluded. 3. Retroperitoneal kaylee metastases. 4. Bibasilar pneumonia with small parapneumonic effusions. 5. Coronary artery disease. This document has been electronically signed by: Aquilino Martinez MD on 08/13/2024 14:53:27
--- NOTE | 2024-08-13 09:24 | ED.HEATRA ---
HPI - Head Injury General Chief complaint: Fall Stated complaint: FALL + HEAD STRIKE Time Seen by Provider: 08/13/24 09:49 Source: patient, family and EMS Mode of arrival: EMS Limitations: language barrier ([place]i-speaking stave and bolt equalizer utilized) History of Present Illness ED Provider: lisa chong np HPI Narrative: Patient is an 83-year-old female who presents emergency department via EMS for evaluation, there was a fall out of bed this morning witnessed by her son. Evidently she stood up to get out of bed and fell landing onto her left side. Endorsing left neck and left shoulder pain. No reported LOC, no use of anticoagulants. EMS reports that son states she has recently had a ?decline? in health since Wednesday. Week. [facility] was in the home recently to give IV fluids. Point of care glucose for EMS 422. When asked she denies any headache, vision changes, numbness or tingling to the arms or legs, dizziness, chest pain, shortness of breath, abdominal pain. Related Data Home Medications ?Medication ?Instructions ?Recorded ?Confirmed amlodipine 2.5 mg tablet 2.5 mg PO DAILY 07/11/24 07/11/24 aspirin 81 mg tablet,delayed 81 mg PO DAILY 07/11/24 07/11/24 release atorvastatin 20 mg tablet 20 mg PO DAILY 07/11/24 07/11/24 empagliflozin 25 mg tablet 25 mg PO DAILY 07/11/24 07/11/24 (Jardiance) insulin aspart U-100 100 unit/mL 12 unit subcut BID 07/11/24 07/11/24 (3 mL) subcutaneous pen (Novolog FlexPen U-100 Insulin aspart) insulin degludec 100 unit/mL (3 20 unit subcut BEDTIME 07/11/24 07/11/24 mL) subcutaneous pen (Tresiba FlexTouch U-100 insulin) irbesartan 300 mg tablet 300 mg PO DAILY 07/11/24 07/11/24 metformin 500 mg tablet 500 mg PO BID 07/11/24 07/11/24 Previous Rx's ?Medication ?Instructions ?Recorded azithromycin 250 mg tablet See Rx Instructions PO .COMPLEX #6 08/13/24 tabs cefpodoxime 200 mg tablet 200 mg PO BID #10 tabs 08/13/24 Allergies Allergy/AdvReac Type Severity Reaction Status Date / Time No Known Allergies (No Known Allergy Verified 08/13/24 09:34 Allergies*) Review of Systems Review of Systems: Yes all other systems are reviewed and are negative [facility] Past Medical History Attestation statement: The following information was validated with the patient. Source: old records reviewed Medical History High cholesterol Hypertension Diabetes mellitus Family History Family History (Updated 07/11/24 @ 10:06 by Erick Lopez MD) Mother No problems noted. Father No problems noted. Social History Social History Alcohol intake: former Smoked in Last 30 Days: No Use of substances other than those prescribed or required for medical reasons: No Advance Directives: No Advance Directives Information Provided: No Do you have a plan to hurt others: No Plan service: No Current occupational status: retired Physical Exam Vital Signs: Vital Signs: Last Vital Signs Temp 97.6 F 08/13/24 14:02 Pulse 86 08/13/24 14:02 Resp 19 08/13/24 14:02 BP 133/58 L 08/13/24 14:02 Pulse Ox 98 08/13/24 14:02 O2 Del Method Room Air 08/13/24 14:02 BMI result Body Mass Index 24.6 Appearance: Frail. Alert.?Oriented to person, place and time. No acute distress.?Normal affect. Head: Normocephalic Eyes: Pupils round and reactive to light on the left, right with corneal opacity. EOMI. Conjunctiva and sclera normal? no periorbital ecchymosis. ENT: No septal hematoma, nares patent bilaterally. External auditory canal normal tympanic membrane pearly anguiano and intact bilaterally. No fierro sign. No dentition present. No lesions or lacerations of oropharynx. Uvula midline. Moist mucous membranes. Neck: Normal inspection.? Neck supple.??No palpable tenderness, step-off, deformities. CVS: Heart sounds normal. Normal heart rate and rhythm.? Pulses normal.?? Respiratory: No respiratory distress.? Lung sounds clear to auscultation bilaterally?? Abdomen: Soft and non-tender. Normoactive bowel sounds. ?? Skin: Skin warm and dry.? Normal skin color.? Extremities: No lower extremity edema.? Decreased AROM to the left shoulder no obvious deformity. Full AROM to the elbow and wrist. Right upper extremity and bilateral lower extremities with full range of motion no deformities. Neuro: Moves all extremities spontaneously. Sensation intact bilaterally. CN II-XII intact. No focal neuro deficits. Course Reevaluation(s) Reevaluation #1: CBC is without leukocytosis however have a left shift, mild microcytic anemia with hemoglobin of 11.6, thrombocytopenia. No significant electrolyte derangement. No CRISTI., she findings concerning for DKA random glucose of 420 anion gap of 23 bicarb at 19, VBG with pH 7.28 pCO2 45 bicarb of 22, beta hydroxybutyrate 5.45. Transaminitis with LFTs higher than baseline T bili 2.3, direct bili 1.6, AST/ALT 123/118, alk-phos 75, lipase normal. High sensitive troponin of 20.2 ECG revealing normal sinus rhythm with a ventricular rate of 87, normal LOLA, QTC 459, no ST-elevation, no T-wave inversion suspect secondary to demand. Urinalysis positive for nitrites, trace urine bacteria, will cover with Rocephin, this time suspected, lactic acid and blood cultures. She will receive sepsis fluid bolus, will treat DKA with insulin regular 5 units IV. Sepsis alert has been called. Time: 11:03 Reevaluation #2: Chest x-ray diffuse reticulonodular opacity concerning for mild atypical pneumonia no pleural effusions no fractures. No fracture or dislocation to the left shoulder. Anion gap has closed, glucose 332, pH has normalized. CT of the abdomen and pelvis revealing multiple hepatic (largest 44 mm) masses and pancreatic (largest exophytic 58 mm involving the pancreatic body/neck junction without ductal dilation) masses compatible with metastatic disease, small amount of ascites with peritoneal carcinomatosis not excluded, retroperitoneal kaylee metastasis, mild patchy bibasilar pneumonia, small bilateral pleural effusions Time: 15:06 Reevaluation #3: I had an at length conversation with the patient and patient's son Bradford with use of quality assurance supervisor trim. Reviewed workup findings today. Expressed concern for malignancy based on the multiple masses that are found in imaging today. Does admit that she has had a decreased appetite for quite some time as well as weight loss however she was taking Mounjaro for her diabetes, he stopped giving her this about 1 month ago. Reviewed treatment for pneumonia with course of antibiotics possibly a urinary tract infection. He expresses that he would like to take her home today he feels comfortable in taking care of her at home. She has been eating and drinking less but is still managing oral intake. She has no respiratory distress. I suspect that the transaminitis is rather secondary to suspected malignancy rather than organ dysfunction secondary to sepsis she has no leukocytosis. Time: 16:05 Medications Administered Discontinued Medications Generic Name Dose Route Start Last Admin Trade Name Laurita PRN Reason Stop Dose Admin Acetaminophen 975 mg 08/13/24 09:34 08/13/24 10:09 Acetaminophen 325 Mg Tablet PO 08/13/24 09:35 975 mg ONCE ONE Administration Ceftriaxone Sodium 1 gm 08/13/24 10:58 08/13/24 11:35 Ceftriaxone Sodium 1 Gm Vial IVPUSH 08/13/24 10:59 1 gm ONCE ONE Administration Sodium Chloride 1,770 mls @ 1,770 mls/hr 08/13/24 11:03 08/13/24 13:29 Ns 30 ml/kg infuse over 1 hr (1770 ml) 08/13/24 12:02 Infused IV Infusion .Q1H STA Insulin Human Regular 5 unit 08/13/24 10:58 08/13/24 11:39 Insulin Regular, Human 100 Unit/Ml 10 Ml Vial IVPUSH 08/13/24 10:59 5 unit ONCE ONE Administration Iohexol 100 ml 08/13/24 13:35 08/13/24 13:36 Iohexol 350 Mg/Ml 100 Ml Infus..Btl IV 08/13/24 13:36 85 ml ONCE ONE Administration Medical Decision Making Medical Decision Making MDM Narrative: Patient is an 83-year-old female with past medical history of hypertension, hypercholesterolemia, diabetes who presents emergency department via EMS for evaluation after a fall as per HPI witnessed by her son with no reported LOC. No use of anticoagulants or known coagulation disorders. Patient with endorsement of left lateral neck pain and left shoulder pain. Although patient is alert and oriented on questioning, she is a vague historian, unable to determine if there were any precipitating factors leading to the fall. Per patient's son she has been increasingly weak over the past 5 days. She was hyperglycemic for EMS. Will obtain CBC to evaluate for leukocytosis/ anemia, CMP and lipase to evaluate for abnormal electrolytes /abnormal renal function/ abnormal hepatic/biliary function, EKG and troponin to evaluate for ischemia/ACS. Chest x-ray to evaluate for consolidation/ infiltrate/ mass/ pulmonary congestion and Urinalysis. Given hyperglycemia will obtain venous blood gas, beta hydroxybutyrate, POC glucose. CT of the head and cervical spine to exclude ICH, SDH, skull fracture, cervical spine fracture or subluxation in addition to XR of the left shoulder to exclude fracture/dislocation. Differential Diagnosis Differential Diagnoses: The differential diagnosis associated with the presentation includes (See narrative above) Admission/Observation Consideration of admission/observation: Escalation of care including admission/observation considered (See narrative above) Lab Data MDM Lab Attestation statement: I reviewed the patient's lab results. 08/13/24 09:53 08/13/24 13:47 Labs: Lab Results 08/13/24 08/13/24 08/13/24 Range/Units 09:42 09:52 09:53 WBC 8.5 (4.8-10.8) X10*3/uL RBC 4.31 (4.20-5.50) X10*6/uL Hgb 11.6 L (12.0-16.0) g/dl Hct 37.9 (37.0-47.0) % MCV 87.9 (80.0-98.0) fL MCH 26.9 L (27.0-33.0) pg MCHC 30.6 L (31.0-35.0) g/dl RDW 15.6 (11.0-16.0) % Plt Count 332 (160-400) X10*3/uL MPV 9.4 (9.4-12.3) fL Immature Gran % (Auto) 1.2 H (0.0-0.4) % Neut % (Auto) 80.6 H (45-73) % Lymph % (Auto) 10.4 L (20-40) % Mitchell % (Auto) 6.9 (2-11) % Eos % (Auto) 0.4 (0-4) % Baso % (Auto) 0.5 (0-2) % Lymph # (Auto) 0.9 L (1.2-4.9) X10*3/uL Mitchell # (Auto) 0.6 (0.1-1.2) X10*3/uL Eos # (Auto) 0.0 (0.0-0.4) X10*3/uL Baso # (Auto) 0.0 (0.0-0.2) X10*3/uL Abs Immat Gran (auto) 0.10 H (0.00-0.03) X10*3/uL Absolute Neuts (auto) 6.8 (2.0-8.3) x10*3/uL Absolute Nucleated RBC 0.000 (0.0-0.012) X10*3/uL Nucleated RBC % (auto) 0.0 (0.0-0.2) /100WBC PT 11.6 (10.9-12.4) SEC INR 1.0 (0.9-1.1) VBG pH (7.32-7.43) VBG pCO2 mmHg VBG pO2 mmHg VBG HCO3 (22-26) mmol/L VBG O2 Saturation % VBG Base Excess mmol/L Sodium 137 (135-145) mmol/L Potassium 5.1 (3.3-5.1) mmol/L Chloride 100 (96-108) mmol/L Carbon Dioxide 19 L (22-29) mmol/L Anion Gap 23 H (12-20) BUN 32 H (9-16) mg/dL Creatinine 1.00 (0.5-1.4) mg/dL Estim Creat Clear Calc 36.4 Estimated GFR 53 POC Glucose (60-115) mg/dL Random Glucose 420 H* (60-115) mg/dL Lactic Acid (0.5-2.0) mmol/L Calcium 10.1 (8.4-10.2) mg/dL Magnesium 2.0 (1.6-2.6) mg/dL Total Bilirubin 2.3 H (0.0-1.0) mg/dL Direct Bilirubin 1.6 H (0.0-0.5) mg/dL AST 122 H (5-31) U/L ALT 118 H (0-31) U/L Alkaline Phosphatase 785 H (39-117) U/L Troponin I High Sens 20.2 H D (<3.5-17.0) ng/L B-Natriuretic Peptide 289 H (<100) pg/mL Total Protein 8.0 (6.5-8.0) g/dL Albumin 3.7 (3.5-5.0) g/dL Lipase 9 (8-78) U/L Beta-Hydroxybutyrate 5.45 H (0.02-0.27) mmol/L Urine Color Urine Appearance Urine pH (5.0-9.0) Ur Specific [place] (1.005-1.025) Urine Protein (Neg-Trace) mg/dL Urine Glucose (UA) (Negative) mg/dL Urine Ketones (Negative) mg/dL Urine Blood (Negative) Urine Nitrite (Negative) Ur Leukocyte Esterase (Negative) Urine RBC (0-2) /HPF Urine WBC (0-5) /HPF Ur Squamous Epith Cells (0-2) /HPF Urine Bacteria (None Seen) Hyaline Casts (0-2) /LPF Influenza Type A (PCR) NEGATIVE (Negative) Influenza Type B (PCR) NEGATIVE (Negative) RSV RNA Qual (PCR) NEGATIVE (Negative) SARS-CoV-2 RNA (RT-PCR) NEGATIVE (Negative) 08/13/24 08/13/24 08/13/24 Range/Units 09:58 10:04 10:07 WBC (4.8-10.8) X10*3/uL RBC (4.20-5.50) X10*6/uL Hgb (12.0-16.0) g/dl Hct (37.0-47.0) % MCV (80.0-98.0) fL MCH (27.0-33.0) pg MCHC (31.0-35.0) g/dl RDW (11.0-16.0) % Plt Count (160-400) X10*3/uL MPV (9.4-12.3) fL Immature Gran % (Auto) (0.0-0.4) % Neut % (Auto) (45-73) % Lymph % (Auto) (20-40) % Mitchell % (Auto) (2-11) % Eos % (Auto) (0-4) % Baso % (Auto) (0-2) % Lymph # (Auto) (1.2-4.9) X10*3/uL Mitchell # (Auto) (0.1-1.2) X10*3/uL Eos # (Auto) (0.0-0.4) X10*3/uL Baso # (Auto) (0.0-0.2) X10*3/uL Abs Immat Gran (auto) (0.00-0.03) X10*3/uL Absolute Neuts (auto) (2.0-8.3) x10*3/uL Absolute Nucleated RBC (0.0-0.012) X10*3/uL Nucleated RBC % (auto) (0.0-0.2) /100WBC PT (10.9-12.4) SEC INR (0.9-1.1) VBG pH 7.28 L (7.32-7.43) VBG pCO2 45 mmHg VBG pO2 43 mmHg VBG HCO3 22 (22-26) mmol/L VBG O2 Saturation 54.0 % VBG Base Excess -4.7 mmol/L Sodium (135-145) mmol/L Potassium (3.3-5.1) mmol/L Chloride (96-108) mmol/L Carbon Dioxide (22-29) mmol/L Anion Gap (12-20) BUN (9-16) mg/dL Creatinine (0.5-1.4) mg/dL Estim Creat Clear Calc Estimated GFR POC Glucose 383 H* (60-115) mg/dL Random Glucose (60-115) mg/dL Lactic Acid (0.5-2.0) mmol/L Calcium (8.4-10.2) mg/dL Magnesium (1.6-2.6) mg/dL Total Bilirubin (0.0-1.0) mg/dL Direct Bilirubin (0.0-0.5) mg/dL AST (5-31) U/L ALT (0-31) U/L Alkaline Phosphatase (39-117) U/L Troponin I High Sens (<3.5-17.0) ng/L B-Natriuretic Peptide (<100) pg/mL Total Protein (6.5-8.0) g/dL Albumin (3.5-5.0) g/dL Lipase (8-78) U/L Beta-Hydroxybutyrate (0.02-0.27) mmol/L Urine Color Dark Yellow Urine Appearance Clear Urine pH 5.5 (5.0-9.0) Ur Specific [place] >= 1.030 H (1.005-1.025) Urine Protein 100 (2+) H (Neg-Trace) mg/dL Urine Glucose (UA) >=1000 H (Negative) mg/dL Urine Ketones 80 (Negative) mg/dL Urine Blood Trace H (Negative) Urine Nitrite Positive H (Negative) Ur Leukocyte Esterase Negative (Negative) Urine RBC 0-2 (0-2) /HPF Urine WBC 0-5 (0-5) /HPF Ur Squamous Epith Cells 0-2 (0-2) /HPF Urine Bacteria Trace (None Seen) Hyaline Casts 0-2 (0-2) /LPF Influenza Type A (PCR) (Negative) Influenza Type B (PCR) (Negative) RSV RNA Qual (PCR) (Negative) SARS-CoV-2 RNA (RT-PCR) (Negative) 08/13/24 08/13/24 08/13/24 Range/Units 11:29 11:37 11:48 WBC (4.8-10.8) X10*3/uL RBC (4.20-5.50) X10*6/uL Hgb (12.0-16.0) g/dl Hct (37.0-47.0) % MCV (80.0-98.0) fL MCH (27.0-33.0) pg MCHC (31.0-35.0) g/dl RDW (11.0-16.0) % Plt Count (160-400) X10*3/uL MPV (9.4-12.3) fL Immature Gran % (Auto) (0.0-0.4) % Neut % (Auto) (45-73) % Lymph % (Auto) (20-40) % Mitchell % (Auto) (2-11) % Eos % (Auto) (0-4) % Baso % (Auto) (0-2) % Lymph # (Auto) (1.2-4.9) X10*3/uL Mitchell # (Auto) (0.1-1.2) X10*3/uL Eos # (Auto) (0.0-0.4) X10*3/uL Baso # (Auto) (0.0-0.2) X10*3/uL Abs Immat Gran (auto) (0.00-0.03) X10*3/uL Absolute Neuts (auto) (2.0-8.3) x10*3/uL Absolute Nucleated RBC (0.0-0.012) X10*3/uL Nucleated RBC % (auto) (0.0-0.2) /100WBC PT (10.9-12.4) SEC INR (0.9-1.1) VBG pH 7.31 L (7.32-7.43) VBG pCO2 37 mmHg VBG pO2 58 mmHg VBG HCO3 18 L (22-26) mmol/L VBG O2 Saturation 82.0 % VBG Base Excess -6.5 mmol/L Sodium 138 (135-145) mmol/L Potassium 4.8 (3.3-5.1) mmol/L Chloride 102 (96-108) mmol/L Carbon Dioxide 18 L (22-29) mmol/L Anion Gap 23 H (12-20) BUN 32 H (9-16) mg/dL Creatinine 0.92 (0.5-1.4) mg/dL Estim Creat Clear Calc 39.5 Estimated GFR 59 POC Glucose 367 H* (60-115) mg/dL Random Glucose 408 H* (60-115) mg/dL Lactic Acid 1.8 (0.5-2.0) mmol/L Calcium 9.8 (8.4-10.2) mg/dL Magnesium (1.6-2.6) mg/dL Total Bilirubin (0.0-1.0) mg/dL Direct Bilirubin (0.0-0.5) mg/dL AST (5-31) U/L ALT (0-31) U/L Alkaline Phosphatase (39-117) U/L Troponin I High Sens 16.7 (<3.5-17.0) ng/L B-Natriuretic Peptide (<100) pg/mL Total Protein (6.5-8.0) g/dL Albumin (3.5-5.0) g/dL Lipase (8-78) U/L Beta-Hydroxybutyrate (0.02-0.27) mmol/L Urine Color Urine Appearance Urine pH (5.0-9.0) Ur Specific [place] (1.005-1.025) Urine Protein (Neg-Trace) mg/dL Urine Glucose (UA) (Negative) mg/dL Urine Ketones (Negative) mg/dL Urine Blood (Negative) Urine Nitrite (Negative) Ur Leukocyte Esterase (Negative) Urine RBC (0-2) /HPF Urine WBC (0-5) /HPF Ur Squamous Epith Cells (0-2) /HPF Urine Bacteria (None Seen) Hyaline Casts (0-2) /LPF Influenza Type A (PCR) (Negative) Influenza Type B (PCR) (Negative) RSV RNA Qual (PCR) (Negative) SARS-CoV-2 RNA (RT-PCR) (Negative) 08/13/24 08/13/24 08/13/24 Range/Units 12:56 13:47 13:55 WBC (4.8-10.8) X10*3/uL RBC (4.20-5.50) X10*6/uL Hgb (12.0-16.0) g/dl Hct (37.0-47.0) % MCV (80.0-98.0) fL MCH (27.0-33.0) pg MCHC (31.0-35.0) g/dl RDW (11.0-16.0) % Plt Count (160-400) X10*3/uL MPV (9.4-12.3) fL Immature Gran % (Auto) (0.0-0.4) % Neut % (Auto) (45-73) % Lymph % (Auto) (20-40) % Mitchell % (Auto) (2-11) % Eos % (Auto) (0-4) % Baso % (Auto) (0-2) % Lymph # (Auto) (1.2-4.9) X10*3/uL Mitchell # (Auto) (0.1-1.2) X10*3/uL Eos # (Auto) (0.0-0.4) X10*3/uL Baso # (Auto) (0.0-0.2) X10*3/uL Abs Immat Gran (auto) (0.00-0.03) X10*3/uL Absolute Neuts (auto) (2.0-8.3) x10*3/uL Absolute Nucleated RBC (0.0-0.012) X10*3/uL Nucleated RBC % (auto) (0.0-0.2) /100WBC PT (10.9-12.4) SEC INR (0.9-1.1) VBG pH 7.32 (7.32-7.43) VBG pCO2 30 mmHg VBG pO2 75 mmHg VBG HCO3 16 L (22-26) mmol/L VBG O2 Saturation 94.0 % VBG Base Excess -8.3 mmol/L Sodium 138 (135-145) mmol/L Potassium 4.4 (3.3-5.1) mmol/L Chloride 106 (96-108) mmol/L Carbon Dioxide 18 L (22-29) mmol/L Anion Gap 18 (12-20) BUN 29 H (9-16) mg/dL Creatinine 0.80 (0.5-1.4) mg/dL Estim Creat Clear Calc 45.5 Estimated GFR > 60 POC Glucose 291 H (60-115) mg/dL Random Glucose 332 H (60-115) mg/dL Lactic Acid (0.5-2.0) mmol/L Calcium 9.1 D (8.4-10.2) mg/dL Magnesium (1.6-2.6) mg/dL Total Bilirubin (0.0-1.0) mg/dL Direct Bilirubin (0.0-0.5) mg/dL AST (5-31) U/L ALT (0-31) U/L Alkaline Phosphatase (39-117) U/L Troponin I High Sens (<3.5-17.0) ng/L B-Natriuretic Peptide (<100) pg/mL Total Protein (6.5-8.0) g/dL Albumin (3.5-5.0) g/dL Lipase (8-78) U/L Beta-Hydroxybutyrate (0.02-0.27) mmol/L Urine Color Urine Appearance Urine pH (5.0-9.0) Ur Specific [place] (1.005-1.025) Urine Protein (Neg-Trace) mg/dL Urine Glucose (UA) (Negative) mg/dL Urine Ketones (Negative) mg/dL Urine Blood (Negative) Urine Nitrite (Negative) Ur Leukocyte Esterase (Negative) Urine RBC (0-2) /HPF Urine WBC (0-5) /HPF Ur Squamous Epith Cells (0-2) /HPF Urine Bacteria (None Seen) Hyaline Casts (0-2) /LPF Influenza Type A (PCR) (Negative) Influenza Type B (PCR) (Negative) RSV RNA Qual (PCR) (Negative) SARS-CoV-2 RNA (RT-PCR) (Negative) Independent Interpretation I performed an independent interpretation of an: Plain X-Ray (See course narrative) and CT Scan (No ICH, no SDH, no skull fracture) Radiology Impression Discussion of test interpretation with radiology: I have reviewed the radiologist's reading. Radiologist Impression: CT cervical spine without contrast Comparison: None provided Findings: Multilevel degenerative change of the cervical spine. There is pannus formation around the tip of the dens. Craniocervical alignment is preserved. No acute fractures or dislocations. No acute findings on limited view of the intracranial contents. No prevertebral soft tissue swelling. No apical pneumothorax. IMPRESSION: No acute findings. CT head without contrast Comparison: None provided Findings: No intra-axial mass, midline shift, hydrocephalus, or acute hemorrhage. 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 Mild cerebral atrophy. Low attenuation in the periventricular white matter consistent with chronic small-vessel ischemic gliosis. There is a right mucous retention cyst. Left maxillary sinus is nearly completely opacified and there is diffuse thickening of the lateral wall of the left maxillary sinus. Bubbly debris is present in the left sphenoid sinus. Mastoid air cells are clear. There has been previous right globe surgery. The right globe is hyperattenuating and there is diffuse calcification in the region of the posterior wall. There is a small left parietal scalp hematoma. No skull fracture. IMPRESSION: 1. No acute intracranial findings. 2. Chronic appearing findings in the right globe with calcification in the region of the retina and diffuse hyperattenuation of the globe. 3. Small left parietal scalp hematoma. 4. Bubbly debris in the left sphenoid sinus suggesting sinusitis. Near complete opacification of the left maxillary sinus with adjacent bony remodeling suggesting chronic sinusitis. 1 view chest x-ray Comparison: CR/SR - XR CHEST 2V - 06/30/24 12:56 EDT CR/SR - XR CHEST 2V - 01/10/24 16:53 EST Findings: Mild diffuse reticulonodular pulmonary opacity. Heart size is normal. No acute fracture. IMPRESSION: Mild atypical pneumonia. 2 view left shoulder Comparison: None provided Findings: No fractures or dislocations. Periarticular osteophyte formation at the acromioclavicular and glenohumeral joints, indicating osteoarthritis. No erosions. No radiopaque foreign body. IMPRESSION: 1. No acute findings CT abdomen and pelvis with contrast Comparison: CT - CT ABDOMEN PELVIS W IV CON - 08/13/24 13:05 EDT Findings: Mild patchy bilateral lower lobe opacity. Small bilateral pleural effusions. Calcification of the coronary vasculature. Gallbladder is surgically absent. Multiple hypodense hepatic masses are present, largest of which is in the lateral segment left hepatic lobe measuring 42 mm. Multiple pancreatic masses are present, largest of which is an exophytic 58 mm diameter mass involving the pancreatic body/neck junction, which indents the distal gastric body. There is no evidence of associated pancreatic ductal dilatation. Solid organs are otherwise within normal limits. No bowel obstruction, pneumoperitoneum, or pneumatosis. Small amount of abdominal ascites is present. Aortocaval adenopathy measuring 13 mm short axis. Left para-aortic adenopathy measuring 9 mm short axis. Moderate pelvic ascites.Appendix is not definitively visualized. No acute fracture. Multilevel disc space narrowing and endplate osteophyte formation, as well as facet hypertrophy. Mild chronic T12 compression fracture. IMPRESSION: 1. Multiple hepatic and pancreatic masses, compatible with metastatic disease. 2. Small amount of ascites. Peritoneal carcinomatosis can not be excluded. 3. Retroperitoneal kaylee metastases. 4. Bibasilar pneumonia with small parapneumonic effusions. 5. Coronary artery disease. Independent Historian Clinical information obtained from an independent historian. History obtained from or confirmed by: EMS and Other (Son) External Record Review External record reviewed: Outpatient record Chronic Conditions Patient?s care impacted by: Other (See narrative above) Critical Care Time Critical Care Time Critical Care Time: Yes Total Critical Care Time: 60 Attestation: Time is exclusive of separately billable procedures. Time includes: direct patient care, patient reassessment, coordination of patient care, interpretation of data (laboratory data, pulse oximetry, blood gases and chest xrays, CT imaging, DKA management), review of patient's medical records, medical consultation and documentation of patient care. Procedures excluded from critical care time: central intravenous line placement and electrocardiography. Discharge Plan Discharge Clinical Impression: Pancreatic mass, Liver mass, Pneumonia, Acute UTI Instructions: Community Acquired Pneumonia (ED), Urinary Tract Infection in Older Adults (ED) Additional Instructions: As discussed, today her blood sugar levels were bit elevated when she came in showing signs of DKA, however we were able to give her medication in this was quickly improved. Workup shows that she has bilateral lower lobe pneumonia, and findings concerning for urinary tract infection. For this antibiotics are being sent to the pharmacy please complete the entire course do not skip any doses even if she appears to be feeling better. A CT of her abdomen and pelvis was performed as her liver function tests were elevated, suspecting that she may have pancreatitis in the setting of her elevated blood sugars. Unfortunately, she was found to have multiple masses in her liver and her pancreas concerning for malignancy/cancer. As discussed, there is additional testing that is required to give a definitive diagnosis. I am giving you contact information for the oncology office that is associated with our hospital; Dr. Mendez, please be certain that you are calling the office 1st thing tomorrow morning to arrange for an outpatient appointment. If you have any concern about new or worsening symptoms you can bring her back to emergency department for evaluation. If she is not tolerating oral intake/eating or drinking, is having persistently elevated blood sugar levels, fevers, chills, nausea with persistent vomiting, recurrent falls please bring her back for evaluation. Prescriptions: New cefpodoxime 200 mg tablet 200 mg PO BID Qty: 10 0RF Rx Instructions: must administer with a meal/food azithromycin 250 mg tablet See Rx Instructions .ROUTE .COMPLEX Qty: 6 0RF Rx Instructions: For 250 mg dose pack: take 500 mg today (day 1), then 250 mg for 4 days (days 2-5) No Action aspirin 81 mg tablet,delayed release (DR/EC) 81 mg PO DAILY atorvastatin 20 mg tablet 20 mg PO DAILY irbesartan 300 mg tablet 300 mg PO DAILY metformin 500 mg tablet 500 mg PO BID amlodipine 2.5 mg tablet 2.5 mg PO DAILY Jardiance 25 mg tablet 25 mg PO DAILY insulin degludec [Tresiba FlexTouch U-100] 100 unit/mL (3 mL) insulin pen 20 unit subcut BEDTIME insulin aspart U-100 [Novolog FlexPen U-100 Insulin] 100 unit/mL (3 mL) insulin pen 12 unit subcut BID Rx Instructions: 12 units Lunch and supper Referrals: Name,MD Anastacio [Primary Care Provider, Internal Medicine] Andrea (PAGE)Araceli MD [Physician, Hematology & Oncology] Clinical Impression: Pancreatic mass; Liver mass Print Language: Bahraini
--- NOTE | 2024-08-13 09:34 | ECG_ITS ---
Test Reason : WEAKNESS / FALL Blood Pressure : */* mmHG Vent. Rate : 87 BPM Atrial Rate : 87 BPM P-R Int : 132 ms QRS Dur : 84 ms QT Int : 382 ms P-R-T Axes : 36 15 63 degrees QTcB Int : 459 ms Normal sinus rhythm Normal ECG When compared with ECG of 10-Jan-2024 16:10, Criteria for Septal infarct are no longer Present Referred By: Zaira Whitney Electronically Signed By: MINOO COLEMAN MD
[2024-08-13 09:57] LABS: MANUAL DIFF FLAG NO
[2024-08-13 09:59] LABS: Basophils Percent Auto 0.5 % (0-2); Eosinophils Percent Auto 0.4 % (0-4); Hematocrit 37.9 % (37.0-47.0); Hemoglobin 11.6 g/dl (12.0-16.0); Imm Gran Pct Auto 1.2 % (0.0-0.4); Lymphocytes Absolute Auto 0.9 X10*3/uL (1.2-4.9); Lymphocytes Percent Auto 10.4 % (20-40); Mean Corpuscular HGB Conc 30.6 g/dl (31.0-35.0); Mean Corpuscular Hemoglobin 26.9 pg (27.0-33.0); Mean Corpuscular Volume 87.9 fL (80.0-98.0); Mean Platelet Volume 9.4 fL (9.4-12.3); Monocytes Absolute Auto 0.6 X10*3/uL (0.1-1.2); Monocytes Percent Auto 6.9 % (2-11); Neutrophils Absolute Auto 6.8 x10*3/uL (2.0-8.3); Neutrophils Percent Auto 80.6 % (45-73); Platelet Count 332 X10*3/uL (160-400); Red Blood Count 4.31 X10*6/uL (4.20-5.50); Red Cell Distribution Width 15.6 % (11.0-16.0); White Blood Count 8.5 X10*3/uL (4.8-10.8)
[2024-08-13 10:01] LABS: Venous Blood Gas Refer to POC result
[2024-08-13 10:02] LABS: VBG Base Excess -4.7 mmol/L; VBG HCO3 22 mmol/L (22-26); VBG pCO2 45 mmHg; VBG pH 7.28 (7.32-7.43); VBG pO2 43 mmHg
[2024-08-13] MEDS: Acetaminophen 325 MG TABLET 975 MG PO (10:09)
[2024-08-13 10:11] LABS: Prothrombin Time 11.6 SEC (10.9-12.4)
[2024-08-13 10:11] LABS: Glucose, Whole Blood 383 mg/dL (60-115)
[2024-08-13 10:12] LABS: Appearance Urine Clear; Color Urine Dark Yellow; Glucose Urine UA >=1000 mg/dL (Negative); Leukocyte Esterase Urine Negative (Negative); Nitrite Urine Positive (Negative); PH 5.5 (5.0-9.0); Specific Gravity - Urine >= 1.030 (1.005-1.025); UMIC TRIGGER UACC YES; Urine Blood Trace (Negative); Urine Ketones 80 mg/dL (Negative); Urine Protein 100 (2+) mg/dL (Neg-Trace)
[2024-08-13 10:17] LABS: B Type Natriuretic Peptide 289 pg/mL (<100); Troponin-I High Sensitivity 20.2 ng/L (<3.5-17.0)
[2024-08-13 10:29] LABS: Bacteria Urine Trace (None Seen); Hyaline Casts Urine 0-2 /LPF (0-2); RBC Urine 0-2 /HPF (0-2); Squamous Epithelial Cell Urine 0-2 /HPF (0-2); UACC Culture Trigger YES; WBC Urine 0-5 /HPF (0-5)
[2024-08-13 10:41] LABS: Alanine Aminotransferase 118 U/L (0-31); Albumin Level 3.7 g/dL (3.5-5.0); Alkaline Phosphatase 785 U/L (39-117); Anion Gap 23 (12-20); Aspartate Amino Transferase 122 U/L (5-31); Beta-Hydroxybutyrate 5.45 mmol/L (0.02-0.27); Bilirubin Total 2.3 mg/dL (0.0-1.0); Blood Urea Nitrogen 32 mg/dL (9-16); Calcium 10.1 mg/dL (8.4-10.2); Carbon Dioxide 19 mmol/L (22-29); Chloride 100 mmol/L (96-108); Creatinine Clr Calc Pharmacy 36.4; Estimated Glomerular Filt Rate 53; Glucose Random 420 mg/dL (60-115); Potassium 5.1 mmol/L (3.3-5.1); Sodium 137 mmol/L (135-145)
[2024-08-13 10:55] LABS: Influenza A PCR NEGATIVE (Negative); Influenza B PCR NEGATIVE (Negative); Resp Syncy Virus RNA Qual PCR NEGATIVE (Negative); SARS COV2 PCR INHOUSE NEGATIVE (Negative)
[2024-08-13 11:15] LABS: Bilirubin Direct 1.6 mg/dL (0.0-0.5); Lipase 9 U/L (8-78)
[2024-08-13] MEDS: cefTRIAXone sodium 1 GM VIAL IVPUSH (11:35)
[2024-08-13] MEDS: SODIUM CHLORIDE 1770 ML IV (11:36)
[2024-08-13] MEDS: Insulin Regular, Human 100 UNIT/ML 10 ML VIAL IVPUSH (11:39)
[2024-08-13 11:43] LABS: Glucose, Whole Blood 367 mg/dL (60-115)
--- NOTE | 2024-08-13 11:43 | PC.NURSE ---
Patient difficult stick- tech unable to obtain cultures. Second IV line placed with 1st set of blood cultures obtained and IV abt given. 2nd set of cultures obtained by tech.
[2024-08-13 11:51] LABS: VBG Base Excess -6.5 mmol/L; VBG HCO3 18 mmol/L (22-26); VBG pCO2 37 mmHg; VBG pH 7.31 (7.32-7.43); VBG pO2 58 mmHg
[2024-08-13 11:54] LABS: Venous Blood Gas Refer to POC result
[2024-08-13 12:00] LABS: Lactic Acid 1.8 mmol/L (0.5-2.0)
[2024-08-13 12:05] LABS: Anion Gap 23 (12-20); Blood Urea Nitrogen 32 mg/dL (9-16); Calcium 9.8 mg/dL (8.4-10.2); Carbon Dioxide 18 mmol/L (22-29); Chloride 102 mmol/L (96-108); Creatinine Clr Calc Pharmacy 39.5; Estimated Glomerular Filt Rate 59; Glucose Random 408 mg/dL (60-115); Potassium 4.8 mmol/L (3.3-5.1); Sodium 138 mmol/L (135-145)
[2024-08-13 12:07] LABS: Troponin-I High Sensitivity 16.7 ng/L (<3.5-17.0)
[2024-08-13 13:01] LABS: Glucose, Whole Blood 291 mg/dL (60-115)
[2024-08-13] MEDS: iohexoL 350 MG/ML 100 ML INFUS..BTL IV (13:36)
[2024-08-13 14:01] LABS: VBG Base Excess -8.3 mmol/L; VBG HCO3 16 mmol/L (22-26); VBG pCO2 30 mmHg; VBG pH 7.32 (7.32-7.43); VBG pO2 75 mmHg
[2024-08-13 14:01] LABS: Venous Blood Gas Refer to POC result
[2024-08-13 14:06] LABS: Anion Gap 18 (12-20); Blood Urea Nitrogen 29 mg/dL (9-16); Calcium 9.1 mg/dL (8.4-10.2); Carbon Dioxide 18 mmol/L (22-29); Chloride 106 mmol/L (96-108); Creatinine Clr Calc Pharmacy 45.5; Estimated Glomerular Filt Rate > 60; Glucose Random 332 mg/dL (60-115); Potassium 4.4 mmol/L (3.3-5.1); Sodium 138 mmol/L (135-145)
== END 2024-08-13 16:49 | disposition home or self-care (01) ==
PROVIDERS: Nurse Practitioner Family; Emergency Provider Emergency Medicine; PCP Internal Medicine Geriatric Medicine
DX: J18.9 Pneumonia, unspecified organism (principal); N39.0 Urinary tract infection, site not specified; K86.9 Disease of pancreas, unspecified; K76.9 Liver disease, unspecified; M54.2 Cervicalgia; R51.9 Headache, unspecified; R10.2 Pelvic and perineal pain; E11.9 Type 2 diabetes mellitus without complications; M25.512 Pain in left shoulder; R11.0 Nausea; Z03.818 Encounter for observation for suspected exposure to other biological agents ruled out; Z79.899 Other long term (current) drug therapy; Z79.4 Long term (current) use of insulin
CPT/HCPCS: 0241U; 36415; 70450; 71045; 72125; 73030; 74177; 80048; 80053; 81001; 82010; 82248; 82803; 82947; 83605; 83690; 83735; 83880; 84484; 85025; 85610; 87040; 87086; 87088; 87186; 93005; 96361; 96374; 96375; 99285; J0696; Q9967

== ENCOUNTER → 2024-08-13 09:34 | Outpatient (BNV) | payer OTHER, SELFPAY | PROVIDERS: Emergency Provider Emergency Medicine; PCP Internal Medicine Geriatric Medicine; Visit Provider Radiology Diagnostic Radiology | DX: R18.8 Other ascites (principal); M50.30 Other cervical disc degeneration, unspecified cervical region; R22.0 Localized swelling, mass and lump, head; M19.012 Primary osteoarthritis, left shoulder; J84.9 Interstitial pulmonary disease, unspecified | CPT/HCPCS: 70450; 71045; 72125; 73030; 74177 ==

== ENCOUNTER → 2024-08-13 09:34 | Outpatient (BNV) | payer OTHER, SELFPAY | PROVIDERS: Emergency Provider Emergency Medicine; PCP Internal Medicine Geriatric Medicine; Visit Provider Internal Medicine Cardiovascular Disease | DX: R53.1 Weakness (principal); W19.XXXA Unspecified fall, initial encounter | CPT/HCPCS: 93010 ==

== ENCOUNTER 2024-08-15 10:54 | Inpatient (IN) | payer OTHER, SELFPAY ==
--- NOTE | ~2024-08-15 | CT_ITS ---
EXAMINATION: CT HEAD WITHOUT CONTRAST CLINICAL INFORMATION: Altered mental status COMPARISON: August 13, 2024, 2 days ago TECHNIQUE: Contiguous axial imaging was performed from the skull base to vertex without intravenous administration of contrast. This CT examination was performed using dose optimization techniques as appropriate, variously including the following: *Automated exposure control *Adjustment of mA and/or kV according to patient size (this includes techniques or standardized protocols for targeted exams where dose is matched to indication/reason for exam; i.e. extremities or head) *Use of iterative reconstruction technique DLP: 688 mGY*cm FINDINGS: There is no acute ischemic change. There is no intracranial hemorrhage. There is no mass-effect or midline shift. There is mild generalized atrophy and periventricular white matter density, more in the frontal lobes. Chronic focal CSF density is seen just lateral to the caudate nucleus on the right. No change. Basal cisterns and ventricles are within normal limits for age/cerebral volume. There is chronic high density of the right globe with calcification on the deep surface of the limbs and posterior retina. There is chronic near opacification of the left maxillary sinus and partial opacification in the floor of the right maxillary sinus and stable bubbly density partially opacifying the left sphenoid sinus. There are no bony abnormalities. CT/CT head/brain wo IV con IMPRESSION: No acute intracranial abnormality. 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 Electronically signed by: Micheal Horn MD 08/15/2024 01:22 PM EDT
[2024-08-15 11:02] VITALS: BP 155/76; PULSE 87; RESP 16; TEMP 37; O2SAT 97; BMI 23.6
[2024-08-15 11:26] LABS: MANUAL DIFF FLAG NO
[2024-08-15 11:27] LABS: Hematocrit 38.7 % (37.0-47.0); Hemoglobin 12.5 g/dl (12.0-16.0); Imm Gran Abs Auto 0.18 X10*3/uL (0.00-0.03); Imm Gran Pct Auto 1.6 % (0.0-0.4); Lymphocytes Absolute Auto 1.1 X10*3/uL (1.2-4.9); Mean Corpuscular HGB Conc 32.3 g/dl (31.0-35.0); Mean Corpuscular Hemoglobin 27.4 pg (27.0-33.0); Mean Corpuscular Volume 84.9 fL (80.0-98.0); NRBC Abs Auto 0.000 X10*3/uL (0.0-0.012); NRBC Pct Auto 0.0 /100WBC (0.0-0.2); Platelet Count 291 X10*3/uL (160-400); Red Blood Count 4.56 X10*6/uL (4.20-5.50); White Blood Count 11.1 X10*3/uL (4.8-10.8)
--- NOTE | 2024-08-15 11:32 | ED.GENADULT ---
HPI - General Adult General Chief complaint: Altered Mental Status Stated complaint: UTI Time Seen by Provider: 08/15/24 11:04 History of Present Illness ED Provider: Bruno Coon MD HPI narrative: Patient is coming from home by EMS. Purportedly did not diagnosed with UTI on Wednesday. Family feels like she is got malaise less energy today. Due to clinical condition patient offers minimal history Related Data Home Medications ?Medication ?Instructions ?Recorded ?Confirmed amlodipine 2.5 mg tablet 2.5 mg PO DAILY 07/11/24 08/15/24 aspirin 81 mg tablet,delayed 81 mg PO DAILY 07/11/24 08/15/24 release atorvastatin 20 mg tablet 20 mg PO DAILY 07/11/24 08/15/24 empagliflozin 25 mg tablet 25 mg PO DAILY 07/11/24 08/15/24 (Jardiance) insulin aspart U-100 100 unit/mL 12 unit subcut DAILY@1700 07/11/24 08/15/24 (3 mL) subcutaneous pen (Novolog FlexPen U-100 Insulin aspart) insulin degludec 100 unit/mL (3 20 unit subcut DAILY@1900 07/11/24 08/15/24 mL) subcutaneous pen (Tresiba FlexTouch U-100 insulin) irbesartan 300 mg tablet 300 mg PO DAILY 07/11/24 08/15/24 metformin 500 mg tablet 500 mg PO BID 07/11/24 08/15/24 cholecalciferol (vitamin D3) 25 50 mcg PO DAILY 08/15/24 08/15/24 mcg (1,000 unit) chewable tablet (Vitamin D3) insulin aspart U-100 100 unit/mL 16 unit subcut DAILY@1100 08/15/24 08/15/24 (3 mL) subcutaneous pen Previous Rx's ?Medication ?Instructions ?Recorded azithromycin 250 mg tablet See Rx Instructions PO .COMPLEX #6 08/13/24 tabs cefuroxime axetil 500 mg tablet 500 mg PO BID #8 tabs 08/16/24 Allergies Allergy/AdvReac Type Severity Reaction Status Date / Time No Known Allergies (No Known Allergy Verified 08/15/24 11:10 Allergies*) [facility] Past Medical History Medical History High cholesterol Hypertension Diabetes mellitus Family History Family History (Updated 07/11/24 @ 10:06 by Erick Lopez MD) Mother No problems noted. Father No problems noted. Social History Social History Household Members: Unknown / Unable to assess Housing: Unknown / Unable to assess Alcohol intake: former Patient Tobacco Use Status: Tobacco use Unknown Currently Displaying Signs/Symptoms of Drug Intoxication Withdrawal: No Advance Directives: No Advance Directives Information Provided: Yes Recently lost weight without trying: Unsure How much weight loss: Unsure Patient : No service: No Current occupational status: retired Physical Exam ED Vital Signs: Vital Signs - 24 hr 08/15/24 11:02 Temperature 98.6 F Pulse Rate 87 Respiratory Rate 16 Blood Pressure 155/76 H Pulse Oximetry 97 Oxygen Delivery Method Room Air BMI result Body Mass Index 23.6 Const Other: EXAM: Gen: Alert, making eye contact however no verbal interaction. She does not appear distressed or toxic. Head: Atraumatic Eyes: Anicteric, right eye with opacity over the anterior chamber looks chronic ENT: Moist mucosa, no pallor. ? Neck: Supple. Skin: ?No observable rash or bruising on exposed or examined skin Respiratory: Breathing comfortably, No distress.Clear to auscultation bilaterally, symmetric chest expansion, No wheeze, rales, ronchi. Cardiovascular: Regular rate and rhythm. No murmurs or rub. Well perfused periphery, warm extremities. No edema. ? Abdominal: Palpable liver margin nodularity Soft, no objective distension. No palpable masses or obvious organomegaly. ?No guarding, no rebound tenderness or other peritoneal findings. : No flank tenderness. Neuro: Alert. Gross movement of all extremities intact. ? Psych: Calm. Cooperative. MSK: No grossly visible deformity. Vital signs: See flowsheet Medications Administered Generic Name Dose Route Start Last Admin Trade Name Freq PRN Reason Stop Dose Admin Amlodipine Besylate 2.5 mg 08/16/24 09:00 08/16/24 08:41 Amlodipine Besylate 2.5 Mg Tablet PO Not Given DAILY [facility] Protocol Aspirin 81 mg 08/16/24 09:00 08/16/24 08:42 Aspirin Enteric Coated 81 Mg Tablet. PO Not Given DAILY [facility] Atorvastatin Calcium 20 mg 08/16/24 09:00 08/16/24 08:42 Atorvastatin Calcium 20 Mg Tablet PO Not Given DAILY EMELINA Ceftriaxone Sodium 1 gm 08/15/24 21:00 08/15/24 21:17 Ceftriaxone Sodium 1 Gm Vial IVPUSH 1 gm Q24H EMELINA Administration Enoxaparin Sodium 30 mg 08/15/24 18:00 08/15/24 17:03 Enoxaparin Sodium 30 Mg/0.3 Ml Syringe SUBCUT 30 mg Q24H EMELINA Administration Sodium Chloride 1,000 mls @ 80 mls/hr 08/15/24 16:30 08/16/24 09:42 Ns IVCONT 80 mls/hr .[id number] EMELINA Administration Azithromycin 500 mg/ Sodium 250 mls @ 125 mls/hr 08/15/24 21:00 08/15/24 23:33 Chloride IV Infused Q24H EMELINA Infusion Insulin Human Lispro 0 unit 08/15/24 16:30 08/16/24 11:41 Insulin Lispro 100 Unit/Ml 3 Ml Vial SUBCUT 6 unit QIDACHS EMELINA Administration Protocol Sodium Chloride 3 ml 08/16/24 00:00 08/16/24 08:27 0.9 % Sodium Chloride Flush 3 Ml Syringe IVFLUSH 3 ml QSHIFT EMELINA Administration Vitamin D 50 mcg 08/16/24 09:00 08/16/24 08:42 Cholecalciferol (Vitamin D3) 25 Mcg Tablet PO Not Given DAILY EMELINA Discontinued Medications Generic Name Dose Route Start Last Admin Trade Name Freq PRN Reason Stop Dose Admin Sodium Chloride 1,758 mls @ 1,758 mls/hr 08/15/24 11:39 08/15/24 16:33 Ns 30 ml/kg infuse over 1 hr (1758 ml) 08/15/24 12:38 Infused IV Infusion .Q1H STA Piperacillin Sod/Tazobactam 50 mls @ 100 mls/hr 08/15/24 11:49 08/15/24 13:38 Sod 3.375 gm/ Sodium Chloride IV 08/15/24 12:18 Infused ONCE ONE Infusion Vancomycin HCl 1,500 mg/ 500 mls @ 333.333 mls/hr 08/15/24 11:49 08/15/24 16:33 Sodium Chloride IV 08/15/24 13:18 Infused ONCE ONE Infusion Insulin Human Regular 10 unit 08/15/24 13:09 08/15/24 14:27 Insulin Regular, Human 100 Unit/Ml 10 Ml Vial IVPUSH 08/15/24 13:10 10 unit ONCE ONE Administration Medical Decision Making Medical Decision Making [facility] Narrative: 83-year-old female recently diagnosed with UTI. Patient had new findings of metastatic disease, small volume ascites, hydronephrosis. Patient reported she has been getting worse over the past several days. Minimal history provided from patient. She has no focal deficits but is altered per the description of her baseline. No fever not ill or toxic. Hemodynamics stable. Labs with transaminitis and elevated alk-phos only minimal elevated bilirubin. The patient had no signs of CBD obstruction on recent CT imaging of the abdomen. Manzano to be placed for hydronephrosis possibly obstructive urinary retention. IV antibiotics broad-spectrum. Plan for CT head for nonfocal encephalopathy could be secondary to UTI possibly toxic or metabolic encephalopathy versus ICH or metastatic disease to the brain. Differential Diagnosis Differential Diagnoses: The differential diagnosis associated with the presentation includes Lab Data [facility] Lab Attestation statement: I reviewed the patient's lab results. 08/15/24 11:21 08/16/24 05:58 Labs: Lab Results 08/15/24 08/15/24 08/15/24 Range/Units 11:21 11:33 11:51 WBC 11.1 H (4.8-10.8) X10*3/uL RBC 4.56 (4.20-5.50) X10*6/uL Hgb 12.5 (12.0-16.0) g/dl Hct 38.7 (37.0-47.0) % MCV 84.9 (80.0-98.0) fL MCH 27.4 (27.0-33.0) pg MCHC 32.3 (31.0-35.0) g/dl RDW 16.2 H (11.0-16.0) % Plt Count 291 (160-400) X10*3/uL MPV 9.9 (9.4-12.3) fL Immature Gran % (Auto) 1.6 H (0.0-0.4) % Neut % (Auto) 77.8 H (45-73) % Lymph % (Auto) 10.0 L (20-40) % Rusk % (Auto) 9.5 (2-11) % Eos % (Auto) 0.6 (0-4) % Baso % (Auto) 0.5 (0-2) % Lymph # (Auto) 1.1 L (1.2-4.9) X10*3/uL Rusk # (Auto) 1.1 (0.1-1.2) X10*3/uL Eos # (Auto) 0.1 (0.0-0.4) X10*3/uL Baso # (Auto) 0.1 (0.0-0.2) X10*3/uL Abs Immat Gran (auto) 0.18 H (0.00-0.03) X10*3/uL Absolute Neuts (auto) 8.6 H (2.0-8.3) x10*3/uL Absolute Nucleated RBC 0.000 (0.0-0.012) X10*3/uL Nucleated RBC % (auto) 0.0 (0.0-0.2) /100WBC VBG pH (7.32-7.43) VBG pCO2 mmHg VBG pO2 mmHg VBG HCO3 (22-26) mmol/L VBG O2 Saturation % VBG Base Excess mmol/L Sodium 135 (135-145) mmol/L Potassium 4.8 (3.3-5.1) mmol/L Chloride 103 (96-108) mmol/L Carbon Dioxide 20 L (22-29) mmol/L Anion Gap 17 (12-20) BUN 44 H (9-16) mg/dL Creatinine 1.35 (0.5-1.4) mg/dL Estim Creat Clear Calc 25.8 Estimated GFR 38 POC Glucose 433 H* (60-115) mg/dL Random Glucose 484 H* (60-115) mg/dL Lactic Acid 1.3 (0.5-2.0) mmol/L Calcium 9.6 (8.4-10.2) mg/dL Total Bilirubin 2.2 H (0.0-1.0) mg/dL AST 171 H (5-31) U/L ALT 118 H (0-31) U/L Alkaline Phosphatase 757 H (39-117) U/L Ammonia (13-55) umol/L Total Protein 6.8 (6.5-8.0) g/dL Albumin 3.0 L (3.5-5.0) g/dL Beta-Hydroxybutyrate 3.13 H (0.02-0.27) mmol/L 08/15/24 08/15/24 Range/Units 12:27 12:32 WBC (4.8-10.8) X10*3/uL RBC (4.20-5.50) X10*6/uL Hgb (12.0-16.0) g/dl Hct (37.0-47.0) % MCV (80.0-98.0) fL MCH (27.0-33.0) pg MCHC (31.0-35.0) g/dl RDW (11.0-16.0) % Plt Count (160-400) X10*3/uL MPV (9.4-12.3) fL Immature Gran % (Auto) (0.0-0.4) % Neut % (Auto) (45-73) % Lymph % (Auto) (20-40) % Rusk % (Auto) (2-11) % Eos % (Auto) (0-4) % Baso % (Auto) (0-2) % Lymph # (Auto) (1.2-4.9) X10*3/uL Rusk # (Auto) (0.1-1.2) X10*3/uL Eos # (Auto) (0.0-0.4) X10*3/uL Baso # (Auto) (0.0-0.2) X10*3/uL Abs Immat Gran (auto) (0.00-0.03) X10*3/uL Absolute Neuts (auto) (2.0-8.3) x10*3/uL Absolute Nucleated RBC (0.0-0.012) X10*3/uL Nucleated RBC % (auto) (0.0-0.2) /100WBC VBG pH 7.34 (7.32-7.43) VBG pCO2 32 mmHg VBG pO2 106 mmHg VBG HCO3 17 L (22-26) mmol/L VBG O2 Saturation 98.0 % VBG Base Excess -6.8 mmol/L Sodium (135-145) mmol/L Potassium (3.3-5.1) mmol/L Chloride (96-108) mmol/L Carbon Dioxide (22-29) mmol/L Anion Gap (12-20) BUN (9-16) mg/dL Creatinine (0.5-1.4) mg/dL Estim Creat Clear Calc Estimated GFR POC Glucose (60-115) mg/dL Random Glucose (60-115) mg/dL Lactic Acid (0.5-2.0) mmol/L Calcium (8.4-10.2) mg/dL Total Bilirubin (0.0-1.0) mg/dL AST (5-31) U/L ALT (0-31) U/L Alkaline Phosphatase (39-117) U/L Ammonia 35 (13-55) umol/L Total Protein (6.5-8.0) g/dL Albumin (3.5-5.0) g/dL Beta-Hydroxybutyrate (0.02-0.27) mmol/L Discharge Plan Discharge Clinical Impression: Delirium due to general medical condition Patient Disposition: Admitted As Inpatient Interventions: Admission Worksheet (ED) Last Done: 08/15/24 15:02 Discharge Date/Time: 08/15/24 16:28
[2024-08-15 11:37] LABS: Glucose, Whole Blood 433 mg/dL (60-115)
--- NOTE | 2024-08-15 11:45 | PC.NURSE ---
patient presents from home via ems, dx with uti on wednesday, family stated to ems she is usually ambulatory and verbal, patient presents today non ambulatory/weak and non verbal. patient tracking RN in room with eyes, occasionally smiles but does not answer questions. rectal temp obtained 98.5. patient skin noted to be dry and intact. IV started in RAC #20, labs obtained.
[2024-08-15] MEDS: SODIUM CHLORIDE 1758 ML IV (11:52)
[2024-08-15 12:14] LABS: Alanine Aminotransferase 118 U/L (0-31); Albumin Level 3.0 g/dL (3.5-5.0); Alkaline Phosphatase 757 U/L (39-117); Anion Gap 17 (12-20); Aspartate Amino Transferase 171 U/L (5-31); Blood Urea Nitrogen 44 mg/dL (9-16); Calcium 9.6 mg/dL (8.4-10.2); Carbon Dioxide 20 mmol/L (22-29); Chloride 103 mmol/L (96-108); Creatinine Clr Calc Pharmacy 25.8; Estimated Glomerular Filt Rate 38; Potassium 4.8 mmol/L (3.3-5.1); Sodium 135 mmol/L (135-145); Total Protein 6.8 g/dL (6.5-8.0)
[2024-08-15 12:36] LABS: Venous Blood Gas Refer to POC result
[2024-08-15 12:37] LABS: VBG HCO3 17 mmol/L (22-26); VBG O2 % Saturation 98.0 %
[2024-08-15 12:41] LABS: Ammonia 35 umol/L (13-55)
[2024-08-15 13:04] VITALS: BP 152/73; PULSE 84; RESP 16; TEMP 36.7; O2SAT 97
--- OUTSIDE RECORDS SUMMARY | 2024-08-15 13:17 | XMS_ITS | Encounter Summary ---
Author Organization [facility] Address [address] [place] [address] Care Team Providers Care Drupal Developer Name Role Phone Name, Anastacio DEMPSEY Primary Care Provider Jolly Mccabe PharmD Unavailable Reason for Visit * Reason Comments Med Refill Encounter Details Date Type Department Care Team ([facility] st Contact Info) Description 10/01/2023 Refill [facility] [address] [place], [place] [phone] Jolly Mccabe, PharmD [address] [place] [address] Type 2 diabetes mellitus with hyperglycemia, with long-term current use of insulin ([facility]) Social History Tobacco Use Types [...] Care Team (Late st Contact Info) Description 08/22/2024 1:45 PM EDT Office Visit [facility] [address] [place] [phone] Name, MD Anastacio [address] [place] [phone] 08/24/2024 10:30 AM EDT Medication Management [facility] [address] [place] [id number] Jolly Mccabe PharmD [address] [place] [phone] documented as of this encounter Goals Goal [...] hyperglycemia, with long-term current use of insulin ([facility]) documented in this encounter Additional Health Concerns Assessment Noted Time PHQ-9 Depression Total Score: 7 07/17/20 24 9:20 AM EDT documented as of this encounter Care Teams Drupal Developer Relationship Specialty Start Date End Date Name, MD Anastacio [address] [place] [address] PCP - General Family Medicine 12/21/16 Jolly Mccabe PharmD [address] [place] [address] Pharmacist Internal Medicine 07/02/22 documented as of this encounter
--- OUTSIDE RECORDS SUMMARY | 2024-08-15 13:17 | XMS_ITS | Encounter Summary ---
Author Organization [facility], Address [address] [place] [address] Phone Care Team Providers Care Impression Printer Name Role Phone Name, Anastacio DEMPSEY Primary Care Provider [phone] Encounter Details Date Type Department Care Team (Late st Contact Info) Description 02/04/2023 Documentation Only [facility], [address] [place] [address] Name, MD Anastacio [address] [place] [phone] Social History Tobacco Use Types Packs/Day Years [...] on filedocumented in this encounter Care Teams Impression Printer Relationship Specialty Start Date End Date Name, MD Anastacio [address] [place], [place] [phone] PCP - General Internal Medicine 02/04/23 documented as of this encounter
--- OUTSIDE RECORDS SUMMARY | 2024-08-15 13:17 | XMS_ITS | Data Portability ---
Author Organization [facility] Address [address] [place] [address] Care Team Providers Care Page Designer Name Role Phone [facility] Primary Care Provider [facility] Referring Provider Assessment Encounter Date Assessment Date Assessment LastModified by Organization Details LastModified Time 08/09/2024 08/09/2024 Ms. Cole Mullins is a 83 yo F with Hypertension, Diabetes Mellitus Type 2 who is calling today with fatigue. Per patient and medic, patient complaining of fatigue, does have a fan, but house is warm per medic. Does have AC in the house. Breathing comfortably with medic. But notably fatigued. Denies SOB. No chest pain. No nausea or vomiting. No viral sx. No cough. Eating and drinking ok, less than normal. Given the heat recently, most suspicious for heat exhaustion vs dehydration vs electrolyte derangements. Consider need for repletion. Consider CRISTI. Consider IVF bolus. No localizing sx anywhere. No chest pain or urinary complaints. No prior renal or CHF history. Plan: -POC BMP -Consider IVF Updates: -slight BUN increase, likely pre-renal and would benefit from IVF. Plan for IVF and then have PCP f/u. I provided real -time medical direction via phone for this encounter, and was available for additional phone based assistance as needed. I have reviewed and agree with the Assessment and Plan as documented by the Public Health Educator. We discussed the diagnostic uncertainty of home visits and the risk associated with this. In this case the patient and I felt this to be an acceptable and reasonable amount of risk given the benefit of avoiding an ED visit. The patient given the opportunity to ask questions. Follow up with primary care was recommended, as needed. Advised if develops CP/severe SOB/turning blue/uncontrolle d n/v/d or black/bloody emesis or stool/ AMS/ syncope/ high fever unresponsive to APAP to call 911- verbalized understanding of instruction. [email or web address] Not available 08/09/2024 15:58:23 Plan of Treatment Reminders Order Date Submit Date Provider Last Modified By Organization Details Last Modified Time Details Appointments None recorded. Lab BMP, serum or plasma 2024 025 [facility], [address] [place], [phone] 17:32:21 Referral None recorded. Procedures None recorded. Surgeries None recorded. Imaging None recorded. Medication Orders sodium chloride 0.9 % intravenous solution 2024 025 [facility] i7 [facility], [address] [place] [address], [phone], 15:37:55 Patient TargetsNo targets recorded. Patient InstructionsNo instructions recorded. Reason for Referral None Reported. Results Created Date Observation Date Name Description Value Unit Range Abnormal Flag Note LastModifiedBy Organization Detail LastModifiedTime Result Notes None recorded. Medical Equipment None Reported. Allergies No known drug allergies Medications Name Sig Start Date Stop Date [...] No t Available Vitals Date Recorded Body temperature Oxygen saturation Oxygen saturation in Arterial blood by Pulse oximetry Respiratory rate Heart rate Systolic blood pressure Diastolic blood pressure Provider Name and Address Organization Details Last Updated DateTime 5 98.8 [degF] 98 % 98 % 16 /min 83 /min 140 mm[Hg] 68 mm[Hg] Not Available [facility] 5 15:33:36 Date Recorded Body weight Heart rate Body temperature Oxygen saturation Oxygen saturation in Arterial blood by Pulse oximetry Respiratory rate Body height Systolic blood pressure Diastolic blood pressure Provider Name and Address Organization Details Last Updated DateTime 2 05481.2 08 g 75 /min 98 [degF] 100 % 100 % 18 /min 165.1 cm 154 mm[Hg] 83 mm[Hg] Not Available [facility] 2 14:04:10 Social History None recorded. Functional [...] Note 4650 Shae Bhandari MD Main - [address] [address] 12/01/2021 14:04:00 12/02/2021 13:13:45 Hyperglycemia 80329406 R73.9 80 year old female with DM and HTN, being evaluated for morning headaches, confusion, general malaise for about the last week. Patient lives with caregivers who assist with her medication s, and she has been compliant with these. Per data gathered by plate mill mill hand, patient feeling well at time of visit [...] until PCP follow up. Malaise and fatigue 5317 37932 R53.81 [id number] JENNY FONTAINE MD Main-[facility] ED Medical [facility] [address] [place] [address] 08/09/2024 15:33:34 08/09/2024 19:36:42 Heat exhaustion 55136533 T67.5XXA Health Concerns Section Related Observation LastModified by Organization Detai ls LastModified Time None Recorded Concern Status LastModified by Organization Details LastModified Time None Recorded Advance Directives Directive None Recorded Payers Insurance Date Sequence Insurance Name Policy Number Policy Mcgovern Covered Member ID Mcgovern Member ID Guarantor Name 05/10/2023 1 [facility] - DOS PRIOR TO 2022 - DUAL ELIGIBLE (MEDICARE REPLACEMENT/ADV ANTAGE - HMO) Sadaf Mullins [id number] Sadaf Mullins 08/09/2024 1 [facility] - DOS ON OR AFTER 2022 - DUAL ELIGIBLE - RESIDENTIAL OPTIONS AND ONE CARE (MEDICARE REPLACEMENT/ADV ANTAGE - HMO) Sadaf Mullins [id number] Sadaf Mullins Notes Date Note Type Note Provider Name and Address Organization Details Recorded Time 12/01/2021 text/html HPI: Call returned, spoke with patient gerardo Felder (HIPPA consent in chart). reports that for [...] .................. .................. .................. .................. .................. .................. ............... Public Health Educator Note: Sent to a call for a pt complaining of headache, confusion, dizziness, and abd pain. SC8 arrives on scene, pt is alert and oriented. Airway is patent. Pt's family/training specialist states pt has had increasing confusion(describe d [...] non-tender, no distention; Skin: pink, warm, dry; [facility] orders POC CMP and POC H&H. Blood draw performed. CMP results uploaded to [facility]. Hgb:10.5, Hct: no results; [facility] advises pt/family to schedule appt with pt's PCP ladarius, and increase Lantus to 20 units daily until pt is evaluated by PCP. Red flags discussed. Pt/family have no further questions. .................. .................. .................. .................. .................. .................. .................. ............... Disposition: Fulfilled Shae Bhandari MD [address] [facility],[address], [place], [address], [facility] 12/01/2021 14:15:42 08/09/2024 text/html CRC Nurse Triage Notes (Yojana Peres): Reason For Request: weak Patient Reports: Shortness of breath with exertion; Pain with inspirationDenies: Increased work of breathing/labored with or without fever Unable to speak in full sentences without distress Discoloration of skin -cyanosis Needs to sleep sitting up, can t catch breath Shortness of breath in setting of confusion Cough, fever greater than 2 days History of asthma, increased use of inhaler COPD Sputum increase Cough Chief Complaints: WeaknessPMH: Hypertension, Diabetes Mellitus Type 2PMH Reviewed at 08/09/2024 - :Allergies Reviewed at 08/09/2024 - :Comments: 83 y.o female complains of Weakness Call completed with putty and patch worker Pt family calling for weakness.She has been feeling weak for 3 days.She is not having cough, fever , or chills. She does not have any nausea , or vomiting . SHe has no issues with or GIShe is having sob , she does not have asthma or COPD. She is not having chest pain .She is not eating or drinking much .She does not have changes in herShe is talking in full sentences, no exp wheeze.Blood sugar 199I provided information on the mobile health provider response time and advised the patient and/or caregiver to monitor reported signs and symptoms. I discussed the warning signs of when to seek emergency care. Public Health Educator Organization Information for Jerrell Foster [employer] Legal Name: [employer]. Address: [address] [place] [address], Materials Specialist: Eric Arauz MD CLIA No.: [id number] Public Health Educator POC Test Results from Jerrell Foster - [facility] iSTAT Chem8+ (15:45:20) Na: 138 mEq/L K: 4.6 mEq/L Cl: 105 mEq/L iCa: 1.23 mmol/L TCO2: 25 mmol/L Glu: 233 mg/dL BUN: 39 mg/dL Crea: 1.0 mg/dL Hct: 36 % Hb: 12.2 g/dL A mmol/L Cartridge Number: [id number] .................. .................. .................. .................. .................. .................. .................. ............... Public Health Educator Note From Jerrell Foster: Dispatched to the call address for the female with lethargy. Family states for the last three days Pt has not been as active as normal and sleeping more. She also has had a diminished appetite but maintaining PO hydration. She denies chest pain, sob, fevers, n/v/d, cough or other complaints at this time. Family advises that Pt does not have AC in her room as she refuses to have/use it. She does have a fan running and there is AC in the rest of the house. Pt was found laying in bed, CAOx4, airway open and patent, breathing non labored, able to speak in full sentences, skin PWD with good turgor, mucous membranes pink and moist, -JVD, -HEENT, pupils PERRL, abd soft non tender/distended, lungs CTA, Afebrile, +CMSx4, -edema/swelling. Pt was assessed. [facility] consulted. IV (20g L wrist) with blood draw. BMP. [facility] advised of results. 1000mL NS given over approx 40 minutes. IV removed without issue. Red flags discussed. ALL times are approx. [facility] Lab Orders: BMP, serum or plasma: Performed [facility] Medication Orders: sodium chloride 0.9 % intravenous solution: Administered .................. .................. .................. .................. .................. .................. .................. ............... [facility] Consulted: Jenny Fontaine .................. .................. .................. .................. .................. .................. .................. ............... Disposition: Fulfilled JENNY FONTAINE MD [address] [place] [address],[address], [place], [address], [employer] 08/09/2024 16:34:01 OBGyn Episode No OBEpisode recorded.
--- NOTE | 2024-08-15 14:29 | PHA.MEDREC ---
Pharmacy Consult ? Medication Reconciliation Pharmacy has completed the medication reconciliation. Spoke to son Bradford who has patient's medication blister pack (from [facility]) and rx bottles. For azithromycin and cefpodoxime, patient still has 4 days left of therapy. Per son, patient uses [Novolog 16 units @1100 before lunch and 12 units @1700 before dinner] and [Tresiba 20 units @1900 after dinner]
[2024-08-15 14:31] LABS: Glucose, Whole Blood 398 mg/dL (60-115)
[2024-08-15 14:46] VITALS: BP 134/66; PULSE 90; RESP 20; O2SAT 97
--- NOTE | 2024-08-15 15:29 | PM.IMHP ---
History of Present Illness Date of Service: 08/15/24 Attending physician on admission: Eugenio Andino Chief Complaint: Weakness, lethargy Pt is an 83-year-old female with a PMH significant for?insulin-dependent type 2 diabetes, HTN, HLD, blind in right eye, and recently discovered likely metastatic cancer who presents to the ED with?increased lethargy, weakness, and reduced p.o. intake x2 days. Pt previously presented to the ED 2 days before on 08/13 for evaluation of fall after attempting to get up out of bed. Imaging was negative for traumatic injury, though UA was positive for UTI and CXR showed possible atypical pneumonia. CT of abdomen/pelvis showed multiple hepatic and pancreatic masses compatible with metastatic disease, retroperitoneal kaylee metastasis, and bibasilar pneumonia with small parapneumonic effusions. Was sent home on oral antibiotics and for outpatient Oncology follow up. Pt is awake and alert, occasionally smiling and tracking with her eyes, but not responding to questions. Pt lives with her son who states pt has had decreased appetite and recent weight loss for many months, and has had reduced p.o. intake over this time. Since discharge home 2 days ago pt has grown increasingly lethargic, weak, and eating and drinking very little. Has largely stopped speaking and been unable to ambulate. No reported nausea, vomiting, or diarrhea. In the ED pt was mildly hypertensive at 155/76, vitals otherwise stable and WNL. Satting at 97% on RA. Labs were significant for mild leukocytosis of 11.1, creatinine 1.35 (previously 0.80), POC for 33, random glucose 484, T bili 2.2, AST 171, ALT 118, alk-phos 757, beta hydroxybutyrate 3.13. Lactic acid WNL. CTA of head today negative for acute intracranial abnormality. Pt was treated in the ED with IVF, vancomycin, and Zosyn. Pt is admitted to the hospital for treatment and further evaluation acute metabolic encephalopathy and CRISTI in the setting of metastatic disease, reduced p.o. intake, as well as UTI and bibasilar pneumonia that failed outpatient therapy. Review of Systems Review of Systems: Yes Unobtainable due to mental status [facility] Medical History High cholesterol Hypertension Diabetes mellitus Family History (Updated 07/11/24 @ 10:06 by Erick Lopez MD) Mother No problems noted. Father No problems noted. Social History Alcohol intake: former Advance Directives: No Advance Directives Information Provided: Yes service: No Current occupational status: retired Meds Allergies Allergy/AdvReac Type Severity Reaction Status Date / Time No Known Allergies (No Known Allergy Verified 08/15/24 11:10 Allergies*) Home Medications ?Medication ?Instructions ?Recorded ?Confirmed ?Last Taken ?Type amlodipine 2.5 mg tablet 2.5 mg PO DAILY 07/11/24 08/15/24 08/14/24 History aspirin 81 mg tablet,delayed 81 mg PO DAILY 07/11/24 08/15/24 08/14/24 History release atorvastatin 20 mg tablet 20 mg PO DAILY 07/11/24 08/15/24 08/14/24 History empagliflozin 25 mg tablet 25 mg PO DAILY 07/11/24 08/15/24 08/14/24 History (Jardiance) insulin aspart U-100 100 unit/mL 12 unit subcut DAILY@1700 07/11/24 08/15/24 08/14/24 History (3 mL) subcutaneous pen (Novolog FlexPen U-100 Insulin aspart) insulin degludec 100 unit/mL (3 20 unit subcut DAILY@1900 07/11/24 08/15/24 08/14/24 History mL) subcutaneous pen (Tresiba FlexTouch U-100 insulin) irbesartan 300 mg tablet 300 mg PO DAILY 07/11/24 08/15/24 08/14/24 History metformin 500 mg tablet 500 mg PO BID 07/11/24 08/15/24 08/14/24 History cholecalciferol (vitamin D3) 25 50 mcg PO DAILY 08/15/24 08/15/24 08/14/24 History mcg (1,000 unit) chewable tablet (Vitamin D3) insulin aspart U-100 100 unit/mL 16 unit subcut DAILY@1100 08/15/24 08/15/24 08/14/24 History (3 mL) subcutaneous pen Physical Exam Vital Signs and Narrative: Vital Signs: Last Vital Signs Temp 98.1 F 08/15/24 13:04 Pulse 90 08/15/24 14:46 Resp 20 08/15/24 14:46 BP 134/66 08/15/24 14:46 Pulse Ox 97 08/15/24 14:46 O2 Del Method Room Air 08/15/24 14:46 BMI result Body Mass Index 23.6 General: Alert and awake, not responding to queries. Appears weak and frail. ENT: Blind in right eye Resp: CTA bilaterally CVS: S1, S2, RRR GI: +BS, NT, no distention Skin: Warm, dry Neuro: Motor grossly intact bilaterally. Global weakness Extremities: No edema Psych: Nonverbal Results Labs 08/15/24 11:21 08/15/24 11:51 Labs: Laboratory Results - last 24 hr 08/15/24 08/15/24 08/15/24 11:21 11:33 11:51 MCV 84.9 MCH 27.4 MCHC 32.3 RDW 16.2 H Plt Count 291 MPV 9.9 Immature Gran % (Auto) 1.6 H Neut % (Auto) 77.8 H Lymph % (Auto) 10.0 L [place] % (Auto) 9.5 Eos % (Auto) 0.6 Baso % (Auto) 0.5 Lymph # (Auto) 1.1 L [place] # (Auto) 1.1 Eos # (Auto) 0.1 Baso # (Auto) 0.1 Abs Immat Gran (auto) 0.18 H Absolute Neuts (auto) 8.6 H Absolute Nucleated RBC 0.000 Nucleated RBC % (auto) 0.0 VBG pH VBG pCO2 VBG pO2 VBG HCO3 VBG O2 Saturation VBG Base Excess Anion Gap 17 Estim Creat Clear Calc 25.8 Estimated GFR 38 POC Glucose 433 H* Random Glucose 484 H* Lactic Acid 1.3 Calcium 9.6 Total Bilirubin 2.2 H AST 171 H ALT 118 H Alkaline Phosphatase 757 H Ammonia Total Protein 6.8 Albumin 3.0 L Beta-Hydroxybutyrate 3.13 H 08/15/24 08/15/24 08/15/24 12:27 12:32 14:21 MCV MCH MCHC RDW Plt Count MPV Immature Gran % (Auto) Neut % (Auto) Lymph % (Auto) [place] % (Auto) Eos % (Auto) Baso % (Auto) Lymph # (Auto) [place] # (Auto) Eos # (Auto) Baso # (Auto) Abs Immat Gran (auto) Absolute Neuts (auto) Absolute Nucleated RBC Nucleated RBC % (auto) VBG pH 7.34 VBG pCO2 32 VBG pO2 106 VBG HCO3 17 L VBG O2 Saturation 98.0 VBG Base Excess -6.8 Anion Gap Estim Creat Clear Calc Estimated GFR POC Glucose 398 H* Random Glucose Lactic Acid Calcium Total Bilirubin AST ALT Alkaline Phosphatase Ammonia 35 Total Protein Albumin Beta-Hydroxybutyrate Imaging Radiologist's Impressions: Impressions Head CT 08/15/24 12:44 IMPRESSION: No acute intracranial abnormality. 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 Electronically signed by: Micheal Horn MD 08/15/2024 01:22 PM EDT RP Assessment and Plan (1) CRISTI (acute kidney injury): Status: Acute (2) Acute metabolic encephalopathy: Status: Acute Plan Pt is an 83-year-old female with a PMH significant for?insulin-dependent type 2 diabetes, HTN, HLD, blind in right eye, and recently discovered likely metastatic cancer who presents to the ED with?increased lethargy, weakness, and reduced p.o. intake x2 days. Pt is admitted to the hospital for treatment and further evaluation acute metabolic encephalopathy and CRISTI in the setting of metastatic disease, reduced p.o. intake, as well as UTI and bibasilar pneumonia that failed outpatient therapy. Acute metabolic encephalopathy Pt with increased confusion, lethargy, not speaking, reduced p.o. intake despite oral abx Multifactorial: in the setting of likely metastatic disease, as well as UTI and bibasilar pneumonia CT of abd/pelvis on 08/13 found multiple hepatic and pancreatic masses compatible with metastatic disease, retroperitoneal kaylee metastasis Imaging on 08/13 also found bibasilar pneumonia; UA positive for UTI No sepsis: does not meet any SIRS criteria For UTI and pneumonia, will treate with ceftriaxone and azithromycin, started 08/15/2024 Oncology consult Follow urine and blood cultures, monitor mentation CRISTI Creatinine 1.35, elevated from 0.80 two days ago In the setting of hypovolemia secondary to reduced p.o. intake Pt received IVF in the ED Will place on maintenance fluids Follow creatinine Hyperglycemia Patient's POC for 33, random glucose 484, beta hydroxybutyrate 3.13 No DKA, no acidosis, bicarb 20, no anion gap Pt received IVF We will give regular insulin [address] on sliding scale insulin Hold glipizide, metformin Diabetic diet once no longer NPO Transaminitis Likely secondary to metastatic disease HTN Hold irbesartan due to CRISTI Continue amlodipine HLD Continue statin Full Code Attending:?Dr. Andino DVT Prophylaxis: Lovenox Pt will require a hospitalization of at least two nights for treatment treatment and further evaluation acute metabolic encephalopathy and CRISTI in the setting of metastatic disease, reduced p.o. intake, as well as UTI and bibasilar pneumonia that failed outpatient therapy. Pt will require hospital level of care for administration of IV antibiotics as well as specialist consultation with Oncology. Quality Stroke Does the patient have a stroke diagnosis?: No VTE Prior VTE?: No VTE Risk Level:: Medical - moderate - high VTE Device Contraindication: Treatment Not Indicated VTE Drug Contraindication: N/A - Med Ordered
[2024-08-15 15:55] VITALS: BMI 23.6
[2024-08-15 16:00] VITALS: BP 164/69; PULSE 92; RESP 18; TEMP 36.2; O2SAT 97
[2024-08-15 16:48] LABS: Glucose, Whole Blood 312 mg/dL (60-115)
[2024-08-15 19:08] VITALS: BP 165/97; PULSE 91; RESP 16; TEMP 36.3; O2SAT 98
[2024-08-15 19:19] LABS: Glucose, Whole Blood 286 mg/dL (60-115)
[2024-08-15] MEDS: 0.9 % Sodium Chloride Flush 3 ML SYRINGE IVFLUSH (21:17)
[2024-08-16 03:17] VITALS: BP 160/88; PULSE 91; RESP 18; TEMP 36.2; O2SAT 98
[2024-08-16 06:43] LABS: Alanine Aminotransferase 138 U/L (0-31); Albumin Level 2.9 g/dL (3.5-5.0); Alkaline Phosphatase 712 U/L (39-117); Anion Gap 16 (12-20); Aspartate Amino Transferase 253 U/L (5-31); Blood Urea Nitrogen 37 mg/dL (9-16); Calcium 9.3 mg/dL (8.4-10.2); Carbon Dioxide 21 mmol/L (22-29); Chloride 108 mmol/L (96-108); Creatinine Clr Calc Pharmacy 33.2; Estimated Glomerular Filt Rate 50; Potassium 4.5 mmol/L (3.3-5.1); Sodium 140 mmol/L (135-145); Total Protein 6.3 g/dL (6.5-8.0)
[2024-08-16 07:48] LABS: Glucose, Whole Blood 308 mg/dL (60-115)
[2024-08-16 08:00] VITALS: BP 150/65; PULSE 92; RESP 16; TEMP 36.3; O2SAT 95
[2024-08-16] MEDS: 0.9 % Sodium Chloride Flush 3 ML SYRINGE IVFLUSH (08:27)
--- NOTE | 2024-08-16 09:22 | PM.DS ---
DS: Providers Provider Date of Service: 08/16/24 Date of admission: 08/15/24 13:11 Date of discharge: 08/16/24 Primary care physician: Anastacio Burks MD Consults: 08/15/24 15:48 Consult to Hematology / Oncology Routine [place] [facility] [place] Reason for consultation: CT of abd/pelvis showing multiple hepatic and pancreatic masses DS: Diagnosis Discharge Diagnosis (1) CRISTI (acute kidney injury): Status: Acute (2) Acute metabolic encephalopathy: Status: Acute DS: Summary Hospital Course Hospital Course: History and physical as per admitting provider. Pt is an 83-year-old female with a PMH significant for?insulin-dependent type 2 diabetes, HTN, HLD, blind in right eye, and recently discovered likely metastatic cancer who presents to the ED with?increased lethargy, weakness, and reduced p.o. intake x2 days. Pt previously presented to the ED 2 days before on 08/13 for evaluation of fall after attempting to get up out of bed. Imaging was negative for traumatic injury, though UA was positive for UTI and CXR showed possible atypical pneumonia. CT of abdomen/pelvis showed multiple hepatic and pancreatic masses compatible with metastatic disease, retroperitoneal kaylee metastasis, and bibasilar pneumonia with small parapneumonic effusions. Was sent home on oral antibiotics and for outpatient Oncology follow up. Pt is awake and alert, occasionally smiling and tracking with her eyes, but not responding to questions. Pt lives with her son who states pt has had decreased appetite and recent weight loss for many months, and has had reduced p.o. intake over this time. Since discharge home 2 days ago pt has grown increasingly lethargic, weak, and eating and drinking very little. Has largely stopped speaking and been unable to ambulate. No reported nausea, vomiting, or diarrhea. In the ED pt was mildly hypertensive at 155/76, vitals otherwise stable and WNL. Satting at 97% on RA. Labs were significant for mild leukocytosis of 11.1, creatinine 1.35 (previously 0.80), POC for 33, random glucose 484, T bili 2.2, AST 171, ALT 118, alk-phos 757, beta hydroxybutyrate 3.13. Lactic acid WNL. CTA of head today negative for acute intracranial abnormality. Pt was treated in the ED with IVF, vancomycin, and Zosyn. Pt is admitted to the hospital for treatment and further evaluation acute metabolic encephalopathy and CRISTI in the setting of metastatic disease, reduced p.o. intake, as well as UTI and bibasilar pneumonia that failed outpatient therapy. Physical Exam Vital Signs: Vital Signs: Last Vital Signs Temp 97.3 F 08/16/24 08:00 Pulse 92 08/16/24 08:00 Resp 16 08/16/24 08:00 BP 150/65 H 08/16/24 08:00 Pulse Ox 95 08/16/24 08:00 O2 Del Method Room Air 08/16/24 08:00 BMI result Body Mass Index 23.6 DS: Data Data Completed and Pending Labs on day of discharge: Laboratory Results - last 24 hr 08/15/24 08/15/24 08/15/24 11:21 11:33 11:51 WBC 11.1 H RBC 4.56 Hgb 12.5 Hct 38.7 MCV 84.9 MCH 27.4 MCHC 32.3 RDW 16.2 H Plt Count 291 MPV 9.9 Immature Gran % (Auto) 1.6 H Neut % (Auto) 77.8 H Lymph % (Auto) 10.0 L [place] % (Auto) 9.5 Eos % (Auto) 0.6 Baso % (Auto) 0.5 Lymph # (Auto) 1.1 L [place] # (Auto) 1.1 Eos # (Auto) 0.1 Baso # (Auto) 0.1 Abs Immat Gran (auto) 0.18 H Absolute Neuts (auto) 8.6 H Absolute Nucleated RBC 0.000 Nucleated RBC % (auto) 0.0 Hold Purple Top VBG pH VBG pCO2 VBG pO2 VBG HCO3 VBG O2 Saturation VBG Base Excess Sodium 135 Potassium 4.8 Chloride 103 Carbon Dioxide 20 L Anion Gap 17 BUN 44 H Creatinine 1.35 Estim Creat Clear Calc 25.8 Estimated GFR 38 POC Glucose 433 H* Random Glucose 484 H* Lactic Acid 1.3 Calcium 9.6 Total Bilirubin 2.2 H AST 171 H ALT 118 H Alkaline Phosphatase 757 H Ammonia Total Protein 6.8 Albumin 3.0 L Beta-Hydroxybutyrate 3.13 H 08/15/24 08/15/24 08/15/24 12:27 12:32 14:21 WBC RBC Hgb Hct MCV MCH MCHC RDW Plt Count MPV Immature Gran % (Auto) Neut % (Auto) Lymph % (Auto) [place] % (Auto) Eos % (Auto) Baso % (Auto) Lymph # (Auto) [place] # (Auto) Eos # (Auto) Baso # (Auto) Abs Immat Gran (auto) Absolute Neuts (auto) Absolute Nucleated RBC Nucleated RBC % (auto) Hold Purple Top VBG pH 7.34 VBG pCO2 32 VBG pO2 106 VBG HCO3 17 L VBG O2 Saturation 98.0 VBG Base Excess -6.8 Sodium Potassium Chloride Carbon Dioxide Anion Gap BUN Creatinine Estim Creat Clear Calc Estimated GFR POC Glucose 398 H* Random Glucose Lactic Acid Calcium Total Bilirubin AST ALT Alkaline Phosphatase Ammonia 35 Total Protein Albumin Beta-Hydroxybutyrate 08/15/24 08/15/24 08/16/24 16:44 19:14 05:58 WBC RBC Hgb Hct MCV MCH MCHC RDW Plt Count MPV Immature Gran % (Auto) Neut % (Auto) Lymph % (Auto) [place] % (Auto) Eos % (Auto) Baso % (Auto) Lymph # (Auto) [place] # (Auto) Eos # (Auto) Baso # (Auto) Abs Immat Gran (auto) Absolute Neuts (auto) Absolute Nucleated RBC Nucleated RBC % (auto) Hold Purple Top SEE NOTE VBG pH VBG pCO2 VBG pO2 VBG HCO3 VBG O2 Saturation VBG Base Excess Sodium 140 Potassium 4.5 Chloride 108 Carbon Dioxide 21 L Anion Gap 16 BUN 37 H Creatinine 1.05 Estim Creat Clear Calc 33.2 Estimated GFR 50 POC Glucose 312 H 286 H Random Glucose 329 H Lactic Acid Calcium 9.3 Total Bilirubin 3.3 H AST 253 H ALT 138 H Alkaline Phosphatase 712 H Ammonia Total Protein 6.3 L Albumin 2.9 L Beta-Hydroxybutyrate 08/16/24 07:42 WBC RBC Hgb Hct MCV MCH MCHC RDW Plt Count MPV Immature Gran % (Auto) Neut % (Auto) Lymph % (Auto) [place] % (Auto) Eos % (Auto) Baso % (Auto) Lymph # (Auto) [place] # (Auto) Eos # (Auto) Baso # (Auto) Abs Immat Gran (auto) Absolute Neuts (auto) Absolute Nucleated RBC Nucleated RBC % (auto) Hold Purple Top VBG pH VBG pCO2 VBG pO2 VBG HCO3 VBG O2 Saturation VBG Base Excess Sodium Potassium Chloride Carbon Dioxide Anion Gap BUN Creatinine Estim Creat Clear Calc Estimated GFR POC Glucose 308 H Random Glucose Lactic Acid Calcium Total Bilirubin AST ALT Alkaline Phosphatase Ammonia Total Protein Albumin Beta-Hydroxybutyrate Discharge Plan Discharge Anticipated Discharge Date/Time: 08/16/24 09:16 Patient Disposition: Home Health Service Discharge Diagnosis: Acute metabolic encephalopathy CRISTI Hyperglycemia Transaminitis Referrals: Name,MD Anastacio [Primary Care Provider, Internal Medicine] - 1 Week Discharge Medications: New cefuroxime axetil 500 mg tablet 500 mg PO BID Qty: 8 0RF Continued aspirin 81 mg tablet,delayed release (DR/EC) 81 mg PO DAILY atorvastatin 20 mg tablet 20 mg PO DAILY irbesartan 300 mg tablet 300 mg PO DAILY metformin 500 mg tablet 500 mg PO BID azithromycin 250 mg tablet See Rx Instructions .ROUTE .COMPLEX Qty: 6 0RF Rx Instructions: For 250 mg dose pack: take 500 mg today (day 1), then 250 mg for 4 days (days 2-5) insulin aspart U-100 100 unit/mL (3 mL) Insulin Pen 16 unit SUBCUT DAILY@1100 Rx Instructions: BEFORE LUNCH cholecalciferol (vitamin D3) [Vitamin D3] 25 mcg (1,000 unit) Tablet,Chewable 50 mcg PO DAILY amlodipine 2.5 mg tablet 2.5 mg PO DAILY Jardiance 25 mg tablet 25 mg PO DAILY insulin degludec [Tresiba FlexTouch U-100] 100 unit/mL (3 mL) insulin pen 20 unit subcut DAILY@1900 insulin aspart U-100 [Novolog FlexPen U-100 Insulin] 100 unit/mL (3 mL) insulin pen 12 unit subcut DAILY@1700 Rx Instructions: before dinner Discontinued cefpodoxime 200 mg tablet 200 mg PO BID Qty: 10 0RF Rx Instructions: must administer with a meal/food Diet: Advance to usual diet Activity on Discharge: As tolerated Stand Alone Forms: Patient Portal Discharge page Print Language: Swedish Care Plan Goals: Complete antibiotic therapy Health Concerns: Acute metabolic encephalopathy CRISTI Hyperglycemia Transaminitis Plan of Treatment: Follow-up with primary care provider as needed Take all medications as prescribed Assessment: See discharge summary
--- NOTE | 2024-08-16 09:25 | HO.PM.IMPN ---
Subjective Subjective Date of Service: 08/16/24 Review of Systems Follow up encephalopathy Physical Exam Vital Signs: Vital Signs: Last Vital Signs Temp 97.3 F 08/16/24 08:00 Pulse 92 08/16/24 08:00 Resp 16 08/16/24 08:00 BP 150/65 H 08/16/24 08:00 Pulse Ox 95 08/16/24 08:00 O2 Del Method Room Air 08/16/24 08:00 BMI result Body Mass Index 23.6 Objective Data Active Medications Acetaminophen (Acetaminophen 325 Mg Tablet) 650 mg PO Q6H PRN PRN Reason: Pain, Mild 1-3,fever,headache Amlodipine Besylate (Amlodipine Besylate 2.5 Mg Tablet) 2.5 mg PO DAILY [facility]; Protocol Last Admin: 08/16/24 08:41 Dose: Not Given Documented By: CELIA Non-Admin Reason: NPO Aspirin (Aspirin Enteric Coated 81 Mg Tablet.Dr) 81 mg PO DAILY [facility] Last Admin: 08/16/24 08:42 Dose: Not Given Documented By: CELIA Non-Admin Reason: NPO Atorvastatin Calcium (Atorvastatin Calcium 20 Mg Tablet) 20 mg PO DAILY [facility] Last Admin: 08/16/24 08:42 Dose: Not Given Documented By: CELIA Non-Admin Reason: NPO Calcium Carbonate (Calcium Carbonate 750 Mg Tab.Chew) 750 mg PO Q4H PRN PRN Reason: Heartburn Ceftriaxone Sodium (Ceftriaxone Sodium 1 Gm Vial) 1 gm IVPUSH Q24H [facility] Last Admin: 08/15/24 21:17 Dose: 1 gm Documented By: SHAMIKA Dextrose (Dextrose 50 % 25 Gm/50 Ml Syringe) 25 gm IVPUSH Q15M PRN; Protocol PRN Reason: per Hypoglycemia Standing Ord. Enoxaparin Sodium (Enoxaparin Sodium 30 Mg/0.3 Ml Syringe) 30 mg SUBCUT Q24H [facility] Last Admin: 08/15/24 17:03 Dose: 30 mg Documented By: RAUL Glucose (Glucose Gel 15 Gm Gel..Gram.) 15 gm PO Q15M PRN; Protocol PRN Reason: per Hypoglycemia Standing Ord. Sodium Chloride (Ns) 1,000 mls @ 80 mls/hr IVCONT .[id number] [facility] Last Admin: 08/16/24 05:32 Dose: Not Given Documented By: SHAMIKA Non-Admin Reason: IV Running Azithromycin 500 mg/ Sodium (Chloride) 250 mls @ 125 mls/hr IV Q24H [facility] Last Infusion: 08/15/24 23:33 Dose: Infused Documented By: SHAMIKA Insulin Human Lispro (Insulin Lispro 100 Unit/Ml 3 Ml Vial) 0 unit SUBCUT QIDACHS [facility]; Protocol Last Admin: 08/16/24 08:28 Dose: 8 unit Documented By: CELIA Magnesium Hydroxide (Milk Of Magnesia 30 Ml Oral.Susp) 30 ml PO DAILY PRN PRN Reason: Constipation Melatonin (Melatonin 3 Mg Tablet) 6 mg PO BEDTIME PRN PRN Reason: Insomnia Sodium Chloride (0.9 % Sodium Chloride Flush 3 Ml Syringe) 3 ml IVFLUSH QSHIFT [facility] Last Admin: 08/16/24 08:27 Dose: 3 ml Documented By: CELIA Vitamin D (Cholecalciferol (Vitamin D3) 25 Mcg Tablet) 50 mcg PO DAILY [facility] Last Admin: 08/16/24 08:42 Dose: Not Given Documented By: CELIA Non-Admin Reason: NPO Labs 08/15/24 11:21 08/16/24 05:58 Labs: Laboratory Results - last 24 hr 08/15/24 08/15/24 08/15/24 11:21 11:33 11:51 MCV 84.9 MCH 27.4 MCHC 32.3 RDW 16.2 H Plt Count 291 MPV 9.9 Immature Gran % (Auto) 1.6 H Neut % (Auto) 77.8 H Lymph % (Auto) 10.0 L [place] % (Auto) 9.5 Eos % (Auto) 0.6 Baso % (Auto) 0.5 Lymph # (Auto) 1.1 L [place] # (Auto) 1.1 Eos # (Auto) 0.1 Baso # (Auto) 0.1 Abs Immat Gran (auto) 0.18 H Absolute Neuts (auto) 8.6 H Absolute Nucleated RBC 0.000 Nucleated RBC % (auto) 0.0 Hold Purple Top VBG pH VBG pCO2 VBG pO2 VBG HCO3 VBG O2 Saturation VBG Base Excess Anion Gap 17 Estim Creat Clear Calc 25.8 Estimated GFR 38 POC Glucose 433 H* Random Glucose 484 H* Lactic Acid 1.3 Calcium 9.6 Total Bilirubin 2.2 H AST 171 H ALT 118 H Alkaline Phosphatase 757 H Ammonia Total Protein 6.8 Albumin 3.0 L Beta-Hydroxybutyrate 3.13 H 08/15/24 08/15/24 08/15/24 12:27 12:32 14:21 MCV MCH MCHC RDW Plt Count MPV Immature Gran % (Auto) Neut % (Auto) Lymph % (Auto) [place] % (Auto) Eos % (Auto) Baso % (Auto) Lymph # (Auto) [place] # (Auto) Eos # (Auto) Baso # (Auto) Abs Immat Gran (auto) Absolute Neuts (auto) Absolute Nucleated RBC Nucleated RBC % (auto) Hold Purple Top VBG pH 7.34 VBG pCO2 32 VBG pO2 106 VBG HCO3 17 L VBG O2 Saturation 98.0 VBG Base Excess -6.8 Anion Gap Estim Creat Clear Calc Estimated GFR POC Glucose 398 H* Random Glucose Lactic Acid Calcium Total Bilirubin AST ALT Alkaline Phosphatase Ammonia 35 Total Protein Albumin Beta-Hydroxybutyrate 08/15/24 08/15/24 08/16/24 16:44 19:14 05:58 MCV MCH MCHC RDW Plt Count MPV Immature Gran % (Auto) Neut % (Auto) Lymph % (Auto) [place] % (Auto) Eos % (Auto) Baso % (Auto) Lymph # (Auto) [place] # (Auto) Eos # (Auto) Baso # (Auto) Abs Immat Gran (auto) Absolute Neuts (auto) Absolute Nucleated RBC Nucleated RBC % (auto) Hold Purple Top SEE NOTE VBG pH VBG pCO2 VBG pO2 VBG HCO3 VBG O2 Saturation VBG Base Excess Anion Gap 16 Estim Creat Clear Calc 33.2 Estimated GFR 50 POC Glucose 312 H 286 H Random Glucose 329 H Lactic Acid Calcium 9.3 Total Bilirubin 3.3 H AST 253 H ALT 138 H Alkaline Phosphatase 712 H Ammonia Total Protein 6.3 L Albumin 2.9 L Beta-Hydroxybutyrate 08/16/24 07:42 MCV MCH MCHC RDW Plt Count MPV Immature Gran % (Auto) Neut % (Auto) Lymph % (Auto) [place] % (Auto) Eos % (Auto) Baso % (Auto) Lymph # (Auto) [place] # (Auto) Eos # (Auto) Baso # (Auto) Abs Immat Gran (auto) Absolute Neuts (auto) Absolute Nucleated RBC Nucleated RBC % (auto) Hold Purple Top VBG pH VBG pCO2 VBG pO2 VBG HCO3 VBG O2 Saturation VBG Base Excess Anion Gap Estim Creat Clear Calc Estimated GFR POC Glucose 308 H Random Glucose Lactic Acid Calcium Total Bilirubin AST ALT Alkaline Phosphatase Ammonia Total Protein Albumin Beta-Hydroxybutyrate Assessment and Plan (1) CRISTI (acute kidney injury): Status: Acute Plan 83-year-old female with a PMH significant for?insulin-dependent type 2 diabetes, HTN, HLD, blind in right eye, and recently discovered likely metastatic cancer who presented to the ED with?increased lethargy, weakness, and reduced p.o. intake x2 days. Pt admitted to the hospital for treatment and further evaluation acute metabolic encephalopathy and CRISTI in the setting of metastatic disease, reduced p.o. intake, as well as UTI and bibasilar pneumonia that failed outpatient therapy. Acute metabolic encephalopathy Pt with increased confusion, lethargy, not speaking, reduced p.o. intake despite oral abx in the setting of likely metastatic disease, as well as UTI and bibasilar pneumonia UTI Continue ceftriaxone Follow up final urine and blood culture CAP Imaging on 08/13 also found bibasilar pneumonia Continue ceftriaxone and azithromycin May use supplemental oxygen to keep oxygen saturation greater than 90% Metastatic disease New diagnosis CT of abd/pelvis on 08/13 found multiple hepatic and pancreatic masses compatible with metastatic disease, retroperitoneal kaylee metastasis Oncology consultation CRISTI Creatinine 1.35, elevated from 0.80 two days ago In the setting of hypovolemia secondary to reduced p.o. intake Pt received IVF in the ED Will place on maintenance fluids Follow creatinine Hyperglycemia Patient's POC for 33, random glucose 484, beta hydroxybutyrate 3.13 No DKA, no acidosis, bicarb 20, no anion gap IVF Continue sliding scale Hold glipizide, metformin Diabetic diet once no longer NPO Transaminitis Likely secondary to metastatic disease HTN Hold irbesartan due to CRISTI Continue amlodipine HLD Continue statin Full Code DVT Prophylaxis: Lovenox Quality Stroke Does the patient have a stroke diagnosis?: No VTE Prior VTE?: No VTE Risk Level:: Medical - moderate - high VTE Device Contraindication: Treatment Not Indicated VTE Drug Contraindication: N/A - Med Ordered
--- NOTE | 2024-08-16 10:46 | MHC.SLORD ---
Speech Language Pathology Order Status: MAGICIAN/ILLUSIONIST attempted clinical bedside swallow evaluation this morning, pt somnolent, MAGICIAN/ILLUSIONIST to return when pt awake. RN consulted.
[2024-08-16 11:14] LABS: Glucose, Whole Blood 262 mg/dL (60-115)
--- NOTE | 2024-08-16 14:46 | MHC.CM.PN ---
IMM 08/16. Pt with confusion, this CM called to speak with her son Serenity, the pts [id number] Aura answered. Per Aura, the pt lives at home with her son, [id number], and granddaughter. Pt is Peruvian speaking only. Pt has [facility] services 13.25 hrs/week. Pt is bed bound at baseline and dependent on all care. Pt will need BLS transport home at discharge. Per Aura, the pt doesn't have a HCP. PCP: Anastacio DEMPSEY Name
--- NOTE | 2024-08-16 15:00 | PM.HEMONCCN ---
Subjective - Subjective Chief complaint: CONSULT FOR: 1. PANCREATIC MASS. 2. LIVER LESIONS. Patient: new to practice Consult date: 08/16/24 Requesting Physician: Marion Bey. Primary Care Provider: Anastacio Burks MD Family Provider: Anastacio Burks MD Medical Summary: DIAGNOSIS: 1. PANCREATIC MASSES. 2. LIVER LESIONS. Sensitizer Utilized?: Yes - Senior Communications Specialist HPI - Consult Narrative Reason for consult: Consult for: 1. Pancreatic masses. 2. Liver lesions. Narrative: Sadaf Mullins is an 83-year-old lady with a PMH significant for?insulin-dependent type 2 diabetes, HTN, HLD, blind in right eye. She was recently diagnosed with metastatic cancer. She presented with?increased lethargy, weakness, and reduced p.o. intake x2 days. She had previously presented to the ED on 08/13 for evaluation of a fall upon getting out of bed. Imaging was negative for traumatic injury. UA was positive for UTI. CXR showed possible atypical pneumonia. CT of abdomen/pelvis showed multiple hepatic and pancreatic masses compatible with metastatic disease, retroperitoneal kaylee metastasis, and bibasilar pneumonia with small parapneumonic effusions. She was sent home on oral antibiotics and for outpatient Oncology follow up. Pt is awake and alert, occasionally tracking with her eyes, but not responding to questions. She lives with her son who states she has had decreased appetite and recent weight loss for months. Over past couple of days, she has grown increasingly lethargic, weak, and eating and drinking very little. Has stopped speaking ambulating. No nausea, vomiting, or diarrhea. In the ED pt was mildly hypertensive at 155/76, vitals otherwise stable and WNL. Satting at 97% on RA. Labs were significant for mild leukocytosis of 11.1, creatinine 1.35 (previously 0.80), POC for 33, random glucose 484, T bili 2.2, AST 171, ALT 118, alk-phos 757, beta hydroxybutyrate 3.13. Lactic acid WNL. CTA of head:Negative for acute intracranial abnormality. Pt was treated in the ED with IVF, vancomycin, and Zosyn. Admitted for evaluation and management of acute metabolic encephalopathy and CRISTI in the setting of metastatic disease, reduced p.o. intake, as well as UTI and bibasilar pneumonia. Cat scan of the abdomen pelvis from 08/13/2024: 1. Multiple hepatic and pancreatic masses, compatible with metastatic disease. 2. Small amount of ascites. Peritoneal carcinomatosis can not be excluded. 3. Retroperitoneal kaylee metastases. 4. Bibasilar pneumonia with small parapneumonic effusions. 5. Coronary artery disease. [facility] Medical History:) High cholesterol Hypertension Diabetes mellitus Family History: Mother No problems noted. Father No problems noted. Social History:) Alcohol intake: former Advance Directives: No Advance Directives Information Provided: Yes service: No Current occupational status: retired Review of Systems Review of Systems: Yes Unobtainable due to mental status [facility] Medical History: Medical History (Last Reviewed 08/15/24 @ 17:46 by Selene Espinal RN) Diabetes mellitus High cholesterol Hypertension Family History: Family History (Last Updated 07/11/24 @ 10:06 by Erick Lopez MD) Mother No problems noted. Father No problems noted. Social History: Social History (Last Reviewed 01/10/24 @ 21:39 by Be Huerta MD) Living Situation History: Household Members: Unknown / Unable to asses Housing: Unknown / Unable to asses Do you presently have visiting nurse or other home services: Do you presently have visiting nurse or other home services comment: unkown Tobacco History: Patient Tobacco Use Status: Tobacco use Unknown Occupation Assessmet: service: No Current occupational status: retired Home Medications and Allergies Current Medications: Current Medications Acetaminophen (Acetaminophen 325 Mg Tablet) 650 mg PO Q6H PRN PRN Reason: Pain, Mild 1-3,fever,headache Amlodipine Besylate (Amlodipine Besylate 2.5 Mg Tablet) 2.5 mg PO DAILY [facility]; Protocol Last Admin: 08/16/24 08:41 Dose: Not Given Aspirin (Aspirin Enteric Coated 81 Mg Tablet.Dr) 81 mg PO DAILY [facility] Last Admin: 08/16/24 08:42 Dose: Not Given Atorvastatin Calcium (Atorvastatin Calcium 20 Mg Tablet) 20 mg PO DAILY [facility] Last Admin: 08/16/24 08:42 Dose: Not Given Calcium Carbonate (Calcium Carbonate 750 Mg Tab.Chew) 750 mg PO Q4H PRN PRN Reason: Heartburn Ceftriaxone Sodium (Ceftriaxone Sodium 1 Gm Vial) 1 gm IVPUSH Q24H [facility] Last Admin: 08/15/24 21:17 Dose: 1 gm Dextrose (Dextrose 50 % 25 Gm/50 Ml Syringe) 25 gm IVPUSH Q15M PRN; Protocol PRN Reason: per Hypoglycemia Standing Ord. Enoxaparin Sodium (Enoxaparin Sodium 30 Mg/0.3 Ml Syringe) 30 mg SUBCUT Q24H [facility] Last Admin: 08/15/24 17:03 Dose: 30 mg Glucose (Glucose Gel 15 Gm Gel..Gram.) 15 gm PO Q15M PRN; Protocol PRN Reason: per Hypoglycemia Standing Ord. Sodium Chloride (Ns) 1,000 mls @ 80 mls/hr IVCONT .[id number] [facility] Last Admin: 08/16/24 09:42 Dose: 80 mls/hr Azithromycin 500 mg/ Sodium (Chloride) 250 mls @ 125 mls/hr IV Q24H [facility] Last Infusion: 08/15/24 23:33 Dose: Infused Insulin Human Lispro (Insulin Lispro 100 Unit/Ml 3 Ml Vial) 0 unit SUBCUT QIDACHS [facility]; Protocol Last Admin: 08/16/24 11:41 Dose: 6 unit Magnesium Hydroxide (Milk Of Magnesia 30 Ml Oral.Susp) 30 ml PO DAILY PRN PRN Reason: Constipation Melatonin (Melatonin 3 Mg Tablet) 6 mg PO BEDTIME PRN PRN Reason: Insomnia Sodium Chloride (0.9 % Sodium Chloride Flush 3 Ml Syringe) 3 ml IVFLUSH QSHIFT [facility] Last Admin: 08/16/24 08:27 Dose: 3 ml Vitamin D (Cholecalciferol (Vitamin D3) 25 Mcg Tablet) 50 mcg PO DAILY [facility] Last Admin: 08/16/24 08:42 Dose: Not Given Home Medications ?Medication ?Instructions ?Recorded ?Confirmed ?Type amlodipine 2.5 mg tablet 2.5 mg PO DAILY 07/11/24 08/15/24 History aspirin 81 mg tablet,delayed 81 mg PO DAILY 07/11/24 08/15/24 History release atorvastatin 20 mg tablet 20 mg PO DAILY 07/11/24 08/15/24 History empagliflozin 25 mg tablet 25 mg PO DAILY 07/11/24 08/15/24 History (Jardiance) insulin aspart U-100 100 unit/mL 12 unit subcut DAILY@1700 07/11/24 08/15/24 History (3 mL) subcutaneous pen (Novolog FlexPen U-100 Insulin aspart) insulin degludec 100 unit/mL (3 20 unit subcut DAILY@1900 07/11/24 08/15/24 History mL) subcutaneous pen (Tresiba FlexTouch U-100 insulin) irbesartan 300 mg tablet 300 mg PO DAILY 07/11/24 08/15/24 History metformin 500 mg tablet 500 mg PO BID 07/11/24 08/15/24 History cholecalciferol (vitamin D3) 25 50 mcg PO DAILY 08/15/24 08/15/24 History mcg (1,000 unit) chewable tablet (Vitamin D3) insulin aspart U-100 100 unit/mL 16 unit subcut DAILY@1100 08/15/24 08/15/24 History (3 mL) subcutaneous pen Allergies Allergy/AdvReac Type Severity Reaction Status Date / Time No Known Allergies (No Known Allergy Verified 08/15/24 11:10 Allergies*) Physical Exam Vital signs: Vital Signs Temp 97.3 F 08/16/24 08:00 Pulse 92 08/16/24 08:00 Resp 16 08/16/24 08:00 BP 150/65 H 08/16/24 08:00 Pulse Ox 95 08/16/24 08:00 O2 Del Method Room Air 08/16/24 08:00 Intake & Output 08/15/24 08/16/24 08/16/24 18:59 06:59 18:59 Intake Total 2308 / 3058 750 / 3058 333.333 / 333.333 Output Total 325 / 600 275 / 600 400 / 400 Balance 1982 475 / 2458 -66.667 / -66.667 Urine Output (Average ml/kg/hr) 0.46 0.39 0.57 Intake: Intake, IV Amount 2308 / 3058 750 / 3058 333.333 / 333.333 0.9 % Sodium Chloride 1,758 ml 1758 / 1758 @ 1758 mls/hr IV .Q1H [facility] Rx#: [id number] Azithromycin 500 mg In 0.9 % 250 / 250 Sodium Chloride 250 ml @ 125 mls/hr IV Q24H [facility] Rx#: [id number] Piperacillin Sodium/Tazobactam 50 / 50 3.375 gm In 0.9 % Sodium Chloride 50 ml @ 100 mls/hr IV ONCE ONE Rx#:[id number] vancomycin HCL 1,500 mg In 0.9 500 / 500 % Sodium Chloride 500 ml @ 333. 333 mls/hr IV ONCE ONE Rx#: [id number] 0.9 % Sodium Chloride 1,000 ml 500 / 500 333.333 / 333.333 @ 80 mls/hr IVCONT .[id number] [facility] Rx#:[id number] Output: Output, Urine Amount (Catheter) 325 / 600 275 / 600 400 / 400 Urethral 325 / 600 275 / 600 400 / 400 Other: NPO Yes Yes Breakfast % Eaten npo Lunch % Eaten npo Urine Urinal Urine Color Yellow Arabella Arabella Weight 58.6 kg Weight 58.6 kg Hem/Onc Consult Result - Labs CBC & Chem 7: 08/15/24 11:21 08/16/24 05:58 Labs: BMP 08/16/24 05:58 Sodium 140 Potassium 4.5 Chloride 108 Carbon Dioxide 21 L BUN 37 H Creatinine 1.05 Calcium 9.3 Liver Function 08/16/24 Range/Units 05:58 Total Bilirubin 3.3 H (0.0-1.0) mg/dL AST 253 H (5-31) U/L ALT 138 H (0-31) U/L Alkaline Phosphatase 712 H (39-117) U/L Albumin 2.9 L (3.5-5.0) g/dL Assessment and Plan Patient Active problem list reviewed?: Yes (1) Pancreatic mass Status: Acute Assessment and plan: 83-year-old unfortunate lady with dementia, presented with?increased lethargy, weakness, and reduced p.o. intake x2 days. Pt was admitted to the hospital for further evaluation and treatment of acute metabolic encephalopathy and CRISTI in the setting of metastatic disease, reduced p.o. intake, as well as UTI and bibasilar pneumonia that failed outpatient therapy. Acute metabolic encephalopathy Pt with increased confusion, lethargy, not speaking, reduced p.o. intake despite oral abx in the setting of likely metastatic disease, as well as UTI and bibasilar pneumonia UTI Continue ceftriaxone Follow up final urine and blood culture CAP Imaging on 08/13 also found bibasilar pneumonia Continue ceftriaxone and azithromycin May use supplemental oxygen to keep oxygen saturation greater than 90% Metastatic disease CAT scan of the abdomen pelvis from 08/13 revealed: 1. Multiple hepatic and pancreatic masses, compatible with metastatic disease. 2. Small amount of ascites. Peritoneal carcinomatosis can not be excluded. 3. Retroperitoneal kaylee metastases. 4. Bibasilar pneumonia with small parapneumonic effusions. 5. Coronary artery disease. Talked to the son on the phone, regarding the above findings and if they wish to pursue further workup. He said he is working but will be over in a couple of hours, to discuss further. PLAN: I will proceed according to their wishes. If they want a workup done can schedule a biopsy of the liver lesion. If they prefer palliative care will refer to hospice. Thank you for the consult, CC: Dr. Chaves Name. Discussed with son and [id number]. They wanted time to discuss with the rest of the family. They have elected to proceed with the biopsy of the liver lesion. Will set that up as an outpatient. Thank you, - Time Spent With Patient Time Spent with Patient (in minutes): 30
[2024-08-16 15:17] VITALS: BP 183/79; PULSE 87; RESP 20; TEMP 36.4; O2SAT 97
[2024-08-16] MEDS: Aspirin Enteric Coated 81 MG TABLET.DR PO (15:56)
[2024-08-16 16:24] LABS: Glucose, Whole Blood 156 mg/dL (60-115)
--- NOTE | 2024-08-16 18:25 | PC.NURSE ---
Pt had high bp and morning meds were withheld as pt was npo. Meds were given per order of provider after a nursing bedside swallow was performed; pt tolerated well. Diet advanced to pureed and ate 100% of dinner
[2024-08-16 18:45] VITALS: BP 123/67; PULSE 92; RESP 20; O2SAT 93
[2024-08-16 19:11] VITALS: BP 159/66; PULSE 88; RESP 20; TEMP 37.1; O2SAT 96
[2024-08-16 21:11] LABS: Glucose, Whole Blood 261 mg/dL (60-115)
[2024-08-17 04:00] VITALS: BP 145/66; PULSE 83; RESP 16; TEMP 36.6; O2SAT 97
[2024-08-17 07:24] LABS: Glucose, Whole Blood 312 mg/dL (60-115)
[2024-08-17 07:31] VITALS: BP 168/67; PULSE 83; RESP 18; TEMP 36.6; O2SAT 97
[2024-08-17] MEDS: Aspirin Enteric Coated 81 MG TABLET.DR PO (07:52)
--- NOTE | 2024-08-17 09:48 | MHC.SL.SWA ---
Speech Pathologist Impression: Risk of Aspiration Due to: Dysphasia Diet Status: Mild oral phase dysphagia secondary to edentulous state. Liquid Consistency and Strategies for Safe Swallow: Liquid Intake Recommendation: Thin Liquid Intake Strategies: Solid Food Consistency: Dietary Recommendations: Chopped/Advanced (NDD3) Additional Modifications to Solid Foods: Oral Medication Intake: Whole with Liquid Please contact the pharmacy regarding appropriate crushable or liquid drug formulations that are available whenever modified delivery is recommended. Compensatory Strategies and Precautions to be Taken for Safe Swallow: Supervision While Eating and Drinking for Safe Swallow: Intermittent Supervision Foods to Avoid: Tough difficult to chew solids. Swallowing Recommended Treatments: Recommendation for Speech: Inpatient Speech Therapy Comment: Patient presents with a mild oral phase dysphagia secondary to edentulous state, with all other aspects of swallow WFL. Recommend UPGRADE diet to CHOPPED/ADVANCED (NDD3) continue with THIN LIQUIDS (straws o.k.) with pills whole with liquid, or puree as preferred by Patient/RN. INSTRUCTION LIBRARIAN will f/u 1-2 X for toleration of diet and secondary to level of confusion, risk of FTT. P.A., RD notified of recommendations by secure text, RN in person, white board altered with diet recommendations in room. Note: Patient is Barbadian speaking only, all communication for eval completed in Barbadian. Frequency/Duration: Date Range for Service Req: Timeline to reassess: Rn Transitional Care Clinican/Clinical Fellow: No Supervisory Statement: I have reviewed and agree with the student/clinical fellow's documentation: N/A Speech Language Pathologist: Sarah Stovall M.A., [facility]-INSTRUCTION LIBRARIAN
[2024-08-17 11:17] LABS: Glucose, Whole Blood 356 mg/dL (60-115)
--- NOTE | 2024-08-17 11:34 | PC.NURSE ---
11am poc 356. Provider Ladonna TEMPLE notifed. To give 10 units per sliding scale.
--- NOTE | 2024-08-17 12:39 | MHC.CM.PN ---
Addendum entered by Christina Corcoran 08/17/24 14:25: HOSPICE LIFE CARE SW IN TO DO INFORMATIONAL WITH SON. SON IS AGREEABLE TO THE HOSPICE PLAN AND EQUIPMENT NEEDS OBTAINED BY [facility] SW. PA UPDATED AND WILL ADDRESS [facility] 08/18. CM WILL CONTINUE TO FOLLOW FOR THE PLAN. Original Note: SON AT BEDSIDE AND IS REQUESTING A HOSPICE INFORMATIONAL. HE IS REQUESTING HOSPICE LIFE CARE. A REFERRAL WAS SENT TO [facility]IA [facility]. PA AWARE. PT ALSO ABLE TO COMPLETE A HCP WITH RONEY, RN AND MOTION PICTURE CRITIC.
--- NOTE | 2024-08-17 13:25 | HO.PM.IMPN ---
Subjective Subjective Date of Service: 08/17/24 Interval History: Seen and examined this morning Follow-up for new cancer diagnosis, generalized weakness, UTI Patient seen with son at the bedside, history obtained with the assistance of a enroller Majority of history obtained from patient's son. Patient awake, alert but does not contribute much to conversation Physical Exam Vital Signs: Vital Signs: Last Vital Signs Temp 97.9 F 08/17/24 07:31 Pulse 83 08/17/24 07:31 Resp 18 08/17/24 07:31 BP 168/67 H 08/17/24 07:31 Pulse Ox 97 08/17/24 07:31 O2 Del Method Room Air 08/17/24 07:31 BMI result Body Mass Index 23.6 Const: General: cooperative, comfortable, no acute distress, alert and awake Nutritional Appearance: average body habitus Eyes: Other: right eye opaque Resp: Effort & Inspection: normal respiratory effort, able to speak in complete sentences, no respiratory distress and no use of accessory muscles Cardio: Rate: regular rate GI: Palpation (GI): Soft to palpation Neuro: General: moves all extremities and CN's II-XI intact bilaterally Objective Data Active Medications Acetaminophen (Acetaminophen 325 Mg Tablet) 650 mg PO Q6H PRN PRN Reason: Pain, Mild 1-3,fever,headache Amlodipine Besylate (Amlodipine Besylate 2.5 Mg Tablet) 2.5 mg PO DAILY [facility]; Protocol Last Admin: 08/17/24 07:52 Dose: 2.5 mg Documented By: KACIE Aspirin (Aspirin Enteric Coated 81 Mg Tablet.) 81 mg PO DAILY [facility] Last Admin: 08/17/24 07:52 Dose: 81 mg Documented By: KACIE Atorvastatin Calcium (Atorvastatin Calcium 20 Mg Tablet) 20 mg PO DAILY [facility] Last Admin: 08/17/24 07:53 Dose: 20 mg Documented By: KACIE Calcium Carbonate (Calcium Carbonate 750 Mg Tab.Chew) 750 mg PO Q4H PRN PRN Reason: Heartburn Ceftriaxone Sodium (Ceftriaxone Sodium 1 Gm Vial) 1 gm IVPUSH Q24H [facility] Last Admin: 08/16/24 21:52 Dose: 1 gm Documented By: OCTAVIO Dextrose (Dextrose 50 % 25 Gm/50 Ml Syringe) 25 gm IVPUSH Q15M PRN; Protocol PRN Reason: per Hypoglycemia Standing Ord. Enoxaparin Sodium (Enoxaparin Sodium 30 Mg/0.3 Ml Syringe) 30 mg SUBCUT Q24H [facility] Last Admin: 08/16/24 18:18 Dose: 30 mg Documented By: CELIA Glucose (Glucose Gel 15 Gm Gel..Gram.) 15 gm PO Q15M PRN; Protocol PRN Reason: per Hypoglycemia Standing Ord. Sodium Chloride (Ns) 1,000 mls @ 80 mls/hr IVCONT .[id number] [facility] Last Infusion: 08/17/24 12:57 Dose: Infused Documented By: KACIE Azithromycin 500 mg/ Sodium (Chloride) 250 mls @ 125 mls/hr IV Q24H [facility] Last Infusion: 08/16/24 23:59 Dose: Infused Documented By: OCTAVIO Insulin Glargine (Insulin Glargine,Hum.Rec.Anlog 100 Unit/Ml 10 Ml Vial) 14 unit SUBCUT DAILY@1900 [facility] Insulin Human Lispro (Insulin Lispro 100 Unit/Ml 3 Ml Vial) 0 unit SUBCUT QIDACHS [facility]; Protocol Last Admin: 08/17/24 11:40 Dose: 10 unit Documented By: CELIA Magnesium Hydroxide (Milk Of Magnesia 30 Ml Oral.Susp) 30 ml PO DAILY PRN PRN Reason: Constipation Melatonin (Melatonin 3 Mg Tablet) 6 mg PO BEDTIME PRN PRN Reason: Insomnia Last Admin: 08/16/24 23:01 Dose: 6 mg Documented By: OCTAVIO Sodium Chloride (0.9 % Sodium Chloride Flush 3 Ml Syringe) 3 ml IVFLUSH QSHIFT [facility] Last Admin: 08/17/24 07:53 Dose: Not Given Documented By: KACIE Non-Admin Reason: IV Running Vitamin D (Cholecalciferol (Vitamin D3) 25 Mcg Tablet) 50 mcg PO DAILY [facility] Last Admin: 08/17/24 07:52 Dose: 50 mcg Documented By: KACIE Labs 08/15/24 11:21 08/16/24 05:58 Labs: Laboratory Results - last 24 hr 08/16/24 08/16/24 08/17/24 16:20 21:02 07:20 POC Glucose 156 H 261 H 312 H 08/17/24 11:13 POC Glucose 356 H* Microbiology Microbiology Results: Microbiology 08/15/24 11:58 Blood Culture - Preliminary Blood - Venous No growth after 24 hours. 08/15/24 11:58 Blood Culture - Preliminary Blood - Venous No growth after 24 hours. Assessment and Plan (1) Pancreatic mass: Status: Acute Plan 83-year-old female with a PMH significant for?insulin-dependent type 2 diabetes, HTN, HLD, blind in right eye, and recently discovered likely metastatic cancer who presented to the ED with?increased lethargy, weakness, and reduced p.o. intake x2 days. Pt admitted to the hospital for treatment and further evaluation acute metabolic encephalopathy and CRISTI in the setting of metastatic disease, reduced p.o. intake, as well as UTI and bibasilar pneumonia that failed outpatient therapy. Acute metabolic encephalopathy Pt with increased confusion, lethargy, not speaking, reduced p.o. intake despite oral abx in the setting of likely metastatic disease, as well as UTI and bibasilar pneumonia; improving, pt awake, alert, tolerating diet UTI Continue ceftriaxone Urine culture from August 13 growing pansensitive E coli Can be discharged home with oral Ceftin Blood cultures negative CAP Imaging on 08/13 also found bibasilar pneumonia Continue ceftriaxone and azithromycin No hypoxia, currently on room air Blood cultures negative Metastatic disease New diagnosis CT of abd/pelvis on 08/13 found multiple hepatic and pancreatic masses compatible with metastatic disease, retroperitoneal kaylee metastasis Oncology consultation - can have outpatient bx and follow up if pt/family decide to pursue Family considering options. Plan for hospice informational session CRISTI resolved. tolerating diet. stop IVF Hyperglycemia Patient's POC for 33, random glucose 484, beta hydroxybutyrate 3.13 No DKA, no acidosis, bicarb 20, no anion gap Hold glipizide, metformin Trulicity is non formulary, we will convert to lower dose of Lantus Diabetic diet Transaminitis Likely secondary to metastatic disease HTN Hold irbesartan due to CRISTI Continue amlodipine HLD hold statin for elevated LFTs Full Code DVT Prophylaxis: Lovenox dispo - PT evaluation pending Quality Stroke Does the patient have a stroke diagnosis?: No VTE Prior VTE?: No VTE Risk Level:: Medical - moderate - high VTE Device Contraindication: Treatment Not Indicated VTE Drug Contraindication: N/A - Med Ordered
[2024-08-17 15:27] VITALS: BP 126/62; PULSE 87; RESP 16; TEMP 36.1; O2SAT 96
[2024-08-17 16:14] LABS: Glucose, Whole Blood 331 mg/dL (60-115)
[2024-08-17] MEDS: 0.9 % Sodium Chloride Flush 3 ML SYRINGE IVFLUSH ×2 (17:32→20:41)
[2024-08-17] MEDS: Insulin Glargine,Hum.rec.anlog 100 UNIT/ML 10 ML VIAL 10 UNIT SUBCUT (17:51)
[2024-08-17 19:10] VITALS: BP 136/70; PULSE 91; RESP 18; TEMP 36.8; O2SAT 97
[2024-08-17 19:17] LABS: Glucose, Whole Blood 308 mg/dL (60-115)
--- NOTE | 2024-08-17 19:23 | PC.NURSE ---
dunn removed at noon. BS at 1535 for 184mL.
[2024-08-17 20:32] LABS: Glucose, Whole Blood 286 mg/dL (60-115)
[2024-08-18 03:01] VITALS: BP 168/82; PULSE 92; RESP 18; TEMP 36.3; O2SAT 97
[2024-08-18 07:09] VITALS: BP 166/74; PULSE 99; RESP 18; TEMP 36.5; O2SAT 97
--- NOTE | 2024-08-18 07:25 | PC.NURSE ---
Late entry: Pt was having difficultly voiding after her Manzano was removed on 08/17 at noon. Pt was unable to void on her own and was bladder scan at 22:00 for 281mls. MD Baker was notified of the situation. No orders were given at this time. Pt was bladder scan again at 01:00 for 367mls. Pt was assisted to bedside commode with 2 staff but was unable to void. Afterwards pt void 150ml tejas color urine through the purewick with 1 episode of urine incontinence. Pt was bladder scan and had 154mls. MD Baker was notified of the update. No new orders were given at this time. Will continue to monitor's pt output.
[2024-08-18 07:30] LABS: Glucose, Whole Blood 256 mg/dL (60-115)
[2024-08-18] MEDS: Aspirin Enteric Coated 81 MG TABLET.DR PO (07:53)
[2024-08-18] MEDS: 0.9 % Sodium Chloride Flush 3 ML SYRINGE IVFLUSH (07:53)
--- NOTE | 2024-08-18 10:40 | PM.DS ---
DS: Providers Provider Date of Service: 08/18/24 Date of admission: 08/15/24 13:11 Date of discharge: 08/18/24 Primary care physician: Anastacio Burks MD Consults: 08/15/24 15:48 Consult to Hematology / Oncology Routine Consulting Provider: [facility] Oncology/Hematology Reason for consultation: CT of abd/pelvis showing multiple hepatic and pancreatic masses [facility]charging clinician: Xiomara Cyr DS: Diagnosis Discharge Diagnosis (1) Pancreatic mass: Status: Acute DS: Summary Hospital Course Hospital Course: History and physical as per admitting provider. Pt is an 83-year-old female with a PMH significant for?insulin-dependent type 2 diabetes, HTN, HLD, blind in right eye, and recently discovered likely metastatic cancer who presents to the ED with?increased lethargy, weakness, and reduced p.o. intake x2 days. Pt previously presented to the ED 2 days before on 08/13 for evaluation of fall after attempting to get up out of bed. Imaging was negative for traumatic injury, though UA was positive for UTI and CXR showed possible atypical pneumonia. CT of abdomen/pelvis showed multiple hepatic and pancreatic masses compatible with metastatic disease, retroperitoneal kaylee metastasis, and bibasilar pneumonia with small parapneumonic effusions. Was sent home on oral antibiotics and for outpatient Oncology follow up. Pt is awake and alert, occasionally smiling and tracking with her eyes, but not responding to questions. Pt lives with her son who states pt has had decreased appetite and recent weight loss for many months, and has had reduced p.o. intake over this time. Since discharge home 2 days ago pt has grown increasingly lethargic, weak, and eating and drinking very little. Has largely stopped speaking and been unable to ambulate. No reported nausea, vomiting, or diarrhea. In the ED pt was mildly hypertensive at 155/76, vitals otherwise stable and WNL. Satting at 97% on RA. Labs were significant for mild leukocytosis of 11.1, creatinine 1.35 (previously 0.80), POC for 33, random glucose 484, T bili 2.2, AST 171, ALT 118, alk-phos 757, beta hydroxybutyrate 3.13. Lactic acid WNL. CTA of head today negative for acute intracranial abnormality. Pt was treated in the ED with IVF, vancomycin, and Zosyn. Pt is admitted to the hospital for treatment and further evaluation acute metabolic encephalopathy and CRISTI in the setting of metastatic disease, reduced p.o. intake, as well as UTI and bibasilar pneumonia that failed outpatient therapy. Acute metabolic encephalopathy in the setting of likely metastatic disease, as well as UTI and bibasilar pneumonia; resolved and back to baseline. UTI Treated with IV ceftriaxone. Urine culture from August 13 growing pansensitive E coli. Can be discharged home with oral Ceftin. Blood cultures negative CAP Imaging on 08/13 also found bibasilar pneumonia. Continue ceftriaxone and azithromycin. No hypoxia, currently on room air. Blood cultures negative. CRISTI resolved with IVF Hyperglycemia No evidence of DKA. , resume baseline medications upon discharge Metastatic disease New diagnosis. CT of abd/pelvis on 08/13 found multiple hepatic and pancreatic masses compatible with metastatic disease, retroperitoneal kaylee metastasis. Seen by Oncology, patient and family had hospice informational and has elected to forego biopsy and plans to return home with hospice services. Time Attestation Discharge Coordination Time (in mins): 36 Quality: Safe Use of Opioids Does Pt have an Active Cancer Diagnosis on the Problem List?: No Quality: Stroke Does the patient have a stroke diagnosis?: No Physical Exam Vital Signs: Vital Signs: Last Vital Signs Temp 97.7 F 08/18/24 07:09 Pulse 99 08/18/24 07:09 Resp 18 08/18/24 07:09 BP 166/74 H 08/18/24 07:09 Pulse Ox 97 08/18/24 07:09 O2 Del Method Room Air 08/18/24 03:01 BMI result Body Mass Index 23.6 Const: General: cooperative, comfortable, no acute distress, alert and awake Nutritional Appearance: average body habitus Eyes: Other: right eye opaque Resp: Effort & Inspection: normal respiratory effort, able to speak in complete sentences, no respiratory distress and no use of accessory muscles Cardio: Rate: regular rate GI: Palpation (GI): Soft to palpation Neuro: General: moves all extremities and CN's II-XI intact bilaterally DS: Data Data Completed and Pending Labs on day of discharge: Laboratory Results - last 24 hr 08/17/24 08/17/24 08/17/24 11:13 16:08 19:13 POC Glucose 356 H* 331 H 308 H 08/17/24 08/18/24 20:28 07:06 POC Glucose 286 H 256 H Preliminary micro results at discharge 08/15/24 11:58 Blood Culture - Preliminary Blood - Venous No growth after 48 hours. 08/15/24 11:58 Blood Culture - Preliminary Blood - Venous No growth after 48 hours. Discharge Plan Discharge Anticipated Discharge Date/Time: 08/18/24 10:46 Patient Disposition: Hospice - Home Discharge Diagnosis: Acute metabolic encephalopathy CRISTI Hyperglycemia Transaminitis Referrals: Name,MD Anastacio [Primary Care Provider, Internal Medicine] - 1 Week Discharge Medications: New cefuroxime axetil 500 mg tablet 500 mg PO BID Qty: 8 0RF morphine concentrate 100 mg/5 mL (20 mg/mL) solution 5 mg PO Q3H PRN (Reason: pain/comfort) 15 Days Qty: 30 0RF Rx Instructions: Partial Fill upon patient request. HOSPICE Continued aspirin 81 mg tablet,delayed release (DR/EC) 81 mg PO DAILY atorvastatin 20 mg tablet 20 mg PO DAILY irbesartan 300 mg tablet 300 mg PO DAILY metformin 500 mg tablet 500 mg PO BID azithromycin 250 mg tablet See Rx Instructions .ROUTE .COMPLEX Qty: 6 0RF Rx Instructions: For 250 mg dose pack: take 500 mg today (day 1), then 250 mg for 4 days (days 2-5) insulin aspart U-100 100 unit/mL (3 mL) Insulin Pen 16 unit SUBCUT DAILY@1100 Rx Instructions: BEFORE LUNCH cholecalciferol (vitamin D3) [Vitamin D3] 25 mcg (1,000 unit) Tablet,Chewable 50 mcg PO DAILY amlodipine 2.5 mg tablet 2.5 mg PO DAILY Jardiance 25 mg tablet 25 mg PO DAILY insulin degludec [Tresiba FlexTouch U-100] 100 unit/mL (3 mL) insulin pen 20 unit subcut DAILY@1900 insulin aspart U-100 [Novolog FlexPen U-100 Insulin] 100 unit/mL (3 mL) insulin pen 12 unit subcut DAILY@1700 Rx Instructions: before dinner Discontinued cefpodoxime 200 mg tablet 200 mg PO BID Qty: 10 0RF Rx Instructions: must administer with a meal/food Discharge Orders: Discharge Order (Routine); Ordered 08/18/24 Ordered By: Xiomara Cyr Diet: Advance to usual diet Activity on Discharge: As tolerated Stand Alone Forms: Patient Portal Discharge page Print Language: Chinese Care Plan Goals: Complete antibiotic therapy Health Concerns: Acute metabolic encephalopathy CRISTI -resolved Hyperglycemia, improving Transaminitis - likely due to metastases probable metastatic cancer Plan of Treatment: complete course of antibiotics Plan to return home with hospice services Assessment: See discharge summary
[2024-08-18 11:21] LABS: Glucose, Whole Blood 275 mg/dL (60-115)
--- NOTE | 2024-08-18 12:53 | MHC.SL.SWA ---
Speech Pathologist Impression: Risk of Aspiration Due to: Dysphasia Diet Status: Recommend continue on current diet of CHOPPED/ADVANCED (NDD3) with Thin liquids, pills whole in puree or liquid, 1-1 feeding. SPORTS [employer]ICINE [employer]SEUR to f/u X1 to assure toleration, adequate intake. Liquid Consistency and Strategies for Safe Swallow: Liquid Intake Recommendation: Thin Liquid Intake Strategies: Unrestricted Solid Food Consistency: Dietary Recommendations: Chopped/Advanced (NDD3) Additional Modifications to Solid Foods: Oral Medication Intake: Whole with Liquid Please contact the pharmacy regarding appropriate crushable or liquid drug formulations that are available whenever modified delivery is recommended. Compensatory Strategies and Precautions to be Taken for Safe Swallow: Sitting Upright (90 deg) Liquids from Cup Liquids from Straw Small Bites and Sips Alternate Liquids/Solids Rate of Ingestion Change Supervision While Eating and Drinking for Safe Swallow: Total Assistance (1:1) Foods to Avoid: Tough difficult to chew solids. Swallowing Recommended Treatments: Compens. Strategy Educat. Recommendation for Speech: Inpatient Speech Therapy Comment: Patient seen at lunch for toleration of recommended diet. Patient was alone in room, seated in recliner chair, with lunch delivered to the table in room. Patient agree to try some lunch, and was given presentations of chopped fish and broccoli with a gravy provided to moisten the food. Patient noted to tolerate this texture well, however ate very slowly, with prolonged period of orally manipulating the bolus on each bite. Mild oral residual noted periodically, cleared with sips of surya anna from straw. Patient ate approximately a third of the meal with SPORTS MEDICINE MASSEUR over a period of about 20 minutes. SPORTS MEDICINE MASSEUR consulted with AWNING ERECTOR at conclusion, requesting AWNING ERECTOR attempt to continue the meal after SPORTS MEDICINE MASSEUR departed. Recommend continue on current diet of CHOPPED/ADVANCED (NDD3) with Thin liquids, pills whole in puree or liquid, 1-1 feeding. SPOR[employer]IC[employer] MASSEUR to f/u X1 to assure toleration, adequate intake. Frequency/Duration: Date Range for Service Req: Timeline to reassess: Grain Packer Clinican/Clinical Fellow: No Supervisory Statement: I have reviewed and agree with the student/clinical fellow's documentation: N/A Speech Language Pathologist: Saarh Stovall M.A., [facility]-[employer]
[2024-08-18 15:24] VITALS: BP 165/80; PULSE 91; RESP 12; TEMP 36.4; O2SAT 97
--- NOTE | 2024-08-18 15:36 | MHC.CM.PN ---
CM MET WITH PTS SON, AARON, AT BEDSIDE WITH A DRIVER [employer] HE CONFIRMS PTS DME WAS DELIVERED THIS MORNING AND UNDERSTANDS [facility] WILL ADMIT PT TO SERVICE TOMORROW PER DISCUSSION, BLS TRANSPORT WAS BOOKED WITH [facility] FOR 1530 HOURS TODAY
== END 2024-08-18 15:36 | disposition hospice, home (50) | DRG 193 ==
LOC: HO.ED 12:46 → HO.EDOVER 13:17 → HO.S3 14:42
PROVIDERS: Nurse Practitioner Acute Care; Admitting Provider Student in an Organized Health Care Education/Training Program; Emergency Provider Emergency Medicine; PCP Internal Medicine Geriatric Medicine; Visit Provider Physician Assistant Medical
DX: J18.9 Pneumonia, unspecified organism (principal); G93.41 Metabolic encephalopathy; N17.9 Acute kidney failure, unspecified; N39.0 Urinary tract infection, site not specified; C78.6 Secondary malignant neoplasm of retroperitoneum and peritoneum; F05 Delirium due to known physiological condition; C78.7 Secondary malignant neoplasm of liver and intrahepatic bile duct; C78.89 Secondary malignant neoplasm of other digestive organs; Z79.4 Long term (current) use of insulin; E11.65 Type 2 diabetes mellitus with hyperglycemia; I10 Essential (primary) hypertension; E78.5 Hyperlipidemia, unspecified; B96.20 Unspecified Escherichia coli [E. coli] as the cause of diseases classified elsewhere; H54.61 Unqualified visual loss, right eye, normal vision left eye; Z79.82 Long term (current) use of aspirin; Z79.84 Long term (current) use of oral hypoglycemic drugs; Z79.899 Other long term (current) drug therapy
CPT/HCPCS: 36415; 70450; 80053; 82010; 82140; 82803; 82947; 83605; 85025; 87040; 92526; 92610; 99285; J0456; J0696; J1650; J2405; J2543; J3371

== ENCOUNTER → 2024-08-15 11:51 | Outpatient (BNV) | payer OTHER, SELFPAY | PROVIDERS: Admitting Provider Student in an Organized Health Care Education/Training Program; Emergency Provider Emergency Medicine; PCP Internal Medicine Geriatric Medicine; Visit Provider Radiology Diagnostic Radiology | DX: J32.0 Chronic maxillary sinusitis (principal); H44.521 Atrophy of globe, right eye | CPT/HCPCS: 70450 ==

== ENCOUNTER → 2024-08-15 13:11 | Outpatient (BNV) | payer OTHER, SELFPAY | PROVIDERS: Admitting Provider Student in an Organized Health Care Education/Training Program; Emergency Provider Emergency Medicine; PCP Internal Medicine Geriatric Medicine; Visit Provider Internal Medicine Medical Oncology | DX: K86.89 Other specified diseases of pancreas (principal) | CPT/HCPCS: 99222 ==

== ENCOUNTER → 2024-08-15 13:11 | Outpatient (BNV) | payer OTHER, SELFPAY | PROVIDERS: Admitting Provider Student in an Organized Health Care Education/Training Program; Emergency Provider Emergency Medicine; PCP Internal Medicine Geriatric Medicine; Visit Provider Student in an Organized Health Care Education/Training Program | DX: K86.89 Other specified diseases of pancreas (principal) | CPT/HCPCS: 99223; 99232; 99239 ==